=== PATIENT | female | born 1960 | race Caucasian/White ===

== ENCOUNTER 2020-01-26 10:43 | Outpatient (REF) | payer MEDICAID, SELFPAY | END 2020-01-26 10:44 | disposition home or self-care (01) | LOC: HO.LAB 10:43 | PROVIDERS: PCP Family Medicine; Visit Provider Internal Medicine | DX: Z20.828 Contact with and (suspected) exposure to other viral communicable diseases (principal) | CPT/HCPCS: C9803; U0003 ==

== ENCOUNTER 2020-02-28 10:41 | Outpatient (REF) | payer MEDICAID, SELFPAY | END 2020-02-28 10:42 | disposition home or self-care (01) | LOC: HO.LAB 10:41 | PROVIDERS: PCP Family Medicine; Visit Provider Internal Medicine | DX: Z20.822 Contact with and (suspected) exposure to COVID-19 (principal) | CPT/HCPCS: 36415; C9803; U0003 ==

== ENCOUNTER 2020-11-05 16:24 | Emergency (ER) | payer MEDICAID, SELFPAY ==
[2020-11-05 16:54] VITALS: BP 134/83; PULSE 93; RESP 20; TEMP 36.1; O2SAT 99; BMI 34.3
[2020-11-05 18:00] VITALS: BP 138/76; PULSE 87; RESP 18; TEMP 36.6; O2SAT 99
--- NOTE | 2020-11-05 18:06 | ED.URI ---
HPI - URI/Sore Throat General Chief Complaint: Upper Respiratory Symptoms Stated Complaint: covid test heachache cough Time Seen by Provider: 11/05/20 17:53 Source: patient Mode of arrival: ambulatory Limitations: language barrier (Lithuanian-speaking) History of Present Illness HPI Narrative: 60-year-old female with a past medical history of diabetes, thyroid disease, fibromyalgia, breast cancer, arthritis and asthma presenting to the ED with complaints of intermittent chills, body aches, fatigue, nasal congestion/rhinorrhea and a dry cough for the past 3 days worse today. Denies recent travel or sick contacts. Denies any measured fevers, dizziness, neck pain/stiffness, sore throat, ear pain, productive cough, chest pain, dyspnea on exertion, orthopnea, palpitations, nausea/vomiting/diarrhea, abdominal pain, constipation, black or bloody stools, weakness, rashes or any other symptoms complaints or concerns at this time. MD elicited complaint: cough, sore throat, rhinorrhea and nasal congestion Pertinent past history: asthma Onset (ago): day(s) (3 days worse today) Consistency: constant and progressively worsening Severity: mild Description of mucous: clear, watery and yellow Able to tolerate fluids by mouth: Yes Exacerbating factors: other (Coughing) Relieving factors: nothing Associated symptoms: chills, myalgias, rhinorrhea, nasal congestion and cough Treatments prior to arrival: none Related Data Previous Rx's Medication Instructions Recorded albuterol sulfate 0.63 mg/3 mL 0.63 mg INHALATION QID PRN #75 ml 11/05/20 solution for nebulization albuterol sulfate 90 mcg/actuation 1 inh INHALATION QID PRN #8.5 g 11/05/20 aerosol inhaler azithromycin 250 mg tablet See Rx Instructions .ROUTE 11/05/20 .COMPLEX #6 tab lorazepam 1 mg tablet (Ativan) 1 mg PO Q8H PRN #10 tab 11/05/20 nebulizers (AeroEclipse II #1 ea 11/05/20 Nebulizer) Allergies Allergy/AdvReac Type Severity Reaction Status Date / Time No Known Allergies Allergy Unverified 11/03/19 16:21 Review of Systems Review of Systems: Constitutional : Positive chills/fatigue/malaise, No Weight loss, No Fever, No Night Sweats ENT/Mouth : Positive nasal congestion/rhinorrhea, No Hearing loss, No Ear Pain, No Sinus Pain, No Hoarseness, No sore throat, No Swallowing Difficulty Eyes: No Eye Pain, No Swelling, No Redness, No Foreign Body, No Discharge, No Vision Changes Cardiovascular : No Chest Pain, No SOB, No Dyspnea on Exertion, No Orthopnea, No Edema, No Palpitations Respiratory : Positive Cough, No Sputum, No Wheezing, No Smoke Exposure, No Dyspnea Gastrointestinal : No Nausea, No Vomiting, No Diarrhea, No Constipation, No abdominal Pain, No Hematochezia, No Melena Genitourinary : no irregular bleeding, No Dysuria, No Urinary Frequency, No Hematuria, No Urinary Incontinence, No Urgency, No Flank Pain, No Urinary Flow Changes, No Hesitancy Musculoskeletal : Positive myalgias,No joint pain, No Joint Swelling Skin : No Skin Lesions, No rash Neuro : No Weakness, No Numbness, No Paresthesias, No Loss of Consciousness, No Dizziness, No Headache Psych : No Anxiety/Panic, No Depression, No SI/HI/AH/VH, No Social Issues, Heme/Lymph: No Bruising, No Bleeding,No Lymphadenopathy Endocrine : No Polyuria, No Polydipsia, No Temperature Intolerance Yes all other systems are reviewed and are negative [facility] Past Medical History Attestation statement: The following information was validated with the patient. Medical History Arthritis Asthma Breast CA Cholecystectomy planned Diabetes Fibromyalgia Thyroid disease Surgical History History of surgery on arm Social History Social History Advance Directives: No Advance Directives Information Provided: No Physical Exam Vital Signs: Vital Signs: Last Vital Signs Temp 97.8 F 11/05/20 18:00 Pulse 87 11/05/20 18:00 Resp 18 11/05/20 18:00 BP 138/76 11/05/20 18:00 Pulse Ox 99 11/05/20 18:00 Body Mass Index 34.3 vital signs have been reviewed as normal and appeared to be correct. Blood pressure normal. Heart rate normal. Respiration rate normal. Temperature normal. Oxygen saturation normal. Appearance: Alert. Oriented X3. No acute distress. Head: Normal external exam. Normocephalic. Atraumatic. No Olivarez signs noted. No raccoon eyes noted Eyes: PERRLA. EOMI. Conjunctiva and sclera normal. Eyelids normal. ENT: EAC normal. TM's Normal. Pharynx normal. Uvula midline. Moist mucous membranes. No trismus noted. No drooling noted. No muffled voice noted. Neck: Normal inspection. Neck supple. FROM. No adenopathy. Thyroid Normal. No meningeal signs. No neck mass noted. CVS: Normal heart rate and rhythm. Heart sound normal. Pulses normal throughout. No murmurs/rales/gallops. Respiratory: No respiratory distress. Painless inspiration. Breath sounds normal. No wheezes/rales/rhonchi noted. Chest nontender. No accessory muscle usage noted or decreased air movement noted. Abdomen: Soft and nontender. Bowel sounds normal in all 4 quadrants. No distention noted. No organomegaly noted. No visible injury noted. Back: No CVA tenderness. Full range of motion noted. No rashes/lesion/induration/fluctuance or signs of infection noted. Skin: Skin warm and dry. Normal skin color. Normal skin turgor. No rashes/lesions/lacerations noted. Extremities: No lower extremity edema. Extremities exhibit normal range of motion. Extremities nontender. Neuro: Oriented X 3. No motor deficit. No sensory deficit. Reflexes normal. Normal steady gait. No focal neuro deficits noted. Vascular: + radial pulses/+ 2 distal pedal pulses/+2 dorsalis pedis b/l. Normal cap refill. No cyanosis noted to upper extremity nails and lower extremity toes nails. Course Course Course Narrative: 60-year-old female with a past medical history of diabetes, thyroid disease, fibromyalgia, breast cancer, arthritis and asthma presenting to the ED with complaints of intermittent chills, body aches, fatigue, nasal congestion/rhinorrhea and a dry cough for the past 3 days worse today. Patient also reported anxiety due to she is currently at a homeless [facility] and she has having trouble sleeping due to anxiety. Denies any SI/HI/auditory visual cine duong thoughts of self-injury. On exam patient is alert and oriented x3. Not in any acute distress. Vital signs are stable within normal limits. Lungs clear to auscultation. CV RRR. Abdomen is soft and nontender. COVID/RSV/flu still pending at this time. I explained to the patient that I will call her either today or tomorrow if she has positive results. Otherwise will DC home with antibiotics and symptomatic treatment along with instructions to return if any new or worsening symptoms. Patient understands and agrees with this plan. MDM - URI/Sore Throat Medical Records Attestation: I reviewed the patient's medical records. Lab Data Attestation: I reviewed the patient's lab results. Discharge Plan Discharge Clinical Impression: Asthma, Upper respiratory infection, Bronchitis Patient Disposition: Home, Self-Care Instructions: Asthma (ED), Acute Bronchitis (ED) Additional Instructions: Based on your symptoms and history we have sent a COVID-19. Although your RESULT IS PENDING at this time. RESULTS should return within 24-48 hours. At this time you will be contacted with either NEGATIVE OR POSITIVE results. -Please wait until we contact you for your results. At this time you will be okay for discharge. Please plan for self quarantine for up to 14 days. Do not expose yourself to others. You may not go to work. If testing does come back negative you may return to activities as long as you are no longer having any symptoms for at least 3 days. Please continue to follow cold instructions and wash your hands frequently. You may take Tylenol as directed on the bottle for pain or fever. Patient seen in the emergency department on 11/05/20 and should be excused from work until negative test results AND until 72 hours without any symptoms AND at least 10 days have passed since symptoms first appeared or since last exposure to COVID-19 positive patient CDC Guidelines for home isolation: - Stay away from others - WEAR A MASK if you are sick AND STAY HOME - Cover your mouth and nose with a tissue when you cough or sneeze. Dispose of tissues in a lined trash can and wash your hands immediately with soap and water for at least 20 seconds. If soap and water are not available, clean hands with alcohol-based hand junior sales representative that contains at least 60% alcohol. - Clean your hands often with soap and water for at least 20 seconds - Avoid touching your eyes, nose and mouth with unwashed hands - Do not share dishes, drinking glasses, cups, eating utensils, towels, or bedding with other people in your home. After using these items, wash them thoroughly with soap and water or put in the property clerk. - Clean high-touch surfaces in your isolation area ( sick room and bathroom) every day; let a caregiver clean and disinfect high-touch surfaces in other areas of the home. Clean the area or item with soap and water or another detergent if it is dirty. Then, use a household disinfectant. - Limit contact with pets and animals: If you must care for a pet, wash your hands before and after interacting with them). Prescriptions: New albuterol sulfate 0.63 mg/3 mL solution for nebulization 0.63 mg inhalation QID PRN (Reason: shortness of breath or wheezing) Qty: 75 RF: 0 azithromycin 250 mg tablet See Rx Instructions .ROUTE .COMPLEX Qty: 6 RF: 0 (DME) AeroEclipse II Nebulizer Misc See Rx Instructions .ROUTE .MEDSUPPLY Qty: 1 RF: 0 albuterol sulfate 90 mcg/actuation HFA aerosol inhaler 1 inh inhalation QID PRN (Reason: shortness of breath or wheezing) Qty: 8.5 RF: 0 lorazepam [Ativan] 1 mg tablet 1 mg PO Q8H PRN (Reason: anxiety) Qty: 10 RF: 0 Referrals: Physician,Unknown [Primary Care Provider] - 2 days (your pcp) Print Language: Amharic
[2020-11-05 18:40] LABS: Influenza A PCR NEGATIVE (Negative); Influenza B PCR NEGATIVE (Negative); Resp Syncy Virus RNA Qual PCR NEGATIVE (Negative); SARS COV2 PCR INHOUSE NEGATIVE (Negative)
== END 2020-11-05 18:49 | disposition home or self-care (01) ==
PROVIDERS: Emergency Provider Emergency Medicine Emergency Medical Services
DX: J06.9 Acute upper respiratory infection, unspecified (principal); J40 Bronchitis, not specified as acute or chronic; Z79.899 Other long term (current) drug therapy; Z20.822 Contact with and (suspected) exposure to COVID-19
CPT/HCPCS: 0241U; 36415; 99283; 99284

== ENCOUNTER 2022-06-03 10:18 | Inpatient (IN) | payer OTHER, SELFPAY ==
[2022-06-03] VITALS (12 sets, daily range): BP systolic 108–142; BP diastolic 60–79; PULSE 84–119; RESP 15–26; TEMP 36.7–40.4; O2SAT 91–94; BMI 22.3
--- NOTE | ~2022-06-03 | XR_ITS ---
EXAMINATION: XR CHEST CLINICAL INFORMATION: Cough. COMPARISON: CTA chest 05/03/[address] chest 04/27/2019.. TECHNIQUE: Frontal view of the chest was obtained. FINDINGS: The lungs are hypoexpanded but clear. The heart size and pulmonary vascularity is normal. No gross bony abnormality seen. XR/XR chest 1V IMPRESSION: No acute process seen.
--- NOTE | ~2022-06-03 | CT_ITS ---
EXAMINATION: CT CHEST WITHOUT CONTRAST CLINICAL INFORMATION: Cough fevers rhonchi bilateral COMPARISON: CTA chest from 05/03/2019 TECHNIQUE: Multidetector volumetric CT imaging of the chest was done. Axial MIP volume rendering provided. Sagittal and coronal reformatted images were obtained. This CT examination was performed using dose optimization techniques as appropriate, variously including the following: *Automated exposure control *Adjustment of mA and/or kV according to patient size (this includes techniques or standardized protocols for targeted exams where dose is matched to indication/reason for exam; i.e. extremities or head) *Use of iterative reconstruction technique DLP: 343.87 mGy-cm FINDINGS: LUNGS/PLEURA: Respiratory motion artifact limits evaluation. Biapical pleural parenchymal scarring. Emphysematous changes. Consolidative focus with air bronchograms in the right middle lobe. Evaluation for pulmonary nodules is limited secondary to respiratory motion artifact. Central airways are patent. No pneumothorax. No large pleural effusion. MEDIASTINUM: Heart is mildly enlarged. Coronary artery calcifications are noted. Aorta is nonaneurysmal and demonstrates atherosclerotic calcifications. Main pulmonary artery is borderline enlarged suggesting an element of pulmonary arterial hypertension. No enlarged lymph nodes per size criteria. AXILLA: No lymphadenopathy. Radiopaque clips in the left axilla. UPPER ABDOMEN: Portions of the anterior abdomen are not included in the [id number]. Status post cholecystectomy. Small hiatal hernia. OSSEOUS STRUCTURES: Multilevel degenerative changes of the thoracolumbar spine. CT/CT chest wo IV con IMPRESSION: 1. Respiratory motion artifact limits evaluation. 2. Consolidative focus with air bronchograms in the right middle lobe suggesting pneumonia. 3. Main pulmonary artery is borderline enlarged suggesting an element of pulmonary arterial hypertension. 4. Status post cholecystectomy. 5. Small hiatal hernia.
--- NOTE | ~2022-06-03 | US_ITS ---
EXAMINATION: US ABDOMEN LIMITED CLINICAL INFORMATION: Right upper quadrant pain and fever. COMPARISON: None available. TECHNIQUE: Real-time imaging of the right upper quadrant abdominal viscera. FINDINGS: PANCREAS: Normal. LIVER: The liver is enlarged in size measuring 20.2 cm. The liver contour is normal. Parenchymal echogenicity is increased. No focal hepatic lesion. There is no intrahepatic biliary duct dilatation seen. GALLBLADDER: The gallbladder has been surgically removed.. COMMON BILE DUCT: Normal in caliber measuring 0.6 cm in diameter. RIGHT KIDNEY: Normal. No hydronephrosis. No renal calculi or focal parenchymal lesions. The kidney measures 12.8 cm in maximum dimension. FREE FLUID: None. US/US abdomen limited IMPRESSION: 1. Mild hepatomegaly with increased hepatic echogenicity. No focal lesion seen. 2. The gallbladder has been surgically removed. 3. Visualized pancreas, CBD and right kidney is unremarkable.
--- NOTE | ~2022-06-03 | CT_ITS ---
EXAMINATION: CT ABDOMEN AND PELVIS WITHOUT CONTRAST CLINICAL INFORMATION: Fever. Right upper quadrant pain. COMPARISON: Ultrasound 06/03/2022 TECHNIQUE: Multidetector volumetric imaging was performed from the superior aspect of the liver through the pubic symphysis. Sagittal and coronal reformatted images were obtained on the technologist's workstation. This CT examination was performed using dose optimization techniques as appropriate, variously including the following: *Automated exposure control *Adjustment of mA and/or kV according to patient size (this includes techniques or standardized protocols for targeted exams where dose is matched to indication/reason for exam; i.e. extremities or head) *Use of iterative reconstruction technique DLP: 760 mGy-cm FINDINGS: LUNG BASES: There is a right lower lobe masslike consolidation measuring 3.8 cm with air bronchograms. Prominent heart with coronary artery calcification. LIVER, GALLBLADDER, AND BILIARY TREE: The liver is normal in size, shape, and attenuation. No focal hepatic lesion or biliary ductal dilatation is present. Cholecystectomy. PANCREAS: Unremarkable. SPLEEN: Unremarkable. ADRENAL GLANDS: Unremarkable. KIDNEYS AND URETERS: The kidneys are normal in size, shape, and attenuation. No hydronephrosis, hydroureter, or calculi seen. No perinephric stranding. BLADDER: Unremarkable. GASTROINTESTINAL TRACT: The stomach is decompressed. Normal caliber small bowel. No obstruction. No colonic wall thickening or acute inflammation. Normal appendix. There is diffuse colonic diverticulosis which is greatest at the sigmoid colon. No diverticulitis. No free air or free fluid. ABDOMINAL WALL: No significant hernia is appreciated. LYMPH NODES: Normal. VASCULAR: Normal caliber aorta with mild atherosclerotic calcification. PELVIC VISCERA: The uterus and adnexa are unremarkable. OSSEOUS STRUCTURES: No acute or suspicious osseous abnormality. Mild degenerative changes throughout the spine and of both hips. CT/CT abdomen pelvis wo IV con IMPRESSION: 1. Masslike consolidation of the right lower lobe with air bronchograms. This could represent pneumonia. This correlates with the appearance on recent chest CT. Follow-up to resolution is recommended. 2. No acute finding in the abdomen or pelvis. Colonic diverticulosis without diverticulitis. Fleischner guidelines were followed.
--- OUTSIDE RECORDS SUMMARY | 2022-06-03 10:48 | XMS_ITS | Continuity of Care Document ---
Author Name Unknown Organization [facility] Address [address] [place] [address]- Care Team Providers Care Dye Blender Name Role Phone Fernando CARTY, Ernesto Zapata Primary Care Physician Encounter [facility] Date(s): 10/29/20 - 11/28/20 [facility] [address], [place] [address] Allergies, Adverse Reactions, Alerts Substance Reaction Severity Status NKA Active Immunizations Given and Recorded Vaccine Date Status Refusal Reason SARS-CoV-2 (COVID-19) mRNA-1273 vaccine 07/11/20 R ecorded SARS-CoV-2 (COVID-19) mRNA-1273 vaccine 06/06/20 R ecorded influenza virus vaccine, inactivated 1 11/25/19 Gi blossom influenza virus vaccine, inactivated 11/04/18 Give n influenza virus vaccine, inactivated 2 11/30/17 Gi blossom influenza virus vaccine, inactivated 3 12/31/16 Gi blossom influenza virus vaccine, inactivated 11/30/15 Give n influenza virus vaccine, inactivated 11/11/13 Give n influenza virus vaccine, inactivated 4 11/01/12 Gi blossom influenza virus vaccine, inactivated 5 12/30/11 Gi blossom pneumococcal 23-valent vaccine 6 12/31/16 Given tetanus/diphtheria/pertussis, acel(Tdap) 01/30/16 Given 1Result Comment: [facility] [id number] 2Result Comment: [11/30/2017] [facility] [id number] 3Result Comment: [12/31/2016] [facility] [id number] 4Admin Note: vis given 09/10/12 5Admin Note: VIS given 08/18/2011 6Result Comment: [12/31/2016] [facility] [id number] Medications albuterol 90 mcg/inh inhalation powder 2 puffs, Inhalation, Every 6 hours, PRN Wheezing/Shortness of Breath, # 1 each, 3 Refills, Maintenance, 02/29/20 14:08:00 EST, Powder, [facility] #[id number], dispense pro-air, 2 puffs Inhalation Every 6 hours,PRN:Wheezing/Shortness of Breath, 16... Start Date: 02/29/20 Status: Ordered albuterol-ipratropium 3 mg-0.5 mg/3 ml inhalation solution 3 mL, Neb, 4 times a day, J45.40, # 180 mL, 3 Refills, Maintenance, 07/02/20 14:11:00 EDT, Solution, [facility]/pharmacy #[id number], 3 mL Neb 4 times a day,Instr:J45.40, 163, cm, 06/18/20 13:31:00 EDT, Height, 98.9, kg, 08/25/19 12:42:00 EDT, Dry Weight Start Date: 07/02/20 Status: Ordered celecoxib 100 mg oral capsule 1 capsule, By Mouth, 2 times a day with meals, # 60 capsule, 1 Refills, Maintenance, 08/14/20 12:53:00 EDT, [id number], 163, cm, 07/31/20 9:10:00 EDT, Height, 98.9, kg, 08/25/19 12:42:00 EDT, Dry Weight Start Date: 08/14/20 Status: Ordered change as needed change as needed, See Instructions, # 120 each, Refills 6, Tot. Refills 6, Maintenance, Adult pull ups change as needed for urinary incontinence., 10/04/20 15:52:00 EDT, please send same size as usual., Supply Start Date: 10/04/20 Status: Ordered Flovent HFA 220 mcg/inh inhalation aerosol 2 puffs, Inhalation, 2 times a day, rinse mouth and throat after use, # 1 each, 3 Refills, Maintenance, 02/29/20 14:04:00 EST, Aerosol, [facility] #[id number], 163, cm, 02/29/20 13:19:00 EST, Height, 98.9, kg, 08/25/19 12:42:00 EDT, Dry Weight Start Date: 02/29/20 Status: Ordered Freestyle Lite Lancets See Instructions, # 100 each, Refills 5, Tot. Refills 5, Maintenance, E11.9 Test blood glucose twice a day, 05/23/20 9:52:00 EDT, Supply, 163, cm, 04/06/20 13:19:00 EST, Height, 98.9, kg, 08/25/19 12:42:00 EDT, Dry Weight Start Date: 05/23/20 Status: Ordered Freestyle Lite Monitor See Instructions, # 1 each, Refills 0, Tot. Refills 0, Maintenance, E11.9 Test blood glucose twice a day, 05/23/20 9:47:00 EDT, Supply, 163, cm, 04/06/20 13:19:00 EST, Height, 98.9, kg, 08/25/19 12:42:00 EDT, Dry Weight Start Date: 05/23/20 Status: Ordered Freestyle Lite Test Strips See Instructions, # 100 each, Refills 5, Tot. Refills 5, Maintenance, E11.9 Test blood glucose twice a day, 05/23/20 9:51:00 EDT, Supply, 163, cm, 04/06/20 13:19:00 EST, Height, 98.9, kg, 08/25/19 12:42:00 EDT, Dry Weight Start Date: 05/23/20 Status: Ordered gabapentin 300 mg oral capsule 2, capsule, By Mouth, 3 times a day, # 180 capsule, Refills 1, Route to Pharmacy Electronically, [id number], 163, cm, 11/06/20 11:15:00 EDT, Height, 98.9, kg, 08/25/19 12:42:00 EDT, Dry Weight Start Date: 11/15/20 Status: Ordered levothyroxine 150 mcg (0.15 mg) oral tablet 1 tablet, By Mouth, Daily, # 30 tablet, 2 Refills, Maintenance, 11/15/20 13:54:00 EDT, [facility]/pharmacy#[id number], 163, cm, 11/15/20 13:38:00 EDT, Height, 98.9, kg, 08/25/19 12:42:00 EDT, Dry Weight Start Date: 11/15/20 Status: Ordered loratadine 10 mg oral tablet 10 mg, 1, tablet, By Mouth, Daily, # 30 tablet, Refills 6, Tot. Refills 6, Maintenance, 11/28/19 8:53:00 EDT, Route to Pharmacy Electronically, [facility]/pharmacy #[id number], 163, cm, 11/25/19 14:43:00 EDT, Height, 98.9, kg, 08/25/19 12:42:00 EDT, Dry Weight Start Date: 11/28/19 Status: Ordered metFORMIN 500 mg oral tablet See Instructions, TAKE 1 TABLET BY MOUTH TWICE A DAY START WITH ONCE A DAY AT NIGHT, # 60 tablet, 5Refills, [id number], 163, cm, 11/06/20 11:15:00 EDT, Height, 98.9, kg, 08/25/19 12:42:00 EDT, Dry Weight Start Date: 11/07/20 Status: Ordered metFORMIN 500 mg oral tablet 1 tablet = 500 mg, By Mouth, 2 times a day, start with once a day at night, # 60 tablet, 5 Refills,Maintenance, 05/15/20 14:09:00 EDT, [facility]/pharmacy #[id number], 163, cm, 04/06/20 13:19:00 EST, Height, 98.9, kg, 08/25/19 12:42:00 EDT, Dry Weight Start Date: 05/15/20 Status: Ordered MiraLax oral powder for reconstitution = 17 Gm, By Mouth, Daily, mix with liquid, # 527 Gm, 0 Refills, Maintenance, 17 Gm By Mouth Daily,Instr:mix with liquid Start Date: 02/14/13 Status: Ordered Nasacort Allergy 24HR 55 mcg/inh nasal spray 2 sprays, Nares, Both, Daily, # 1 each, 1 Refills, Maintenance, 08/25/19 15:03:00 EDT, [facility]/pharmacy#[id number], 2 sprays Nares, Both Daily, 163, cm, 08/25/19 12:40:00 EDT, Height, 98.9, kg, 08/25/19 12:42:00 EDT, Dry Weight Start Date: 08/25/19 Status: Ordered Nasonex 50 mcg/inh nasal spray 2 sprays, Nares, Both, 2 times a day, # 17 Gm, 0 Refills, Maintenance, 08/25/19 13:03:00 EDT, [place], [facility]/pharmacy #[id number], 2 sprays Nares, Both 2 times a day, 163, cm, 08/25/19 12:40:00 EDT, Height, 98.9, kg, 08/25/19 12:42:00 EDT, Dry Weight Start Date: 08/25/19 Status: Ordered Nebulizer/Compressor See Instructions, PRN, # 1 each, Refills 0, Tot. Refills 0, Maintenance, Wheezing/Shortness of Breath, mini nebulizer with tubing dx J45.40 pt needs a travel nebulizer, 11/15/20 13:45:00 EDT, Compound, 163, cm, 11/15/20 13:38:00 EDT, Height, 98.9, kg... Start Date: 11/15/20 Status: Ordered nortriptyline 50 mg oral capsule 50 mg, 1, capsule, By Mouth, 3 times a day, # 90 capsule, Refills 1, Tot. Refills 1, Maintenance, 07/31/20 9:07:00 EDT, Route to Pharmacy Electronically, [facility] #[id number], Partial fill upon patient request if the prescription is for a sched... Start Date: 07/31/20 Status: Ordered PriLOSEC OTC 20 mg oral delayed release tablet 1 tablet = 20 mg, By Mouth, Daily, # 30 tablet, 2 Refills, Maintenance, 03/13/20 11:45:00 EST, [facility]/pharmacy #[id number], 163, cm, 03/08/20 11:24:00 EST, Height, 98.9, kg, 08/25/19 12:42:00 EDT, Dry Weight Start Date: 03/13/20 Status: Ordered semaglutide 0.25 mg/0.5 mL (0.25 mg dose) subcutaneous solution = 0.25 mg, Subcutaneous Injection, Every 72 hours, # 3 each, 0 Refills, Maintenance, 10/04/20 16:20:00 EDT, [facility] #[id number], Partial fill upon patient request if the prescription is for aschedule II opioid drug., 163, cm, 10/04/20 16:08:0... Start Date: 10/04/20 Status: Ordered Systane Complete Optimal Dry Eye Relief ophthalmic solution 2 drops, Eyes, Both, 3 times a day, # 30 mL, 3 Refills, Maintenance, 11/28/19 8:55:00 EDT, [id number], 2 drops Eyes, Both 3 times a day, 163, cm, 11/25/19 14:43:00 EDT, Height, 98.9, kg, 08/25/19 12:42:00 EDT, Dry Weight Start Date: 11/28/19 Status: Ordered tiZANidine 4 mg oral tablet See Instructions, TAKE 1/2 TO 1 TABLET BY MOUTH EVERY 8 HOURS NEEDED FOR MILD AND MUSCLE SPASM, # 45 tablet, Refills 2, Tot. Refills 2, Maintenance, 07/27/20 14:23:00 EDT, Instructions Replace Required Details, [facility] Start Date: 07/27/20 Status: Ordered tiZANidine 4 mg oral tablet See Instructions, TAKE 1/2 TO 1 TABLET BY MOUTH EVERY 8 HOURS NEEDED FOR MILD AND MUSCLE SPASM, # 45 tablet, Refills 2, Maintenance, Instructions Replace Required Details, Route to Pharmacy Electronically, [id number], 163, cm, 07/27/20 13:59:0... Start Date: 07/27/20 Status: Ordered traMADol 50 mg oral tablet 1 tablet = 50 mg, By Mouth, Every 6 hours, PRN for pain, TAKE ONLY NEEDED Dx: M79.7, S92.91 Masspat checked, # 112 tablet, 0 Refills, Maintenance, 11/07/20 13:21:00 EDT, Tablet, [id number], Please reinforce instructions with patient, she... Start Date: 11/07/20 Stop Date: 12/05/20 Status: Ordered Problem List Condition Effective Dates Status Health Status Inform ant BMI 38.0-38.9,adult(Confirmed) Active Chronic pain syndrome(Confirmed) Active Diabetes mellitus with hyperglycemia(Confirmed) Active Diabetes mellitus with microalbuminuria(Confirmed) Active Diabetic neuropathy(Confirmed) Active Substance abuse in remission(Confirmed) Active Fibromyalgia(Confirmed) Active Limitation due to disability(Confirmed) 1 Active Hypercholesterolemia(Confirmed) Active Hypothyroidism(Confirmed) Active Low back pain(Confirmed) Active Malignant Neoplasm of Breast (Female), pT1c, pN0 stage I left breast cancer, ER/AZ negative, HER-2/marylin 3+, 2010(Confirmed) 06/25/11 Active Mixed anxiety and depressive disorder(Confirmed) Active Asthma, moderate persistent(Confirmed) Active Morbid obesity(Confirmed) Active 1initial Oswestry Disability Index: 70% ( crippled ) on 01/13/17; initial [place] Back Pain Scale:88 on 01/13/17; initial [place]: 7 on 01/13/17 Social History Social History Type Response Smoking Status Former smoker, quit more than 30 days ago entered on: 04/06/20 Sex
--- OUTSIDE RECORDS SUMMARY | 2022-06-03 10:48 | XMS_ITS | Continuity of Care Document ---
Author Name Unknown Organization [facility] Address [address] [place] [address]- Care Team Providers Care Ripening Room Hand Name Role Phone Ernesto King MD Primary Care Physician Encounter 04/01/22 - 05/21/22 [facility] [address], [address] [place] [address]- Attending Physician: Ernesto King MD Admitting Physician: Ernesto King MD Referring Physician: Ernesto King MD Allergies, Adverse Reactions, Alerts No Known Allergies Immunizations Given and Recorded Vaccine Date Status Refusal Reason influenza virus vaccine, inactivated 11/22/21 Give n influenza virus vaccine, inactivated 1 12/14/20 Gi blossom influenza virus vaccine, inactivated 2 11/25/19 Gi blossom influenza virus vaccine, inactivated 11/04/18 Give n influenza virus vaccine, inactivated 3 11/30/17 Gi blossom influenza virus vaccine, inactivated 4 12/31/16 Gi blossom influenza virus vaccine, inactivated 11/30/15 Give n influenza virus vaccine, inactivated 11/11/13 Give n influenza virus vaccine, inactivated 5 11/01/12 Gi blossom influenza virus vaccine, inactivated 6 12/30/11 Gi blossom SARS-CoV-2 (COVID-19) mRNA-1273 vaccine 03/27/21 R ecorded SARS-CoV-2 (COVID-19) mRNA-1273 vaccine 07/11/20 R ecorded SARS-CoV-2 (COVID-19) mRNA-1273 vaccine 06/06/20 R ecorded pneumococcal 23-valent vaccine 7 12/31/16 Given tetanus/diphtheria/pertussis, acel(Tdap) 01/30/16 Given 1Result Comment: [facility]:[id number] 2Result Comment: [facility] [id number] 3Result Comment: [11/30/2017] [facility] [id number] 4Result Comment: [12/31/2016] [facility] [id number] 5Admin Note: vis given 09/10/12 6Admin Note: VIS given 08/18/2011 7Result Comment: [12/31/2016] [facility] [id number] Medications albuterol 90 mcg/inh inhalation powder 2 puffs, Inhalation, Every 6 hours, PRN Wheezing/Shortness of Breath, # 1 each, 3 Refills, Maintenance, 11/22/21 17:17:00 EDT, Powder, [facility]/pharmacy #[id number], dispense pro-air, 2 puffs Inhalation Every 6hours,PRN:Wheezing/Shortness of Breath, 163, cm, 10... Start Date: 11/22/21 Status: Ordered albuterol-ipratropium 3 mg-0.5 mg/3 ml inhalation solution 3 mL, Neb, 4 times a day, J45.40, # 180 mL, 3 Refills, Maintenance, 11/22/21 17:17:00 EDT, Solution, [id number], 3 mL Neb 4 times a day,Instr:J45.40, 163, cm, 11/22/21 15:30:00 EDT, Height Start Date: 11/22/21 Status: Ordered celecoxib 100 mg oral capsule 1 capsule, By Mouth, 2 times a day with meals, # 60 capsule, 1 Refills, Maintenance, 08/14/20 12:53:00 EDT, [id number], 163, cm, 07/31/20 9:10:00 EDT, Height, 98.9, [...] 3 Refills, Maintenance, 02/29/20 14:04:00 EST, Aerosol, [facility] #[id number], 163, cm, 02/29/20 13:19:00 EST, Height, 98.9, [...] each, Refills 5, Tot. Refills 5, Maintenance, ICD10: E11.9 Test blood glucose 2 times a day, 06/21/21 15:40:00 EDT, Supply, 163, cm, 06/21/21 15:02:00 EDT, Height, 98.9, kg, 08/25/19 12:42:00 EDT, Dry Weight Start Date: 06/21/21 Status: Ordered gabapentin 300 mg oral capsule 2, capsule, By Mouth, 3 times a day, # 180 capsule, Refills 1, Tot. Refills 1, Maintenance, 11/22/21 17:17:00 EDT, Route to Pharmacy Electronically, [facility]/pharmacy #[id number], 163, cm, 11/22/21 15:30:00 EDT, Height Start Date: 11/22/21 Stop Date: 01/21/22 Status: Ordered levothyroxine 175 mcg (0.175 mg) oral tablet 1 tablet = 175 mcg, By Mouth, Daily, # 90 tablet, 0 Refills, Maintenance, 03/31/22 12:00:00 EST, Tablet, [facility]/pharmacy #[id number], Partial fill upon patient request if the prescription is for a schedule IIopioid drug., 163, cm, 03/31/22 11:41:00 EST, Height Start Date: 03/31/22 Status: Ordered loratadine 10 mg oral tablet 10 mg, 1, tablet, By Mouth, Daily, # 30 tablet, Refills 6, Tot. Refills 6, Maintenance, 11/28/19 8:53:00 EDT, Route to Pharmacy Electronically, [facility]/pharmacy #[id number], 163, cm, 11/25/19 14:43:00 EDT, Height, 98.9, kg, 08/25/19 12:42:00 EDT, Dry Weight Start Date: 11/28/19 Status: Ordered metFORMIN 500 mg oral tablet 1 tablet = 500 mg, By Mouth, 2 times a day, # 60 tablet, 5 Refills, Maintenance, 02/19/21 8:58:00 EST, [facility]/pharmacy #[id number], 163, cm, 02/18/21 14:32:00 EST, Height, 98.9, kg, 08/25/19 12:42:00 EDT, DryWeight Start Date: 02/19/21 Stop Date: 08/18/21 Status: Ordered MiraLax oral powder for reconstitution = 17 Gm, By Mouth, Daily, mix with liquid, # 527 Gm, 0 Refills, Maintenance, 17 Gm By Mouth Daily,Instr:mix with liquid Start Date: 02/14/13 Status: Ordered Nasacort Allergy 24HR 55 mcg/inh nasal spray 2 sprays, Nares, Both, Daily, # 1 each, 1 Refills, Maintenance, 08/25/19 15:03:00 EDT, [facility]/pharmacy#[id number], 2 sprays Nares, Both Daily, 163, cm, 08/25/19 12:40:00 EDT, Height, 98.9, kg, 08/25/19 12:42:00 EDT, Dry Weight Start Date: 08/25/19 Status: Ordered Nasonex 50 mcg/inh nasal spray 2 sprays, Nares, Both, 2 times a day, # 17 Gm, 0 Refills, Maintenance, 12/04/21 11:58:00 EDT, [place], [facility]/pharmacy #[id number], 2 sprays Nares, Both 2 times a day, 163, cm, 12/04/21 11:37:00 EDT, Height Start Date: 12/04/21 Status: Ordered Nebulizer tubing and Adult mask Nebulizer tubing and Adult mask, See Instructions, PRN Wheezing/Shortness of Breath, # 1 each, Refills 0, Tot. Refills 0, Maintenance, For use with Nebulizer, Use daily inhalation as needed, Dx: J45.40 Size to fit -Adult, 04/12/21 12:17:00 EST, Suppl... Start Date: 04/12/21 Status: Ordered Nebulizer/Compressor See Instructions, PRN, # 1 each, Refills 0, Tot. Refills 0, Maintenance, Wheezing/Shortness of Breath, mini nebulizer, Use: Daily inhalation,, as needed, Dx: J45.40 For use as a travel nebulizer, 04/12/21 12:17:00 EST, Travel size preferred, Compound... Start Date: 04/12/21 Status: Ordered nortriptyline 50 mg oral capsule 50 mg, 1, capsule, By Mouth, 3 times a day, # 90 capsule, Refills 1, Tot. Refills 1, Maintenance, 07/31/20 9:07:00 EDT, Route to Pharmacy Electronically, [facility] #[id number], Partial fill upon patient request if the prescription is for a sched... Start Date: 07/31/20 Status: Ordered PriLOSEC OTC 20 mg oral delayed release tablet 1 tablet = 20 mg, By Mouth, Daily, # 30 tablet, 2 Refills, Maintenance, 12/04/21 11:57:00 EDT, [facility]/pharmacy #[id number], 163, cm, 12/04/21 11:37:00 EDT, Height Start Date: 12/04/21 Status: Ordered semaglutide 0.25 mg/0.5 mL (0.25 mg dose) subcutaneous solution = 0.25 mg, Subcutaneous Injection, Every week, # 3 each, 1 Refills, Maintenance, 11/25/21 8:34:00 EDT, Partial fill upon patient request if the prescription is for a schedule II opioid drug., 163, cm, 11/22/21 15:30:00 EDT, Height Start Date: 11/25/21 Status: Ordered Systane Complete Optimal Dry Eye Relief ophthalmic solution 2 drops, Eyes, Both, 3 times a day, # 30 mL, 3 Refills, Maintenance, 12/04/21 11:56:00 EDT, [facility]/pharmacy #[id number], 2 drops Eyes, Both 3 times a day, 163, cm, 12/04/21 11:37:00 EDT, Height Start Date: 12/04/21 Status: Ordered tiZANidine 4 mg oral tablet 0.5-1 tablet, By Mouth, Every 8 hours, PRN, TAKE ONLY NEEDED FOR MUSCLE SPASM, # 45 tablet, Refills 2, Tot. Refills 2, Maintenance, Spasm, 04/12/21 12:13:00 EST, Route to Pharmacy Electronically, [facility]/pharmacy #[id number], 163, cm, 03/07/21 11:34:00 EST,... Start Date: 04/12/21 Status: Ordered tiZANidine 4 mg oral tablet See Instructions, TAKE 1/2 TO 1 TABLET BY MOUTH EVERY 8 HOURS NEEDED FOR MILD AND MUSCLE SPASM, # 45 tablet, Refills 2, Maintenance, Instructions Replace Required Details, Route to Pharmacy Electronically, [id number], 163, cm, 07/27/20 13:59:0... Start Date: 07/27/20 Status: Ordered traMADol 50 mg oral tablet 1 tablet = 50 mg, By Mouth, Every 6 hours, PRN for pain, TAKE ONLY NEEDED Dx: M79.7, S92.91 Masspat checked, # 112 tablet, 0 Refills, Maintenance, 04/01/22 15:55:00 EST, Tablet, [facility]/pharmacy #[id number], Please reinforce instructions with patient, she... Start Date: 04/01/22 Stop Date: 04/29/22 Status: Ordered Victoza 18 mg/3 mL subcutaneous solution = 0.6 mg, Subcutaneous Injection, Daily, # 6 mL, 3 Refills, Maintenance, 10/16/21 15:56:00 EDT, Injection, [facility]/pharmacy #[id number], dispense as pen, 163, cm, 10/16/21 14:49:00 EDT, Height Start Date: 10/16/21 Status: Ordered Vitamin D3 50,000 intl units oral capsule 1 capsule, By Mouth, Every week, # 12 capsule, 0 Refills, [id number], 163, cm, 09/13/21 9:15:00 EDT, Height Start Date: 09/18/21 Status: Ordered Voltaren 1% topical gel 1 application, Topically, 4 times a day, PRN for pain, # 100 Gm, 0 Refills, Maintenance, 05/27/21 18:00:00 EDT, Gel, [facility]/pharmacy #[id number], Partial fill upon patient request if the prescription is for aschedule II opioid drug., 1 application Topically 4... Start Date: 05/27/21 Status: Ordered Problem List Condition Confirmation Course Effective Dates Status Health Status Informant BMI 37.0-37.9, adult Confirmed Active Chronic pain syndrome Confirmed Active Diabetes mellitus with hyperglycemia Confirmed Active Diabetes mellitus with microalbuminuria Confirmed Active Diabetic neuropathy Confirmed Active Substance abuse in remission Confirmed Active Fibromyalgia Confirmed Active Limitation due to disability 1 Confirmed Active Hypercholesterolemia Confirmed Active Hypothyroidism Confirmed Active Low back pain Confirmed Active Mixed anxiety and depressive disorder Confirmed Active Asthma, moderate persistent Confirmed Active Morbid obesity Confirmed Active Severe obesity (BMI 35.0-39.9) with comorbidity Confirmed Active Hypovitaminosis D Confirmed Active 1initial Oswestry Disability Index: 70% ( crippled ) on 01/13/17; initial [place] Back Pain Scale:88 on 01/13/17; initial [place]: 7 on 01/13/17 Social History Social History Type Response Smoking Status Former smoker, quit more than 30 days ago entered on: 04/06/20 Sex Patient Care team information Care Team Personnel Name: Ernesto King MD Position: [facility] Primary Care Physician Member Role: PCP Address: Address: [address] [place] [id number]- Name: Kathrine Luna MD Position: [facility] ENVIRONMENTAL PROTECTION OFFICER MD Member Role: Lifetime ENVIRONMENTAL PROTECTION OFFICER Physician [facility]: [facility] [place] [address]- Name: Kathya Grullon RN Position: [facility] RN Member Role: Primary Care Nurse Care Team Related Persons Name: LYN LEIGH Address: [place] [address] Name: MADDIE LEIGH
--- OUTSIDE RECORDS SUMMARY | 2022-06-03 10:48 | XMS_ITS | Continuity of Care Document ---
Author Name Unknown Organization [facility] Address [address] [place] [address]- Care Team Providers Care Deputy Fire Marshal Name Role Phone Ernesto King MD Primary Care Physician Encounter [facility] Date(s): 02/25/21 - 03/27/21 [facility] [address] [place], [place] [address] Allergies, Adverse Reactions, Alerts No Known Allergies Immunizations Given and Recorded Vaccine Date Status Refusal Reason influenza virus vaccine, inactivated 1 12/14/20 Gi [...] 12/30/11 Gi blossom SARS-CoV-2 (COVID-19) mRNA-1273 vaccine 07/11/20 R ecorded SARS-CoV-2 (COVID-19) mRNA-1273 vaccine 06/06/20 R ecorded pneumococcal 23-valent vaccine 7 12/31/16 Given tetanus/diphtheria/pertussis, acel(Tdap) 01/30/16 Given 1Result Comment: [facility]:[id number] 2Result Comment: [facility] [id number] 3Result Comment: [11/30/2017] [facility] [id number] 4Result Comment: [12/31/2016] [facility] [id number] 5Admin Note: vis given 09/10/12 6Admin Note: VIS given 08/18/2011 7Result Comment: [12/31/2016] [facility] [id number] Medications albuterol 90 mcg/inh inhalation powder 2 puffs, Inhalation, Every 6 hours, PRN Wheezing/Shortness of Breath, # 1 each, 3 Refills, Maintenance, 02/27/21 16:30:00 EST, Powder, [facility]/pharmacy #[id number], dispense pro-air, 2 puffs Inhalation Every 6hours,PRN:Wheezing/Shortness of Breath, 163, cm, 01... Start Date: 02/27/21 Status: Ordered albuterol-ipratropium 3 mg-0.5 mg/3 ml inhalation solution 3 mL, Neb, 4 times a day, J45.40, # 180 mL, 3 Refills, Maintenance, 07/02/20 14:11:00 EDT, Solution, [facility]/pharmacy #[id number], 3 mL Neb 4 times a day,Instr:J45.40, 163, cm, 06/18/20 13:31:00 EDT, Height, 98.9, kg, 08/25/19 12:42:00 EDT, Dry Weight Start Date: 07/02/20 Status: Ordered celecoxib 100 mg oral capsule 1 capsule, By Mouth, 2 times a day with meals, # 60 capsule, 1 Refills, Maintenance, 08/14/20 12:53:00 EDT, [id number], 163, cm, 07/31/20 9:10:00 EDT, Height, 98.9, [...] 3 Refills, Maintenance, 02/29/20 14:04:00 EST, Aerosol, [facility] #[id number], 163, cm, 02/29/20 13:19:00 EST, Height, 98.9, [...] E11.9 Test blood glucose twice a day, 03/27/21 10:33:00 EST, Supply, 163, cm, 03/07/21 11:34:00 EST, Height, 98.9, kg, 08/25/19 12:42:00 EDT, Dry Weight Start Date: 03/27/21 Status: Ordered gabapentin 300 mg oral capsule 2, capsule, By Mouth, 3 times a day, # 180 capsule, Refills 1, Tot. Refills 1, Maintenance, 02/19/21 9:00:00 EST, Route to Pharmacy Electronically, [facility]/pharmacy #[id number], 163, cm, 02/18/21 14:32:00 EST,Height, 98.9, kg, 08/25/19 12:42:00 EDT, Dry Weight Start Date: 02/19/21 Status: Ordered levothyroxine 150 mcg (0.15 mg) oral tablet See Instructions, TAKE 1 TABLET BY MOUTH EVERY DAY, # 30 tablet, 2 Refills, [id number], 163, cm, 02/18/21 14:32:00 EST, Height, 98.9, kg, 08/25/19 12:42:00 EDT, Dry Weight Start Date: 02/19/21 Status: Ordered loratadine 10 mg oral tablet 10 mg, 1, tablet, By Mouth, Daily, # 30 tablet, Refills 6, Tot. Refills 6, Maintenance, 11/28/19 8:53:00 EDT, Route to Pharmacy Electronically, [facility]/pharmacy #[id number], 163, cm, 11/25/19 14:43:00 EDT, Height, 98.9, kg, 08/25/19 12:42:00 EDT, Dry Weight Start Date: 11/28/19 Status: Ordered metFORMIN 500 mg oral tablet 1 tablet = 500 mg, By Mouth, 2 times a day, # 60 tablet, 5 Refills, Maintenance, 02/19/21 8:58:00 EST, [facility]/pharmacy #[id number], 163, cm, 02/18/21 14:32:00 EST, Height, [...] each, 1 Refills, Maintenance, 08/25/19 15:03:00 EDT, [facility]/pharmacy#[id number], 2 sprays Nares, Both Daily, 163, cm, 08/25/19 12:40:00 EDT, Height, 98.9, kg, 08/25/19 12:42:00 EDT, Dry Weight Start Date: 08/25/19 Status: Ordered Nasonex 50 mcg/inh nasal spray 2 sprays, Nares, Both, 2 times a day, # 17 Gm, 0 Refills, Maintenance, 08/25/19 13:03:00 EDT, [place], [facility]/pharmacy #[id number], 2 sprays Nares, Both 2 times a day, 163, cm, 08/25/19 12:40:00 EDT, Height, 98.9, kg, 08/25/19 12:42:00 EDT, Dry Weight Start Date: 08/25/19 Status: Ordered Nebulizer tubing and Adult mask Nebulizer tubing and Adult mask, See Instructions, PRN Wheezing/Shortness of Breath, # 1 each, Refills 0, Tot. Refills 0, Maintenance, For use with Nebulizer, Use daily inhalation as needed, Dx: J45.40 Size to fit -Adult, 02/19/21 8:55:00 EST, Supply Start Date: 02/19/21 Status: Ordered Nebulizer/Compressor See Instructions, PRN, # 1 each, Refills 0, Tot. Refills 0, Maintenance, Wheezing/Shortness of Breath, mini nebulizer, Use: Daily inhalation,, as needed, Dx: J45.40 For use as a travel nebulizer, 02/19/21 8:50:00 EST, Compound Start Date: 02/19/21 Status: Ordered nortriptyline 50 mg oral capsule 50 mg, 1, capsule, By Mouth, 3 times a day, # 90 capsule, Refills 1, Tot. Refills 1, Maintenance, 07/31/20 9:07:00 EDT, Route to Pharmacy Electronically, [facility] #[id number], Partial fill upon patient request if the prescription is for a sched... Start Date: 07/31/20 Status: Ordered PriLOSEC OTC 20 mg oral delayed release tablet 1 tablet = 20 mg, By Mouth, Daily, # 30 tablet, 2 Refills, Maintenance, 03/13/20 11:45:00 EST, [facility]/pharmacy #[id number], 163, cm, 03/08/20 11:24:00 EST, Height, 98.9, kg, 08/25/19 12:42:00 EDT, Dry Weight Start Date: 03/13/20 Status: Ordered semaglutide 0.25 mg/0.5 mL (0.25 mg dose) subcutaneous solution = 0.25 mg, Subcutaneous Injection, Every 72 hours, # 3 each, 0 Refills, Maintenance, 10/04/20 16:20:00 EDT, [facility] #[id number], Partial fill upon patient request if the [...] Details, Route to Pharmacy Electronically, [id number], 163, cm, 07/27/20 13:59:0... Start Date: 07/27/20 Status: Ordered tiZANidine 4 mg oral tablet See Instructions, TAKE 1/2 TO 1 TABLET BY MOUTH EVERY 8 HOURS NEEDED FOR MILD AND MUSCLE SPASM, # 45 tablet, Refills 2, Tot. Refills 2, Maintenance, 02/27/21 16:29:00 EST, Instructions Replace Required Details, [facility] Start Date: 02/27/21 Status: Ordered traMADol 50 mg oral tablet 1 tablet = 50 mg, By Mouth, Every 6 hours, PRN for pain, TAKE ONLY NEEDED Dx: M79.7, S92.91 Masspat checked, # 112 tablet, 0 Refills, Maintenance, 02/19/21 9:06:00 EST, [facility]t, [id number],Please reinforce instructions with patient, she h... Start Date: 02/19/21 Stop Date: 03/19/21 Status: Ordered Problem List Condition Effective Dates Status Health Status Inform ant BMI 38.0-38.9,adult(Confirmed) Active Chronic pain syndrome(Confirmed) Active Diabetes mellitus with hyperglycemia(Confirmed) Active Diabetes mellitus with microalbuminuria(Confirmed) Active Diabetic neuropathy(Confirmed) Active Substance abuse in remission(Confirmed) Active Fibromyalgia(Confirmed) Active Limitation due to disability(Confirmed) 1 Active Hypercholesterolemia(Confirmed) Active Hypothyroidism(Confirmed) Active Low back pain(Confirmed) Active Mixed anxiety and depressive disorder(Confirmed) Active Asthma, moderate persistent(Confirmed) Active Morbid obesity(Confirmed) Active Hypovitaminosis D(Confirmed) Active 1initial Oswestry Disability Index: 70% ( crippled ) on 01/13/17; initial [place] Back Pain Scale:88 on 01/13/17; initial [place]: 7 on 01/13/17 Social History Social History Type Response Smoking Status Former smoker, quit more than 30 days ago entered on: 04/06/20 Sex
--- OUTSIDE RECORDS SUMMARY | 2022-06-03 10:48 | XMS_ITS | Continuity of Care Document ---
Author Name Unknown Organization [facility] Address [address] [place] [address]- Care Team Providers Care Acoustical Carpenter Name Role Phone Ernesto King MD Primary Care Physician [place] [facility] [place]): 06/21/21 - 06/28/21 [facility] [address] [place] [address]- Encounter Diagnosis Hypothyroidism(Discharge Diagnosis) - 06/21/21 Hypovitaminosis D(Discharge Diagnosis) - 06/21/21 Arthralgia(Discharge Diagnosis) - 06/21/21 Diabetes mellitus with hyperglycemia(Discharge Diagnosis) - 06/21/21 Diabetes mellitus with microalbuminuria(Discharge Diagnosis) - 06/21/21 Bilateral knee pain(Discharge Diagnosis) - 06/21/21 Attending Physician: Ernesto King MD Allergies, Adverse Reactions, Alerts No Known Allergies Immunizations Given and Recorded Vaccine Date Status Refusal Reason SARS-CoV-2 (COVID-19) mRNA-1273 vaccine 03/27/21 R ecorded SARS-CoV-2 (COVID-19) mRNA-1273 vaccine 07/11/20 R ecorded SARS-CoV-2 (COVID-19) mRNA-1273 vaccine 06/06/20 R ecorded influenza virus vaccine, inactivated 1 12/14/20 Gi [...] virus vaccine, inactivated 6 12/30/11 Gi blossom pneumococcal 23-valent vaccine 7 12/31/16 Given tetanus/diphtheria/pertussis, acel(Tdap) 01/30/16 Given 1Result Comment: [facility]:[id number] 2Result Comment: [facility] [id number] 3Result Comment: [11/30/2017] [facility] [id number] 4Result Comment: [12/31/2016] [facility] [id number] 5Admin Note: vis given 09/10/12 6Admin Note: VIS given 08/18/2011 7Result Comment: [12/31/2016] [facility] [id number] Medications albuterol 90 mcg/inh inhalation powder 2 puffs, Inhalation, Every 6 hours, PRN Wheezing/Shortness of Breath, # 1 each, 3 Refills, Maintenance, 02/27/21 16:30:00 EST, Powder, [facility]/pharmacy #[id number], dispense pro-air, 2 puffs Inhalation Every 6hours,PRN:Wheezing/Shortness of Breath, 163, cm, 01... Start Date: 02/27/21 Status: Ordered albuterol-ipratropium 3 mg-0.5 mg/3 ml inhalation solution 3 mL, Neb, 4 times a day, J45.40, # 180 mL, 3 Refills, Maintenance, 07/02/20 14:11:00 EDT, Solution, [facility]/pharmacy #[id number], 3 mL Neb 4 times a day,Instr:J45.40, 163, cm, 06/18/20 13:31:00 EDT, Height, 98.9, kg, 08/25/19 12:42:00 EDT, Dry Weight Start Date: 07/02/20 Status: Ordered celecoxib 100 mg oral capsule 1 capsule, By Mouth, 2 times a day with meals, # 60 capsule, 1 Refills, Maintenance, 08/14/20 12:53:00 EDT, [id number], 163, cm, 07/31/20 9:10:00 EDT, Height, 98.9, [...] 3 Refills, Maintenance, 02/29/20 14:04:00 EST, Aerosol, [facility] #[id number], 163, cm, 02/29/20 13:19:00 EST, Height, 98.9, [...] capsule, Refills 1, Tot. Refills 1, Maintenance, 06/24/21 10:53:00 EDT, [id number], 163, cm, 06/21/21 15:02:00 EDT, Height, 98.9, kg, 08/25/19 12:42:00 EDT, Dry Weight Start Date: 06/24/21 Stop Date: 08/23/21 Status: Ordered levothyroxine 175 mcg (0.175 mg) oral tablet 1 tablet = 175 mcg, By Mouth, Daily, # 90 tablet, 1 Refills, Maintenance, 06/27/21 11:36:00 EDT, Tablet, [facility]/pharmacy #[id number], Partial fill upon patient request if the prescription is for a schedule IIopioid drug., 163, cm, 06/27/21 11:27:00 EDT, Heigh... Start Date: 06/27/21 Status: Ordered loratadine 10 mg oral tablet 10 mg, 1, tablet, By Mouth, Daily, # 30 tablet, Refills 6, Tot. Refills 6, Maintenance, 11/28/19 8:53:00 EDT, Route to Pharmacy Electronically, [facility]/pharmacy #[id number], 163, cm, 11/25/19 14:43:00 EDT, Height, 98.9, kg, 08/25/19 12:42:00 EDT, Dry Weight Start Date: 11/28/19 Status: Ordered metFORMIN 500 mg oral tablet 1 tablet = 500 mg, By Mouth, 2 times a day, # 60 tablet, 5 Refills, Maintenance, 02/19/21 8:58:00 EST, [facility]/pharmacy #[id number], 163, cm, 02/18/21 14:32:00 EST, Height, [...] each, 1 Refills, Maintenance, 08/25/19 15:03:00 EDT, [facility]/pharmacy#[id number], 2 sprays Nares, Both Daily, 163, cm, 08/25/19 12:40:00 EDT, Height, 98.9, kg, 08/25/19 12:42:00 EDT, Dry Weight Start Date: 08/25/19 Status: Ordered Nasonex 50 mcg/inh nasal spray 2 sprays, Nares, Both, 2 times a day, # 17 Gm, 0 Refills, Maintenance, 08/25/19 13:03:00 EDT, [place], [facility]/pharmacy #[id number], 2 sprays Nares, Both 2 times [...] 07/31/20 9:07:00 EDT, Route to Pharmacy Electronically, [email or web address] #[id number], Partial fill upon patient request if the prescription is for a sched... Start Date: 07/31/20 Status: Ordered PriLOSEC OTC 20 mg oral delayed release tablet 1 tablet = 20 mg, By Mouth, Daily, # 30 tablet, 2 Refills, Maintenance, 03/13/20 11:45:00 EST, [facility]/pharmacy #[id number], 163, cm, 03/08/20 11:24:00 EST, Height, 98.9, kg, 08/25/19 12:42:00 EDT, Dry Weight Start Date: 03/13/20 Status: Ordered semaglutide 0.25 mg/0.5 mL (0.25 mg dose) subcutaneous solution = 0.25 mg, Subcutaneous Injection, Every 72 hours, # 3 each, 0 Refills, Maintenance, 10/04/20 16:20:00 EDT, [email or web address] #[id number], Partial fill upon patient request if the prescription is for aschedule II opioid drug., 163, cm, 10/04/20 16:08:0... Start Date: 10/04/20 Status: Ordered Systane Complete Optimal Dry Eye Relief ophthalmic solution 2 drops, Eyes, Both, 3 times a day, # 30 mL, 3 Refills, Maintenance, 11/28/19 8:55:00 EDT, [facility]/pharmacy #[id number], 2 drops Eyes, Both 3 times a day, 163, cm, 11/25/19 14:43:00 EDT, Height, 98.9, kg, 08/25/19 12:42:00 EDT, Dry Weight Start Date: 11/28/19 Status: Ordered tiZANidine 4 mg oral tablet 0.5-1 tablet, By Mouth, Every 8 hours, PRN, TAKE ONLY NEEDED FOR MUSCLE SPASM, # 45 tablet, Refills 2, Tot. Refills 2, Maintenance, Spasm, 04/12/21 12:13:00 EST, Route to Pharmacy Electronically, [facility]/pharmacy #[id number], 163, cm, 03/07/21 11:34:00 EST,... Start Date: 04/12/21 Status: Ordered tiZANidine 4 mg oral tablet See Instructions, TAKE 1/2 TO 1 TABLET BY MOUTH EVERY 8 HOURS NEEDED FOR MILD AND MUSCLE SPASM, # 45 tablet, Refills 2, Maintenance, Instructions Replace Required Details, Route to Pharmacy Electronically, [id number], 163, cm, 07/27/20 13:59:0... Start Date: 6/11/21 Status: Ordered traMADol 50 mg oral tablet 1 tablet = 50 mg, By Mouth, Every 6 hours, PRN for pain, TAKE ONLY NEEDED Dx: M79.7, S92.91 Masspat checked, # 112 tablet, 0 Refills, Maintenance, 06/21/21 16:39:00 EDT, Tablet, [id number], Please reinforce instructions with patient, she... Start Date: 06/21/21 Stop Date: 07/19/21 Status: Ordered Vitamin D3 50,000 intl units oral capsule 1 capsule = 1,250 mcg, By Mouth, Every week, # 12 capsule, 0 Refills, Maintenance, 06/27/21 11:37:00 EDT, Capsule, [id number], Partial fill upon patient request if the prescription is for a schedule II opioid drug., 163, cm, 06/27/21 11:27:00... Start Date: 06/27/21 Status: Ordered Voltaren 1% topical gel 1 application, Topically, 4 times a day, PRN for pain, # 100 Gm, 0 Refills, Maintenance, 05/27/21 18:00:00 EDT, Gel, [id number], Partial fill upon patient request if the prescription is for aschedule II opioid drug., 1 application Topically 4... Start Date: 05/27/21 Status: Ordered Problem List Condition Effective Dates [...] Asthma, moderate persistent(Confirmed) Active Morbid obesity(Confirmed) Active Obese class II(Confirmed) Active Hypovitaminosis D(Confirmed) Active 1initial Oswestry Disability Index: 70% ( crippled ) on 01/13/17; initial [place] Back Pain Scale:88 on 01/13/17; initial [place]: 7 on 01/13/17 Diagnosis Diagnosis Type Effective Dates Health Status Clinical Service Informant Hypothyroidism Discharge Diagnosis 06/21/21 Hypovitaminosis D Discharge Diagnosis 06/21/21 Arthralgia Discharge Diagnosis 06/21/21 Diabetes mellitus with hyperglycemia Discharge Diagnosis 06/21/21 Diabetes mellitus with microalbuminuria Discharge Diagnosis 06/21/21 Bilateral knee pain Discharge Diagnosis 06/21/21 Vital Signs Most recent to oldest [Reference Range]: 1 Height 163 cm (06/21/21 3:02 PM) Weight 99.7 kg (06/21/21 3:02 PM) Oxygen Saturation [94-100 %] 99 % (06/21/21 3:02 PM) Pulse Rate [55-90 bpm] 76 bpm (06/21/21 3:02 PM) Body Mass Index [18.5-24.99] 37.52 *>HHI* (06/21/21 3:02 PM) Blood Pressure [90-138/55-84 mm Hg] 128/ 76mm Hg (06/21/21 3:02 PM) Blood pressure sites Arm, right (06/21/21 3:02 PM) Weight Obtained Via Standing scale (06/21/21 3:02 PM) Social History Social History Type Response Smoking Status Former smoker, quit more than 30 days ago entered on: 04/06/20 Sex
--- OUTSIDE RECORDS SUMMARY | 2022-06-03 10:48 | XMS_ITS | Continuity of Care Document ---
Author Name Unknown Organization [facility] Address [address] [place] [address]- Care Team Providers Care Well Servicing Rig Operator Name Role Phone Ernesto King MD Primary Care Physician Encounter [facility] [place] Date(s): 10/04/20 - 10/11/20 [facility] [address] [place] [address]- Encounter Diagnosis Hypothyroidism(Discharge Diagnosis) - 10/04/20 Abdominal distension(Discharge Diagnosis) - 10/04/20 Abscess(Discharge Diagnosis) - 10/04/20 Diabetes mellitus with hyperglycemia(Discharge Diagnosis) - 10/04/20 BMI 38.0-38.9,adult(Discharge Diagnosis) - 10/04/20 Attending Physician: Ernesto King MD Allergies, Adverse Reactions, Alerts Substance Reaction Severity Status NKA Active Immunizations Given and Recorded Vaccine Date Status Refusal Reason SARS-CoV-2 (COVID-19) mRNA-1273 vaccine 06/06/20 R ecorded [...] Given tetanus/diphtheria/pertussis, acel(Tdap) 01/30/16 Given 1Result Comment: [facility] [id number] 2Result Comment: [11/30/2017] [facility] [id number] 3Result Comment: [12/31/2016] [facility] [id number] 4Admin Note: vis given 09/10/12 5Admin Note: VIS given 08/18/2011 6Result Comment: [12/31/2016] [facility] [id number] Medications albuterol 90 mcg/inh inhalation powder 2 puffs, Inhalation, Every 6 hours, PRN Wheezing/Shortness of Breath, # 1 each, 3 Refills, Maintenance, 02/29/20 14:08:00 EST, Powder, [facility] #[id number], dispense pro-air, 2 puffs Inhalation Every 6 hours,PRN:Wheezing/Shortness of Breath, 16... Start Date: 02/29/20 Status: Ordered albuterol-ipratropium 3 mg-0.5 mg/3 ml inhalation solution 3 mL, Neb, 4 times a day, J45.40, # 180 mL, 3 Refills, Maintenance, 07/02/20 14:11:00 EDT, [facility], [id number], 3 mL Neb 4 times a day,Instr:J45.40, 163, cm, 06/18/20 13:31:00 EDT, Height, 98.9, kg, 08/25/19 12:42:00 EDT, Dry Weight Start Date: 07/02/20 Status: Ordered celecoxib 100 mg oral capsule 1 capsule, By Mouth, 2 times a day with meals, # 60 capsule, 1 Refills, Maintenance, 08/14/20 12:53:00 EDT, [id number], 163, cm, 07/31/20 9:10:00 EDT, Height, 98.9, kg, 08/25/19 12:42:00 EDT, Dry Weight Start Date: 08/14/20 Status: Ordered change as needed change as needed, See Instructions, # 120 each, Refills 6, Tot. Refills 6, Maintenance, Adult pull ups change as needed for urinary incontinence., 10/04/20 15:52:00 EDT, please send same size as usual., Supply Start Date: 10/04/20 Status: Ordered doxycycline hyclate 100 mg oral tablet 1 tablet = 100 mg, By Mouth, 2 times a day, for 10 days, # 20 tablet, 0 Refills, Acute 10/14/20 16:18:00 EDT, 10/04/20 16:18:00 EDT, Tablet, [facility] #[id number], Partial fill upon patient request if the prescription is for a schedule II opioid... Start Date: 10/04/20 Stop Date: 10/14/20 Status: Ordered Flovent HFA 220 mcg/inh inhalation aerosol 2 puffs, Inhalation, 2 times a day, rinse mouth and throat after use, # 1 each, 3 Refills, Maintenance, 02/29/20 14:04:00 EST, Aerosol, [facility] #[id number], 163, cm, 02/29/20 13:19:00 EST, Height, 98.9, [...] Status: Ordered gabapentin 300 mg oral capsule 600 mg, 2, capsule, By Mouth, 3 times a day, # 180 capsule, Refills 3, Tot. Refills 3, Maintenance,08/07/20 9:35:00 EDT, Route to Pharmacy Electronically, [facility] #[id number], 163, cm, 07/31/20 9:10:00 EDT, Height, 98.9, kg, 08/25/19 12:42:00... Start Date: 08/07/20 Status: Ordered levothyroxine 150 mcg (0.15 mg) oral tablet 1 tablet, By Mouth, Daily, # 30 tablet, 5 Refills, Maintenance, 08/14/20 12:53:00 EDT, [id number], 163, cm, 07/31/20 9:10:00 EDT, Height, 98.9, kg, 08/25/19 12:42:00 EDT, Dry Weight Start Date: 08/14/20 Status: Ordered loratadine 10 mg oral tablet 10 mg, 1, tablet, By Mouth, Daily, # 30 tablet, Refills 6, Tot. Refills 6, Maintenance, 11/28/19 8:53:00 EDT, [id number] 163, cm, 11/25/19 14:43:00 EDT, Height, 98.9, kg, 08/25/19 12:42:00 EDT, Dry Weight Start Date: 11/28/19 Status: Ordered metFORMIN 500 mg oral tablet 1 tablet = 500 mg, By Mouth, 2 times a day, start with once a day at night, # 60 tablet, 5 Refills,Maintenance, 05/15/20 14:09:00 EDT, [facility]/pharmacy #[id number], 163, cm, 04/06/20 13:19:00 EST, Height, [...] each, 1 Refills, Maintenance, 08/25/19 15:03:00 EDT, [facility]/pharmacy#[id number], 2 sprays Nares, Both Daily, 163, cm, 08/25/19 12:40:00 EDT, Height, 98.9, kg, 08/25/19 12:42:00 EDT, Dry Weight Start Date: 08/25/19 Status: Ordered Nasonex 50 mcg/inh nasal spray 2 sprays, Nares, Both, 2 times a day, # 17 Gm, 0 Refills, Maintenance, 08/25/19 13:03:00 EDT, [place], [facility]/pharmacy #[id number], 2 sprays Nares, Both 2 times a day, 163, cm, 08/25/19 12:40:00 EDT, Height, 98.9, kg, 08/25/19 12:42:00 EDT, Dry Weight Start Date: 08/25/19 Status: Ordered Nebulizer/Compressor See Instructions, PRN, # 1 each, Refills 0, Tot. Refills 0, Maintenance, Wheezing/Shortness of Breath, mini nebulizer with tubing dx J45.40 pt needs a travel nebulizer, 05/27/18 15:32:29 EDT, Compound Start Date: 05/27/18 Status: Ordered nortriptyline 50 mg oral capsule 50 mg, 1, capsule, By Mouth, 3 times a day, # 90 capsule, Refills 1, Tot. Refills 1, Maintenance, 07/31/20 9:07:00 EDT, Route to Pharmacy Electronically, [facility] #[id number], Partial fill upon patient request if the prescription is for a sched... Start Date: 07/31/20 Status: Ordered PriLOSEC OTC 20 mg oral delayed release tablet 1 tablet = 20 mg, By Mouth, Daily, # 30 tablet, 2 Refills, Maintenance, 03/13/20 11:45:00 EST, [facility]/pharmacy #[id number], 163, cm, 03/08/20 11:24:00 EST, Height, 98.9, kg, 08/25/19 12:42:00 EDT, Dry Weight Start Date: 03/13/20 Status: Ordered semaglutide 0.25 mg/0.5 mL (0.25 mg dose) subcutaneous solution = 0.25 mg, Subcutaneous Injection, Every 72 hours, # 3 each, 0 Refills, Maintenance, 10/04/20 16:20:00 EDT, [facility] #[id number], Partial fill upon patient request if the [...] Details, Route to Pharmacy Electronically, [id number], 163, cm, 07/27/20 13:59:0... Start Date: 07/27/20 Status: Ordered traMADol 50 mg oral tablet 1 tablet = 50 mg, By Mouth, Every 6 hours, PRN for pain, 1 tab q 6 hours. May take 2nd tab PRN. Dx:M79.7, S92.91 Masspat checked, # 112 tablet, 0 Refills, Maintenance, 09/03/20 16:06:00 EDT, Tablet,[id number], Please reinforce instructions... Start Date: 09/03/20 Stop Date: 10/01/20 Status: Ordered Problem List Condition Effective Dates Status Health Status Inform ant BMI 38.0-38.9,adult(Confirmed) Active Chronic pain syndrome(Confirmed) Active Diabetes mellitus with hyperglycemia(Confirmed) Active Diabetes mellitus with microalbuminuria(Confirmed) Active Diabetic neuropathy(Confirmed) Active Diverticulitis large intestine(Confirmed) Active Substance abuse in remission(Confirmed) Active Fibromyalgia(Confirmed) Active Limitation due to disability(Confirmed) 1 Active Hypercholesterolemia(Confirmed) Active Hypothyroidism(Confirmed) Active Low back pain(Confirmed) Active Malignant Neoplasm of Breast (Female), pT1c, pN0 stage I left breast cancer, ER/ND negative, HER-2/marylin 3+, 2010(Confirmed) 06/25/11 Active Mixed anxiety and depressive disorder(Confirmed) Active Asthma, moderate persistent(Confirmed) Active Morbid obesity(Confirmed) Active Colon cancer screening(Confirmed) Active 1initial Oswestry Disability Index: 70% ( crippled ) on 01/13/17; initial [place] Back Pain Scale:88 on 01/13/17; initial [place]: 7 on 01/13/17 Diagnosis Diagnosis Type Effective Dates Health Status Clinical Service Informant Hypothyroidism Discharge Diagnosis 10/04/20 Abdominal distension Discharge Diagnosis 10/04/20 Abscess Discharge Diagnosis 10/04/20 Diabetes mellitus with hyperglycemia Discharge Diagnosis 10/04/20 BMI 38.0-38.9,adult Discharge Diagnosis 10/04/20 Vital Signs Most recent to oldest [Reference Range]: 1 2 Height 163 cm (10/04/20 4:08 PM) 163 cm (10/04/20 3:43 PM) Weight 103.2 kg (10/04/20 4:08 PM) Pulse Rate [55-90 bpm] 90 bpm (10/04/20 3:43 PM) Body Mass Index [18.5-24.99] 38.84 *>HHI* (10/04/20 4:08 PM) Blood Pressure [90-138/55-84 mm Hg] 113/ 76mm Hg (10/04/20 3:43 PM) Blood pressure sites Arm, right (10/04/20 3:43 PM) Social History Social History Type Response Smoking Status Former smoker, quit more than 30 days ago entered on: 04/06/20 Sex
--- OUTSIDE RECORDS SUMMARY | 2022-06-03 10:48 | XMS_ITS | Continuity of Care Document ---
Author Name Unknown Organization [facility] Address [address] [place] [address]- Care Team Providers Care Hogshead Mat Inspector Name Role Phone Ernesto King MD Primary Care Physician [facility] Date([facility]): 01/02[facility]22 - 02/01/22 [facility] [address] [place] [address]- Allergies, Adverse Reactions, Alerts No Known Allergies [...] Given tetanus/diphtheria/pertussis, acel(Tdap) 01/30/16 Given 1Result Comment: [facility]:[id number] 2Result Comment: [facility] 19049-247-20 3Result Comment: [11/30/2017] [facility] 10152-968-71 4Result Comment: [12/31/2016] [facility] [id number] 5Admin Note: vis given 09/10/12 6Admin Note: VIS given 08/18/2011 7Result Comment: [12/31/2016] [facility] 8838-3063-09 Medications albuterol 90 mcg/inh inhalation powder 2 puffs, Inhalation, Every 6 hours, PRN Wheezing/Shortness of Breath, # 1 each, 3 Refills, Maintenance, 11/22/21 17:17:00 EDT, Powder, [facility]/pharmacy #[id number], dispense pro-air, 2 puffs Inhalation Every 6hours,PRN:Wheezing/Shortness of Breath, 163, cm, 10... Start Date: 11/22/21 Status: Ordered albuterol-ipratropium 3 mg-0.5 mg/3 ml inhalation solution 3 mL, Neb, 4 times a day, J45.40, # 180 mL, 3 Refills, Maintenance, 11/22/21 17:17:00 EDT, Solution, [facility]/pharmacy #[id number], 3 mL Neb 4 times a day,Instr:J45.40, 163, cm, 11/22/21 15:30:00 EDT, Height Start Date: 11/22/21 Status: Ordered celecoxib 100 mg oral capsule 1 capsule, By Mouth, 2 times a day with meals, # 60 capsule, 1 Refills, Maintenance, 08/14/20 12:53:00 EDT, [id number], 163, cm, 07/31/20 9:10:00 EDT, Height, 98.9, [...] 3 Refills, Maintenance, 02/29/20 14:04:00 EST, Aerosol, [facility] #[id number], 163, cm, 02/29/20 13:19:00 EST, Height, 98.9, [...] 11/22/21 17:17:00 EDT, Route to Pharmacy Electronically, [facility]/pharmacy #[id number], 163, cm, 11/22/21 15:30:00 EDT, Height Start Date: 11/22/21 Stop Date: 01/21/22 Status: Ordered levothyroxine 175 mcg (0.175 mg) oral tablet 1 tablet = 175 mcg, By Mouth, Daily, # 90 tablet, 1 Refills, Maintenance, 06/27/21 11:36:00 EDT, Tablet, [facility]/pharmacy #[id number], Partial fill upon patient request if the prescription is for a schedule IIopioid drug., 163, cm, 06/27/21 11:27:00 EDT, [place]. Start Date: 06/27/21 Status: Ordered loratadine 10 mg oral tablet 10 mg, 1, tablet, By Mouth, Daily, # 30 tablet, Refills 6, Tot. Refills 6, Maintenance, 11/28/19 8:53:00 EDT, Route to Pharmacy Electronically, [facility]/pharmacy #[id number], 163, cm, 11/25/19 14:43:00 EDT, Height, 98.9, kg, 08/25/19 12:42:00 EDT, Dry Weight Start Date: 11/28/19 Status: Ordered metFORMIN 500 mg oral tablet 1 tablet = 500 mg, By Mouth, 2 times a day, # 60 tablet, 5 Refills, Maintenance, 02/19/21 8:58:00 EST, [facility]/pharmacy #[id number], 163, cm, 02/18/21 14:32:00 EST, Height, [...] Refills, Maintenance, 08/25/19 15:03:00 EDT, [facility]/pharmacy#[id number], 2 sprays Nares, Both Daily, 163, cm, 08/25/19 12:40:00 EDT, Height, 98.9, kg, 08/25/19 12:42:00 EDT, Dry Weight Start Date: 08/25/19 Status: Ordered Nasonex 50 mcg/inh nasal spray 2 sprays, Nares, Both, 2 times a day, # 17 Gm, 0 Refills, Maintenance, 12/04/21 11:58:00 EDT, [place], [facility]/pharmacy #[id number], 2 sprays Nares, Both 2 times [...] 07/31/20 9:07:00 EDT, Route to Pharmacy Electronically, [facility] #[id number], Partial fill upon patient request if the prescription is for a sched... Start Date: 07/31/20 Status: Ordered PriLOSEC OTC 20 mg oral delayed release tablet 1 tablet = 20 mg, By Mouth, Daily, # 30 tablet, 2 Refills, Maintenance, 12/04/21 11:57:00 EDT, [facility]/pharmacy #[id number], 163, cm, 12/04/21 11:37:00 EDT, Height Start Date: 12/04/21 Status: Ordered semaglutide 0.25 mg/0.5 mL (0.25 mg dose) subcutaneous solution = 0.25 mg, Subcutaneous Injection, Every week, # 3 each, 1 Refills, Maintenance, 11/25/21 8:34:00 EDT, [facility]/pharmacy #[id number], Partial fill upon patient request if the prescription is for a schedule II opioid drug., 163, cm, 11/22/21 15:30:00 EDT, Height Start Date: 11/25/21 Status: Ordered Systane Complete Optimal Dry Eye Relief ophthalmic solution 2 drops, Eyes, Both, 3 times a day, # 30 mL, 3 Refills, Maintenance, 12/04/21 11:56:00 EDT, [facility]/pharmacy #[id number], 2 drops Eyes, Both 3 times a day, 163, cm, 12/04/21 11:37:00 EDT, Height Start Date: 12/04/21 Status: Ordered tiZANidine 4 mg oral tablet 0.5-1 tablet, By Mouth, Every 8 hours, PRN, TAKE ONLY NEEDED FOR MUSCLE SPASM, # 45 tablet, Refills 2, Tot. Refills 2, Maintenance, Spasm, 04/12/21 12:13:00 EST, Route to Pharmacy Electronically, [facility]/pharmacy #[id number], 163, cm, 03/07/21 11:34:00 EST,... Start Date: 04/12/21 Status: Ordered tiZANidine 4 mg oral tablet See Instructions, TAKE 1/2 TO 1 TABLET BY MOUTH EVERY 8 HOURS NEEDED FOR MILD AND MUSCLE SPASM, # 45 tablet, Refills 2, Maintenance, Instructions Replace Required Details, Route to Pharmacy Electronically, [id number], 163, cm, 07/27/20 13:59:0... Start Date: 07/27/20 Status: Ordered traMADol 50 mg oral tablet 1 tablet = 50 mg, By Mouth, Every 6 hours, PRN for pain, TAKE ONLY NEEDED Dx: M79.7, S92.91 Masspat checked, # 112 tablet, 0 Refills, Maintenance, 01/03/22 12:42:00 EST, Tablet, [facility]/pharmacy #[id number], Please reinforce instructions with patient, she... Start Date: 01/03/22 Stop Date: 01/31/22 Status: Ordered Victoza 18 mg/3 mL subcutaneous solution = 0.6 mg, Subcutaneous Injection, Daily, # 6 mL, 3 Refills, Maintenance, 10/16/21 15:56:00 EDT, Injection, [facility]/pharmacy #[id number], dispense as pen, 163, cm, 10/16/21 14:49:00 EDT, Height Start Date: 10/16/21 Status: Ordered Vitamin D3 50,000 intl units oral capsule 1 capsule, By Mouth, Every week, # 12 capsule, 0 Refills, [id number], 163, cm, 09/13/21 9:15:00 EDT, Height Start Date: 09/18/21 Status: Ordered Voltaren 1% topical gel 1 application, Topically, 4 times a day, PRN for pain, # 100 Gm, 0 Refills, Maintenance, 05/27/21 18:00:00 EDT, Gel, [facility]/pharmacy #[id number], Partial fill upon patient request if [...] persistent Confirmed Active Morbid obesity Confirmed Active Obese class II Confirmed Active Hypovitaminosis D Confirmed Active 1initial Oswestry Disability Index: 70% ( crippled ) on 01/13/17; initial [place] Back Pain Scale:88 on 01/13/17; initial [place]: 7 on 01/13/17 Social History Social History Type Response Smoking Status Former smoker, quit more than 30 days ago entered on: 04/06/20 Sex Patient Care team information Care Team Personnel Name: Ernesto King MD Position: [facility] Primary Care Physician Member Role: PCP Address: Address: [address] [place] [address] [place] [address] Name: Kathrine Luna MD Position: [facility] COUNTER CLERK [employer] MD Member Role: Lifetime COUNTER CLERK [employer] Physician Address: Address: [address] [facility] [place] [place] [address]- Name: Kathya Grullon RN Position: [facility] RN Member Role: Primary Care Nurse Care Team Related Persons Name: LYN LEIGH Address: [place] [address] Name: MADDIE LEIGH
--- OUTSIDE RECORDS SUMMARY | 2022-06-03 10:48 | XMS_ITS | Continuity of Care Document ---
Author Name Unknown Organization [facility] Address [address] [place] [address]- Care Team Providers Care Interline Clerk Name Role Phone Fernando CARTY, Ernesto Zapata Primary Care Physician [facility] Date[facility]): 09/02/21 - 10/02/21 [facility] [address] [place] [address]- Allergies, Adverse Reactions, Alerts No Known Allergies [...] tetanus/diphtheria/pertussis, acel(Tdap) 01/30/16 Given 1Result Comment: [facility]:[id number] 2Result Comment: [facility] 13511-769-16 3Result Comment: [11/30/2017] [facility] [id number] 4Result Comment: [12/31/2016] [facility] [id number] 5Admin Note: vis given 09/10/12 6Admin Note: VIS given 08/18/2011 7Result Comment: [12/31/2016] [facility] [id number] Medications albuterol 90 mcg/inh inhalation powder 2 puffs, Inhalation, Every 6 hours, PRN Wheezing/Shortness of Breath, # 1 each, 3 Refills, Maintenance, 02/27/21 16:30:00 EST, Powder, [facility]/pharmacy #[id number], dispense pro-air, 2 puffs Inhalation Every 6hours,PRN:Wheezing/Shortness of Breath, 163, cm, 01... Start Date: 02/27/21 Status: Ordered albuterol-ipratropium 3 mg-0.5 mg/3 ml inhalation solution 3 mL, Neb, 4 times a day, J45.40, # 180 mL, 3 Refills, Maintenance, 07/02/20 14:11:00 EDT, Solution, [facility]/pharmacy #[id number], 3 mL Neb 4 times a day,Instr:J45.40, 163, cm, 06/18/20 13:31:00 EDT, Height, 98.9, kg, 08/25/19 12:42:00 EDT, Dry Weight Start Date: 07/02/20 Status: Ordered celecoxib 100 mg oral capsule 1 capsule, By Mouth, 2 times a day with meals, # 60 capsule, 1 Refills, Maintenance, 08/14/20 12:53:00 EDT, [id number], 163, cm, 07/31/20 9:10:00 EDT, Height, 98.9, [...] 3 Refills, Maintenance, 02/29/20 14:04:00 EST, [id number], 163, cm, 02/29/20 13:19:00 EST, Height, 98.9, [...] capsule, Refills 1, Tot. Refills 1, Maintenance, 08/29/21 14:22:00 EDT, Route to Pharmacy Electronically, [facility]/pharmacy #[id number], 163, cm, 08/29/21 13:43:00 EDT, Height Start Date: 08/29/21 Stop Date: 10/28/21 Status: Ordered levothyroxine 175 mcg (0.175 mg) oral tablet 1 tablet = 175 mcg, By Mouth, Daily, # 90 tablet, 1 Refills, Maintenance, 06/27/21 11:36:00 EDT, Tablet, [facility]/pharmacy #[id number], Partial fill upon patient request if the prescription is for a schedule IIopioid drug., 163, cm, 06/27/21 11:27:00 EDT, [place] Start Date: 06/27/21 Status: Ordered loratadine 10 mg oral tablet 10 mg, 1, tablet, By Mouth, Daily, # 30 tablet, Refills 6, Tot. Refills 6, Maintenance, 11/28/19 8:53:00 EDT, Route to Pharmacy Electronically, [facility]/pharmacy #[id number], 163, cm, 11/25/19 14:43:00 EDT, Height, 98.9, kg, 08/25/19 12:42:00 EDT, Dry Weight Start Date: 11/28/19 Status: Ordered metFORMIN 500 mg oral tablet 1 tablet = 500 mg, By Mouth, 2 times a day, # 60 tablet, 5 Refills, Maintenance, 02/19/21 8:58:00 EST, [facility]/pharmacy #[id number], 163, cm, 02/18/21 14:32:00 EST, [...] each, 1 Refills, Maintenance, 08/25/19 15:03:00 EDT, [facility]/pharmacy#[id number], 2 sprays Nares, Both Daily, 163, cm, 08/25/19 12:40:00 EDT, Height, 98.9, kg, 08/25/19 12:42:00 EDT, Dry Weight Start Date: 08/25/19 Status: Ordered Nasonex 50 mcg/inh nasal spray 2 sprays, Nares, Both, 2 times a day, # 17 Gm, 0 Refills, Maintenance, 08/25/19 13:03:00 EDT, [place], [facility]/pharmacy #[id number], 2 sprays Nares, Both 2 [...] 07/31/20 9:07:00 EDT, Route to Pharmacy Electronically, [facility] #[id number], Partial fill upon patient request if the prescription is for a sched... Start Date: 07/31/20 Status: Ordered PriLOSEC OTC 20 mg oral delayed release tablet 1 tablet = 20 mg, By Mouth, Daily, # 30 tablet, 2 Refills, Maintenance, 03/13/20 11:45:00 EST, [facility]/pharmacy #[id number], 163, cm, 03/08/20 11:24:00 EST, Height, 98.9, kg, 08/25/19 12:42:00 EDT, Dry Weight Start Date: 03/13/20 Status: Ordered semaglutide 0.25 mg/0.5 mL (0.25 mg dose) subcutaneous solution = 0.25 mg, Subcutaneous Injection, Every 72 hours, # 3 each, 0 Refills, Maintenance, 09/13/21 9:26:00 EDT, [facility]/pharmacy #[id number], Partial fill upon patient request if the prescription is for a schedule II opioid drug., 163, cm, 09/13/21 9:15:00 EDT, Height Start Date: 09/13/21 Status: Ordered Systane Complete Optimal Dry Eye Relief ophthalmic solution 2 drops, Eyes, Both, 3 times a day, # 30 mL, 3 Refills, Maintenance, 11/28/19 8:55:00 EDT, [facility]/pharmacy #[id number], 2 drops Eyes, Both 3 [...] 04/12/21 12:13:00 EST, Route to Pharmacy Electronically, [facility]/pharmacy #[id number], 163, cm, 03/07/21 11:34:00 EST,... Start Date: 04/12/21 Status: Ordered tiZANidine 4 mg oral tablet See Instructions, TAKE 1/2 TO 1 TABLET BY MOUTH EVERY 8 HOURS NEEDED FOR MILD AND MUSCLE SPASM, # 45 tablet, Refills 2, Maintenance, Instructions Replace Required Details, Route to Pharmacy Electronically, [id number], 163, cm, 07/27/20 13:59:0... Start Date: 07/27/20 Status: Ordered traMADol 50 mg oral tablet 1 tablet = 50 mg, By Mouth, Every 6 hours, PRN for pain, TAKE ONLY NEEDED Dx: M79.7, S92.91 Masspat checked, # 112 tablet, 0 Refills, Maintenance, 08/29/21 17:12:00 EDT, Tablet, [facility]/pharmacy #[id number], Please reinforce instructions with patient, she... Start Date: 08/29/21 Stop Date: 09/26/21 Status: Ordered Vitamin D3 50,000 intl units oral capsule 1 capsule, By Mouth, Every week, # 12 capsule, 0 Refills, [facility], 163, cm, 09/13/21 9:15:00 EDT, Height Start Date: 09/18/21 Status: Ordered Voltaren 1% topical gel 1 application, Topically, 4 times a day, PRN for pain, # 100 Gm, 0 Refills, Maintenance, 05/27/21 18:00:00 EDT, Gel, [facility]/pharmacy #[id number], Partial fill upon patient request if the prescription is for aschedule II opioid drug., 1 application Topically 4... Start Date: 05/27/21 Status: Ordered Problem List Condition Effective Dates Status Health Status Inform ant BMI 37.0-37.9, adult(Confirmed) Active Chronic pain syndrome(Confirmed) Active Diabetes mellitus [...] 70% ( crippled ) on 01/13/17; initial [place] Back Pain Scale:88 on 01/13/17; initial [place]: 7 on 01/13/17 Social History Social History Type Response Smoking Status Former smoker, quit more than 30 days ago entered on: 04/06/20 Sex
--- OUTSIDE RECORDS SUMMARY | 2022-06-03 10:49 | XMS_ITS | Continuity of Care Document ---
Author Name Unknown Organization [facility] Address [address], [address] [place] [address]- Care Team Providers Care Technology Advisor Name Role Phone Ernesto King MD Primary Care Physician Encounter 12/24/21 - 12/31/21 [facility] [address], [address] [place] [address]- Attending Physician: Ernesto King MD Admitting Physician: [...] Given tetanus/diphtheria/pertussis, acel(Tdap) 01/30/16 Given 1Result Comment: [facility]:[id number] 2Result Comment: [facility] [id number] 3Result Comment: [11/30/2017] [facility] [id number] 4Result Comment: [12/31/2016] [facility] [id number] 5Admin Note: vis given 09/10/12 6Admin Note: VIS given 08/18/2011 7Result Comment: [12/31/2016] [facility] [id number] Medications albuterol 90 mcg/inh inhalation powder 2 puffs, Inhalation, Every 6 hours, PRN Wheezing/Shortness of Breath, # 1 each, 3 Refills, Maintenance, 11/22/21 17:17:00 EDT, Powder, [facility]/pharmacy #[id number], dispense pro-air, 2 puffs [...] Refills, Maintenance, 08/14/20 12:53:00 EDT, [facility], 163, cm, 07/31/20 9:10:00 EDT, Height, 98.9, [...] 3 Refills, Maintenance, 02/29/20 14:04:00 EST, Aerosol, [facility] #[id number], 163, cm, 02/29/20 13:19:00 EST, Height, 98.9, [...] 11/22/21 17:17:00 EDT, Route to Pharmacy Electronically, [facility]/pharmacy #[id number], 163, cm, 11/22/21 15:30:00 EDT, Height Start Date: 11/22/21 Stop Date: 01/21/22 Status: Ordered levothyroxine 175 mcg (0.175 mg) oral tablet 1 tablet = 175 mcg, By Mouth, Daily, # 90 tablet, 1 Refills, Maintenance, 06/27/21 11:36:00 EDT, Tablet, [facility]/pharmacy #[id number], Partial fill upon patient request if the prescription is for a schedule IIopioid drug., 163, cm, 06/27/21 11:27:00 EDT, He[place]... Start Date: 06/27/21 Status: Ordered loratadine 10 mg oral tablet 10 mg, 1, tablet, By Mouth, Daily, # 30 tablet, Refills 6, Tot. Refills 6, Maintenance, 11/28/19 8:53:00 EDT, Route to Pharmacy Electronically, [facility]/pharmacy #[id number], 163, cm, 11/25/19 14:43:00 EDT, Height, 98.9, kg, 08/25/19 12:42:00 EDT, Dry Weight Start Date: 11/28/19 Status: Ordered metFORMIN 500 mg oral tablet 1 tablet = 500 mg, By Mouth, 2 times a day, # 60 tablet, 5 Refills, Maintenance, 02/19/21 8:58:00 EST, [facility]/pharmacy #[id number], 163, cm, 02/18/21 14:32:00 [...] each, 1 Refills, Maintenance, 08/25/19 15:03:00 EDT, [facility]/pharmacy#4471, 2 sprays Nares, Both Daily, 163, cm, 08/25/19 12:40:00 EDT, Height, 98.9, kg, 08/25/19 12:42:00 EDT, Dry Weight Start Date: 08/25/19 Status: Ordered Nasonex 50 mcg/inh nasal spray 2 sprays, Nares, Both, 2 times a day, # 17 Gm, 0 Refills, Maintenance, 12/04/21 11:58:00 EDT, [place], [facility]/pharmacy #4471, 2 sprays Nares, Both [...] 07/31/20 9:07:00 EDT, Route to Pharmacy Electronically, [facility] #[id number], Partial fill upon patient request if the prescription is for a sched... Start Date: 07/31/20 Status: Ordered PriLOSEC OTC 20 mg oral delayed release tablet 1 tablet = 20 mg, By Mouth, Daily, # 30 tablet, 2 Refills, Maintenance, 12/04/21 11:57:00 EDT, [id number], 163, cm, 12/04/21 11:37:00 EDT, Height Start Date: 12/04/21 Status: Ordered semaglutide 0.25 mg/0.5 mL (0.25 mg dose) subcutaneous solution = 0.25 mg, Subcutaneous Injection, Every week, # 3 each, 1 Refills, Maintenance, 11/25/21 8:34:00 EDT, [facility]/pharmacy #[id number], Partial fill upon patient request if the prescription is for a schedule II opioid drug., 163, cm, 11/22/21 15:30:00 EDT, Height Start Date: 11/25/21 Status: Ordered Systane Complete Optimal Dry Eye Relief ophthalmic solution 2 drops, Eyes, Both, 3 times a day, # 30 mL, 3 Refills, Maintenance, 12/04/21 11:56:00 EDT, [facility]/pharmacy #[id number], 2 drops Eyes, Both 3 times a day, 163, cm, 12/04/21 11:37:00 EDT, Height Start Date: 12/04/21 Status: Ordered tiZANidine 4 mg oral tablet 0.5-1 tablet, By Mouth, Every 8 hours, PRN, TAKE ONLY NEEDED FOR MUSCLE SPASM, # 45 tablet, Refills 2, Tot. Refills 2, Maintenance, Spasm, 04/12/21 12:13:00 EST, Route to Pharmacy Electronically, [facility]/pharmacy #[id number], 163, cm, 03/07/21 11:34:00 EST,... Start Date: 04/12/21 Status: Ordered tiZANidine 4 mg oral tablet See Instructions, TAKE 1/2 TO 1 TABLET BY MOUTH EVERY 8 HOURS NEEDED FOR MILD AND MUSCLE SPASM, # 45 tablet, Refills 2, Maintenance, Instructions Replace Required Details, Route to Pharmacy Electronically, [facility], 163, cm, 07/27/20 13:59:0... Start Date: 07/27/20 Status: Ordered traMADol 50 mg oral tablet 1 tablet = 50 mg, By Mouth, Every 6 hours, PRN for pain, TAKE ONLY NEEDED Dx: M79.7, S92.91 Masspat checked, # 112 tablet, 0 Refills, Maintenance, 11/22/21 17:17:00 EDT, Tablet, [facility]/pharmacy #[id number], Please reinforce instructions with patient, she... Start Date: 11/22/21 Stop Date: 12/20/21 Status: Ordered Victoza 18 mg/3 mL subcutaneous solution = 0.6 mg, Subcutaneous Injection, Daily, # 6 mL, 3 Refills, Maintenance, 10/16/21 15:56:00 EDT, Injection, [facility]/pharmacy #[id number], dispense as pen, 163, cm, 10/16/21 14:49:00 EDT, Height Start Date: 10/16/21 Status: Ordered Vitamin D3 50,000 intl units oral capsule 1 capsule, By Mouth, Every week, # 12 capsule, 0 Refills, [facility], 163, cm, 09/13/21 9:15:00 EDT, Height Start Date: 09/18/21 Status: Ordered Voltaren 1% topical gel 1 application, Topically, 4 times a day, PRN for pain, # 100 Gm, 0 Refills, Maintenance, 05/27/21 18:00:00 EDT, Gel, [facility]/pharmacy #[id number], Partial fill upon patient request if [...] 70% ( crippled ) on 01/13/17; initial [place] Back Pain Scale:88 on 01/13/17; initial [place]: 7 on 01/13/17 Results Radiology Reports * Exam Date Time Procedure Performing Provider Status 12/24/21 10:27 AM MM Digital Mammo Unilat Left Gail Day; Auth (Verified) Notes: (MM Digital Mammo Unilat Left) Reason For Exam: LT ABNORMAL MAMMO;Abnormal Mammogram RESULT: MM Digital Mammo Unilat Left PROCEDURE: MM Digital Mammo Unilat Left INDICATION: Callback from the examination of 12/13/2021.. TECHNIQUE: Spot magnification CC and lateral views left breast. FINDINGS: The 2 small groupings of microcalcifications upper outer quadrant of left breast are included on the magnification views. They are new since the examination of 2019. There are both a heterogeneous indeterminate morphology. IMPRESSION: 1. There are 2 new groupings of microcalcifications confirmed upper outer quadrant of the left breast with indeterminate morphology. The patient's personal history of ipsilateral breast cancer is noted. 2. Stereotactic guided biopsy of both of these groupings is recommended. 3. Results and recommendations were discussed with the patient at the conclusion of the exam. RECOMMENDATION: Stereotactic biopsy left breast BI-RADS: 4 (Suspicious) Lay letter mailed to patient WSN: [id number] Ordering Physician: Ernesto King Dictated By: Marcelo Murdock MD Dictated Date/Time: 12/24/21 11:02 am Reviewed By: Marcelo Murdock MD Signed By: Marcelo Murdock MD Signed Date/Time: 12/24/21 11:02 am Transcribed By: CSJazmyn Geospatial Image Analyst Date/Time: 12/24/21 10:33 am Birads: Social History Social History Type Response Smoking Status Former smoker, quit more than 30 days ago entered on: 04/06/20 Sex Note * [facility] , CIS S: TRANSCRIBE Marcelo Murdock MD: VERIFY Event Display: Result: Authored Date: [id number] PROCEDURE: MM Digital Mammo Unilat Left INDICATION: Callback from the examination of 12/13/2021.. TECHNIQUE: Spot magnification CC and lateral views left breast. FINDINGS: The 2 small groupings of microcalcifications upper outer quadrant of left breast are included on the magnification views. They are new since the examination of 2019. There are both a heterogeneous indeterminate morphology. IMPRESSION: 1. There are 2 new groupings of microcalcifications confirmed upper outer quadrant of the left breast with indeterminate morphology. The patient's personal history of ipsilateral breast cancer is noted. 2. Stereotactic guided biopsy of both of these groupings is recommended. 3. Results and recommendations were discussed with the patient at the conclusion of the exam. RECOMMENDATION: Stereotactic biopsy left breast BI-RADS: 4 (Suspicious) Lay letter mailed to patient WSN: [id number] Ordering Physician: Ernesto King Dictated By: Marcelo Murdock MD Dictated Date/Time: 12/24/21 11:02 am Reviewed By: Marcelo Murdock MD Signed By: Marcelo Murdock MD Signed Date/Time: 12/24/21 11:02 am Transcribed By: CSB Geospatial Image Analyst Date/Time: 12/24/21 10:33 am Birads: Patient Care team information Care Team Personnel Name: Ernesto King MD Position: [facility] Primary Care Physician Member Role: PCP Address: Address: [address] [place] [address]- Name: Kathrine Luna MD Position: [facility] MILL SUPERVISOR MD Member Role: Lifetime MILL SUPERVISOR Physician [facility]: [facility] [place] [address]- Name: Kathya Grullon RN Position: [facility] RN Member Role: Primary Care Nurse Care Team Related Persons Name: GAIL LEIGH Address: [address] [address] Name: MADDIE LEIGH
--- OUTSIDE RECORDS SUMMARY | 2022-06-03 10:49 | XMS_ITS | Continuity of Care Document ---
Author Name Unknown Organization [facility] Address [address] [place] [address]- Care Team Providers Care Kitchen Steward/Stewardess Name Role Phone Fernando CARTY, Ernesto Zapata Primary Care Physician [facility]counter [facility] Date[facility]s): 03/08/21 - 04/07/21 [facility] [address] [place], [place] [address] Allergies, Adverse Reactions, Alerts No [...] Given tetanus/diphtheria/pertussis, acel(Tdap) 01/30/16 Given 1Result Comment: [facility]:[id number] 2Result Comment: [facility] [id number] 3Result Comment: [11/30/2017] [facility] [id number] 4Result Comment: [12/31/2016] [facility] [id number] 5Admin Note: vis given 09/10/12 6Admin Note: VIS given 08/18/2011 7Result Comment: [12/31/2016] [facility] [id number] Medications albuterol 90 mcg/inh inhalation powder 2 puffs, Inhalation, Every 6 hours, PRN Wheezing/Shortness of Breath, # 1 each, 3 Refills, Maintenance, 02/27/21 16:30:00 EST, Powder, [facility]/pharmacy #[id number], dispense pro-air, 2 puffs [...] Refills, Maintenance, 08/14/20 12:53:00 EDT, [facility], 163, cm, 07/31/20 9:10:00 EDT, Height, 98.9, [...] 3 Refills, Maintenance, 02/29/20 14:04:00 EST, Aerosol, [facility] #[id number], 163, cm, 02/29/20 13:19:00 EST, Height, 98.9, [...] 02/19/21 9:00:00 EST, Route to Pharmacy Electronically, [facility]/pharmacy #[id number], 163, cm, 02/18/21 14:32:00 EST,Height, 98.9, kg, 08/25/19 12:42:00 EDT, Dry Weight Start Date: 02/19/21 Status: Ordered levothyroxine 150 mcg (0.15 mg) oral tablet See Instructions, TAKE 1 TABLET BY MOUTH EVERY DAY, # 30 tablet, 2 Refills, [facility], 163, cm, 02/18/21 14:32:00 EST, Height, 98.9, kg, 08/25/19 12:42:00 EDT, Dry Weight Start Date: 02/19/21 Status: Ordered loratadine 10 mg oral tablet 10 mg, 1, tablet, By Mouth, Daily, # 30 tablet, Refills 6, Tot. Refills 6, Maintenance, 11/28/19 8:53:00 EDT, Route to Pharmacy Electronically, [facility]/pharmacy #[id number], 163, cm, 11/25/19 14:43:00 EDT, Height, 98.9, kg, 08/25/19 12:42:00 EDT, Dry Weight Start Date: 11/28/19 Status: Ordered metFORMIN 500 mg oral tablet 1 tablet = 500 mg, By Mouth, 2 times a day, # 60 tablet, 5 Refills, Maintenance, 02/19/21 8:58:00 EST, [facility]/pharmacy #[id number], 163, cm, 02/18/21 14:32:00 [...] each, 1 Refills, Maintenance, 08/25/19 15:03:00 EDT, [facility]/pharmacy#4471, 2 sprays Nares, Both Daily, 163, cm, 08/25/19 12:40:00 EDT, Height, 98.9, kg, 08/25/19 12:42:00 EDT, Dry Weight Start Date: 08/25/19 Status: Ordered Nasonex 50 mcg/inh nasal spray 2 sprays, Nares, Both, 2 times a day, # 17 Gm, 0 Refills, Maintenance, 08/25/19 13:03:00 EDT, [place], [facility]/pharmacy #4471, 2 sprays Nares, Both [...] 07/31/20 9:07:00 EDT, Route to Pharmacy Electronically, [facility] #[id number], Partial fill upon patient request if the prescription is for a sched... Start Date: 07/31/20 Status: Ordered PriLOSEC OTC 20 mg oral delayed release tablet 1 tablet = 20 mg, By Mouth, Daily, # 30 tablet, 2 Refills, Maintenance, 03/13/20 11:45:00 EST, [facility]/pharmacy #[id number], 163, cm, 03/08/20 11:24:00 EST, Height, 98.9, kg, 08/25/19 12:42:00 EDT, Dry Weight Start Date: 03/13/20 Status: Ordered semaglutide 0.25 mg/0.5 mL (0.25 mg dose) subcutaneous solution = 0.25 mg, Subcutaneous Injection, Every 72 hours, # 3 each, 0 Refills, Maintenance, 10/04/20 16:20:00 EDT, [facility] #[id number], Partial fill upon patient request if the [...] Details, Route to Pharmacy Electronically, [facility], 163, cm, 07/27/20 13:59:0... Start Date: 07/27/20 [...] 70% ( crippled ) on 01/13/17; initial [place] Back Pain Scale:88 on 01/13/17; initial [place]: 7 on 01/13/17 Social History Social History Type Response Smoking Status Former smoker, quit more than 30 days ago entered on: 04/06/20 Sex
--- OUTSIDE RECORDS SUMMARY | 2022-06-03 10:49 | XMS_ITS | Continuity of Care Document ---
Author Name Unknown Organization [facility] Address [address] [place] [address]- Care Team Providers Care Rn Cvor Name Role Phone Ernesto King MD Primary Care Physician [facility]counter [facility] Date(s): 04/10/22 - 05/10/22 [facility] [address] [place], [place] [address] Allergies, Adverse Reactions, Alerts No Known Allergies [...] Given tetanus/diphtheria/pertussis, acel(Tdap) 01/30/16 Given 1Result Comment: [facility]:[id number] 2Result Comment: [facility] [id number] 3Result Comment: [11/30/2017] [facility] [id number] 4Result Comment: [12/31/2016] [facility] [id number] 5Admin Note: vis given 09/10/12 6Admin Note: VIS given 08/18/2011 7Result Comment: [12/31/2016] [facility] [id number] Medications albuterol 90 mcg/inh inhalation powder 2 puffs, Inhalation, Every 6 hours, PRN Wheezing/Shortness of Breath, # 1 each, 3 Refills, Maintenance, 11/22/21 17:17:00 EDT, Powder, [facility]/pharmacy #[id number], dispense pro-air, 2 puffs Inhalation Every 6hours,PRN:Wheezing/Shortness of Breath, 163, cm, 10... Start Date: 11/22/21 Status: Ordered albuterol-ipratropium 3 mg-0.5 mg/3 ml inhalation solution 3 mL, Neb, 4 times a day, J45.40, # 180 mL, 3 Refills, Maintenance, 11/22/21 17:17:00 EDT, Solution, [facility]/pharmacy #4471, 3 mL Neb 4 times a day,Instr:J45.40, 163, cm, 11/22/21 15:30:00 EDT, Height Start Date: 11/22/21 Status: Ordered celecoxib 100 mg oral capsule 1 capsule, By Mouth, 2 times a day with meals, # 60 capsule, 1 Refills, Maintenance, 08/14/20 12:53:00 EDT, [facility], 163, cm, 07/31/20 9:10:00 EDT, Height, 98.9, [...] 3 Refills, Maintenance, 02/29/20 14:04:00 EST, Aerosol, [facility] #19927, 163, cm, 02/29/20 13:19:00 EST, Height, 98.9, [...] 11/22/21 17:17:00 EDT, Route to Pharmacy Electronically, [facility]/pharmacy #[id number], 163, cm, 11/22/21 15:30:00 EDT, Height Start Date: 11/22/21 Stop Date: 01/21/22 Status: Ordered levothyroxine 175 mcg (0.175 mg) oral tablet 1 tablet = 175 mcg, By Mouth, Daily, # 90 tablet, 0 Refills, Maintenance, 03/31/22 12:00:00 EST, Tablet, [facility]/pharmacy #[id number], Partial fill upon patient request if the prescription is for a schedule IIopioid drug., 163, cm, 03/31/22 11:41:00 EST, Height Start Date: 03/31/22 Status: Ordered loratadine 10 mg oral tablet 10 mg, 1, tablet, By Mouth, Daily, # 30 tablet, Refills 6, Tot. Refills 6, Maintenance, 11/28/19 8:53:00 EDT, Route to Pharmacy Electronically, [facility]/pharmacy #[id number], 163, cm, 11/25/19 14:43:00 EDT, Height, 98.9, kg, 08/25/19 12:42:00 EDT, Dry Weight Start Date: 11/28/19 Status: Ordered metFORMIN 500 mg oral tablet 1 tablet = 500 mg, By Mouth, 2 times a day, # 60 tablet, 5 Refills, Maintenance, 02/19/21 8:58:00 EST, [facility]/pharmacy #[id number], 163, cm, 02/18/21 14:32:00 EST, [...] each, 1 Refills, Maintenance, 08/25/19 15:03:00 EDT, [facility]/pharmacy#4471, 2 sprays Nares, Both Daily, 163, cm, 08/25/19 12:40:00 EDT, Height, 98.9, kg, 08/25/19 12:42:00 EDT, Dry Weight Start Date: 08/25/19 Status: Ordered Nasonex 50 mcg/inh nasal spray 2 sprays, Nares, Both, 2 times a day, # 17 Gm, 0 Refills, Maintenance, 12/04/21 11:58:00 EDT, [place], [facility]/pharmacy #4471, 2 sprays Nares, Both 2 [...] 07/31/20 9:07:00 EDT, Route to Pharmacy Electronically, [facility] #[id number], Partial fill upon patient request if the prescription is for a sched... Start Date: 07/31/20 Status: Ordered PriLOSEC OTC 20 mg oral delayed release tablet 1 tablet = 20 mg, By Mouth, Daily, # 30 tablet, 2 Refills, Maintenance, 12/04/21 11:57:00 EDT, [facility]/pharmacy #4471, 163, cm, 12/04/21 11:37:00 EDT, [...] mL, 3 Refills, Maintenance, 12/04/21 11:56:00 EDT, [facility]/pharmacy #4471, 2 drops Eyes, Both 3 times a day, 163, cm, 12/04/21 11:37:00 EDT, Height Start Date: 12/04/21 Status: Ordered tiZANidine 4 mg oral tablet 0.5-1 tablet, By Mouth, Every 8 hours, PRN, TAKE ONLY NEEDED FOR MUSCLE SPASM, # 45 tablet, Refills 2, Tot. Refills 2, Maintenance, Spasm, 04/12/21 12:13:00 EST, Route to Pharmacy Electronically, [facility]/pharmacy #[id number], 163, cm, 03/07/21 11:34:00 EST,... Start Date: 04/12/21 Status: Ordered tiZANidine 4 mg oral tablet See Instructions, TAKE 1/2 TO 1 TABLET BY MOUTH EVERY 8 HOURS NEEDED FOR MILD AND MUSCLE SPASM, # 45 tablet, Refills 2, Maintenance, Instructions Replace Required Details, Route to Pharmacy Electronically, [facility], 163, cm, 07/27/20 13:59:0... Start Date: 07/27/20 Status: Ordered traMADol 50 mg oral tablet 1 tablet = 50 mg, By Mouth, Every 6 hours, PRN for pain, TAKE ONLY NEEDED Dx: M79.7, S92.91 Masspat checked, # 112 tablet, 0 Refills, Maintenance, 04/01/22 15:55:00 EST, Tablet, [facility]/pharmacy #4471, Please reinforce instructions with patient, she... Start Date: 04/01/22 Stop Date: 04/29/22 Status: Ordered Victoza 18 mg/3 mL subcutaneous solution = 0.6 mg, Subcutaneous Injection, Daily, # 6 mL, 3 Refills, Maintenance, 10/16/21 15:56:00 EDT, Injection, [facility]/pharmacy #[id number], dispense as pen, 163, cm, 10/16/21 14:49:00 EDT, Height Start Date: 10/16/21 Status: Ordered Vitamin D3 50,000 intl units oral capsule 1 capsule, By Mouth, Every week, # 12 capsule, 0 Refills, [facility], 163, cm, 09/13/21 9:15:00 EDT, Height Start [...] 70% ( crippled ) on 01/13/17; initial [place] Back Pain Scale:88 on 01/13/17; initial [place]: 7 on 01/13/17 Social History Social History Type Response Smoking Status Former smoker, quit more than 30 days ago entered on: 04/06/20 Sex Patient Care team information Care Team Personnel Name: Ernesto King MD Position: [facility] Primary Care Physician Member Role: PCP Address: Address: [address] [place] [address] Family [place], [place] [address] Name: Kathrine Luna MD Position: [facility] HEAD COOK MD Member Role: Lifetime HEAD COOK Physician Address: Address: [address] [place] [address] Women's Health Title Searcher - [place], [place] [address] Name: Kathya Grullon RN Position: [facility] RN Member Role: Primary Care Nurse Care Team Related Persons Name: LYN LEIGH Address: [place] [address] Name: MADDIE LEIGH
--- OUTSIDE RECORDS SUMMARY | 2022-06-03 10:49 | XMS_ITS | Continuity of Care Document ---
Author Name Unknown Organization [facility] Address [address] [place] [address]- Care Team Providers Care Audio Visual Secretary Name Role Phone Erensto King MD Primary Care Physician Encounter 12/13/21 - 12/20/21 [facility] [address], [address] [place] [address]- Attending Physician: Ernesto King MD Admitting Physician: [...] Given tetanus/diphtheria/pertussis, acel(Tdap) 01/30/16 Given 1Result Comment: [facility]:[id number] 2Result Comment: NDC [id number] 3Result Comment: [11/30/2017] [facility] [id number] 4Result Comment: [12/31/2016] [facility] [id number] 5Admin Note: vis given 09/10/12 6Admin Note: VIS given 08/18/2011 7Result Comment: [12/31/2016] [facility] [id number] Medications albuterol 90 mcg/inh inhalation powder 2 puffs, Inhalation, Every 6 hours, PRN Wheezing/Shortness of Breath, # 1 each, 3 Refills, Maintenance, 11/22/21 17:17:00 EDT, Powder, [facility]/pharmacy #[id number], dispense pro-air, 2 puffs [...] Refills, Maintenance, 08/14/20 12:53:00 EDT, [facility], 163, cm, 07/31/20 9:10:00 EDT, Height, 98.9, [...] 3 Refills, Maintenance, 02/29/20 14:04:00 EST, Aerosol, [facility][id number], 163, cm, 02/29/20 13:19:00 EST, Height, 98.9, [...] 11/22/21 17:17:00 EDT, Route to Pharmacy Electronically, [facility]/pharmacy #[id number], 163, cm, 11/22/21 15:30:00 EDT, Height Start Date: 11/22/21 Stop Date: 01/21/22 Status: Ordered levothyroxine 175 mcg (0.175 mg) oral tablet 1 tablet = 175 mcg, By Mouth, Daily, # 90 tablet, 1 Refills, Maintenance, 06/27/21 11:36:00 EDT, Tablet, [facility]/pharmacy #[id number], Partial fill upon patient request if the prescription is for a schedule IIopioid drug., 163, cm, 06/27/21 11:27:00 EDT, Sebastián... Start Date: 06/27/21 Status: Ordered loratadine 10 mg oral tablet 10 mg, 1, tablet, By Mouth, Daily, # 30 tablet, Refills 6, Tot. Refills 6, Maintenance, 11/28/19 8:53:00 EDT, Route to Pharmacy Electronically, [facility]/pharmacy #[id number], 163, cm, 11/25/19 14:43:00 EDT, Height, 98.9, kg, 08/25/19 12:42:00 EDT, Dry Weight Start Date: 11/28/19 Status: Ordered metFORMIN 500 mg oral tablet 1 tablet = 500 mg, By Mouth, 2 times a day, # 60 tablet, 5 Refills, Maintenance, 02/19/21 8:58:00 EST, [facility]/pharmacy #[id number], 163, cm, 02/18/21 14:32:00 [...] each, 1 Refills, Maintenance, 08/25/19 15:03:00 EDT, [facility]/pharmacy#[id number], 2 sprays Nares, Both Daily, 163, cm, 08/25/19 12:40:00 EDT, Height, 98.9, kg, 08/25/19 12:42:00 EDT, Dry Weight Start Date: 08/25/19 Status: Ordered Nasonex 50 mcg/inh nasal spray 2 sprays, Nares, Both, 2 times a day, # 17 Gm, 0 Refills, Maintenance, 12/04/21 11:58:00 EDT, [place], [facility]/pharmacy #[id number], 2 sprays Nares, Both [...] 07/31/20 9:07:00 EDT, Route to Pharmacy Electronically, [facility] #[id number], Partial fill upon patient request if the prescription is for a sched... Start Date: 07/31/20 Status: Ordered PriLOSEC OTC 20 mg oral delayed release tablet 1 tablet = 20 mg, By Mouth, Daily, # 30 tablet, 2 Refills, Maintenance, 12/04/21 11:57:00 EDT, [facility]/pharmacy #[id number], 163, cm, 12/04/21 11:37:00 EDT, Height Start Date: 12/04/21 Status: Ordered semaglutide 0.25 mg/0.5 mL (0.25 mg dose) subcutaneous solution = 0.25 mg, Subcutaneous Injection, Every week, # 3 each, 1 Refills, Maintenance, 11/25/21 8:34:00 EDT, [facility]/pharmacy #[id number], Partial fill upon patient request if the prescription is for a schedule II opioid drug., 163, cm, 11/22/21 15:30:00 EDT, Height Start Date: 11/25/21 Status: Ordered Systane Complete Optimal Dry Eye Relief ophthalmic solution 2 drops, Eyes, Both, 3 times a day, # 30 mL, 3 Refills, Maintenance, 12/04/21 11:56:00 [facility]T, [id number], 2 drops Eyes, Both 3 times a day, 163, cm, 12/04/21 11:37:00 EDT, Height Start Date: 12/04/21 Status: Ordered tiZANidine 4 mg oral tablet 0.5-1 tablet, By Mouth, Every 8 hours, PRN, TAKE ONLY NEEDED FOR MUSCLE SPASM, # 45 tablet, Refills 2, Tot. Refills 2, Maintenance, Spasm, 04/12/21 12:13:00 EST, Route to Pharmacy Electronically, [facility]/pharmacy #[id number], 163, cm, 03/07/21 11:34:00 EST,... Start Date: 04/12/21 Status: Ordered tiZANidine 4 mg oral tablet See Instructions, TAKE 1/2 TO 1 TABLET BY MOUTH EVERY 8 HOURS NEEDED FOR MILD AND MUSCLE SPASM, # 45 tablet, Refills 2, Maintenance, Instructions Replace Required Details, Route to Pharmacy Electronically, [id number], 163, cm, 07/27/20 13:59:0... Start Date: 07/27/20 Status: Ordered traMADol 50 mg oral tablet 1 tablet = 50 mg, By Mouth, Every 6 hours, PRN for pain, TAKE ONLY NEEDED Dx: M79.7, S92.91 Masspat checked, # 112 tablet, 0 Refills, Maintenance, 11/22/21 17:17:00 EDT, Tablet, [facility]/pharmacy #[id number], Please reinforce instructions with patient, she... Start Date: 11/22/21 Stop Date: 12/20/21 Status: Ordered Victoza 18 mg/3 mL subcutaneous solution = 0.6 mg, Subcutaneous Injection, Daily, # 6 mL, 3 Refills, Maintenance, 10/16/21 15:56:00 EDT, Injection, [facility]/pharmacy #[id number], dispense as pen, 163, cm, 10/16/21 14:49:00 EDT, Height Start Date: 10/16/21 Status: Ordered Vitamin D3 50,000 intl units oral capsule 1 capsule, By Mouth, Every week, # 12 capsule, 0 Refills, [facility], 163, cm, 09/13/21 9:15:00 EDT, Height Start Date: 09/18/21 Status: Ordered Voltaren 1% topical gel 1 application, Topically, 4 times a day, PRN for pain, # 100 Gm, 0 Refills, Maintenance, 05/27/21 18:00:00 EDT, Gel, [facility]/pharmacy #[id number], Partial fill upon patient request if the [...] 70% ( crippled ) on 01/13/17; initial [place] Back Pain Scale:88 on 01/13/17; initial [place]: 7 on 01/13/17 Social History Social History Type Response Smoking Status Former smoker, quit more than 30 days ago entered on: 04/06/20 Sex Patient Care team information Personnel Name: Fernando CARTY, Ernesto Zapata Address: [facility] [facility] [place], [place] [address]
--- OUTSIDE RECORDS SUMMARY | 2022-06-03 10:49 | XMS_ITS | Continuity of Care Document ---
Author Name Unknown Organization [facility] Address [address] [place] [address]- Care Team Providers Care Mold Checker Name Role Phone Fernando CARTY, Ernesto Zapata Primary Care Physician [facility]counter [facility] Date[facility]): 09/[facility]21 - 10/02/21 [facility] [address] [place] [address]- Allergies, Adverse Reactions, Alerts No Known Allergies [...] 1Result Comment: [facility]:[id number] 2Result Comment: [facility] [id number] 3Result Comment: [11/30/2017] [facility] [id number] 4Result Comment: [12/31/2016] [facility] [id number] 5Admin Note: vis given 09/10/12 6Admin Note: VIS given 08/18/2011 7Result Comment: [12/31/2016] [facility] [id number] Medications albuterol 90 mcg/inh inhalation powder 2 puffs, Inhalation, Every 6 hours, PRN Wheezing/Shortness of Breath, # 1 each, 3 Refills, Maintenance, 02/27/21 16:30:00 EST, Powder, [facility]/pharmacy #[id number], dispense pro-air, 2 puffs Inhalation Every 6hours,PRN:Wheezing/Shortness of Breath, 163, cm, 01... Start Date: 02/27/21 Status: Ordered albuterol-ipratropium 3 mg-0.5 mg/3 ml inhalation solution 3 mL, Neb, 4 times a day, J45.40, # 180 mL, 3 Refills, Maintenance, 07/02/20 14:11:00 EDT, Solution, [facility]/pharmacy #[id number], 3 mL Neb 4 times a day,Instr:J45.40, 163, cm, 06/18/20 13:31:00 EDT, Height, 98.9, kg, 08/25/19 12:42:00 EDT, Dry Weight Start Date: 07/02/20 Status: Ordered celecoxib 100 mg oral capsule 1 capsule, By Mouth, 2 times a day with meals, # 60 capsule, 1 Refills, Maintenance, 08/14/20 12:53:00 EDT, [id number], 163, cm, 07/31/20 9:10:00 EDT, Height, 98.9, [...] 3 Refills, Maintenance, 02/29/20 14:04:00 EST, Aerosol, [id number], 163, cm, 02/29/20 13:19:00 EST, Height, 98.9, [...] 08/29/21 14:22:00 EDT, Route to Pharmacy Electronically, [facility]/pharmacy #[id number], 163, cm, 08/29/21 13:43:00 EDT, Height Start Date: 08/29/21 Stop Date: 10/28/21 Status: Ordered levothyroxine 175 mcg (0.175 mg) oral tablet 1 tablet = 175 mcg, By Mouth, Daily, # 90 tablet, 1 Refills, Maintenance, 06/27/21 11:36:00 EDT, Tablet, [facility]/pharmacy #[id number], Partial fill upon patient request if the prescription is for a schedule IIopioid drug., 163, cm, 06/27/21 11:27:00 EDT, Amber Start Date: 06/27/21 Status: Ordered loratadine 10 mg oral tablet 10 mg, 1, tablet, By Mouth, Daily, # 30 tablet, Refills 6, Tot. Refills 6, Maintenance, 11/28/19 8:53:00 EDT, Route to Pharmacy Electronically, [facility]/pharmacy #[id number], 163, cm, 11/25/19 14:43:00 EDT, Height, 98.9, kg, 08/25/19 12:42:00 EDT, Dry Weight Start Date: 11/28/19 Status: Ordered metFORMIN 500 mg oral tablet 1 tablet = 500 mg, By Mouth, 2 times a day, # 60 tablet, 5 Refills, Maintenance, 02/19/21 8:58:00 EST, [facility]/pharmacy #[id number], 163, cm, 02/18/21 14:32:00 EST, Height, [...] each, 1 Refills, Maintenance, 08/25/19 15:03:00 EDT, [facility]/pharmacy#4471, 2 sprays Nares, Both Daily, 163, cm, 08/25/19 12:40:00 EDT, Height, 98.9, kg, 08/25/19 12:42:00 EDT, Dry Weight Start Date: 08/25/19 Status: Ordered Nasonex 50 mcg/inh nasal spray 2 sprays, Nares, Both, 2 times a day, # 17 Gm, 0 Refills, Maintenance, 08/25/19 13:03:00 EDT, [place], [facility]/pharmacy #[id number], 2 sprays Nares, Both 2 times [...] 07/31/20 9:07:00 EDT, Route to Pharmacy Electronically, [facility] #[id number], Partial fill upon patient request if the prescription is for a sched... Start Date: 07/31/20 Status: Ordered PriLOSEC OTC 20 mg oral delayed release tablet 1 tablet = 20 mg, By Mouth, Daily, # 30 tablet, 2 Refills, Maintenance, 03/13/20 11:45:00 EST, [facility]/pharmacy #[id number], 163, cm, 03/08/20 11:24:00 EST, Height, 98.9, kg, 08/25/19 12:42:00 EDT, Dry Weight Start Date: 03/13/20 Status: Ordered semaglutide 0.25 mg/0.5 mL (0.25 mg dose) subcutaneous solution = 0.25 mg, Subcutaneous Injection, Every 72 hours, # 3 each, 0 Refills, Maintenance, 09/13/21 9:26:00 EDT, [facility]/pharmacy #[id number], Partial fill upon patient request if the prescription is for a schedule II opioid drug., 163, cm, 09/13/21 9:15:00 EDT, Height Start Date: 09/13/21 Status: Ordered Systane Complete Optimal Dry Eye Relief ophthalmic solution 2 drops, Eyes, Both, 3 times a day, # 30 mL, 3 Refills, Maintenance, 11/28/19 8:55:00 EDT, [facility]/pharmacy #[id number], 2 drops Eyes, Both 3 times a day, 163, cm, 11/25/19 14:43:00 EDT, Height, 98.9, kg, 08/25/19 12:42:00 EDT, Dry Weight Start Date: 11/28/19 Status: Ordered tiZANidine 4 mg oral tablet 0.5-1 tablet, By Mouth, Every 8 hours, PRN, TAKE ONLY NEEDED FOR MUSCLE SPASM, # 45 tablet, Refills 2, Tot. Refills 2, Maintenance, Spasm, 04/12/21 12:13:00 EST, Route to Pharmacy Electronically, [facility]/pharmacy #[id number], 163, cm, 03/07/21 11:34:00 EST,... Start Date: 04/12/21 Status: Ordered tiZANidine 4 mg oral tablet See Instructions, TAKE 1/2 TO 1 TABLET BY MOUTH EVERY 8 HOURS NEEDED FOR MILD AND MUSCLE SPASM, # 45 tablet, Refills 2, Maintenance, Instructions Replace Required Details, Route to Pharmacy Electronically, [id number], 163, cm, 07/27/20 13:59:0... Start Date: 07/27/20 Status: Ordered traMADol 50 mg oral tablet 1 tablet = 50 mg, By Mouth, Every 6 hours, PRN for pain, TAKE ONLY NEEDED Dx: M79.7, S92.91 Masspat checked, # 112 tablet, 0 Refills, Maintenance, 08/29/21 17:12:00 EDT, Tablet, [facility]/pharmacy #[id number], Please reinforce instructions with patient, she... Start Date: 08/29/21 Stop Date: 09/26/21 Status: Ordered Vitamin D3 50,000 intl units oral capsule 1 capsule, By Mouth, Every week, # 12 capsule, 0 Refills, [facility], 163, cm, 09/13/21 9:15:00 EDT, Height Start Date: 09/18/21 Status: Ordered Voltaren 1% topical gel 1 application, Topically, 4 times a day, PRN for pain, # 100 Gm, 0 Refills, Maintenance, 05/27/21 18:00:00 EDT, Gel, [facility]/pharmacy #[id number], Partial fill upon patient request if the [...] 70% ( crippled ) on 01/13/17; initial [place] Back Pain Scale:88 on 01/13/17; initial [place]: 7 on 01/13/17 Social History Social History Type Response Smoking Status Former smoker, quit more than 30 days ago entered on: 04/06/20 Sex
--- OUTSIDE RECORDS SUMMARY | 2022-06-03 10:49 | XMS_ITS | Continuity of Care Document ---
Author Name Unknown Organization [facility] Address [address] [place] [address]- Care Team Providers Care Taxation Consultant Name Role Phone Ernesto King MD Primary Care Physician Encounter [facility] Date(s): 02/04/22 - 03/06/22 [facility] [address] [place], [place] [address] Allergies, Adverse Reactions, Alerts No [...] Given tetanus/diphtheria/pertussis, acel(Tdap) 01/30/16 Given 1Result Comment: [facility]:58661-801-66 2Result Comment: [facility] 53641-852-07 3Result Comment: [11/30/2017] [facility] [id number] 4Result Comment: [12/31/2016] [facility] [id number] 5Admin Note: vis given 09/10/12 6Admin Note: VIS given 08/18/2011 7Result Comment: [12/31/2016] [facility] [id number] Medications albuterol 90 mcg/inh inhalation powder 2 puffs, Inhalation, Every 6 hours, PRN Wheezing/Shortness of Breath, # 1 each, 3 Refills, Maintenance, 11/22/21 17:17:00 EDT, Powder, [facility]/pharmacy #[id number], dispense pro-air, 2 puffs Inhalation Every 6hours,PRN:Wheezing/Shortness of Breath, 163, cm, 10... Start Date: 11/22/21 Status: Ordered albuterol-ipratropium 3 mg-0.5 mg/3 ml inhalation solution 3 mL, Neb, 4 times a day, J45.40, # 180 mL, 3 Refills, Maintenance, 11/22/21 17:17:00 EDT, Solution, [facility]/pharmacy #[id number], 3 mL Neb 4 times a day,Instr:J45.40, 163, cm, 11/22/21 15:30:00 EDT, Height Start Date: 11/22/21 Status: Ordered celecoxib 100 mg oral capsule 1 capsule, By Mouth, 2 times a day with meals, # 60 capsule, 1 Refills, Maintenance, 08/14/20 12:53:00 EDT, [facility], 163, cm, 07/31/20 9:10:00 EDT, Height, 98.9, [...] 3 Refills, Maintenance, 02/29/20 14:04:00 EST, Aerosol, [facility] #[id number], 163, cm, 02/29/20 13:19:00 EST, Height, 98.9, [...] 11/22/21 17:17:00 EDT, Route to Pharmacy Electronically, [facility]/pharmacy #[id number], 163, cm, 11/22/21 15:30:00 EDT, Height Start Date: 11/22/21 Stop Date: 01/21/22 Status: Ordered levothyroxine 175 mcg (0.175 mg) oral tablet 1 tablet = 175 mcg, By Mouth, Daily, # 90 tablet, 1 Refills, Maintenance, 06/27/21 11:36:00 EDT, Tablet, [facility]/pharmacy #[id number], Partial fill upon patient request if the prescription is for a schedule IIopioid drug., 163, cm, 06/27/21 11:27:00 EDT, [place] Start Date: 06/27/21 Status: Ordered loratadine 10 mg oral tablet 10 mg, 1, tablet, By Mouth, Daily, # 30 tablet, Refills 6, Tot. Refills 6, Maintenance, 11/28/19 8:53:00 EDT, Route to Pharmacy Electronically, [facility]/pharmacy #[id number], 163, cm, 11/25/19 14:43:00 EDT, Height, 98.9, kg, 08/25/19 12:42:00 EDT, Dry Weight Start Date: 11/28/19 Status: Ordered metFORMIN 500 mg oral tablet 1 tablet = 500 mg, By Mouth, 2 times a day, # 60 tablet, 5 Refills, Maintenance, 02/19/21 8:58:00 EST, [facility]/pharmacy #[id number], 163, cm, [...] each, 1 Refills, Maintenance, 08/25/19 15:03:00 EDT, [facility]/pharmacy#4471, 2 sprays Nares, Both Daily, 163, cm, 08/25/19 12:40:00 EDT, Height, 98.9, kg, 08/25/19 12:42:00 EDT, Dry Weight Start Date: 08/25/19 Status: Ordered Nasonex 50 mcg/inh nasal spray 2 sprays, Nares, Both, 2 times a day, # 17 Gm, 0 Refills, Maintenance, 12/04/21 11:58:00 EDT, [place], [facility]/pharmacy #[id number], 2 sprays [...] 07/31/20 9:07:00 EDT, Route to Pharmacy Electronically, [facility] #[id number], Partial fill upon patient request if the prescription is for a sched... Start Date: 07/31/20 Status: Ordered PriLOSEC OTC 20 mg oral delayed release tablet 1 tablet = 20 mg, By Mouth, Daily, # 30 tablet, 2 Refills, Maintenance, 12/04/21 11:57:00 EDT, [facility]/pharmacy #[id number], 163, cm, 12/04/21 11:37:00 EDT, Height Start Date: 12/04/21 Status: Ordered semaglutide 0.25 mg/0.5 mL (0.25 mg dose) subcutaneous solution = 0.25 mg, Subcutaneous Injection, Every week, # 3 each, 1 Refills, Maintenance, 11/25/21 8:34:00 EDT, [facility]/pharmacy #[id number], Partial fill upon patient request if the prescription is for a schedule II opioid drug., 163, cm, 11/22/21 15:30:00 EDT, Height Start Date: 11/25/21 Status: Ordered Systane Complete Optimal Dry Eye Relief ophthalmic solution 2 drops, Eyes, Both, 3 times a day, # 30 mL, 3 Refills, Maintenance, 12/04/21 11:56:00 EDT, [facility]/pharmacy #[id number], 2 drops Eyes, Both 3 times a day, 163, cm, 12/04/21 11:37:00 EDT, Height Start Date: 12/04/21 Status: Ordered tiZANidine 4 mg oral tablet 0.5-1 tablet, By Mouth, Every 8 hours, PRN, TAKE ONLY NEEDED FOR MUSCLE SPASM, # 45 tablet, Refills 2, Tot. Refills 2, Maintenance, Spasm, 04/12/21 12:13:00 EST, Route to Pharmacy Electronically, [facility]/pharmacy #[id number], 163, cm, 03/07/21 11:34:00 EST,... Start Date: 04/12/21 Status: Ordered tiZANidine 4 mg oral tablet See Instructions, TAKE 1/2 TO 1 TABLET BY MOUTH EVERY 8 HOURS NEEDED FOR MILD AND MUSCLE SPASM, # 45 tablet, Refills 2, Maintenance, Instructions Replace Required Details, Route to Pharmacy Electronically, [id number], 163, cm, 07/27/20 13:59:0... Start Date: 07/27/20 Status: Ordered traMADol 50 mg oral tablet 1 tablet = 50 mg, By Mouth, Every 6 hours, PRN for pain, TAKE ONLY NEEDED Dx: M79.7, S92.91 Masspat checked, # 112 tablet, 0 Refills, Maintenance, 03/05/22 13:34:00 EST, Tablet, [facility]/pharmacy #[id number], Please reinforce instructions with patient, she... Start Date: 03/05/22 Stop Date: 04/02/22 Status: Ordered Victoza 18 mg/3 mL subcutaneous solution = 0.6 mg, Subcutaneous Injection, Daily, # 6 mL, 3 Refills, Maintenance, 10/16/21 15:56:00 EDT, Injection, [facility]/pharmacy #[id number], dispense as pen, 163, cm, 10/16/21 14:49:00 EDT, Height Start Date: 10/16/21 Status: Ordered Vitamin D3 50,000 intl units oral capsule 1 capsule, By Mouth, Every week, # 12 capsule, 0 Refills, [facility], 163, cm, 09/13/21 9:15:00 EDT, Height Start Date: 09/18/21 Status: Ordered Voltaren 1% topical gel 1 application, Topically, 4 times a day, PRN for pain, # 100 Gm, 0 Refills, Maintenance, 05/27/21 18:00:00 EDT, Gel, [facility], Partial fill upon patient request if the [...] [place] Back Pain Scale:88 on 01/13/17; initial [place]: 7 on 01/13/17 Social History Social History Type Response Smoking Status Former smoker, quit more than 30 days ago entered on: 04/06/20 Sex Patient Care team information Care Team Personnel Name: Ernesto King MD Position: [facility] Primary Care Physician Member Role: PCP Address: Address: [address] [place] [address] [place] [address]- Name: Kathrine Luna MD Position: [facility] COREROOM FOUNDRY LABORER MD Member Role: Lifetime [employer]EROOM F[employer]DRY [employer]ORER Physician Address: [facility] [place] [address]- Name: Kathya Grullon RN Position: [facility] RN Member Role: Primary Care Nurse Care Team Related Persons Name: LYN LEIGH Address: [place] [address] Name: MADDIE LEIGH
--- OUTSIDE RECORDS SUMMARY | 2022-06-03 10:49 | XMS_ITS | Continuity of Care Document ---
Author Name Unknown Organization [facility] Address [address] [place] [address]- Care Team Providers Care Reception Manager Name Role Phone Ernesto King MD Primary Care Physician [facility]counter [facility] Date(s): 04/[facility]22 - 05/01/22 [facility] [address] [place], [place] [address] Allergies, Adverse Reactions, Alerts No [...] Given tetanus/diphtheria/pertussis, acel(Tdap) 01/30/16 Given 1Result Comment: [facility]:[id number] 2Result Comment: [facility] [id number] 3Result Comment: [11/30/2017] [facility] [id number] 4Result Comment: [12/31/2016] [facility] [id number] 5Admin Note: vis given 09/10/12 6Admin Note: VIS given 08/18/2011 7Result Comment: [12/31/2016] [facility] [id number] Medications albuterol 90 mcg/inh inhalation powder 2 puffs, Inhalation, Every 6 hours, PRN Wheezing/Shortness of Breath, # 1 each, 3 Refills, Maintenance, 11/22/21 17:17:00 EDT, Powder, [facility]/pharmacy #[id number], dispense pro-air, 2 puffs Inhalation Every 6hours,PRN:Wheezing/Shortness of Breath, 163, cm, 10... Start Date: 11/22/21 Status: Ordered albuterol-ipratropium 3 mg-0.5 mg/3 ml inhalation solution 3 mL, Neb, 4 times a day, J45.40, # 180 mL, 3 Refills, Maintenance, 11/22/21 17:17:00 EDT, Solution, [facility]/pharmacy #[id number], 3 mL Neb 4 times a day,Instr:J45.40, 163, cm, 11/22/21 15:30:00 EDT, Height Start Date: 11/22/21 Status: Ordered celecoxib 100 mg oral capsule 1 capsule, By Mouth, 2 times a day with meals, # 60 capsule, 1 Refills, Maintenance, 08/14/20 12:53:00 EDT, [facility], 163, cm, 07/31/20 9:10:00 EDT, Height, 98.9, [...] 3 Refills, Maintenance, 02/29/20 14:04:00 EST, Aerosol, [facility] #[id number], 163, cm, 02/29/20 13:19:00 EST, Height, 98.9, [...] 11/22/21 17:17:00 EDT, Route to Pharmacy Electronically, [facility]/pharmacy #[id number], 163, cm, 11/22/21 15:30:00 EDT, Height Start Date: 11/22/21 Stop Date: 01/21/22 Status: Ordered levothyroxine 175 mcg (0.175 mg) oral tablet 1 tablet = 175 mcg, By Mouth, Daily, # 90 tablet, 0 Refills, Maintenance, 03/31/22 12:00:00 EST, Tablet, [facility]/pharmacy #[id number], Partial fill upon patient request if the prescription is for a schedule IIopioid drug., 163, cm, 03/31/22 11:41:00 EST, Height Start Date: 03/31/22 Status: Ordered loratadine 10 mg oral tablet 10 mg, 1, tablet, By Mouth, Daily, # 30 tablet, Refills 6, Tot. Refills 6, Maintenance, 11/28/19 8:53:00 EDT, Route to Pharmacy Electronically, [facility]/pharmacy #[id number], 163, cm, 11/25/19 14:43:00 EDT, Height, 98.9, kg, 08/25/19 12:42:00 EDT, Dry Weight Start Date: 11/28/19 Status: Ordered metFORMIN 500 mg oral tablet 1 tablet = 500 mg, By Mouth, 2 times a day, # 60 tablet, 5 Refills, Maintenance, 02/19/21 8:58:00 EST, [facility]/pharmacy #[id number], 163, cm, 02/18/21 14:32:00 EST, Height, [...] each, 1 Refills, Maintenance, 08/25/19 15:03:00 EDT, [facility]/pharmacy#4471, 2 sprays Nares, Both Daily, 163, cm, 08/25/19 12:40:00 EDT, Height, 98.9, kg, 08/25/19 12:42:00 EDT, Dry Weight Start Date: 08/25/19 Status: Ordered Nasonex 50 mcg/inh nasal spray 2 sprays, Nares, Both, 2 times a day, # 17 Gm, 0 Refills, Maintenance, 12/04/21 11:58:00 EDT, [place], [facility]/pharmacy #4471, 2 sprays Nares, Both 2 times [...] 07/31/20 9:07:00 EDT, Route to Pharmacy Electronically, [facility] #[id number], Partial fill upon patient request if the prescription is for a sched... Start Date: 07/31/20 Status: Ordered PriLOSEC OTC 20 mg oral delayed release tablet 1 tablet = 20 mg, By Mouth, Daily, # 30 tablet, 2 Refills, Maintenance, 12/04/21 11:57:00 EDT, [facility]/pharmacy #[id number], 163, cm, 12/04/21 11:37:00 EDT, Height [...] mL, 3 Refills, Maintenance, 12/04/21 11:56:00 EDT, [facility]/pharmacy #[id number], 2 drops Eyes, Both 3 times a day, 163, cm, 12/04/21 11:37:00 EDT, Height Start Date: 12/04/21 Status: Ordered tiZANidine 4 mg oral tablet 0.5-1 tablet, By Mouth, Every 8 hours, PRN, TAKE ONLY NEEDED FOR MUSCLE SPASM, # 45 tablet, Refills 2, Tot. Refills 2, Maintenance, Spasm, 04/12/21 12:13:00 EST, Route to Pharmacy Electronically, [facility]/pharmacy #[id number], 163, cm, 03/07/21 11:34:00 EST,... Start Date: 04/12/21 Status: Ordered tiZANidine 4 mg oral tablet See Instructions, TAKE 1/2 TO 1 TABLET BY MOUTH EVERY 8 HOURS NEEDED FOR MILD AND MUSCLE SPASM, # 45 tablet, Refills 2, Maintenance, Instructions Replace Required Details, Route to Pharmacy Electronically, [id number], 163, cm, 07/27/20 13:59:0... Start Date: 07/27/20 Status: Ordered traMADol 50 mg oral tablet 1 tablet = 50 mg, By Mouth, Every 6 hours, PRN for pain, TAKE ONLY NEEDED Dx: M79.7, S92.91 Masspat checked, # 112 tablet, 0 Refills, Maintenance, 04/01/22 15:55:00 EST, [facility]t, [id number], Please reinforce instructions with patient, she... Start Date: 04/01/22 Stop Date: 04/29/22 Status: Ordered Victoza 18 mg/3 mL subcutaneous solution = 0.6 mg, Subcutaneous Injection, Daily, # 6 mL, 3 Refills, Maintenance, 10/16/21 15:56:00 EDT, In[facility], [id number], dispense as pen, 163, cm, 10/16/21 14:49:00 EDT, Height Start Date: 10/16/21 Status: Ordered Vitamin D3 50,000 intl units oral capsule 1 capsule, By Mouth, Every week, # 12 capsule, 0 Refills, [facility], 163, cm, 09/13/21 9:15:00 EDT, Height Start [...] [place] Back Pain Scale:88 on 01/13/17; initial [place]: 7 on 01/13/17 Social History Social History Type Response Smoking Status Former smoker, quit more than 30 days ago entered on: 04/06/20 Sex Patient Care team information Care Team Personnel Name: Ernesto King MD Position: [facility] Primary Care Physician Member Role: PCP Address: Address: [address] [place] [address] [place] [address]- Name: Kathrine Luna MD Position: [facility] CANE LOADER MD Member Role: Lifetime CANE LOADER Physician [facility]: [facility] [place] [address]- Name: Kathya Grullon RN Position: [facility] RN Member Role: Primary Care Nurse Care Team Related Persons Name: LYN LEIGH Address: [place] [address] Name: MADDIE LEIGH
--- OUTSIDE RECORDS SUMMARY | 2022-06-03 10:49 | XMS_ITS | Continuity of Care Document ---
Author Name Unknown Organization [facility] Address [address] [place] [address]- Care Team Providers Care Sales And Service Engineer Name Role Phone Fernando CARTY, Ernesto Zapata Primary Care Physician [facility]counter [facility] Date[facility]s): 02/27/21 - 03/29/21 [facility] [address] [place], [place] [address] Allergies, Adverse Reactions, Alerts No Known Allergies [...] Given tetanus/diphtheria/pertussis, acel(Tdap) 01/30/16 Given 1Result Comment: [facility]:[id number] 2Result Comment: [facility] [id number] 3Result Comment: [11/30/2017] [facility] [id number] 4Result Comment: [12/31/2016] [facility] [id number] 5Admin Note: vis given 09/10/12 6Admin Note: VIS given 08/18/2011 7Result Comment: [12/31/2016] [facility] [id number] Medications albuterol 90 mcg/inh inhalation powder 2 puffs, Inhalation, Every 6 hours, PRN Wheezing/Shortness of Breath, # 1 each, 3 Refills, Maintenance, 02/27/21 16:30:00 EST, Powder, [facility]/pharmacy #[id number], dispense pro-air, 2 puffs Inhalation [...] Refills, Maintenance, 08/14/20 12:53:00 EDT, [facility], 163, cm, 07/31/20 9:10:00 EDT, Height, 98.9, [...] 3 Refills, Maintenance, 02/29/20 14:04:00 EST, Aerosol, [facility] #[id number], 163, cm, 02/29/20 13:19:00 EST, Height, 98.9, [...] 02/19/21 9:00:00 EST, Route to Pharmacy Electronically, [facility]/pharmacy #[id number], 163, cm, 02/18/21 14:32:00 EST,Height, 98.9, kg, 08/25/19 12:42:00 EDT, Dry Weight Start Date: 02/19/21 Status: Ordered levothyroxine 150 mcg (0.15 mg) oral tablet See Instructions, TAKE 1 TABLET BY MOUTH EVERY DAY, # 30 tablet, 2 Refills, [facility], 163, cm, 02/18/21 14:32:00 EST, Height, 98.9, kg, 08/25/19 12:42:00 EDT, Dry Weight Start Date: 02/19/21 Status: Ordered loratadine 10 mg oral tablet 10 mg, 1, tablet, By Mouth, Daily, # 30 tablet, Refills 6, Tot. Refills 6, Maintenance, 11/28/19 8:53:00 EDT, Route to Pharmacy Electronically, [facility]/pharmacy #[id number], 163, cm, 11/25/19 14:43:00 EDT, Height, 98.9, kg, 08/25/19 12:42:00 EDT, Dry Weight Start Date: 11/28/19 Status: Ordered metFORMIN 500 mg oral tablet 1 tablet = 500 mg, By Mouth, 2 times a day, # 60 tablet, 5 Refills, Maintenance, 02/19/21 8:58:00 EST, [facility]/pharmacy #[id number], 163, cm, 02/18/21 14:32:00 EST, [...] each, 1 Refills, Maintenance, 08/25/19 15:03:00 EDT, [facility]/pharmacy#4471, 2 sprays Nares, Both Daily, 163, cm, 08/25/19 12:40:00 EDT, Height, 98.9, kg, 08/25/19 12:42:00 EDT, Dry Weight Start Date: 08/25/19 Status: Ordered Nasonex 50 mcg/inh nasal spray 2 sprays, Nares, Both, 2 times a day, # 17 Gm, 0 Refills, Maintenance, 08/25/19 13:03:00 EDT, [place], [facility]/pharmacy #4471, 2 sprays Nares, Both 2 [...] 07/31/20 9:07:00 EDT, Route to Pharmacy Electronically, [facility] #[id number], Partial fill upon patient request if the prescription is for a sched... Start Date: 07/31/20 Status: Ordered PriLOSEC OTC 20 mg oral delayed release tablet 1 tablet = 20 mg, By Mouth, Daily, # 30 tablet, 2 Refills, Maintenance, 03/13/20 11:45:00 EST, [facility]/pharmacy #4471, 163, cm, 03/08/20 11:24:00 EST, Height, 98.9, kg, 08/25/19 12:42:00 EDT, Dry Weight Start Date: 03/13/20 Status: Ordered semaglutide 0.25 mg/0.5 mL (0.25 mg dose) subcutaneous solution = 0.25 mg, Subcutaneous Injection, Every 72 hours, # 3 each, 0 Refills, Maintenance, 10/04/20 16:20:00 EDT, [facility] #[id number], Partial fill upon patient request if the [...] Details, Route to Pharmacy Electronically, [facility], 163, cm, 07/27/20 13:59:0... Start Date: 07/27/20 [...] 70% ( crippled ) on 01/13/17; initial [place] Back Pain Scale:88 on 01/13/17; initial [place]: 7 on 01/13/17 Social History Social History Type Response Smoking Status Former smoker, quit more than 30 days ago entered on: 04/06/20 Sex
--- OUTSIDE RECORDS SUMMARY | 2022-06-03 10:49 | XMS_ITS | Continuity of Care Document ---
Author Name Unknown Organization [facility] Address [address] [place] [address]- Care Team Providers Care Supervisor Harvesting Name Role Phone Ernesto King MD Primary Care Physician [facility] Date[facility] 06/27/21 - 07/04/21 [facility] [address] [place] [address]- Encounter Diagnosis Hypothyroidism(Discharge Diagnosis) - 06/27/21 Hypovitaminosis D(Discharge Diagnosis) - 06/27/21 Attending Physician: Ernesto King MD Allergies, Adverse [...] Given tetanus/diphtheria/pertussis, acel(Tdap) 01/30/16 Given 1Result Comment: [facility]:[id number] 2Result Comment: [facility] [id number] 3Result Comment: [11/30/2017] [facility] [id number] 4Result Comment: [12/31/2016] [facility] [id number] 5Admin Note: vis given 09/10/12 6Admin Note: VIS given 08/18/2011 7Result Comment: [12/31/2016] [facility] [id number] Medications albuterol 90 mcg/inh inhalation powder 2 puffs, Inhalation, Every 6 hours, PRN Wheezing/Shortness of Breath, # 1 each, 3 Refills, Maintenance, 02/27/21 16:30:00 EST, Powder, [facility]/pharmacy #[id number], dispense pro-air, 2 puffs [...] Refills, Maintenance, 08/14/20 12:53:00 EDT, [facility], 163, cm, 07/31/20 9:10:00 EDT, Height, 98.9, [...] 3 Refills, Maintenance, 02/29/20 14:04:00 EST, Aerosol, [facility] #[id number], 163, cm, 02/29/20 13:19:00 EST, Height, 98.9, [...] 06/24/21 10:53:00 EDT, Route to Pharmacy Electronically, [facility]/pharmacy #[id number], 163, cm, 06/21/21 15:02:00 EDT, Height, 98.9, kg, 08/25/19 12:42:00 EDT, Dry Weight Start Date: 06/24/21 Stop Date: 08/23/21 Status: Ordered levothyroxine 175 mcg (0.175 mg) oral tablet 1 tablet = 175 mcg, By Mouth, Daily, # 90 tablet, 1 Refills, Maintenance, 06/27/21 11:36:00 EDT, Tablet, [facility]/pharmacy #[id number], Partial fill upon patient request if the prescription is for a schedule IIopioid drug., 163, cm, 06/27/21 11:27:00 EDT, [place]... Start Date: 06/27/21 Status: Ordered loratadine 10 mg oral tablet 10 mg, 1, tablet, By Mouth, Daily, # 30 tablet, Refills 6, Tot. Refills 6, Maintenance, 11/28/19 8:53:00 EDT, Route to Pharmacy Electronically, [facility]/pharmacy #[id number], 163, cm, 11/25/19 14:43:00 EDT, Height, 98.9, kg, 08/25/19 12:42:00 EDT, Dry Weight Start Date: 11/28/19 Status: Ordered metFORMIN 500 mg oral tablet 1 tablet = 500 mg, By Mouth, 2 times a day, # 60 tablet, 5 Refills, Maintenance, 02/19/21 8:58:00 EST, [facility]/pharmacy #[id number], 163, cm, 02/18/21 14:32:00 [...] each, 1 Refills, Maintenance, 08/25/19 15:03:00 EDT, [facility]/pharmacy#4471, 2 sprays Nares, Both Daily, 163, cm, 08/25/19 12:40:00 EDT, Height, 98.9, kg, 08/25/19 12:42:00 EDT, Dry Weight Start Date: 08/25/19 Status: Ordered Nasonex 50 mcg/inh nasal spray 2 sprays, Nares, Both, 2 times a day, # 17 Gm, 0 Refills, Maintenance, 08/25/19 13:03:00 EDT, [place], [facility]/pharmacy #[id number], 2 sprays Nares, Both [...] 07/31/20 9:07:00 EDT, Route to Pharmacy Electronically, [facility] #[id number], Partial fill upon patient request if the prescription is for a sched... Start Date: 07/31/20 Status: Ordered PriLOSEC OTC 20 mg oral delayed release tablet 1 tablet = 20 mg, By Mouth, Daily, # 30 tablet, 2 Refills, Maintenance, 03/13/20 11:45:00 EST, [facility]/pharmacy #[id number], 163, cm, 03/08/20 11:24:00 EST, Height, 98.9, kg, 08/25/19 12:42:00 EDT, Dry Weight Start Date: 03/13/20 Status: Ordered semaglutide 0.25 mg/0.5 mL (0.25 mg dose) subcutaneous solution = 0.25 mg, Subcutaneous Injection, Every 72 hours, # 3 each, 0 Refills, Maintenance, 10/04/20 16:20:00 EDT, [facility] #[id number], Partial fill upon patient request if the prescription is for aschedule II opioid drug., 163, cm, 10/04/20 16:08:0... Start Date: 10/04/20 Status: Ordered Systane Complete Optimal Dry Eye Relief ophthalmic solution 2 drops, Eyes, Both, 3 times a day, # 30 mL, 3 Refills, Maintenance, 11/28/19 8:55:00 EDT, [facility]/pharmacy #[id number], 2 drops Eyes, Both [...] 04/12/21 12:13:00 EST, Route to Pharmacy Electronically, [facility]/pharmacy #[id number], 163, cm, 03/07/21 11:34:00 EST,... Start Date: 04/12/21 Status: Ordered tiZANidine 4 mg oral tablet See Instructions, TAKE 1/2 TO 1 TABLET BY MOUTH EVERY 8 HOURS NEEDED FOR MILD AND MUSCLE SPASM, # 45 tablet, Refills 2, Maintenance, Instructions Replace Required Details, Route to Pharmacy Electronically, [facility], 163, cm, 07/27/20 13:59:0... Start Date: 07/27/20 [...] [place] Back Pain Scale:88 on 01/13/17; initial [place]: 7 on 01/13/17 Diagnosis Diagnosis Type Effective Dates Health Status Clinical Service Informant Hypothyroidism Discharge Diagnosis 06/27/21 Hypovitaminosis D Discharge Diagnosis 06/27/21 Vital Signs Most recent to oldest [Reference Range]: 1 Height 163 cm (06/27/21 11:27 AM) Social History Social History Type Response Smoking Status Former smoker, quit more than 30 days ago entered on: 04/06/20 Sex
--- OUTSIDE RECORDS SUMMARY | 2022-06-03 10:49 | XMS_ITS | Continuity of Care Document ---
Author Name Unknown Organization [facility] Address [address] [place] [address]- Care Team Providers Care Front Office Spec Name Role Phone Ernesto King MD Primary Care Physician Encounter [facility] Date(s): 11/22/21 - 11/29/21 [facility] [address] [place] [address]- Encounter Diagnosis Hypothyroidism(Discharge Diagnosis) - 11/22/21 Diabetes mellitus with hyperglycemia(Discharge Diagnosis) - 11/22/21 Morbid obesity(Discharge Diagnosis) - 11/22/21 BMI 38.0-38.9,adult(Discharge Diagnosis) - 11/25/21 Attending Physician: Ernesto King MD Allergies, Adverse [...] 1Result Comment: [facility]:[id number] 2Result Comment: [facility] [id number] 3Result Comment: [11/30/2017] [facility] [id number] 4Result Comment: [12/31/2016] [facility] [id number] 5Admin Note: vis given 09/10/12 6Admin Note: VIS given 08/18/2011 7Result Comment: [12/31/2016] [facility] [id number] Medications albuterol 90 mcg/inh inhalation powder 2 puffs, Inhalation, Every 6 hours, PRN Wheezing/Shortness of Breath, # 1 each, 3 Refills, Maintenance, 11/22/21 17:17:00 EDT, Powder, [facility]/pharmacy #4471, dispense pro-air, 2 puffs Inhalation Every 6hours,PRN:Wheezing/Shortness of Breath, 163, cm, 10... Start Date: 11/22/21 Status: Ordered albuterol-ipratropium 3 mg-0.5 mg/3 ml inhalation solution 3 mL, Neb, 4 times a day, J45.40, # 180 mL, 3 Refills, Maintenance, 11/22/21 17:17:00 EDT, Solution, [facility]/pharmacy #4471, 3 mL Neb 4 times a day,Instr:J45.40, 163, cm, 11/22/21 15:30:00 EDT, Height Start Date: 11/22/21 Status: Ordered celecoxib 100 mg oral capsule 1 capsule, By Mouth, 2 times a day with meals, # 60 capsule, 1 Refills, Maintenance, 08/14/20 12:53:00 EDT, [facility], 163, cm, 07/31/20 9:10:00 EDT, Height, 98.9, [...] 3 Refills, Maintenance, 02/29/20 14:04:00 EST, Aerosol, [facility] #[id number], 163, cm, 02/29/20 13:19:00 EST, Height, 98.9, [...] 11/22/21 17:17:00 EDT, Route to Pharmacy Electronically, [facility]/pharmacy #5701, 163, cm, 11/22/21 15:30:00 EDT, Height Start Date: 11/22/21 Stop Date: 01/21/22 Status: Ordered levothyroxine 175 mcg (0.175 mg) oral tablet 1 tablet = 175 mcg, By Mouth, Daily, # 90 tablet, 1 Refills, Maintenance, 06/27/21 11:36:00 EDT, Tablet, [facility]/pharmacy #4471, Partial fill upon patient request if the prescription is for a schedule IIopioid drug., 163, cm, 06/27/21 11:27:00 EDT, Heigh... Start Date: 06/27/21 Status: Ordered loratadine 10 mg oral tablet 10 mg, 1, tablet, By Mouth, Daily, # 30 tablet, Refills 6, Tot. Refills 6, Maintenance, 11/28/19 8:53:00 EDT, Route to Pharmacy Electronically, [facility]/pharmacy #4471, 163, cm, 11/25/19 14:43:00 EDT, Height, 98.9, kg, 08/25/19 12:42:00 EDT, Dry Weight Start Date: 11/28/19 Status: Ordered metFORMIN 500 mg oral tablet 1 tablet = 500 mg, By Mouth, 2 times a day, # 60 tablet, 5 Refills, Maintenance, 02/19/21 8:58:00 EST, [facility]/pharmacy #4471, 163, cm, 02/18/21 14:32:00 EST, Height, [...] each, 1 Refills, Maintenance, 08/25/19 15:03:00 EDT, [facility]/pharmacy#4471, 2 sprays Nares, Both Daily, 163, cm, 08/25/19 12:40:00 EDT, Height, 98.9, kg, 08/25/19 12:42:00 EDT, Dry Weight Start Date: 08/25/19 Status: Ordered Nasonex 50 mcg/inh nasal spray 2 sprays, Nares, Both, 2 times a day, # 17 Gm, 0 Refills, Maintenance, 08/25/19 13:03:00 EDT, [place], [facility]/pharmacy #4471, 2 sprays Nares, Both 2 times [...] 07/31/20 9:07:00 EDT, Route to Pharmacy Electronically, [facility] #[id number], Partial fill upon patient request if the prescription is for a sched... Start Date: 07/31/20 Status: Ordered PriLOSEC OTC 20 mg oral delayed release tablet 1 tablet = 20 mg, By Mouth, Daily, # 30 tablet, 2 Refills, Maintenance, 03/13/20 11:45:00 EST, [facility]/pharmacy #4471, 163, cm, 03/08/20 11:24:00 EST, Height, 98.9, kg, 08/25/19 12:42:00 EDT, Dry Weight Start Date: 03/13/20 Status: Ordered semaglutide 0.25 mg/0.5 mL (0.25 mg dose) subcutaneous solution = 0.25 mg, Subcutaneous Injection, Every week, # 3 each, 1 Refills, Maintenance, 11/25/21 8:34:00 EDT, [facility]/pharmacy #4471, Partial fill upon patient request if the prescription is for a schedule II opioid drug., 163, cm, 11/22/21 15:30:00 EDT, Height Start Date: 11/25/21 Status: Ordered Systane Complete Optimal Dry Eye Relief ophthalmic solution 2 drops, Eyes, Both, 3 times a day, # 30 mL, 3 Refills, Maintenance, 11/28/19 8:55:00 EDT, [facility]/pharmacy #4471, 2 drops Eyes, Both 3 times a day, 163, cm, 11/25/19 14:43:00 EDT, Height, 98.9, kg, 08/25/19 12:42:00 EDT, Dry Weight Start Date: 11/28/19 Status: Ordered tiZANidine 4 mg oral tablet 0.5-1 tablet, By Mouth, Every 8 hours, PRN, TAKE ONLY NEEDED FOR MUSCLE SPASM, # 45 tablet, Refills 2, Tot. Refills 2, Maintenance, Spasm, 04/12/21 12:13:00 EST, Route to Pharmacy Electronically, [facility]/pharmacy #4471, 163, cm, 03/07/21 11:34:00 EST,... Start Date: 04/12/21 Status: Ordered tiZANidine 4 mg oral tablet See Instructions, TAKE 1/2 TO 1 TABLET BY MOUTH EVERY 8 HOURS NEEDED FOR MILD AND MUSCLE SPASM, # 45 tablet, Refills 2, Maintenance, Instructions Replace Required Details, Route to Pharmacy Electronically, [facility], 163, cm, 07/27/20 13:59:0... Start Date: 07/27/20 Status: Ordered traMADol 50 mg oral tablet 1 tablet = 50 mg, By Mouth, Every 6 hours, PRN for pain, TAKE ONLY NEEDED Dx: M79.7, S92.91 Masspat checked, # 112 tablet, 0 Refills, Maintenance, 11/22/21 17:17:00 EDT, [facility], [id number], Please reinforce instructions [...] # 12 capsule, 0 Refills, [facility], 163, cm, 09/13/21 9:15:00 EDT, Height Start [...] [place] Back Pain Scale:88 on 01/13/17; initial [place]: 7 on 01/13/17 Diagnosis Diagnosis Type Effective Dates Health Status Clinical Service Informant Hypothyroidism Discharge Diagnosis 11/22/21 Diabetes mellitus with hyperglycemia Discharge Diagnosis 11/22/21 Morbid obesity Discharge Diagnosis 11/22/21 BMI 38.0-38.9,adult Discharge Diagnosis 11/25/21 Non-Specified Vital Signs Most recent to oldest [Reference Range]: 1 Height 163 cm (11/22/21 3:30 PM) Weight 101.8 kg (11/22/21 3:30 PM) Oxygen Saturation [94-100 %] 95 % (11/22/21 3:30 PM) Pulse Rate [55-90 bpm] 82 bpm (11/22/21 3:30 PM) Body Mass Index [18.5-24.99 kg/m2] 38.32 kg/m2 *>HHI* (11/22/21 3:30 PM) Blood Pressure [90-138/55-84 mm Hg] 108/ 74mm Hg (11/22/21 3:30 PM) Respiratory Rate [16-30 br/min] 16 br/mi n (11/22/21 3:30 PM) Blood pressure sites Arm, left (11/22/21 3:30 PM) Weight Obtained Via Standing scale (11/22/21 3:30 PM) Social History Social History Type Response Smoking Status Former smoker, quit more than 30 days ago entered on: 04/06/20 Sex Patient Care team information Personnel Name: Fernando CARTY, Ernesto Zapata Address: Address: [address] [place], [place] [address]
--- OUTSIDE RECORDS SUMMARY | 2022-06-03 10:49 | XMS_ITS | Continuity of Care Document ---
Author Name Unknown Organization [facility] Address [address] [place] [address]- Care Team Providers Care Toe Former Name Role Phone Frenando CARTY, Ernesto Zapata Primary Care Physician Encounter [facility] Date(s): 09/02/21 - 10/02/21 [facility] [address] [place] [address]- Allergies, Adverse Reactions, Alerts No Known Allergies [...] Given tetanus/diphtheria/pertussis, acel(Tdap) 01/30/16 Given 1Result Comment: [facility]:[id number] 2Result Comment: [facility] 90657-571-12 3Result Comment: [11/30/2017] [facility] [id number] 4Result Comment: [12/31/2016] [facility] [id number] 5Admin Note: vis given 09/10/12 6Admin Note: VIS given 08/18/2011 7Result Comment: [12/31/2016] [facility] [id number] Medications albuterol 90 mcg/inh inhalation powder 2 puffs, Inhalation, Every 6 hours, PRN Wheezing/Shortness of Breath, # 1 each, 3 Refills, Maintenance, 02/27/21 16:30:00 EST, Powder, [facility]/pharmacy #[id number], dispense pro-air, 2 puffs Inhalation Every 6hours,PRN:Wheezing/Shortness of Breath, 163, cm, 01... Start Date: 02/27/21 Status: Ordered albuterol-ipratropium 3 mg-0.5 mg/3 ml inhalation solution 3 mL, Neb, 4 times a day, J45.40, # 180 mL, 3 Refills, Maintenance, 07/02/20 14:11:00 EDT, Solution, [facility]/pharmacy #[id number], 3 mL Neb 4 times a day,Instr:J45.40, 163, cm, 06/18/20 13:31:00 EDT, Height, 98.9, kg, 08/25/19 12:42:00 EDT, Dry Weight Start Date: 07/02/20 Status: Ordered celecoxib 100 mg oral capsule 1 capsule, By Mouth, 2 times a day with meals, # 60 capsule, 1 Refills, Maintenance, 08/14/20 12:53:00 EDT, [facility], 163, cm, 07/31/20 9:10:00 EDT, Height, 98.9, [...] 3 Refills, Maintenance, 02/29/20 14:04:00 EST, [facility]ol, [id number], 163, cm, 02/29/20 13:19:00 EST, Height, 98.9, [...] 08/29/21 14:22:00 EDT, Route to Pharmacy Electronically, [facility]/pharmacy #[id number], 163, cm, 08/29/21 13:43:00 EDT, Height Start Date: 08/29/21 Stop Date: 10/28/21 Status: Ordered levothyroxine 175 mcg (0.175 mg) oral tablet 1 tablet = 175 mcg, By Mouth, Daily, # 90 tablet, 1 Refills, Maintenance, 06/27/21 11:36:00 EDT, Tablet, [facility]/pharmacy #[id number], Partial fill upon patient request if the prescription is for a schedule IIopioid drug., 163, cm, 06/27/21 11:27:00 EDT, [place] Start Date: 06/27/21 Status: Ordered loratadine 10 mg oral tablet 10 mg, 1, tablet, By Mouth, Daily, # 30 tablet, Refills 6, Tot. Refills 6, Maintenance, 11/28/19 8:53:00 EDT, Route to Pharmacy Electronically, [facility]/pharmacy #[id number], 163, cm, 11/25/19 14:43:00 EDT, Height, 98.9, kg, 08/25/19 12:42:00 EDT, Dry Weight Start Date: 11/28/19 Status: Ordered metFORMIN 500 mg oral tablet 1 tablet = 500 mg, By Mouth, 2 times a day, # 60 tablet, 5 Refills, Maintenance, 02/19/21 8:58:00 EST, [facility]/pharmacy #[id number], 163, cm, 02/18/21 14:32:00 [...] each, 1 Refills, Maintenance, 08/25/19 15:03:00 EDT, [facility]/pharmacy#[id number], 2 sprays Nares, Both Daily, 163, cm, 08/25/19 12:40:00 EDT, Height, 98.9, kg, 08/25/19 12:42:00 EDT, Dry Weight Start Date: 08/25/19 Status: Ordered Nasonex 50 mcg/inh nasal spray 2 sprays, Nares, Both, 2 times a day, # 17 Gm, 0 Refills, Maintenance, 08/25/19 13:03:00 EDT, [place], [facility]/pharmacy #[id number], 2 sprays Nares, Both [...] 07/31/20 9:07:00 EDT, Route to Pharmacy Electronically, [facility] #[id number], Partial fill upon patient request if the prescription is for a sched... Start Date: 07/31/20 Status: Ordered PriLOSEC OTC 20 mg oral delayed release tablet 1 tablet = 20 mg, By Mouth, Daily, # 30 tablet, 2 Refills, Maintenance, 03/13/20 11:45:00 EST, [facility]/pharmacy #[id number], 163, cm, 03/08/20 11:24:00 EST, Height, 98.9, kg, 08/25/19 12:42:00 EDT, Dry Weight Start Date: 03/13/20 Status: Ordered semaglutide 0.25 mg/0.5 mL (0.25 mg dose) subcutaneous solution = 0.25 mg, Subcutaneous Injection, Every 72 hours, # 3 each, 0 Refills, Maintenance, 09/13/21 9:26:00 EDT, [facility]/pharmacy #[id number], Partial fill upon patient request if the prescription is for a schedule II opioid drug., 163, cm, 09/13/21 9:15:00 EDT, Height Start Date: 09/13/21 Status: Ordered Systane Complete Optimal Dry Eye Relief ophthalmic solution 2 drops, Eyes, Both, 3 times a day, # 30 mL, 3 Refills, Maintenance, 11/28/19 8:55:00 EDT, [facility]/pharmacy #[id number], 2 drops Eyes, Both [...] 04/12/21 12:13:00 EST, Route to Pharmacy Electronically, [facility]/pharmacy #[id number], 163, cm, 03/07/21 11:34:00 EST,... Start Date: 04/12/21 Status: Ordered tiZANidine 4 mg oral tablet See Instructions, TAKE 1/2 TO 1 TABLET BY MOUTH EVERY 8 HOURS NEEDED FOR MILD AND MUSCLE SPASM, # 45 tablet, Refills 2, Maintenance, Instructions Replace Required Details, Route to Pharmacy Electronically, [id number], 163, cm, 07/27/20 13:59:0... Start Date: 07/27/20 Status: Ordered traMADol 50 mg oral tablet 1 tablet = 50 mg, By Mouth, Every 6 hours, PRN for pain, TAKE ONLY NEEDED Dx: M79.7, S92.91 Masspat checked, # 112 tablet, 0 Refills, Maintenance, 08/29/21 17:12:00 EDT, Tablet, [facility]/pharmacy #[id number], Please reinforce instructions with patient, she... Start Date: 08/29/21 Stop Date: 09/26/21 Status: Ordered Vitamin D3 50,000 intl units oral capsule 1 capsule, By Mouth, Every week, # 12 capsule, 0 Refills, [facility], 163, cm, 09/13/21 9:15:00 EDT, Height Start Date: 09/18/21 Status: Ordered Voltaren 1% topical gel 1 application, Topically, 4 times a day, PRN for pain, # 100 Gm, 0 Refills, Maintenance, 05/27/21 18:00:00 EDT, Gel, [facility]/pharmacy #[id number], Partial fill upon patient request if the [...] crippled ) on 01/13/17; initial [place] Back Pain Scale:88 on 01/13/17; initial [place]: 7 on 01/13/17 Social History Social History Type Response Smoking Status Former smoker, quit more than 30 days ago entered on: 04/06/20 Sex
--- OUTSIDE RECORDS SUMMARY | 2022-06-03 10:49 | XMS_ITS | Continuity of Care Document ---
Author Name Unknown Organization [facility] ter Address [address] [place] [address]- Care Team Providers Care Dining Services Manager Name Role Phone Ernesto King MD Primary Care Physician [facility]counter [facility] Date(s): 12/31/20 - 02/18/[address] [address] Attending Physician: Ernesto King MD Admitting Physician: [...] Given tetanus/diphtheria/pertussis, acel(Tdap) 01/30/16 Given 1Result Comment: [facility]:[id number] 2Result Comment: [facility] [id number] 3Result Comment: [11/30/2017] [facility] [id number] 4Result Comment: [12/31/2016] [facility] [id number] 5Admin Note: vis given 09/10/12 6Admin Note: VIS given 08/18/2011 7Result Comment: [12/31/2016] [facility] 6627-3865-29 Medications albuterol 90 mcg/inh inhalation powder 2 puffs, Inhalation, Every 6 hours, PRN Wheezing/Shortness of Breath, # 1 each, 3 Refills, Maintenance, 02/29/20 14:08:00 EST, Powder, [facility] #[id number], dispense pro-air, 2 puffs Inhalation Every 6 [...] Refills, Maintenance, 08/14/20 12:53:00 EDT, [facility], 163, cm, 07/31/20 9:10:00 EDT, Height, 98.9, [...] 3 Refills, Maintenance, 02/29/20 14:04:00 EST, Aerosol, [id number], 163, cm, 02/29/20 13:19:00 EST, Height, 98.9, [...] capsule, Refills 1, Route to Pharmacy Electronically, [facility], 163, cm, 11/06/20 11:15:00 EDT, Height, 98.9, kg, 08/25/19 12:42:00 EDT, Dry Weight Start Date: 11/15/20 Status: Ordered levothyroxine 150 mcg (0.15 mg) oral tablet 1 tablet, By Mouth, Daily, # 30 tablet, 2 Refills, Maintenance, 11/15/20 13:54:00 EDT, [facility]/pharmacy#[id number], 163, cm, 11/15/20 13:38:00 EDT, Height, 98.9, kg, 08/25/19 12:42:00 EDT, Dry Weight Start Date: 11/15/20 Status: Ordered loratadine 10 mg oral tablet 10 mg, 1, tablet, By Mouth, Daily, # 30 tablet, Refills 6, Tot. Refills 6, Maintenance, 11/28/19 8:53:00 EDT, Route to Pharmacy Electronically, [facility]/pharmacy #[id number], 163, cm, 11/25/19 14:43:00 EDT, Height, 98.9, kg, 08/25/19 12:42:00 EDT, Dry Weight Start Date: 11/28/19 Status: Ordered metFORMIN 500 mg oral tablet See Instructions, TAKE 1 TABLET BY MOUTH AT NIGHT AND INSREASE TO 1 TABLET TWICE A DAY DIRECTED,# 60 tablet, 2 Refills, [facility], 163, cm, 11/15/20 13:55:00 EDT, Height, 98.9, kg, 08/25/2011:42:00 EDT, Dry Weight Start Date: 12/05/20 Status: Ordered MiraLax oral powder for reconstitution = 17 Gm, By Mouth, Daily, mix with liquid, # 527 Gm, 0 Refills, Maintenance, 17 Gm By Mouth Daily,Instr:mix with liquid Start Date: 02/14/13 Status: Ordered Nasacort Allergy 24HR 55 mcg/inh nasal spray 2 sprays, Nares, Both, Daily, # 1 each, 1 Refills, Maintenance, 08/25/19 15:03:00 EDT, [facility]/pharmacy#[id number], 2 sprays Nares, Both Daily, 163, cm, 08/25/19 12:40:00 EDT, Height, 98.9, kg, 08/25/19 12:42:00 EDT, Dry Weight Start Date: 08/25/19 Status: Ordered Nasonex 50 mcg/inh nasal spray 2 sprays, Nares, Both, 2 times a day, # 17 Gm, 0 Refills, Maintenance, 08/25/19 13:03:00 EDT, [place], [facility]/pharmacy #[id number], 2 sprays Nares, Both 2 [...] 07/31/20 9:07:00 EDT, Route to Pharmacy Electronically, [facility][id number], Partial fill upon patient request if the prescription is for a sched... Start Date: 07/31/20 Status: Ordered PriLOSEC OTC 20 mg oral delayed release tablet 1 tablet = 20 mg, By Mouth, Daily, # 30 tablet, 2 Refills, Maintenance, 03/13/20 11:45:00 EST, [facility]/pharmacy #[id number], 163, cm, 03/08/20 11:24:00 EST, Height, 98.9, kg, 08/25/19 12:42:00 EDT, Dry Weight Start Date: 03/13/20 Status: Ordered semaglutide 0.25 mg/0.5 mL (0.25 mg dose) subcutaneous solution = 0.25 mg, Subcutaneous Injection, Every 72 hours, # 3 each, 0 Refills, Maintenance, 10/04/20 16:20:00 EDT, [facility] #[id number], Partial fill upon patient request if the [...] Details, Route to Pharmacy Electronically, [facility], 163, cm, 07/27/20 13:59:0... Start Date: 07/27/20 Status: Ordered traMADol 50 mg oral tablet 1 tablet = 50 mg, By Mouth, Every 6 hours, PRN for pain, TAKE ONLY NEEDED Dx: M79.7, S92.91 Masspat checked, # 112 tablet, 0 Refills, Maintenance, 01/08/21 11:20:00 EST, [id number], Please reinforce instructions with patient, she... Start Date: 01/08/21 Stop Date: 02/05/21 Status: Ordered Problem List Condition Effective Dates [...] [place] Back Pain Scale:88 on 01/13/17; initial [place]: 7 on 01/13/17 Social History Social History Type Response Smoking Status Former smoker, quit more than 30 days ago entered on: 04/06/20 Sex
--- OUTSIDE RECORDS SUMMARY | 2022-06-03 10:49 | XMS_ITS | Continuity of Care Document ---
Author Name Unknown Organization [facility] Address [address] [place] [address]- Care Team Providers Care Field Research Assistant Name Role Phone Ernesto King MD Primary Care Physician Encounter [facility] Date(s): 03/31/22 - 04/30/22 [facility] [address] [place] [address]- Encounter Diagnosis Diabetes(Discharge Diagnosis) - 09/21/19 Fibromyalgia(Discharge Diagnosis) - 09/21/19 Hypothyroidism(Discharge Diagnosis) - 09/21/19 Attending Physician: Ellis Bai Admitting Physician: Ellis Bai Referring Physician: AdmtrEllis Allergies, Adverse Reactions, Alerts No Known Allergies [...] 23-valent vaccine 7 12/31/16 Given tetanus/diphtheria/pertussis, acel(Tdap) 12/14/16 Given 1Result Comment: [facility]:[id number] 2Result Comment: [facility] 36731-334-30 3Result Comment: [11/30/2017] [facility] [id number] 4Result Comment: [12/31/2016] [facility] [id number] 5Admin Note: vis given 09/10/12 6Admin Note: VIS given 08/18/2011 7Result Comment: [12/31/2016] [facility] [id number] Medications albuterol 90 mcg/inh inhalation powder 2 puffs, Inhalation, Every 6 hours, PRN Wheezing/Shortness of Breath, # 1 each, 3 Refills, Maintenance, 11/22/21 17:17:00 EDT, Powder, [facility]/pharmacy #[id number], dispense pro-air, 2 puffs [...] Refills, Maintenance, 08/14/20 12:53:00 EDT, [facility], 163, cm, 07/31/20 9:10:00 EDT, Height, 98.9, [...] 3 Refills, Maintenance, 02/29/20 14:04:00 EST, Aerosol, [id number], 163, cm, 02/29/20 13:19:00 EST, Height, 98.9, [...] 11/22/21 17:17:00 EDT, Route to Pharmacy Electronically, [facility]/pharmacy #[id number], 163, cm, 11/22/21 15:30:00 EDT, Height Start Date: 11/22/21 Stop Date: 01/21/22 Status: Ordered levothyroxine 175 mcg (0.175 mg) oral tablet 1 tablet = 175 mcg, By Mouth, Daily, # 90 tablet, 0 Refills, Maintenance, 03/31/22 12:00:00 EST, [id number] fill upon patient request if the prescription is for a schedule IIopioid drug., 163, cm, 03/31/22 11:41:00 EST, Height Start Date: 03/31/22 Status: Ordered loratadine 10 mg oral tablet 10 mg, 1, tablet, By Mouth, Daily, # 30 tablet, Refills 6, Tot. Refills 6, Maintenance, 11/28/19 8:53:00 EDT, Route to Pharmacy Electronically, [facility]/pharmacy #[id number], 163, cm, 11/25/19 14:43:00 EDT, Height, 98.9, kg, 08/25/19 12:42:00 EDT, Dry Weight Start Date: 11/28/19 Status: Ordered metFORMIN 500 mg oral tablet 1 tablet = 500 mg, By Mouth, 2 times a day, # 60 tablet, 5 Refills, Maintenance, 02/19/21 8:58:00 EST, [facility]/pharmacy #[id number], 163, cm, 02/18/21 14:32:00 [...] each, 1 Refills, Maintenance, 08/25/19 15:03:00 EDT, [facility]/pharmacy#4471, 2 sprays Nares, Both Daily, 163, cm, 08/25/19 12:40:00 EDT, Height, 98.9, kg, 08/25/19 12:42:00 EDT, Dry Weight Start Date: 08/25/19 Status: Ordered Nasonex 50 mcg/inh nasal spray 2 sprays, Nares, Both, 2 times a day, # 17 Gm, 0 Refills, Maintenance, 12/04/21 11:58:00 EDT, [place], [facility]/pharmacy #4471, 2 sprays Nares, Both [...] 07/31/20 9:07:00 EDT, Route to Pharmacy Electronically, [facility] #[id number], Partial fill upon patient request if the prescription is for a sched... Start Date: 07/31/20 Status: Ordered PriLOSEC OTC 20 mg oral delayed release tablet 1 tablet = 20 mg, By Mouth, Daily, # 30 tablet, 2 Refills, Maintenance, 12/04/21 11:57:00 EDT, [facility]/pharmacy #[id number], 163, cm, 12/04/21 11:37:00 EDT, Height [...] mL, 3 Refills, Maintenance, 12/04/21 11:56:00 EDT, [facility]/pharmacy #[id number], 2 drops Eyes, Both 3 times a day, 163, cm, 12/04/21 11:37:00 EDT, Height Start Date: 12/04/21 Status: Ordered tiZANidine 4 mg oral tablet 0.5-1 tablet, By Mouth, Every 8 hours, PRN, TAKE ONLY NEEDED FOR MUSCLE SPASM, # 45 tablet, Refills 2, Tot. Refills 2, Maintenance, Spasm, 04/12/21 12:13:00 EST, Route to Pharmacy Electronically, [facility]/pharmacy #[id number], 163, cm, 03/07/21 11:34:00 EST,... Start Date: 04/12/21 Status: Ordered tiZANidine 4 mg oral tablet See Instructions, TAKE 1/2 TO 1 TABLET BY MOUTH EVERY 8 HOURS NEEDED FOR MILD AND MUSCLE SPASM, # 45 tablet, Refills 2, Maintenance, Instructions Replace Required Details, Route to Pharmacy Electronically, [facility], 163, cm, 07/27/20 13:59:0... Start Date: 07/27/20 Status: Ordered traMADol 50 mg oral tablet 1 tablet = 50 mg, By Mouth, Every 6 hours, PRN for pain, TAKE ONLY NEEDED Dx: M79.7, S92.91 Masspat checked, # 112 tablet, 0 Refills, Maintenance, 04/01/22 15:55:00 EST, Tablet, [facility]/pharmacy #[id number], Please reinforce instructions with patient, she... Start Date: 04/01/22 Stop Date: 04/29/22 Status: Ordered Victoza 18 mg/3 mL subcutaneous solution = 0.6 mg, Subcutaneous Injection, Daily, # 6 mL, 3 Refills, Maintenance, 10/16/21 15:56:00 EDT, Injection, [facility]/pharmacy #[id number], dispense as pen, 163, cm, 10/16/21 14:49:00 EDT, Height Start Date: 10/16/21 Status: Ordered Vitamin D3 50,000 intl units oral capsule 1 capsule, By Mouth, Every week, # 12 capsule, 0 Refills, [facility] 304[facility], 163, cm, 09/13/21 9:15:00 EDT, Height Start Date: 09/18/21 Status: Ordered Voltaren 1% topical gel 1 application, Topically, 4 times a day, PRN for pain, # 100 Gm, 0 Refills, Maintenance, 05/27/21 18:00:00 EDT, Gel, [facility]/pharmacy #[id number], Partial fill upon patient [...] [place] Back Pain Scale:88 on 01/13/17; initial [place]: 7 on 01/13/17 Diagnosis Diagnosis Type Effective Dates Health Status Cl inical Service Informant Diabetes Discharge Diagnosis 09/21/19 Hypothyroidism Discharge Diagnosis 09/21/19 Fibromyalgia Discharge Diagnosis 09/21/19 Social History Social History Type Response Smoking Status Former smoker, quit more than 30 days ago entered on: 04/06/20 Sex EKG study * Event Display: EKG Authored Date: * Event Display: EKG Authored Date: * Event Display: EKG Authored Date: Note * Event Display: Laboratory Result Scanned Authored Date: * Event Display: Laboratory Result Scanned Authored Date: * Event Display: Laboratory Result Scanned Authored Date: * Event Display: Radiology Result Scanned Authored Date: * Event Display: Non BH Radiology Results Authored Date: * Event Display: Radiology Result Scanned Authored Date: * Inez Encarnacion: PERFORM, SIGN, VERIFY Event Display: Patient Education/Instruction Authored Date: [facility] PV Family Clinical Summary Person Information Name ODILON LEIGH Age 51 Years 1960 12:00 AM PCP Dhiraj Mead DO PCP Reason for Visit: Allergy Info: NKA Vital Signs Height Weight BMI Blood Pressure / Temperature Pulse Rate Respiratory Rate 02 Sat Mode of Delivery / Medication Information Albuterol (ProAir HFA 90 mcg/inh inhalation aerosol with adapter) 2 puffs, Inhalation, 4 times a day, As Needed, Wheezing/Shortness of Breath, Refills: 1 Albuterol/Ipratropium (DuoNeb 3 mg-0.5 mg/3 ml inhalation solution) 3 mL, Inhalation, 4 times a day, Refills: 6 amiTRIPTYLINE (amitriptyline 25 mg oral tablet) 2 tablet, Oral, Daily at Bedtime, 30 days, Refills:11 Citalopram (Celexa 20 mg oral tablet) 1 tablet, Oral, Daily, 30 days, Refills: 11 Durable Medical Equipment (Nebulizer/Compressor) , See Instructions, use qid prn breathing Fluticasone (Flovent HFA 110 mcg/inh inhalation aerosol with adapter) 2 puffs, Inhalation, twice a day, Refills: 11 Gabapentin (Neurontin 300 mg oral capsule) 1 capsule, Oral, 3 times a day, 30 days, Refills: 4 Hydrocortisone/Neomycin/Polymyxin B Otic (Cortisporin Otic 1%-0.35%-91014 u/ml solution) , See Instructions, 4 drops 4 times a day in [place] for 10 days, Refills: 0 Miscellaneous Rx (Bilat CTS splint) , See Instructions, bilat CTS, Refills: 0 Miscellaneous Rx (ensure plus strawberry and vanilla) , See Instructions, breast CA, Refills: 11 Miscellaneous Rx (ensure) , See Instructions, 3 a day d/t decreased appetite 2nd chemo, Refills: 11 Miscellaneous Rx (hand held shower head) , See Instructions, Breast CA fibromyalgia upper bck pain,Refills: 0 Miscellaneous Rx (PT Eval and tx) , See Instructions, lumbar and thoracic strain bilat CTS plantar facititis, 10 week(s), Refills: 0 Miscellaneous Rx (PT Eval and tx) , See Instructions, righ tarm shoulder capsiitis tendonitis, 12 week(s), Refills: 0 Miscellaneous Rx (pull up adult briefs) , See Instructions, urniary incontinece HNP lumbar, Refills: 11 Miscellaneous Rx (Shower chair) , See Instructions, breast Cancer fibromyalgia, Refills: 0 Miscellaneous Rx (walker with wheels and a seat) , See Instructions, fibromyalgia, Refills: 0 Multivitamin (Multivitamin Tablet) , Oral, Daily, Refills: 0 Omeprazole (Prilosec OTC 20 mg oral enteric coated tablet) 1 tablet, Oral, Daily, Refills: 11 Oxycodone / Acetaminophen (Percocet-5/325 325 mg-5 mg oral tablet) 1 tablet, Oral, every 4 hours, As Needed, Pain, Refills: 0 Oxycodone / Acetaminophen (Percocet-5/325 325 mg-5 mg oral tablet) , 1 - 2 tablet, Oral, 4 times a day, 28 days, As Needed, Pain , Severe, Refills: 0 Promethazine (promethazine 25 mg oral tablet) 1 tablet, Oral, every 4 hours, As Needed, Nausea & Vomiting, Refills: 0 Problem List Date Problem 02/27/12 Fibromyalgia syndrome 06/25/11 Malignant Neoplasm of Breast (Female), Unspecified 02/27/12 Asthma, intermittent controlled If the following labs have been performed in the last year, the most recent result is displayed below. Diagnostic Results Lab Result Value Date Lead Hemoglobin A1C LDL HDL Triglycerides Total Cholesterol Disclaimer: The information provided is of a general nature and is intended to be used in conjunction with the recommendations and advice of your health care practitioner. Every effort has been made to ensure that the information provided is accurate and complete at the time it is provided to you however, as your needs change, or, as new information becomes available, different or additional instructions may be required. If you have questions, please consult with your primary care provider or pharmacist, as appropriate. This information is not intended to serve as substitution for assessment and evaluation by a qualified health care provider. If you do not have a primary care provider, you may find a [facility] provider by calling [facility] [employer] at [phone]. Patient Education Information Follow-up Details: Patient Education Material: Please follow instructions discussed with your provider during this visit as well as any education documents you were given today. XR Chest Views * Event Display: X-Ray Chest Authored Date: * Event Display: X-Ray Chest Authored Date: * Event Display: X-Ray Chest Authored Date: XR Upper extremity Views * Event Display: X-Ray Upper Extremity Authored Date: XR Bones Bone age Views * Event Display: X-Ray Bone Age Study Authored Date: Patient Care team information Care Team Personnel Name: Ernesto King MD Position: [facility] Primary Care Physician Member Role: PCP Address: Address: [address] [place] [address] Family Medicine [address] Name: Kathrine Luna MD Position: [facility] PRINTING SHOP SUPERVISOR MD Member Role: [employer]ING [employer] SUPERVISOR Physician Address: Address: [address] [place] [address] Women's Health Pile Driving Supervisor - [address] Name: Kathya Grullon RN Position: [facility] RN Member Role: Primary Care Nurse Care Team Related Persons Name: LYN LEIGH Address: [place] [address] Name: MADDIE LEIGH
--- OUTSIDE RECORDS SUMMARY | 2022-06-03 10:49 | XMS_ITS | Continuity of Care Document ---
Author Name Unknown Organization [facility] Address [address] [place] [address]- Care Team Providers Care Sugar Trucker Name Role Phone Ernesto King MD Primary Care Physician [facility] Date[facility]): [facility] - 09/20/21 [facility] [address] [place] [address]- Encounter Diagnosis Diabetes mellitus with microalbuminuria(Discharge Diagnosis) - 09/13/21 Hypothyroidism(Discharge Diagnosis) - 09/13/21 Hypovitaminosis D(Discharge Diagnosis) - 09/13/21 Morbid obesity(Discharge Diagnosis) - 09/13/21 Diabetes mellitus with hyperglycemia(Discharge Diagnosis) - 09/13/21 BMI 37.0-37.9, adult(Discharge Diagnosis) - 09/13/21 Attending Physician: Ernesto King MD Allergies, Adverse [...] Given tetanus/diphtheria/pertussis, acel(Tdap) 01/30/16 Given 1Result Comment: [facility]:[id number] 2Result Comment: [facility] [id number] 3Result Comment: [11/30/2017] [facility] [id number] 4Result Comment: [12/31/2016] [facility] [id number] 5Admin Note: vis given 09/10/12 6Admin Note: VIS given 08/18/2011 7Result Comment: [12/31/2016] [facility] [id number] Medications albuterol 90 mcg/inh inhalation powder 2 puffs, Inhalation, Every 6 hours, PRN Wheezing/Shortness of Breath, # 1 each, 3 Refills, Maintenance, 02/27/21 16:30:00 EST, Powder, [facility]/pharmacy #[id number], dispense pro-air, 2 puffs Inhalation Every 6hours,PRN:Wheezing/Shortness of Breath, 163, cm, 01... Start Date: 02/27/21 Status: Ordered albuterol-ipratropium 3 mg-0.5 mg/3 ml inhalation solution 3 mL, Neb, 4 times a day, J45.40, # 180 mL, 3 Refills, Maintenance, 07/02/20 14:11:00 EDT, Solution, [facility]/pharmacy #[id number], 3 mL Neb 4 times a day,Instr:J45.40, 163, cm, 06/18/20 13:31:00 EDT, Height, 98.9, kg, 08/25/19 12:42:00 EDT, Dry Weight Start Date: 07/02/20 Status: Ordered celecoxib 100 mg oral capsule 1 capsule, By Mouth, 2 times a day with meals, # 60 capsule, 1 Refills, Maintenance, 08/14/20 12:53:00 EDT, [facility], 163, cm, 07/31/20 9:10:00 EDT, Height, 98.9, [...] 3 Refills, Maintenance, 02/29/20 14:04:00 EST, Aerosol, [facility] #[id number], 163, cm, 02/29/20 13:19:00 EST, Height, 98.9, [...] 08/29/21 14:22:00 EDT, [id number] 163, cm, 08/29/21 13:43:00 EDT, Height Start Date: 08/29/21 Stop Date: 10/28/21 Status: Ordered levothyroxine 175 mcg (0.175 mg) oral tablet 1 tablet = 175 mcg, By Mouth, Daily, # 90 tablet, 1 Refills, Maintenance, 06/27/21 11:36:00 EDT, [id number] Partial fill upon patient request if the prescription is for a schedule IIopioid drug., 163, cm, 06/27/21 11:27:00 EDT, [place]án... Start Date: 06/27/21 Status: Ordered loratadine 10 mg oral tablet 10 mg, 1, tablet, By Mouth, Daily, # 30 tablet, Refills 6, Tot. Refills 6, Maintenance, 11/28/19 8:53:00 EDT, [id number] 163, cm, 11/25/19 14:43:00 EDT, Height, 98.9, kg, 08/25/19 12:42:00 EDT, Dry Weight Start Date: 11/28/19 Status: Ordered metFORMIN 500 mg oral tablet 1 tablet = 500 mg, By Mouth, 2 times a day, # 60 tablet, 5 Refills, Maintenance, 02/19/21 8:58:00 EST, [facility]/pharmacy #[id number], 163, cm, 02/18/21 14:32:00 EST, [...] each, 1 Refills, Maintenance, 08/25/19 15:03:00 EDT, [id number], 2 sprays Nares, Both Daily, 163, cm, 08/25/19 12:40:00 EDT, Height, 98.9, kg, 08/25/19 12:42:00 EDT, Dry Weight Start Date: 08/25/19 Status: Ordered Nasonex 50 mcg/inh nasal spray 2 sprays, Nares, Both, 2 times a day, # 17 Gm, 0 Refills, Maintenance, 08/25/19 13:03:00 EDT, [place], [facility]/pharmacy #[id number], 2 sprays Nares, Both 2 [...] 07/31/20 9:07:00 EDT, Route to Pharmacy Electronically, [facility] #[id number], Partial fill upon patient request if the prescription is for a sched... Start Date: 07/31/20 Status: Ordered PriLOSEC OTC 20 mg oral delayed release tablet 1 tablet = 20 mg, By Mouth, Daily, # 30 tablet, 2 Refills, Maintenance, 03/13/20 11:45:00 EST, [facility]/pharmacy #[id number], 163, cm, 03/08/20 11:24:00 EST, Height, 98.9, kg, 08/25/19 12:42:00 EDT, Dry Weight Start Date: 03/13/20 Status: Ordered semaglutide 0.25 mg/0.5 mL (0.25 mg dose) subcutaneous solution = 0.25 mg, Subcutaneous Injection, Every 72 hours, # 3 each, 0 Refills, Maintenance, 09/13/21 9:26:00 EDT, [facility]/pharmacy #[id number], Partial fill upon patient request if the prescription is for a schedule II opioid drug., 163, cm, 09/13/21 9:15:00 EDT, Height Start Date: 09/13/21 Status: Ordered Systane Complete Optimal Dry Eye Relief ophthalmic solution 2 drops, Eyes, Both, 3 times a day, # 30 mL, 3 Refills, Maintenance, 11/28/19 8:55:00 EDT, [facility]/pharmacy #[id number], 2 drops Eyes, Both 3 [...] 04/12/21 12:13:00 EST, Route to Pharmacy Electronically, [facility]/pharmacy #[id number], 163, cm, 03/07/21 11:34:00 EST,... Start Date: 04/12/21 Status: Ordered tiZANidine 4 mg oral tablet See Instructions, TAKE 1/2 TO 1 TABLET BY MOUTH EVERY 8 HOURS NEEDED FOR MILD AND MUSCLE SPASM, # 45 tablet, Refills 2, Maintenance, Instructions Replace Required Details, Route to Pharmacy Electronically, [id number], 163, cm, 07/27/20 13:59:0... Start Date: 07/27/20 Status: Ordered traMADol 50 mg oral tablet 1 tablet = 50 mg, By Mouth, Every 6 hours, PRN for pain, TAKE ONLY NEEDED Dx: M79.7, S92.91 Masspat checked, # 112 tablet, 0 Refills, Maintenance, 08/29/21 17:12:00 EDT, Tablet, [id number], Please reinforce instructions with patient, she... Start Date: 08/29/21 Stop Date: 09/26/21 Status: Ordered Vitamin D3 50,000 intl units oral capsule 1 capsule, By Mouth, Every week, # 12 capsule, 0 Refills, [facility], 163, cm, 09/13/21 9:15:00 EDT, Height Start [...] [place] Back Pain Scale:88 on 01/13/17; initial [place]: 7 on 01/13/17 Diagnosis Diagnosis Type Effective Dates Health Status Clinical Service Informant Diabetes mellitus with microalbuminuria Discharge Diagnosis 09/13/21 Hypothyroidism Discharge Diagnosis 09/13/21 Hypovitaminosis D Discharge Diagnosis 09/13/21 Diabetes mellitus with hyperglycemia Discharge Diagnosis 09/13/21 Non-Specified Morbid obesity Discharge Diagnosis 09/13/21 BMI 37.0-37.9, adult Discharge Diagnosis 09/13/21 Vital Signs Most recent to oldest [Reference Range]: 1 Height 163 cm (09/13/21 9:15 AM) Social History Social History Type Response Smoking Status Former smoker, quit more than 30 days ago entered on: 04/06/20 Sex
--- OUTSIDE RECORDS SUMMARY | 2022-06-03 10:49 | XMS_ITS | Continuity of Care Document ---
Author Name Unknown Organization [facility] Address [address] [place] [address]- Care Team Providers Care Sales Account Coordinator Name Role Phone Fernando CARTY, Ernesto Zapata Primary Care Physician Encounter [facility] Date(s): 05/31/21 - 06/30/21 [facility] [address] [place] [address]- Allergies, Adverse Reactions, Alerts No Known Allergies [...] Given tetanus/diphtheria/pertussis, acel(Tdap) 01/30/16 Given 1Result Comment: [facility]:[id number] 2Result Comment: [facility] [id number] 3Result Comment: [11/30/2017] [facility] [id number] 4Result Comment: [12/31/2016] [facility] [id number] 5Admin Note: vis given 09/10/12 6Admin Note: VIS given 08/18/2011 7Result Comment: [12/31/2016] [facility] [id number] Medications albuterol 90 mcg/inh inhalation powder 2 [...] 3 Refills, Maintenance, 07/02/20 14:11:00 EDT, Solution, [facility]/pharmacy #[id number], 3 mL Neb 4 times a day,Instr:J45.40, 163, cm, 06/18/20 13:31:00 EDT, Height, 98.9, kg, 08/25/19 12:42:00 EDT, Dry Weight Start Date: 07/02/20 Status: Ordered celecoxib 100 mg oral capsule 1 capsule, By Mouth, 2 times a day with meals, # 60 capsule, 1 Refills, Maintenance, 08/14/20 12:53:00 EDT, [facility], 163, cm, 07/31/20 9:10:00 EDT, Height, 98.9, [...] 3 Refills, Maintenance, 02/29/20 14:04:00 EST, Aerosol, [id number], 163, cm, 02/29/20 13:19:00 EST, Height, 98.9, [...] Gm, 0 Refills, Maintenance, 08/25/19 13:03:00 EDT, [place], [facility]/pharmacy #[id number], 2 sprays Nares, [...] 07/31/20 9:07:00 EDT, Route to Pharmacy Electronically, [email or web address] #[id number], Partial fill upon patient request if the [...] each, 0 Refills, Maintenance, 10/04/20 16:20:00 EDT, [email or web address] #[id number], Partial fill upon patient request if the [...] Replace Required Details, Route to Pharmacy Electronically, [facility], 163, cm, 07/27/20 13:59:0... Start Date: 07/27/20 Status: Ordered traMADol 50 mg oral tablet 1 tablet = 50 mg, By Mouth, Every 6 hours, PRN for pain, TAKE ONLY NEEDED Dx: M79.7, S92.91 Masspat checked, # 112 tablet, 0 Refills, Maintenance, 06/21/21 16:39:00 EDT, Tablet, [facility]/pharmacy #[id number], Please reinforce instructions with [...] [place] Back Pain Scale:88 on 01/13/17; initial [place]: 7 on 01/13/17 Social History Social History Type Response Smoking Status Former smoker, quit more than 30 days ago entered on: 04/06/20 Sex
--- OUTSIDE RECORDS SUMMARY | 2022-06-03 10:49 | XMS_ITS | Continuity of Care Document ---
Author Name Unknown Organization [facility] Address [address] [place] [address]- Care Team Providers Care Sea Shell Gatherer Name Role Phone Ernesto King MD Primary Care Physician Encounter [facility] [place] [place] Date(s): 11/06/20 - 11/13/20 [facility] [address] [place] [address]- Encounter Diagnosis Asthma, moderate persistent(Discharge Diagnosis) - 11/06/20 Hypothyroidism(Discharge Diagnosis) - 11/06/20 Diabetes mellitus with hyperglycemia(Discharge Diagnosis) - 11/11/20 Attending Physician: Ernesto King MD Allergies, Adverse [...] Given tetanus/diphtheria/pertussis, acel(Tdap) 01/30/16 Given 1Result Comment: [facility] [id number] 2Result Comment: [11/30/2017] [facility] [id number] 3Result Comment: [12/31/2016] [facility] [id number] 4Admin Note: vis given 09/10/12 5Admin Note: VIS given 08/18/2011 6Result Comment: [12/31/2016] [facility] 2817-9841-21 Medications albuterol 90 mcg/inh inhalation powder 2 puffs, Inhalation, Every 6 hours, PRN Wheezing/Shortness of Breath, # 1 each, 3 Refills, Maintenance, 02/29/20 14:08:00 EST, Powder, [facility] #[id number], dispense pro-air, 2 puffs Inhalation Every 6 [...] Refills, Maintenance, 08/14/20 12:53:00 EDT, [facility], 163, cm, 07/31/20 9:10:00 EDT, Height, 98.9, [...] 3 Refills, Maintenance, 02/29/20 14:04:00 EST, Aerosol, [facility] #36630, 163, cm, 02/29/20 13:19:00 EST, Height, 98.9, [...] Maintenance,08/07/20 9:35:00 EDT, Route to Pharmacy Electronically, [facility] #[id number], 163, cm, 07/31/20 9:10:00 EDT, Height, 98.9, kg, 08/25/19 12:42:00... Start Date: 08/07/20 Status: Ordered levothyroxine 150 mcg (0.15 mg) oral tablet 1 tablet, By Mouth, Daily, # 30 tablet, 5 Refills, Maintenance, 08/14/20 12:53:00 EDT, [facility], 163, cm, 07/31/20 9:10:00 EDT, Height, 98.9, kg, 08/25/19 12:42:00 EDT, Dry Weight Start Date: 08/14/20 Status: Ordered loratadine 10 mg oral tablet 10 mg, 1, tablet, By Mouth, Daily, # 30 tablet, Refills 6, Tot. Refills 6, Maintenance, 11/28/19 8:53:00 EDT, Route to Pharmacy Electronically, [facility]/pharmacy #[id number], 163, cm, 11/25/19 14:43:00 EDT, Height, 98.9, kg, 08/25/19 12:42:00 EDT, Dry Weight Start Date: 11/28/19 Status: Ordered metFORMIN 500 mg oral tablet See Instructions, TAKE 1 TABLET BY MOUTH TWICE A DAY START WITH ONCE A DAY AT NIGHT, # 60 tablet, 5Refills, [facility], 163, cm, 11/06/20 11:15:00 EDT, Height, 98.9, kg, 08/25/19 12:42:00 EDT, Dry Weight Start Date: 11/07/20 Status: Ordered metFORMIN 500 mg oral tablet 1 tablet = 500 mg, By Mouth, 2 times a day, start with once a day at night, # 60 tablet, 5 Refills,Maintenance, 05/15/20 14:09:00 EDT, [facility]/pharmacy #[id number], 163, cm, 04/06/20 13:19:00 EST, Height, [...] each, 1 Refills, Maintenance, 08/25/19 15:03:00 EDT, [facility]/pharmacy#[id number], 2 sprays Nares, Both Daily, 163, cm, 08/25/19 12:40:00 EDT, Height, 98.9, kg, 08/25/19 12:42:00 EDT, Dry Weight Start Date: 08/25/19 Status: Ordered Nasonex 50 mcg/inh nasal spray 2 sprays, Nares, Both, 2 times a day, # 17 Gm, 0 Refills, Maintenance, 08/25/19 13:03:00 EDT, [place], [facility]/pharmacy #[id number], 2 sprays Nares, Both 2 times [...] 07/31/20 9:07:00 EDT, Route to Pharmacy Electronically, [facility] #[id number], Partial fill upon patient request if the prescription is for a sched... Start Date: 07/31/20 Status: Ordered PriLOSEC OTC 20 mg oral delayed release tablet 1 tablet = 20 mg, By Mouth, Daily, # 30 tablet, 2 Refills, Maintenance, 03/13/20 11:45:00 EST, [facility]/pharmacy #[id number], 163, cm, 03/08/20 11:24:00 EST, Height, 98.9, kg, 08/25/19 12:42:00 EDT, Dry Weight Start Date: 03/13/20 Status: Ordered semaglutide 0.25 mg/0.5 mL (0.25 mg dose) subcutaneous solution = 0.25 mg, Subcutaneous Injection, Every 72 hours, # 3 each, 0 Refills, Maintenance, 10/04/20 16:20:00 EDT, [facility] #[id number], Partial fill upon patient request if the [...] Details, Route to Pharmacy Electronically, [facility], 163, cm, 07/27/20 13:59:0... Start Date: 07/27/20 [...] pT1c, pN0 stage I left breast cancer, ER/[place] negative, HER-2/marylin 3+, 2010(Confirmed) 06/25/11 Active Mixed anxiety and depressive disorder(Confirmed) Active Asthma, moderate persistent(Confirmed) Active Morbid obesity(Confirmed) Active Colon cancer screening(Confirmed) Active 1initial Oswestry Disability Index: 70% ( crippled ) on 01/13/17; initial [place] Back Pain Scale:88 on 01/13/17; initial [place]: 7 on 01/13/17 Diagnosis Diagnosis Type Effective Dates Health Status Clinical Service Informant Asthma, moderate persistent Discharge Diagnosis 11/06/20 Hypothyroidism Discharge Diagnosis 11/06/20 Diabetes mellitus with hyperglycemia Discharge Diagnosis 11/11/20 Vital Signs Most recent to oldest [Reference Range]: 1 Height 163 cm (11/06/20 11:15 AM) Oxygen Saturation [94-100 %] 95 % (11/06/20 11:15 AM) Pulse Rate [55-90 bpm] 94 bpm *H* (11/06/20 11:15 AM) Blood Pressure [90-138/55-84 mm Hg] 119/ 84mm Hg (11/06/20 11:15 AM) Mode of Delivery (Oxygen) Room air (11/06/20 11:15 AM) Blood pressure sites Arm, right (11/06/20 11:15 AM) Weight Obtained Via Standing scale (11/06/20 11:15 AM) Social History Social History Type Response Smoking Status Former smoker, quit more than 30 days ago entered on: 04/06/20 Sex
--- OUTSIDE RECORDS SUMMARY | 2022-06-03 10:50 | XMS_ITS | Continuity of Care Document ---
Author Name Unknown Organization [facility] Address [address] [place] [address]- Care Team Providers Care Hotel Superintendent Name Role Phone Ernesto King MD Primary Care Physician Encounter [facility] Date(s): 02/27/21 - 03/06/21 [facility] [address] [place] [address]- Encounter Diagnosis COVID-19 virus infection(Discharge Diagnosis) - 02/27/21 Hypothyroidism(Discharge Diagnosis) - 02/27/21 Asthma, moderate persistent(Discharge Diagnosis) - 02/27/21 Hypovitaminosis D(Discharge Diagnosis) - 02/27/21 Fibromyalgia(Discharge Diagnosis) - 02/27/21 Elevated LFTs(Discharge Diagnosis) - 02/27/21 Attending Physician: Ernesto King MD Allergies, Adverse [...] Given tetanus/diphtheria/pertussis, acel(Tdap) 01/30/16 Given 1Result Comment: [facility]:[id number] 2Result Comment: [facility] [id number] 3Result Comment: [11/30/2017] [facility] [id number] 4Result Comment: [12/31/2016] [facility] [id number] 5Admin Note: vis given 09/10/12 6Admin Note: VIS given 08/18/2011 7Result Comment: [12/31/2016] [facility] [id number] Medications albuterol 90 mcg/inh inhalation powder 2 puffs, Inhalation, Every 6 hours, PRN Wheezing/Shortness of Breath, # 1 each, 3 Refills, Maintenance, 02/27/21 16:30:00 EST, Powder, [facility]/pharmacy #[id number], dispense pro-air, 2 puffs Inhalation Every 6hours,PRN:Wheezing/Shortness of Breath, 163, cm, 01... Start Date: 02/27/21 Status: Ordered albuterol-ipratropium 3 mg-0.5 mg/3 ml inhalation solution 3 mL, Neb, 4 times a day, J45.40, # 180 mL, 3 Refills, Maintenance, 07/02/20 14:11:00 EDT, Solution, [facility]/pharmacy #[id number], 3 mL Neb 4 times a day,Instr:J45.40, 163, cm, 06/18/20 13:31:00 EDT, Height, 98.9, kg, 08/25/19 12:42:00 EDT, Dry Weight Start Date: 07/02/20 Status: Ordered celecoxib 100 mg oral capsule 1 capsule, By Mouth, 2 times a day with meals, # 60 capsule, 1 Refills, Maintenance, 08/14/20 12:53:00 EDT, [facility], 163, cm, 07/31/20 9:10:00 EDT, Height, 98.9, [...] 3 Refills, Maintenance, 02/29/20 14:04:00 EST, Aerosol, [facility] #58827, 163, cm, 02/29/20 13:19:00 EST, Height, 98.9, [...] 02/19/21 9:00:00 EST, Route to Pharmacy Electronically, [facility]/pharmacy #8769, 163, cm, 02/18/21 14:32:00 EST,Height, 98.9, kg, 08/25/19 12:42:00 EDT, Dry Weight Start Date: 02/19/21 Status: Ordered levothyroxine 150 mcg (0.15 mg) oral tablet See Instructions, TAKE 1 TABLET BY MOUTH EVERY DAY, # 30 tablet, 2 Refills, [facility], 163, cm, 02/18/21 14:32:00 EST, Height, 98.9, kg, 08/25/19 12:42:00 EDT, Dry Weight Start Date: 02/19/21 Status: Ordered loratadine 10 mg oral tablet 10 mg, 1, tablet, By Mouth, Daily, # 30 tablet, Refills 6, Tot. Refills 6, Maintenance, 11/28/19 8:53:00 EDT, Route to Pharmacy Electronically, [facility]/pharmacy #[id number], 163, cm, 11/25/19 14:43:00 EDT, Height, 98.9, kg, 08/25/19 12:42:00 EDT, Dry Weight Start Date: 11/28/19 Status: Ordered metFORMIN 500 mg oral tablet 1 tablet = 500 mg, By Mouth, 2 times a day, # 60 tablet, 5 Refills, Maintenance, 02/19/21 8:58:00 EST, [facility]/pharmacy #[id number], 163, cm, 02/18/21 14:32:00 EST, Height, [...] Refills, Maintenance, 08/25/19 15:03:00 EDT, [facility]/pharmacy#4471, 2 sprays Nares, Both Daily, 163, cm, 08/25/19 12:40:00 EDT, Height, 98.9, kg, 08/25/19 12:42:00 EDT, Dry Weight Start Date: 08/25/19 Status: Ordered Nasonex 50 mcg/inh nasal spray 2 sprays, Nares, Both, 2 times a day, # 17 Gm, 0 Refills, Maintenance, 08/25/19 13:03:00 EDT, [place], [facility]/pharmacy #[id number], 2 sprays Nares, Both 2 times [...] 07/31/20 9:07:00 EDT, Route to Pharmacy Electronically, [facility] #[id number], Partial fill upon patient request if the prescription is for a sched... Start Date: 07/31/20 Status: Ordered PriLOSEC OTC 20 mg oral delayed release tablet 1 tablet = 20 mg, By Mouth, Daily, # 30 tablet, 2 Refills, Maintenance, 03/13/20 11:45:00 EST, [facility]/pharmacy #[id number], 163, cm, 03/08/20 11:24:00 EST, Height, 98.9, kg, 08/25/19 12:42:00 EDT, Dry Weight Start Date: 03/13/20 Status: Ordered semaglutide 0.25 mg/0.5 mL (0.25 mg dose) subcutaneous solution = 0.25 mg, Subcutaneous Injection, Every 72 hours, # 3 each, 0 Refills, Maintenance, 10/04/20 16:20:00 EDT, [facility] #[id number], Partial fill upon patient request if the prescription is for aschedule II opioid drug., 163, cm, 10/04/20 16:08:0... Start Date: 10/04/20 Status: Ordered Systane Complete Optimal Dry Eye Relief ophthalmic solution 2 drops, Eyes, Both, 3 times a day, # 30 mL, 3 Refills, Maintenance, 11/28/19 8:55:00 EDT, [facility]/pharmacy #[id number], 2 drops Eyes, Both 3 times [...] Details, Route to [facility] Electronically, [facility], 163, cm, 07/27/20 13:59:0... Start Date: 07/27/20 [...] 70% ( crippled ) on 01/13/17; initial [place] Back Pain Scale:88 on 01/13/17; initial [place]: 7 on 01/13/17 Diagnosis Diagnosis Type Effective Dates Health Status Clinical Service Informant COVID-19 virus infection Discharge Diagnosis 02/27/21 Hypothyroidism Discharge Diagnosis 02/27/21 Fibromyalgia Discharge Diagnosis 02/27/21 Hypovitaminosis D Discharge Diagnosis 02/27/21 Asthma, moderate persistent Discharge Diagnosis 02/27/21 Non-Specified Elevated LFTs Discharge Diagnosis 02/27/21 Vital Signs Most recent to oldest [Reference Range]: 1 Height 163 cm (02/27/21 3:39 PM) Social History Social History Type Response Smoking Status Former smoker, quit more than 30 days ago entered on: 04/06/20 Sex
--- OUTSIDE RECORDS SUMMARY | 2022-06-03 10:50 | XMS_ITS | Continuity of Care Document ---
Author Name Unknown Organization [facility] Address [address] [place] [address]- Care Team Providers Care Senior Treasury Consultant Name Role Phone Ernesto King MD Primary Care Physician Encounter [facility] Date(s): 01/07/21 - 01/14/21 [facility] [address] [place] [address]- Encounter Diagnosis Hypothyroidism(Discharge Diagnosis) - 01/07/21 Headache(Discharge Diagnosis) - 01/07/21 Diabetes mellitus with hyperglycemia(Discharge Diagnosis) - 01/07/21 BMI 38.0-38.9,adult(Discharge Diagnosis) - 01/07/21 Hypovitaminosis D(Discharge Diagnosis) - 01/07/21 Attending Physician: Ernesto King MD Allergies, Adverse [...] Given tetanus/diphtheria/pertussis, acel(Tdap) 01/30/16 Given 1Result Comment: [facility]:[id number] 2Result Comment: [facility] [id number] 3Result Comment: [11/30/2017] [facility] [id number] 4Result Comment: [12/31/2016] [facility] [id number] 5Admin Note: vis given 09/10/12 6Admin Note: VIS given 08/18/2011 7Result Comment: [12/31/2016] [facility] [id number] Medications albuterol 90 mcg/inh inhalation powder 2 puffs, Inhalation, Every 6 hours, PRN Wheezing/Shortness of Breath, # 1 each, 3 Refills, Maintenance, 02/29/20 14:08:00 EST, Powder, [facility] #[id number], dispense pro-air, 2 puffs Inhalation Every 6 [...] Refills, Maintenance, 08/14/20 12:53:00 EDT, [facility], 163, cm, 07/31/20 9:10:00 EDT, Height, 98.9, [...] 3 Refills, Maintenance, 02/29/20 14:04:00 EST, Aerosol, [facility] #[id number], 163, cm, 02/29/20 13:19:00 EST, Height, 98.9, [...] capsule, Refills 1, Route to Pharmacy Electronically, [facility], 163, cm, 11/06/20 11:15:00 EDT, Height, 98.9, kg, 08/25/19 12:42:00 EDT, Dry Weight Start Date: 11/15/20 Status: Ordered levothyroxine 150 mcg (0.15 mg) oral tablet 1 tablet, By Mouth, Daily, # 30 tablet, 2 Refills, Maintenance, 11/15/20 13:54:00 EDT, [facility]/pharmacy#[id number], 163, cm, 11/15/20 13:38:00 EDT, Height, 98.9, kg, 08/25/19 12:42:00 EDT, Dry Weight Start Date: 11/15/20 Status: Ordered loratadine 10 mg oral tablet 10 mg, 1, tablet, By Mouth, Daily, # 30 tablet, Refills 6, Tot. Refills 6, Maintenance, 11/28/19 8:53:00 EDT, Route to Pharmacy Electronically, [facility]/pharmacy #[id number], 163, cm, 11/25/19 14:43:00 EDT, Height, 98.9, kg, 08/25/19 12:42:00 EDT, Dry Weight Start Date: 11/28/19 Status: Ordered metFORMIN 500 mg oral tablet See Instructions, TAKE 1 TABLET BY MOUTH AT NIGHT AND INSREASE TO 1 TABLET TWICE A DAY DIRECTED,# 60 tablet, 2 Refills, [facility]ORE [facility]4559, 163, cm, 11/15/20 13:55:00 EDT, Height, 98.9, [...] each, 1 Refills, Maintenance, 08/25/19 15:03:00 EDT, [facility]/pharmacy#[id number], 2 sprays Nares, Both Daily, 163, cm, 08/25/19 12:40:00 EDT, Height, 98.9, kg, 08/25/19 12:42:00 EDT, Dry Weight Start Date: 08/25/19 Status: Ordered Nasonex 50 mcg/inh nasal spray 2 sprays, Nares, Both, 2 times a day, # 17 Gm, 0 Refills, Maintenance, 08/25/19 13:03:00 EDT, [place], [facility]/pharmacy #[id number], 2 sprays Nares, [...] 07/31/20 9:07:00 EDT, Route to Pharmacy Electronically, [facility] #[id number], Partial fill upon patient request if the prescription is for a sched... Start Date: 07/31/20 Status: Ordered PriLOSEC OTC 20 mg oral delayed release tablet 1 tablet = 20 mg, By Mouth, Daily, # 30 tablet, 2 Refills, Maintenance, 03/13/20 11:45:00 EST, [facility]/pharmacy #[id number], 163, cm, 03/08/20 11:24:00 EST, Height, 98.9, kg, 08/25/19 12:42:00 EDT, Dry Weight Start Date: 03/13/20 Status: Ordered semaglutide 0.25 mg/0.5 mL (0.25 mg dose) subcutaneous solution = 0.25 mg, Subcutaneous Injection, Every 72 hours, # 3 each, 0 Refills, Maintenance, 10/04/20 16:20:00 EDT, [facility] #[id number], Partial fill upon patient request if the [...] Details, Route to Pharmacy Electronically, [facility], 163, cm, 07/27/20 13:59:0... Start Date: 07/27/20 [...] pT1c, pN0 stage I left breast cancer, ER/CA negative, HER-2/marylin 3+, 2010(Confirmed) 06/25/11 Active Mixed anxiety and depressive disorder(Confirmed) Active Asthma, moderate persistent(Confirmed) Active Morbid obesity(Confirmed) Active Obese class II(Confirmed) Active RUQ pain(Confirmed) Active Hypovitaminosis D(Confirmed) Active 1initial Oswestry Disability Index: 70% ( crippled ) on 01/13/17; initial [place] Back Pain Scale:88 on 01/13/17; initial [place]: 7 on 01/13/17 Diagnosis Diagnosis Type Effective Dates Health Status Clinical Service Informant Hypothyroidism Discharge Diagnosis 01/07/21 Headache Discharge Diagnosis 01/07/21 Diabetes mellitus with hyperglycemia Discharge Diagnosis 01/07/21 BMI 38.0-38.9,adult Discharge Diagnosis 01/07/21 Hypovitaminosis D Discharge Diagnosis 01/07/21 Vital Signs Most recent to oldest [Reference Range]: 1 Height 163 cm (01/07/21 12:48 PM) Weight 102.6 kg (01/07/21 12:48 PM) Oxygen Saturation [94-100 %] 97 % (01/07/21 12:48 PM) Pulse Rate [55-90 bpm] 90 bpm (01/07/21 12:48 PM) Body Mass Index [18.5-24.99] 38.62 *>HHI* (01/07/21 12:48 PM) Blood Pressure [90-138/55-84 mm Hg] 120/ 80mm Hg (01/07/21 12:48 PM) Mode of Delivery (Oxygen) Room air (01/07/21 12:48 PM) Blood pressure sites Arm, right (01/07/21 12:48 PM) Weight Obtained Via Standing scale (01/07/21 12:48 PM) Social History Social History Type Response Smoking Status Former smoker, quit more than 30 days ago entered on: 04/06/20 Sex
--- OUTSIDE RECORDS SUMMARY | 2022-06-03 10:50 | XMS_ITS | Continuity of Care Document ---
Author Name Unknown Organization [facility] Address [address] [place] [address]- Care Team Providers Care Financial Planning Adviser Name Role Phone Ernesto King MD Primary Care Physician Encounter [facility] Date(s): 08/23/21 - 08/30/21 [facility] [address] [place] [address]- Attending Physician: Seferino NORIEGA, Haley Mahoney Referring Physician: Ernesto King MD Allergies, Adverse [...] Given tetanus/diphtheria/pertussis, acel(Tdap) 01/30/16 Given 1Result Comment: [facility]:[id number] 2Result Comment: [facility] [id number] 3Result Comment: [11/30/2017] [facility] [id number] 4Result Comment: [12/31/2016] [facility] [id number] 5Admin Note: vis given 09/10/12 6Admin Note: VIS given 08/18/2011 7Result Comment: [12/31/2016] [facility] [id number] Medications albuterol 90 mcg/inh inhalation powder 2 puffs, Inhalation, Every 6 hours, PRN Wheezing/Shortness of Breath, # 1 each, 3 Refills, Maintenance, 02/27/21 16:30:00 EST, Powder, [facility]/pharmacy #[id number], dispense pro-air, 2 puffs Inhalation Every 6hours,PRN:Wheezing/Shortness of Breath, 163, cm, 01... Start Date: 02/27/21 Status: Ordered albuterol-ipratropium 3 mg-0.5 mg/3 ml inhalation solution 3 mL, Neb, 4 times a day, J45.40, # 180 mL, 3 Refills, Maintenance, 07/02/20 14:11:00 EDT, Solution, [facility]/pharmacy #[id number], 3 mL Neb 4 times a day,Instr:J45.40, 163, cm, 06/18/20 13:31:00 EDT, Height, 98.9, kg, 08/25/19 12:42:00 EDT, Dry Weight Start Date: 07/02/20 Status: Ordered celecoxib 100 mg oral capsule 1 capsule, By Mouth, 2 times a day with meals, # 60 capsule, 1 Refills, Maintenance, 08/14/20 12:53:00 EDT, [facility], 163, cm, 07/31/20 9:10:00 EDT, Height, 98.9, [...] 3 Refills, Maintenance, 02/29/20 14:04:00 EST, Aerosol, [facility] #[id number], 163, cm, 02/29/20 13:19:00 EST, Height, 98.9, [...] 08/29/21 14:22:00 EDT, Route to Pharmacy Electronically, [facility]/pharmacy #[id number], 163, cm, 08/29/21 13:43:00 EDT, Height Start Date: 08/29/21 Stop Date: 10/28/21 Status: Ordered levothyroxine 175 mcg (0.175 mg) oral tablet 1 tablet = 175 mcg, By Mouth, Daily, # 90 tablet, 1 Refills, Maintenance, 06/27/21 11:36:00 EDT, Tablet, [facility]/pharmacy #[id number], Partial fill upon patient request if the prescription is for a schedule IIopioid drug., 163, cm, 06/27/21 11:27:00 EDT, Heigh... Start Date: 06/27/21 Status: Ordered loratadine 10 mg oral tablet 10 mg, 1, tablet, By Mouth, Daily, # 30 tablet, Refills 6, Tot. Refills 6, Maintenance, 11/28/19 8:53:00 EDT, Route to Pharmacy Electronically, [facility]/pharmacy #[id number], 163, cm, 11/25/19 14:43:00 EDT, Height, 98.9, kg, 08/25/19 12:42:00 EDT, Dry Weight Start Date: 11/28/19 Status: Ordered metFORMIN 500 mg oral tablet 1 tablet = 500 mg, By Mouth, 2 times a day, # 60 tablet, 5 Refills, Maintenance, 02/19/21 8:58:00 EST, [facility]/pharmacy #[id number], 163, cm, 02/18/21 14:32:00 EST, Height, [...] 1 Refills, Maintenance, 08/25/19 15:03:00 EDT, [facility]/pharmacy#4471, 2 sprays Nares, Both Daily, 163, cm, 08/25/19 12:40:00 EDT, Height, 98.9, kg, 08/25/19 12:42:00 EDT, Dry Weight Start Date: 08/25/19 Status: Ordered Nasonex 50 mcg/inh nasal spray 2 sprays, Nares, Both, 2 times a day, # 17 Gm, 0 Refills, Maintenance, 08/25/19 13:03:00 EDT, [place], [facility]/pharmacy #[id number], 2 sprays Nares, Both 2 times [...] 07/31/20 9:07:00 EDT, Route to Pharmacy Electronically, [facility] #[id number], Partial fill upon patient request if the prescription is for a sched... Start Date: 07/31/20 Status: Ordered predniSONE 20 mg oral tablet 2 tablet = 40 mg, By Mouth, Daily, for 5 days, # 10 tablet, 0 Refills, Acute 09/03/21 14:14:00 EDT,08/29/21 14:14:00 EDT, [facility]/pharmacy #[id number], Partial fill upon patient request if the prescription isfor a schedule II opioid drug., 163, cm, 08/29/21 1... Start Date: 08/29/21 Stop Date: 09/03/21 Status: Ordered PriLOSEC OTC 20 mg oral delayed release tablet 1 tablet = 20 mg, By Mouth, Daily, # 30 tablet, 2 Refills, Maintenance, 03/13/20 11:45:00 EST, [facility]/pharmacy #[id number], 163, cm, 03/08/20 11:24:00 EST, Height, 98.9, kg, 08/25/19 12:42:00 EDT, Dry Weight Start Date: 03/13/20 Status: Ordered semaglutide 0.25 mg/0.5 mL (0.25 mg dose) subcutaneous solution = 0.25 mg, Subcutaneous Injection, Every 72 hours, # 3 each, 0 Refills, Maintenance, 10/04/20 16:20:00 EDT, [facility] #[id number], Partial fill upon patient request if the prescription is for aschedule II opioid drug., 163, cm, 10/04/20 16:08:0... Start Date: 10/04/20 Status: Ordered Systane Complete Optimal Dry Eye Relief ophthalmic solution 2 drops, Eyes, Both, 3 times a day, # 30 mL, 3 Refills, Maintenance, 11/28/19 8:55:00 EDT, [facility]/pharmacy #[id number], 2 drops Eyes, Both 3 times [...] 12:13:00 EST, Route to Pharmacy Electronically, [facility]/pharmacy #[id number], 163, cm, 03/07/21 11:34:00 EST,... Start Date: 04/12/21 Status: Ordered tiZANidine 4 mg oral tablet See Instructions, TAKE 1/2 TO 1 TABLET BY MOUTH EVERY 8 HOURS NEEDED FOR MILD AND MUSCLE SPASM, # 45 tablet, Refills 2, Maintenance, Instructions Replace Required Details, Route to Pharmacy Electronically, [facility], 163, cm, 07/27/20 13:59:0... Start Date: 07/27/20 [...] [place] Back Pain Scale:88 on 01/13/17; initial [place]: 7 on 01/13/17 Vital Signs Most recent to oldest [Reference Range]: 1 Height 163 cm (08/23/21 5:35 PM) Oxygen Saturation [94-100 %] 99 % (08/23/21 5:35 PM) Pulse Rate [55-90 bpm] 80 bpm (08/23/21 5:35 PM) Blood Pressure [90-138/55-84 mm Hg] 143/ 84mm Hg *H* (08/23/21 5:35 PM) Respiratory Rate [16-30 br/min] 16 br/mi n (08/23/21 5:35 PM) Temperature [96.8-100.4 DegF] 97.0 DegF (08/23/21 5:35 PM) Mode of Delivery (Oxygen) Room air (08/23/21 5:35 PM) Blood pressure sites Arm, right (08/23/21 5:35 PM) Temperature Route Temporal (08/23/21 5:35 PM) Social History Social History Type Response Smoking Status Former smoker, quit more than 30 days ago entered on: 04/06/20 Sex
--- OUTSIDE RECORDS SUMMARY | 2022-06-03 10:50 | XMS_ITS | Continuity of Care Document ---
Author Name Unknown Organization [facility] Address [address] [place] [address]- Care Team Providers Care Hide Puller Name Role Phone Ernesto King MD Primary Care Physician Encounter [facility] Date(s): 02/18/21 - 02/25/21 [facility] [address] [place] [address]- Encounter Diagnosis Diabetes mellitus with hyperglycemia(Discharge Diagnosis) - 02/18/21 Diabetes mellitus with microalbuminuria(Discharge Diagnosis) - 02/18/21 Arthralgia(Discharge Diagnosis) - 02/18/21 Hypovitaminosis D(Discharge Diagnosis) - 02/18/21 Chronic pain syndrome(Discharge Diagnosis) - 02/18/21 Hypothyroidism(Discharge Diagnosis) - 02/18/21 Morbid obesity(Discharge Diagnosis) - 02/18/21 Asthma, moderate persistent(Discharge Diagnosis) - 02/18/21 Diabetic neuropathy(Discharge Diagnosis) - 02/18/21 Substance abuse in remission(Discharge Diagnosis) - 02/18/21 History of breast cancer- pT1c, pN0 stage I left breast cancer, [place] negative, HER-2/marylin 3+, 2010(Discharge Diagnosis) - 02/18/21 BMI 38.0-38.9,adult(Discharge Diagnosis) - 02/18/21 Flank pain(Discharge Diagnosis) - 02/18/21 Attending Physician: Ernesto King MD Allergies, Adverse [...] Given tetanus/diphtheria/pertussis, acel(Tdap) 01/30/16 Given 1Result Comment: [facility]:[id number] 2Result Comment: [facility] [id number] 3Result Comment: [11/30/2017] [facility] [id number] 4Result Comment: [12/31/2016] [facility] [id number] 5Admin Note: vis given 09/10/12 6Admin Note: VIS given 08/18/2011 7Result Comment: [12/31/2016] [facility] [id number] Medications albuterol 90 mcg/inh inhalation powder 2 puffs, Inhalation, Every 6 hours, PRN Wheezing/Shortness of Breath, # 1 each, 3 Refills, Maintenance, 02/29/20 14:08:00 EST, Powder, [facility] #[id number], dispense pro-air, 2 puffs Inhalation Every 6 hours,PRN:Wheezing/Shortness of Breath, 16... Start Date: 02/29/20 Status: Ordered albuterol-ipratropium 3 mg-0.5 mg/3 ml inhalation solution 3 mL, Neb, 4 times a day, J45.40, # 180 mL, 3 Refills, Maintenance, 07/02/20 14:11:00 EDT, Solution, [facility]/pharmacy #[id number], 3 mL Neb 4 times a day,Instr:J45.40, 163, cm, 06/18/20 13:31:00 EDT, Height, 98.9, kg, 08/25/19 12:42:00 EDT, Dry Weight Start Date: 07/02/20 Status: Ordered celecoxib 100 mg oral capsule 1 capsule, By Mouth, 2 times a day with meals, # 60 capsule, 1 Refills, Maintenance, 08/14/20 12:53:00 EDT, [facility], 163, cm, 07/31/20 9:10:00 EDT, Height, 98.9, [...] 3 Refills, Maintenance, 02/29/20 14:04:00 EST, Aerosol, [facility] #[id number], 163, cm, 02/29/20 13:19:00 EST, Height, 98.9, [...] 02/19/21 9:00:00 EST, Route to Pharmacy Electronically, [facility]/pharmacy #[id number], 163, cm, 02/18/21 14:32:00 EST,Height, 98.9, kg, 08/25/19 12:42:00 EDT, Dry Weight Start Date: 02/19/21 Status: Ordered levothyroxine 150 mcg (0.15 mg) oral tablet See Instructions, TAKE 1 TABLET BY MOUTH EVERY DAY, # 30 tablet, 2 Refills, [facility]20, 163, cm, 02/18/21 14:32:00 EST, Height, 98.9, kg, 08/25/19 12:42:00 EDT, Dry Weight Start Date: 02/19/21 Status: Ordered loratadine 10 mg oral tablet 10 mg, 1, tablet, By Mouth, Daily, # 30 tablet, Refills 6, Tot. Refills 6, Maintenance, 11/28/19 8:53:00 EDT, Route to Pharmacy Electronically, [facility]/pharmacy #[id number], 163, cm, 11/25/19 14:43:00 EDT, Height, 98.9, kg, 08/25/19 12:42:00 EDT, Dry Weight Start Date: 11/28/19 Status: Ordered metFORMIN 500 mg oral tablet 1 tablet = 500 mg, By Mouth, 2 times a day, # 60 tablet, 5 Refills, Maintenance, 02/19/21 8:58:00 EST, [facility]/pharmacy #[id number], 163, cm, 02/18/21 [...] each, 1 Refills, Maintenance, 08/25/19 15:03:00 EDT, [facility]/pharmacy#4471, 2 sprays Nares, Both Daily, 163, cm, 08/25/19 12:40:00 EDT, Height, 98.9, kg, 08/25/19 12:42:00 EDT, Dry Weight Start Date: 08/25/19 Status: Ordered Nasonex 50 mcg/inh nasal spray 2 sprays, Nares, Both, 2 times a day, # 17 Gm, 0 Refills, Maintenance, 08/25/19 13:03:00 EDT, [place], [facility]/pharmacy #[id number], 2 sprays Nares, [...] 07/31/20 9:07:00 EDT, Route to Pharmacy Electronically, [facility] #[id number], Partial fill upon patient request if the prescription is for a sched... Start Date: 07/31/20 Status: Ordered PriLOSEC OTC 20 mg oral delayed release tablet 1 tablet = 20 mg, By Mouth, Daily, # 30 tablet, 2 Refills, Maintenance, 03/13/20 11:45:00 EST, [facility]/pharmacy #[id number], 163, cm, 03/08/20 11:24:00 EST, Height, 98.9, kg, 08/25/19 12:42:00 EDT, Dry Weight Start Date: 03/13/20 Status: Ordered semaglutide 0.25 mg/0.5 mL (0.25 mg dose) subcutaneous solution = 0.25 mg, Subcutaneous Injection, Every 72 hours, # 3 each, 0 Refills, Maintenance, 10/04/20 16:20:00 EDT, [facility] #[id number], Partial fill upon patient request if the prescription is for aschedule II opioid drug., 163, cm, 10/04/20 16:08:0... Start Date: 10/04/20 Status: Ordered Systane Complete Optimal Dry Eye Relief ophthalmic solution 2 drops, Eyes, Both, 3 times a day, # 30 mL, 3 Refills, Maintenance, 11/28/19 8:55:00 EDT, [facility]/pharmacy #[id number], 2 drops Eyes, Both [...] Replace Required Details, Route to Pharmacy Electronically, [facility], 163, cm, 07/27/20 13:59:0... Start Date: 07/27/20 Status: Ordered traMADol 50 mg oral tablet 1 tablet = 50 mg, By Mouth, Every 6 hours, PRN for pain, TAKE ONLY NEEDED Dx: M79.7, S92.91 Masspat checked, # 112 tablet, 0 Refills, Maintenance, 02/19/21 9:06:00 EST, Tablet, [facility]/pharmacy #[id number],Please reinforce instructions with patient, she h... Start [...] [place] Back Pain Scale:88 on 01/13/17; initial [place]: 7 on 01/13/17 Diagnosis Diagnosis Type Effective Dates Health Status Clinical Service Informant Diabetes mellitus with hyperglycemia Discharge Diagnosis 02/18/21 Diabetes mellitus with microalbuminuria Discharge Diagnosis 02/18/21 Diabetic neuropathy Discharge Diagnosis 02/18/21 Chronic pain syndrome Discharge Diagnosis 02/18/21 Hypovitaminosis D Discharge Diagnosis 02/18/21 Arthralgia Discharge Diagnosis 02/18/21 Hypothyroidism Discharge Diagnosis 02/18/21 Morbid obesity Discharge Diagnosis 02/18/21 Asthma, moderate persistent Discharge Diagnosis 02/18/21 Substance abuse in remission Discharge Diagnosis 02/18/21 History of breast cancer- pT1c, pN0 stage I left breast cancer, [place] negative, HER-2/marylin 3+, 2010 Discharge Diagnosis 02/18/21 Non-Specified BMI 38.0-38.9,adult Discharge Diagnosis 02/18/21 Flank pain Discharge Diagnosis 02/18/21 Vital Signs Most recent to oldest [Reference Range]: 1 Height 163 cm (02/18/21 2:32 PM) Weight 102 kg (02/18/21 2:32 PM) Oxygen Saturation [94-100 %] 97 % (02/18/21 2:32 PM) Pulse Rate [55-90 bpm] 87 bpm (02/18/21 2:32 PM) Body Mass Index [18.5-24.99] 38.39 *>HHI* (02/18/21 2:32 PM) Blood Pressure [90-138/55-84 mm Hg] 120/ 70mm Hg (02/18/21 2:32 PM) Temperature [96.8-100.4 DegF] 96.7 DegF *L* (02/18/21 2:32 PM) Blood pressure sites Arm, left (02/18/21 2:32 PM) Temperature Route Temporal (02/18/21 2:32 PM) Weight Obtained Via Standing scale (02/18/21 2:32 PM) Social History Social History Type Response Smoking Status Former smoker, quit more than 30 days ago entered on: 04/06/20 Sex
--- OUTSIDE RECORDS SUMMARY | 2022-06-03 10:50 | XMS_ITS | Continuity of Care Document ---
Author Name Unknown Organization [facility] Address [address] [place] [address]- Care Team Providers Care Tableau Report Developer Name Role Phone Fernando CARTY, Ernesto Zapata Primary Care Physician Encounter [facility] Date(s): 12/04/21 - 12/11/21 [facility] [address] [place] [address]- Attending Physician: Winsome CARTY, Karen Fernandez Allergies, Adverse Reactions, Alerts No Known Allergies [...] 01/30/16 Given 1Result Comment: [facility]:[id number] 2Result Comment: [facility] [id number] 3Result Comment: [11/30/2017] [facility] [id number] 4Result Comment: [12/31/2016] [facility] 52665-636-00 5Admin Note: vis given 09/10/12 6Admin Note: VIS given 08/18/2011 7Result Comment: [12/31/2016] [facility] [id number] Medications albuterol 90 mcg/inh inhalation powder 2 puffs, Inhalation, Every 6 hours, PRN Wheezing/Shortness of Breath, # 1 each, 3 Refills, Maintenance, 11/22/21 17:17:00 EDT, Powder, [facility]/pharmacy #[id number], dispense pro-air, 2 puffs Inhalation Every 6hours,PRN:Wheezing/Shortness of Breath, 163, cm, 10... Start Date: 11/22/21 Status: Ordered albuterol-ipratropium 3 mg-0.5 mg/3 ml inhalation solution 3 mL, Neb, 4 times a day, J45.40, # 180 mL, 3 Refills, Maintenance, 11/22/21 17:17:00 EDT, Solution, [facility]/pharmacy #[id number], 3 mL Neb 4 times a day,Instr:J45.40, 163, cm, 11/22/21 15:30:00 EDT, Height Start Date: 11/22/21 Status: Ordered celecoxib 100 mg oral capsule 1 capsule, By Mouth, 2 times a day with meals, # 60 capsule, 1 Refills, Maintenance, 08/14/20 12:53:00 EDT, [id number], 163, cm, 07/31/20 9:10:00 EDT, Height, 98.9, [...] 14:04:00 EST, [facility]ol[id number], 163, cm, 02/29/20 13:19:00 EST, Height, 98.9, [...] 11/22/21 17:17:00 EDT, Route to Pharmacy Electronically, [facility]/pharmacy #[id number], 163, cm, 11/22/21 15:30:00 EDT, Height Start Date: 11/22/21 Stop Date: 01/21/22 Status: Ordered levothyroxine 175 mcg (0.175 mg) oral tablet 1 tablet = 175 mcg, By Mouth, Daily, # 90 tablet, 1 Refills, Maintenance, 06/27/21 11:36:00 EDT, Tablet, [facility]/pharmacy #[id number], Partial fill upon patient request if the prescription is for a schedule IIopioid drug., 163, cm, 06/27/21 11:27:00 EDT, Sebastián... Start Date: 06/27/21 Status: Ordered loratadine 10 mg oral tablet 10 mg, 1, tablet, By Mouth, Daily, # 30 tablet, Refills 6, Tot. Refills 6, Maintenance, 11/28/19 8:53:00 EDT, Route to Pharmacy Electronically, [facility]/pharmacy #[id number], 163, cm, 11/25/19 14:43:00 EDT, Height, 98.9, kg, 08/25/19 12:42:00 EDT, Dry Weight Start Date: 11/28/19 Status: Ordered metFORMIN 500 mg oral tablet 1 tablet = 500 mg, By Mouth, 2 times a day, # 60 tablet, 5 Refills, Maintenance, 02/19/21 8:58:00 EST, [facility]/pharmacy #[id number], 163, cm, 02/18/21 14:32:00 [...] each, 1 Refills, Maintenance, 08/25/19 15:03:00 EDT, [facility]/pharmacy#[id number], 2 sprays Nares, Both Daily, 163, cm, 08/25/19 12:40:00 EDT, Height, 98.9, kg, 08/25/19 12:42:00 EDT, Dry Weight Start Date: 08/25/19 Status: Ordered Nasonex 50 mcg/inh nasal spray 2 sprays, Nares, Both, 2 times a day, # 17 Gm, 0 Refills, Maintenance, 12/04/21 11:58:00 EDT, [place], [facility]/pharmacy #[id number], 2 sprays Nares, Both [...] 07/31/20 9:07:00 EDT, [facility] to [facility]ically[id number], Partial fill upon patient request if the prescription is for a sched... Start Date: 07/31/20 Status: Ordered PriLOSEC OTC 20 mg oral delayed release tablet 1 tablet = 20 mg, By Mouth, Daily, # 30 tablet, 2 Refills, Maintenance, 12/04/21 11:57:00 EDT, [facility]/pharmacy #[id number], 163, cm, 12/04/21 11:37:00 EDT, Height Start Date: 12/04/21 Status: Ordered semaglutide 0.25 mg/0.5 mL (0.25 mg dose) subcutaneous solution = 0.25 mg, Subcutaneous Injection, Every week, # 3 each, 1 Refills, Maintenance, 11/25/21 8:34:00 EDT, [facility]/pharmacy #[id number], Partial fill upon patient request if the prescription is for a schedule II opioid drug., 163, cm, 11/22/21 15:30:00 EDT, Height Start Date: 11/25/21 Status: Ordered Systane Complete Optimal Dry Eye Relief ophthalmic solution 2 drops, Eyes, Both, 3 times a day, # 30 mL, 3 Refills, Maintenance, 12/04/21 11:56:00 EDT, [facility]/pharmacy #[id number], 2 drops Eyes, Both 3 times a day, 163, cm, 12/04/21 11:37:00 EDT, Height Start Date: 12/04/21 Status: Ordered tiZANidine 4 mg oral tablet 0.5-1 tablet, By Mouth, Every 8 hours, PRN, TAKE ONLY NEEDED FOR MUSCLE SPASM, # 45 tablet, Refills 2, Tot. Refills 2, Maintenance, Spasm, 04/12/21 12:13:00 EST, Route to Pharmacy Electronically, [facility]/pharmacy #[id number], 163, cm, 03/07/21 11:34:00 EST,... Start Date: 04/12/21 Status: Ordered tiZANidine 4 mg oral tablet See Instructions, TAKE 1/2 TO 1 TABLET BY MOUTH EVERY 8 HOURS NEEDED FOR MILD AND MUSCLE SPASM, # 45 tablet, Refills 2, Maintenance, Instructions Replace Required Details, Route to Pharmacy Electronically, [id number], 163, cm, 07/27/20 13:59:0... Start Date: 07/27/20 Status: Ordered traMADol 50 mg oral tablet 1 tablet = 50 mg, By Mouth, Every 6 hours, PRN for pain, TAKE ONLY NEEDED Dx: M79.7, S92.91 Masspat checked, # 112 tablet, 0 Refills, Maintenance, 11/22/21 17:17:00 EDT, Tablet, [facility]/pharmacy #[id number], Please reinforce instructions with patient, she... Start Date: 11/22/21 Stop Date: 12/20/21 Status: Ordered triamcinolone 0.025% topical lotion 1 application, Topically, 2 times a day, for 10 days, apply a thin film to affected area, # 60 mL, 0 Refills, Acute 12/14/21 13:32:00 EDT, 12/04/21 13:32:00 EDT, Lotion, [facility]/pharmacy #[id number], Partial fill upon patient request if the prescription is for... Start Date: 12/04/21 Stop Date: 12/14/21 Status: Ordered Victoza 18 mg/3 mL subcutaneous solution = 0.6 mg, Subcutaneous Injection, Daily, # 6 mL, 3 Refills, Maintenance, 10/16/21 15:56:00 EDT, Injection, [facility]/pharmacy #[id number], dispense as pen, 163, cm, 10/16/21 14:49:00 EDT, Height Start Date: 10/16/21 Status: Ordered Vitamin D3 50,000 intl units oral capsule 1 capsule, By Mouth, Every week, # 12 capsule, 0 Refills, [id number], 163, cm, 09/13/21 9:15:00 EDT, Height Start Date: 09/18/21 Status: Ordered Voltaren 1% topical gel 1 application, Topically, 4 times a day, PRN for pain, # 100 Gm, 0 Refills, Maintenance, 05/27/21 18:00:00 EDT, Gel, [facility]/pharmacy #[id number], Partial fill upon patient [...] [place] Back Pain Scale:88 on 01/13/17; initial [place]: 7 on 01/13/17 Vital Signs Most recent to oldest [Reference Range]: 1 Height 163 cm (12/04/21 11:37 AM) Weight 100 kg (12/04/21 11:37 AM) Oxygen Saturation [94-100 %] 97 % (12/04/21 11:37 AM) Pulse Rate [55-90 bpm] 77 bpm (12/04/21 11:37 AM) Body Mass Index [18.5-24.99 kg/m2] 37.64 kg/m2 *>HHI* (12/04/21 11:37 AM) Systolic Blood Pressure [90-138 mm Hg] 1 30 mm Hg (12/04/21 11:37 AM) Blood pressure sites Arm, left (12/04/21 11:37 AM) Social History Social History Type Response Smoking Status Former smoker, quit more than 30 days ago entered on: 04/06/20 Sex Patient Care team information Personnel Name: Fernando CARTY, Ernesto Zapata Address: Address: [address] [place], [place] [address]
--- OUTSIDE RECORDS SUMMARY | 2022-06-03 10:50 | XMS_ITS | Continuity of Care Document ---
Author Name Unknown Organization [facility] Address [address] [place] [address]- Care Team Providers Care Audio Visual Collections Coordinator Name Role Phone Fernando CARTY, Ernesto Zapata Primary Care Physician Encounter [facility] Date(s): 09/13/21 - 10/13/21 [facility] [address] [place] [address]- Encounter Diagnosis Diabetes(Discharge Diagnosis) - 09/21/19 Fibromyalgia(Discharge Diagnosis) - 09/21/19 Hypothyroidism(Discharge Diagnosis) - 09/21/19 Attending Physician: Ellis Bai Admitting Physician: AdmtrEllis Referring Physician: Admtr, Ar8 Allergies, Adverse Reactions, Alerts No Known Allergies [...] 1Result Comment: [facility]:[id number] 2Result Comment: [facility] [id number] 3Result Comment: [11/30/2017] [facility] [id number] 4Result Comment: [12/31/2016] [facility] [id number] 5Admin Note: vis given 09/10/12 6Admin Note: VIS given 08/18/2011 7Result Comment: [12/31/2016] [facility] [id number] Medications albuterol 90 mcg/inh inhalation powder 2 puffs, Inhalation, Every 6 hours, PRN Wheezing/Shortness of Breath, # 1 each, 3 Refills, Maintenance, 02/27/21 16:30:00 EST, Powder, [facility]/pharmacy #[id number], dispense pro-air, 2 puffs Inhalation Every [...] Refills, Maintenance, 08/14/20 12:53:00 EDT, [facility], 163, cm, 07/31/20 9:10:00 EDT, Height, 98.9, [...] 3 Refills, Maintenance, 02/29/20 14:04:00 EST, Aerosol, [facility] #[id number], 163, cm, 02/29/20 13:19:00 EST, Height, 98.9, [...] 08/29/21 14:22:00 EDT, Route to Pharmacy Electronically, [facility]/pharmacy #[id number], 163, cm, 08/29/21 13:43:00 EDT, Height Start Date: 08/29/21 Stop Date: 10/28/21 Status: Ordered levothyroxine 175 mcg (0.175 mg) oral tablet 1 tablet = 175 mcg, By Mouth, Daily, # 90 tablet, 1 Refills, Maintenance, 06/27/21 11:36:00 EDT, Tablet, [facility]/pharmacy #[id number], Partial fill upon patient request if the prescription is for a schedule IIopioid drug., 163, cm, 06/27/21 11:27:00 EDT, Heigh... Start Date: 06/27/21 Status: Ordered loratadine 10 mg oral tablet 10 mg, 1, tablet, By Mouth, Daily, # 30 tablet, Refills 6, Tot. Refills 6, Maintenance, 11/28/19 8:53:00 EDT, [id number] 163, cm, 11/25/19 14:43:00 EDT, Height, 98.9, kg, 08/25/19 12:42:00 EDT, Dry Weight Start Date: 11/28/19 Status: Ordered metFORMIN 500 mg oral tablet 1 tablet = 500 mg, By Mouth, 2 times a day, # 60 tablet, 5 Refills, Maintenance, 02/19/21 8:58:00 EST, [facility]/pharmacy #[id number], 163, cm, 02/18/21 14:32:00 EST, Height, [...] each, 1 Refills, Maintenance, 08/25/19 15:03:00 EDT, [facility]/pharmacy#[id number], 2 sprays Nares, Both Daily, 163, cm, 08/25/19 12:40:00 EDT, Height, 98.9, kg, 08/25/19 12:42:00 EDT, Dry Weight Start Date: 08/25/19 Status: Ordered Nasonex 50 mcg/inh nasal spray 2 sprays, Nares, Both, 2 times a day, # 17 Gm, 0 Refills, Maintenance, 08/25/19 13:03:00 EDT, [employer], [facility]/pharmacy #[id number], 2 sprays Nares, Both 2 times [...] 07/31/20 9:07:00 EDT, Route to Pharmacy Electronically, [id number], Partial fill upon patient request if the prescription is for a sched... Start Date: 07/31/20 Status: Ordered PriLOSEC OTC 20 mg oral delayed release tablet 1 tablet = 20 mg, By Mouth, Daily, # 30 tablet, 2 Refills, Maintenance, 03/13/20 11:45:00 EST, [facility]/pharmacy #[id number], 163, cm, 03/08/20 11:24:00 EST, Height, 98.9, kg, 08/25/19 12:42:00 EDT, Dry Weight Start Date: 03/13/20 Status: Ordered semaglutide 0.25 mg/0.5 mL (0.25 mg dose) subcutaneous solution = 0.25 mg, Subcutaneous Injection, Every 72 hours, # 3 each, 0 Refills, Maintenance, 09/13/21 9:26:00 EDT, [facility]/pharmacy #[id number], Partial fill upon patient request if the prescription is for a schedule II opioid drug., 163, cm, 09/13/21 9:15:00 EDT, Height Start Date: 09/13/21 Status: Ordered Systane Complete Optimal Dry Eye Relief ophthalmic solution 2 drops, Eyes, Both, 3 times a day, # 30 mL, 3 Refills, Maintenance, 11/28/19 8:55:00 EDT, [facility]/pharmacy #[id number], 2 drops Eyes, Both 3 times a day, 163, cm, 11/25/19 14:43:00 EDT, Height, 98.9, kg, 08/25/19 12:42:00 EDT, Dry Weight Start Date: 11/28/19 Status: Ordered tiZANidine 4 mg oral tablet 0.5-1 tablet, By Mouth, Every 8 hours, PRN, TAKE ONLY NEEDED FOR MUSCLE SPASM, # 45 tablet, Refills 2, Tot. Refills 2, Maintenance, Spasm, 04/12/21 12:13:00 EST, Route to Pharmacy Electronically, [facility]/pharmacy #[id number], 163, cm, 03/07/21 11:34:00 EST,... Start Date: 04/12/21 Status: Ordered tiZANidine 4 mg oral tablet See Instructions, TAKE 1/2 TO 1 TABLET BY MOUTH EVERY 8 HOURS NEEDED FOR MILD AND MUSCLE SPASM, # 45 tablet, Refills 2, Maintenance, Instructions Replace Required Details, Route to Pharmacy Electronically, [id number], 163, cm, 07/27/20 13:59:0... Start Date: 07/27/20 Status: Ordered traMADol 50 mg oral tablet 1 tablet = 50 mg, By Mouth, Every 6 hours, PRN for pain, TAKE ONLY NEEDED Dx: M79.7, S92.91 Masspat checked, # 112 tablet, 0 Refills, Maintenance, 10/04/21 16:06:00 EDT, [facility], [id number], Please reinforce instructions with patient, she... Start Date: 10/04/21 Stop Date: 11/01/21 Status: Ordered Vitamin D3 50,000 intl units oral capsule 1 capsule, By Mouth, Every week, # 12 capsule, 0 Refills, [facility], 163, cm, 09/13/21 9:15:00 EDT, Height Start [...] [place] Back Pain Scale:88 on 01/13/17; initial [place]: 7 on 01/13/17 Diagnosis Diagnosis Type Effective Dates Health Status Cl inical Service Informant Diabetes Discharge Diagnosis 09/21/19 Hypothyroidism Discharge Diagnosis 09/21/19 Fibromyalgia Discharge Diagnosis 09/21/19 Social History Social History Type Response Smoking Status Former smoker, quit more than 30 days ago entered on: 04/06/20 Sex Care Team Personnel Name: Fernando CRATY, Ernesto Zapata Address: [address] [place] [address]
--- OUTSIDE RECORDS SUMMARY | 2022-06-03 10:50 | XMS_ITS | Continuity of Care Document ---
Author Name Unknown Organization [facility] Address [address] [place] [address]- Care Team Providers Care Rounding Machine Operator Name Role Phone Ernesto King MD Primary Care Physician Encounter [facility] Date(s): 04/12/21 - 04/19/21 [facility] [address] [place] [address]- Encounter Diagnosis Hypothyroidism(Discharge Diagnosis) - 04/12/21 Chronic pain syndrome(Discharge Diagnosis) - 04/12/21 Asthma, moderate persistent(Discharge Diagnosis) - 04/12/21 Attending Physician: Ernesto King MD Allergies, Adverse [...] Given tetanus/diphtheria/pertussis, acel(Tdap) 01/30/16 Given 1Result Comment: [facility]:[id number] 2Result Comment: [facility] [id number] 3Result Comment: [11/30/2017] [facility] [id number] 4Result Comment: [12/31/2016] [facility] [id number] 5Admin Note: vis given 09/10/12 6Admin Note: VIS given 08/18/2011 7Result Comment: [12/31/2016] [facility] [id number] Medications albuterol 90 mcg/inh inhalation powder 2 puffs, Inhalation, Every 6 hours, PRN Wheezing/Shortness of Breath, # 1 each, 3 Refills, Maintenance, 02/27/21 16:30:00 EST, Powder, [facility]/pharmacy #[id number], dispense pro-air, 2 puffs Inhalation Every 6hours,PRN:Wheezing/Shortness of Breath, 163, cm, 01... Start Date: 02/27/21 Status: Ordered albuterol-ipratropium 3 mg-0.5 mg/3 ml inhalation solution 3 mL, Neb, 4 times a day, J45.40, # 180 mL, 3 Refills, Maintenance, 07/02/20 14:11:00 EDT, Solution, [facility]/pharmacy #[id number], 3 mL Neb 4 times a day,Instr:J45.40, 163, cm, 06/18/20 13:31:00 EDT, Height, 98.9, kg, 08/25/19 12:42:00 EDT, Dry Weight Start Date: 07/02/20 Status: Ordered celecoxib 100 mg oral capsule 1 capsule, By Mouth, 2 times a day with meals, # 60 capsule, 1 Refills, Maintenance, 08/14/20 12:53:00 EDT, [facility], 163, cm, 07/31/20 9:10:00 EDT, Height, 98.9, [...] 3 Refills, Maintenance, 02/29/20 14:04:00 EST, Aerosol, [id number], 163, cm, 02/29/20 13:19:00 EST, Height, 98.9, [...] capsule, Refills 1, Tot. Refills 1, Maintenance, 04/12/21 12:16:00 EST, Route to Pharmacy Electronically, [facility]/pharmacy #[id number], 163, cm, 03/07/21 11:34:00 EST, Height, 98.9, kg, 08/25/19 12:42:00 EDT, Dry Weight Start Date: 04/12/21 Stop Date: 06/11/21 Status: Ordered levothyroxine 150 mcg (0.15 mg) oral tablet See Instructions, TAKE 1 TABLET BY MOUTH EVERY DAY, # 30 tablet, 2 Refills, [facility], 163, cm, 02/18/21 14:32:00 EST, Height, 98.9, kg, 08/25/19 12:42:00 EDT, Dry Weight Start Date: 02/19/21 Status: Ordered loratadine 10 mg oral tablet 10 mg, 1, tablet, By Mouth, Daily, # 30 tablet, Refills 6, Tot. Refills 6, Maintenance, 11/28/19 8:53:00 EDT, Route to Pharmacy Electronically, [facility]/pharmacy #[id number], 163, cm, 11/25/19 14:43:00 EDT, Height, 98.9, kg, 08/25/19 12:42:00 EDT, Dry Weight Start Date: 11/28/19 Status: Ordered metFORMIN 500 mg oral tablet 1 tablet = 500 mg, By Mouth, 2 times a day, # 60 tablet, 5 Refills, Maintenance, 02/19/21 8:58:00 EST, [facility]/pharmacy #[id number], 163, cm, 02/18/21 14:32:00 EST, Height, [...] each, 1 Refills, Maintenance, 08/25/19 15:03:00 EDT, [facility]/pharmacy#4471, 2 sprays Nares, Both Daily, 163, cm, 08/25/19 12:40:00 EDT, Height, 98.9, kg, 08/25/19 12:42:00 EDT, Dry Weight Start Date: 08/25/19 Status: Ordered Nasonex 50 mcg/inh nasal spray 2 sprays, Nares, Both, 2 times a day, # 17 Gm, 0 Refills, Maintenance, 08/25/19 13:03:00 EDT, [place], [facility]/pharmacy #[id number], 2 sprays Nares, Both 2 times [...] 07/31/20 9:07:00 EDT, Route to Pharmacy Electronically, [id number], Partial fill upon patient request if the prescription is for a sched... Start Date: 07/31/20 Status: Ordered PriLOSEC OTC 20 mg oral delayed release tablet 1 tablet = 20 mg, By Mouth, Daily, # 30 tablet, 2 Refills, Maintenance, 03/13/20 11:45:00 EST, [facility]/pharmacy #[id number], 163, cm, 03/08/20 11:24:00 EST, Height, 98.9, kg, 08/25/19 12:42:00 EDT, Dry Weight Start Date: 03/13/20 Status: Ordered semaglutide 0.25 mg/0.5 mL (0.25 mg dose) subcutaneous solution = 0.25 mg, Subcutaneous Injection, Every 72 hours, # 3 each, 0 Refills, Maintenance, 10/04/20 16:20:00 EDT, [email or web address] #[id number], Partial fill upon patient request if the prescription is for aschedule II opioid drug., 163, cm, 10/04/20 16:08:0... Start Date: 10/04/20 Status: Ordered Systane Complete Optimal Dry Eye Relief ophthalmic solution 2 drops, Eyes, Both, 3 times a day, # 30 mL, 3 Refills, Maintenance, 11/28/19 8:55:00 EDT, [facility]/pharmacy #[id number], 2 drops Eyes, Both 3 times a day, 163, cm, 11/25/19 14:43:00 EDT, Height, 98.9, kg, 08/25/19 12:42:00 EDT, Dry Weight Start Date: 11/28/19 Status: Ordered tiZANidine 4 mg oral tablet 0.5-1 tablet, By Mouth, Every 8 hours, PRN, TAKE ONLY NEEDED FOR MUSCLE SPASM, # 45 tablet, Refills 2, Tot. Refills 2, Maintenance, Spasm, 04/12/21 12:13:00 EST, Route to Pharmacy Electronically, [facility]/pharmacy #[id number], 163, cm, 03/07/21 11:34:00 EST,... Start Date: 04/12/21 Status: Ordered tiZANidine 4 mg oral tablet See Instructions, TAKE 1/2 TO 1 TABLET BY MOUTH EVERY 8 HOURS NEEDED FOR MILD AND MUSCLE SPASM, # 45 tablet, Refills 2, Maintenance, Instructions Replace Required Details, Route to Pharmacy Electronically, [id number], 163, cm, 07/27/20 13:59:0... Start Date: 07/27/20 Status: Ordered traMADol 50 mg oral tablet 1 tablet = 50 mg, By Mouth, Every 6 hours, PRN for pain, TAKE ONLY NEEDED Dx: M79.7, S92.91 Masspat checked, # 112 tablet, 0 Refills, Maintenance, 04/12/21 13:12:00 EST, Tablet, [facility]/pharmacy #[id number], Please reinforce instructions with patient, she... Start Date: 04/12/21 Stop Date: 05/10/21 Status: Ordered Problem List Condition Effective Dates [...] [place] Back Pain Scale:88 on 01/13/17; initial [place]: 7 on 01/13/17 Diagnosis Diagnosis Type Effective Dates Health Status Clinical Service Informant Asthma, moderate persistent Discharge Diagnosis 04/12/21 Non-Specified Hypothyroidism Discharge Diagnosis 04/12/21 Chronic pain syndrome Discharge Diagnosis 04/12/21 Vital Signs Most recent to oldest [Reference Range]: 1 Height 163 cm (04/12/21 12:11 PM) Social History Social History Type Response Smoking Status Former smoker, quit more than 30 days ago entered on: 04/06/20 Sex
--- OUTSIDE RECORDS SUMMARY | 2022-06-03 10:50 | XMS_ITS | Continuity of Care Document ---
Author Name Unknown Organization [facility] Address [address] [place] [address]- Care Team Providers Care Asbestos Removal Supervisor Name Role Phone Fernando CARTY, Ernesto Zapata Primary Care Physician Encounter [facility] [place] Date(s): 05/27/21 - 06/26/21 [facility] [address] [place] [address]- Attending Physician: Ellis Bai Admitting Physician: AdmEllis rea Referring Physician: AdmtrEllis Allergies, Adverse Reactions, Alerts [...] tetanus/diphtheria/pertussis, acel(Tdap) 01/30/16 Given 1Result Comment: [facility]:[id number] 2Result Comment: [facility] [id number] 3Result Comment: [11/30/2017] [facility] [id number] 4Result Comment: [12/31/2016] [facility] [id number] 5Admin Note: vis given 09/10/12 6Admin Note: VIS given 08/18/2011 7Result Comment: [12/31/2016] [facility] 9993-4204-05 Medications albuterol 90 mcg/inh inhalation powder 2 puffs, Inhalation, Every 6 hours, PRN Wheezing/Shortness of Breath, # 1 each, 3 Refills, Maintenance, 02/27/21 16:30:00 EST, Powder, [facility]/pharmacy #[id number], dispense pro-air, 2 puffs Inhalation Every 6hours,PRN:Wheezing/Shortness of Breath, 163, cm, 01... Start Date: 02/27/21 Status: Ordered albuterol-ipratropium 3 mg-0.5 mg/3 ml inhalation solution 3 mL, Neb, 4 times a day, J45.40, # 180 mL, 3 Refills, Maintenance, 07/02/20 14:11:00 EDT, Solution, [facility]/pharmacy #[id number], 3 mL Neb 4 times a day,Instr:J45.40, 163, cm, 06/18/20 13:31:00 EDT, Height, 98.9, kg, 08/25/19 12:42:00 EDT, Dry Weight Start Date: 07/02/20 Status: Ordered celecoxib 100 mg oral capsule 1 capsule, By Mouth, 2 times a day with meals, # 60 capsule, 1 Refills, Maintenance, 08/14/20 12:53:00 EDT, [id number], 163, cm, 07/31/20 9:10:00 EDT, Height, 98.9, [...] 3 Refills, Maintenance, 02/29/20 14:04:00 EST, Aerosol, [facility] #[id number], 163, cm, 02/29/20 13:19:00 EST, Height, 98.9, [...] 06/24/21 10:53:00 EDT, Route to Pharmacy Electronically, [facility]/pharmacy #[id number], 163, cm, 06/21/21 15:02:00 EDT, Height, 98.9, kg, 08/25/19 12:42:00 EDT, Dry Weight Start Date: 06/24/21 Stop Date: 08/23/21 Status: Ordered levothyroxine 150 mcg (0.15 mg) oral tablet 1 tablet, By Mouth, Daily, # 30 tablet, 5 Refills, [id number], 163, cm, 06/03/21 11:24:00 EDT,Height, 98.9, kg, 08/25/19 12:42:00 EDT, Dry Weight Start Date: 06/13/21 Status: Ordered loratadine 10 mg oral tablet 10 mg, 1, tablet, By Mouth, Daily, # 30 tablet, Refills 6, Tot. Refills 6, Maintenance, 11/28/19 8:53:00 EDT, Route to Pharmacy Electronically, [facility]/pharmacy #[id number], 163, cm, 11/25/19 14:43:00 EDT, Height, 98.9, kg, 08/25/19 12:42:00 EDT, Dry Weight Start Date: 11/28/19 Status: Ordered metFORMIN 500 mg oral tablet 1 tablet = 500 mg, By Mouth, 2 times a day, # 60 tablet, 5 Refills, Maintenance, 02/19/21 8:58:00 EST, [facility]/pharmacy #[id number], 163, cm, 02/18/21 14:32:00 [...] each, 1 Refills, Maintenance, 08/25/19 15:03:00 EDT, [facility]/pharmacy#[id number], 2 sprays Nares, Both Daily, 163, cm, 08/25/19 12:40:00 EDT, Height, 98.9, kg, 08/25/19 12:42:00 EDT, Dry Weight Start Date: 08/25/19 Status: Ordered Nasonex 50 mcg/inh nasal spray 2 sprays, Nares, Both, 2 times a day, # 17 Gm, 0 Refills, Maintenance, 08/25/19 13:03:00 EDT, [place], [facility]/pharmacy #[id number], 2 sprays Nares, Both [...] 07/31/20 9:07:00 EDT, Route to Pharmacy Electronically, [facility] #[id number], Partial fill upon patient request if the prescription is for a sched... Start Date: 07/31/20 Status: Ordered PriLOSEC OTC 20 mg oral delayed release tablet 1 tablet = 20 mg, By Mouth, Daily, # 30 tablet, 2 Refills, Maintenance, 03/13/20 11:45:00 EST, [facility]/pharmacy #[id number], 163, cm, 03/08/20 11:24:00 EST, Height, 98.9, kg, 08/25/19 12:42:00 EDT, Dry Weight Start Date: 03/13/20 Status: Ordered semaglutide 0.25 mg/0.5 mL (0.25 mg dose) subcutaneous solution = 0.25 mg, Subcutaneous Injection, Every 72 hours, # 3 each, 0 Refills, Maintenance, 10/04/20 16:20:00 EDT, [facility] #[id number], Partial fill upon patient request if the prescription is for aschedule II opioid drug., 163, cm, 10/04/20 16:08:0... Start Date: 10/04/20 Status: Ordered Systane Complete Optimal Dry Eye Relief ophthalmic solution 2 drops, Eyes, Both, 3 times a day, # 30 mL, 3 Refills, Maintenance, 11/28/19 8:55:00 EDT, [facility]/pharmacy #[id number], 2 drops Eyes, Both [...] 04/12/21 12:13:00 EST, Route to Pharmacy Electronically, [facility]/pharmacy #[id number], 163, cm, 03/07/21 11:34:00 EST,... Start Date: 04/12/21 Status: Ordered tiZANidine 4 mg oral tablet See Instructions, TAKE 1/2 TO 1 TABLET BY MOUTH EVERY 8 HOURS NEEDED FOR MILD AND MUSCLE SPASM, # 45 tablet, Refills 2, Maintenance, Instructions Replace Required Details, Route to Pharmacy Electronically, [id number], 163, cm, 07/27/20 13:59:0... Start Date: 07/27/20 Status: Ordered traMADol 50 mg oral tablet 1 tablet = 50 mg, By Mouth, Every 6 hours, PRN for pain, TAKE ONLY NEEDED Dx: M79.7, S92.91 Masspat checked, # 112 tablet, 0 Refills, Maintenance, 06/21/21 16:39:00 EDT, Tablet, [facility]/pharmacy #[id number], Please reinforce instructions with patient, she... Start Date: 06/21/21 Stop Date: 07/19/21 Status: Ordered Voltaren 1% topical gel 1 application, Topically, 4 times a day, PRN for pain, # 100 Gm, 0 Refills, Maintenance, 05/27/21 18:00:00 EDT, Gel, [id number], Partial fill upon patient request if the [...] [place] Back Pain Scale:88 on 01/13/17; initial [place]: 7 on 01/13/17 Social History Social History Type Response Smoking Status Former smoker, quit more than 30 days ago entered on: 04/06/20 Sex
--- OUTSIDE RECORDS SUMMARY | 2022-06-03 10:50 | XMS_ITS | Continuity of Care Document ---
Author Name Unknown Organization [facility] Address [address] [place] [address]- Care Team Providers Care Telecommunication Systems Designer Name Role Phone Fernando CARTY, Ernesto Zapata Primary Care Physician [place] [facility] [place] 03/21/22 [facility] [address] [place] [address]- Attending Physician: Ellis Bai Admitting Physician: Ellis [...] acel(Tdap) 01/30/16 Given 1Result Comment: [facility]:[id number] 2Result Comment: [facility] [id number] 3Result Comment: [11/30/2017] [facility] [id number] 4Result Comment: [12/31/2016] [facility] [id number] 5Admin Note: vis given 09/10/12 6Admin Note: VIS given 08/18/2011 7Result Comment: [12/31/2016] [facility] [id number] Medications albuterol 90 mcg/inh inhalation powder 2 puffs, Inhalation, Every 6 hours, PRN Wheezing/Shortness of Breath, # 1 each, 3 Refills, Maintenance, 11/22/21 17:17:00 EDT, Powder, [facility]/pharmacy #[id number], dispense pro-air, 2 [...] Refills, Maintenance, 08/14/20 12:53:00 EDT, [id number], 163, cm, 07/31/20 9:10:00 EDT, Height, 98.9, [...] 3 Refills, Maintenance, 02/29/20 14:04:00 EST, Aerosol, [facility] #[id number], 163, cm, 02/29/20 13:19:00 EST, Height, 98.9, [...] 11/22/21 17:17:00 EDT, Route to Pharmacy Electronically, [facility]/pharmacy #[id number], 163, cm, 11/22/21 15:30:00 EDT, Height Start Date: 11/22/21 Stop Date: 01/21/22 Status: Ordered levothyroxine 175 mcg (0.175 mg) oral tablet 1 tablet = 175 mcg, By Mouth, Daily, # 90 tablet, 1 Refills, Maintenance, 06/27/21 11:36:00 EDT, Tablet, [facility]/pharmacy #[id number], Partial fill upon patient request if the prescription is for a schedule IIopioid drug., 163, cm, 06/27/21 11:27:00 EDT, [place]... Start Date: 06/27/21 Status: Ordered loratadine 10 mg oral tablet 10 mg, 1, tablet, By Mouth, Daily, # 30 tablet, Refills 6, Tot. Refills 6, Maintenance, 11/28/19 8:53:00 EDT, Route to Pharmacy Electronically, [facility]/pharmacy #[id number], 163, cm, 11/25/19 14:43:00 EDT, Height, 98.9, kg, 08/25/19 12:42:00 EDT, Dry Weight Start Date: 11/28/19 Status: Ordered metFORMIN 500 mg oral tablet 1 tablet = 500 mg, By Mouth, 2 times a day, # 60 tablet, 5 Refills, Maintenance, 02/19/21 8:58:00 EST, [facility]/pharmacy #[id number], 163, cm, 02/18/21 [...] each, 1 Refills, Maintenance, 08/25/19 15:03:00 EDT, [facility]/pharmacy#[id number], 2 sprays Nares, Both Daily, 163, cm, 08/25/19 12:40:00 EDT, Height, 98.9, kg, 08/25/19 12:42:00 EDT, Dry Weight Start Date: 08/25/19 Status: Ordered Nasonex 50 mcg/inh nasal spray 2 sprays, Nares, Both, 2 times a day, # 17 Gm, 0 Refills, Maintenance, 12/04/21 11:58:00 EDT, [place], [facility]/pharmacy #[id number], 2 sprays Nares, [...] 07/31/20 9:07:00 EDT, Route to Pharmacy Electronically, [facility] #[id number], Partial fill upon patient request if the prescription is for a sched... Start Date: 07/31/20 Status: Ordered PriLOSEC OTC 20 mg oral delayed release tablet 1 tablet = 20 mg, By Mouth, Daily, # 30 tablet, 2 Refills, Maintenance, 12/04/21 11:57:00 EDT, [facility]/pharmacy #[id number], 163, cm, 12/04/21 11:37:00 EDT, Height Start Date: 12/04/21 Status: Ordered semaglutide 0.25 mg/0.5 mL (0.25 mg dose) subcutaneous solution = 0.25 mg, Subcutaneous Injection, Every week, # 3 each, 1 Refills, Maintenance, 11/25/21 8:34:00 EDT, [facility]/pharmacy #[id number], Partial fill upon patient request if the prescription is for a schedule II opioid drug., 163, cm, 11/22/21 15:30:00 EDT, Height Start Date: 11/25/21 Status: Ordered Systane Complete Optimal Dry Eye Relief ophthalmic solution 2 drops, Eyes, Both, 3 times a day, # 30 mL, 3 Refills, Maintenance, 12/04/21 11:56:00 EDT, [facility]/pharmacy #[id number], 2 drops Eyes, Both 3 times a day, 163, cm, 12/04/21 11:37:00 EDT, Height Start Date: 12/04/21 Status: Ordered tiZANidine 4 mg oral tablet 0.5-1 tablet, By Mouth, Every 8 hours, PRN, TAKE ONLY NEEDED FOR MUSCLE SPASM, # 45 tablet, Refills 2, Tot. Refills 2, Maintenance, Spasm, 04/12/21 12:13:00 EST, Route to Pharmacy Electronically, [facility]/pharmacy #[id number], 163, cm, 03/07/21 11:34:00 EST,... Start Date: 04/12/21 Status: Ordered tiZANidine 4 mg oral tablet See Instructions, TAKE 1/2 TO 1 TABLET BY MOUTH EVERY 8 HOURS NEEDED FOR MILD AND MUSCLE SPASM, # 45 tablet, Refills 2, Maintenance, Instructions Replace Required Details, Route to Pharmacy Electronically, [id number], 163, cm, 07/27/20 13:59:0... Start Date: 07/27/20 Status: Ordered traMADol 50 mg oral tablet 1 tablet = 50 mg, By Mouth, Every 6 hours, PRN for pain, TAKE ONLY NEEDED Dx: M79.7, S92.91 Masspat checked, # 112 tablet, 0 Refills, Maintenance, 03/05/22 13:34:00 EST, Tablet, [facility]/pharmacy #[id number], Please reinforce instructions with patient, she... Start Date: 03/05/22 Stop Date: 04/02/22 Status: Ordered Victoza 18 mg/3 mL subcutaneous solution = 0.6 mg, Subcutaneous Injection, Daily, # 6 mL, 3 Refills, Maintenance, 10/16/21 15:56:00 EDT, Injection, [facility]/pharmacy #[id number], dispense as pen, 163, cm, 10/16/21 14:49:00 EDT, Height Start Date: 10/16/21 Status: Ordered Vitamin D3 50,000 intl units oral capsule 1 capsule, By Mouth, Every week, # 12 capsule, 0 Refills, [id number], 163, cm, 09/13/21 9:15:00 EDT, Height Start Date: 09/18/21 Status: Ordered Voltaren 1% topical gel 1 application, Topically, 4 times a day, PRN for pain, # 100 Gm, 0 Refills, Maintenance, 05/27/21 18:00:00 EDT, Gel, [facility]/pharmacy #[id number], Partial fill upon patient [...] [place] Back Pain Scale:88 on 01/13/17; initial [place]: 7 on 01/13/17 Social History Social History Type Response Smoking Status Former smoker, quit more than 30 days ago entered on: 04/06/20 Sex Patient Care team information Care Team Personnel Name: Ernesto King MD Position: [facility] Primary Care Physician Member Role: PCP Address: Address: [address] [place] [address] [place] [address]- Name: Kathrine Luna MD Position: [facility] MANAGER STERILE PROCESSING MD Member Role: Lifetime MANAGER STERILE PROCESSING Physician Address: Address: [address] [place] [address] [facility] Oral And Maxillofacial Surgeon - [place], [place] [address] Name: Kathya Grullon RN Position: [facility] RN Member Role: Primary Care Nurse Care Team Related Persons Name: LYN LEIGH Address: [place] [address] Name: MADDIE LEIGH
--- OUTSIDE RECORDS SUMMARY | 2022-06-03 10:50 | XMS_ITS | Continuity of Care Document ---
Author Name Unknown Organization [facility] Address [address] [place] [address]- Care Team Providers Care Geoscience Technician Name Role Phone Ernesto King MD Primary Care Physician [place] [facility] [place]21 - 06/03/21 [facility] [address] [place] [address]- Encounter Diagnosis Spasm of muscle of lower back(Discharge Diagnosis) - 05/27/21 Attending Physician: Not on Staff, Attending MD Referring Physician: Ernesto King MD Allergies, [...] tetanus/diphtheria/pertussis, acel(Tdap) 01/30/16 Given 1Result Comment: [facility]:[id number] 2Result Comment: [facility] 05206-752-80 3Result Comment: [11/30/2017] [facility] [id number] 4Result Comment: [12/31/2016] [facility] [id number] 5Admin Note: vis given 09/10/12 6Admin Note: VIS given 08/18/2011 7Result Comment: [12/31/2016] [facility] [id number] Medications albuterol 90 mcg/inh inhalation powder 2 [...] 3 Refills, Maintenance, 07/02/20 14:11:00 EDT, Solution, [facility]/pharmacy #[id number], 3 mL Neb 4 times a day,Instr:J45.40, 163, cm, 06/18/20 13:31:00 EDT, Height, 98.9, kg, 08/25/19 12:42:00 EDT, Dry Weight Start Date: 07/02/20 Status: Ordered celecoxib 100 mg oral capsule 1 capsule, By Mouth, 2 times a day with meals, # 60 capsule, 1 Refills, Maintenance, 08/14/20 12:53:00 EDT, [facility], 163, cm, 07/31/20 9:10:00 EDT, Height, 98.9, [...] 3 Refills, Maintenance, 02/29/20 14:04:00 EST, Aerosol, [facility] #[id number], 163, cm, 02/29/20 13:19:00 EST, Height, 98.9, [...] 04/12/21 12:16:00 EST, Route to Pharmacy Electronically, [facility]/pharmacy #[id number], 163, cm, 03/07/21 11:34:00 EST, Height, 98.9, kg, 08/25/19 12:42:00 EDT, Dry Weight Start Date: 04/12/21 Stop Date: 06/11/21 Status: Ordered levothyroxine 150 mcg (0.15 mg) oral tablet See Instructions, TAKE 1 TABLET BY MOUTH EVERY DAY, # 30 tablet, 2 Refills, [id number], 163, cm, 02/18/21 14:32:00 EST, Height, 98.9, kg, 08/25/19 12:42:00 EDT, Dry Weight Start Date: 02/19/21 Status: Ordered lidocaine-menthol 4%-4% topical film 1 patch, Topically, 2 times a day, PRN as needed for pain, for 10 days, # 10 each, 0 Refills, Acute06/13/21 11:40:00 EDT, 06/03/21 11:40:00 EDT, Film, [facility]/pharmacy #[id number], Partial fill upon patient request if the prescription is for a schedule II opio... Start Date: 06/03/21 Stop Date: 06/13/21 Status: Ordered loratadine 10 mg [...] Gm, 0 Refills, Maintenance, 08/25/19 13:03:00 EDT, [place], [facility]/pharmacy #[id number], 2 sprays Nares, [...] 07/31/20 9:07:00 EDT, Route to Pharmacy Electronically, [facility] #[id number], Partial fill upon patient request if the prescription is for a sched... Start Date: 07/31/20 Status: Ordered nystatin [id number] u/ml oral suspension 1 mL = 100,000 units, By Mouth, 4 times a day, for 10 days, # 40 mL, 1 Refills, Acute 06/23/21 11:38:00 EDT, 06/03/21 11:38:00 EDT, [place], [facility]/pharmacy #[id number], Partial fill upon patient request if the prescription is for a schedule II opioid drug.... Start Date: 06/03/21 Stop Date: 06/23/21 Status: Ordered PriLOSEC OTC 20 mg oral [...] each, 0 Refills, Maintenance, 10/04/20 16:20:00 EDT, [facility] #[id number], Partial fill upon patient request if the prescription is for aschedule II opioid drug., 163, cm, 10/04/20 16:08:0... Start Date: 10/04/20 Status: Ordered Systane Complete Optimal Dry Eye Relief ophthalmic solution 2 drops, Eyes, Both, 3 times a day, # 30 mL, 3 Refills, Maintenance, 11/28/19 8:55:00 EDT, [facility]/pharmacy #[id number], 2 drops Eyes, Both [...] 04/12/21 12:13:00 EST, Route to Pharmacy Electronically, [facility]/pharmacy #[id number], 163, cm, 03/07/21 11:34:00 EST,... Start Date: 04/12/21 Status: Ordered tiZANidine 4 mg oral tablet See Instructions, TAKE 1/2 TO 1 TABLET BY MOUTH EVERY 8 HOURS NEEDED FOR MILD AND MUSCLE SPASM, # 45 tablet, Refills 2, Maintenance, Instructions Replace Required Details, Route to Pharmacy Electronically, [facility], 163, cm, 07/27/20 13:59:0... Start Date: 07/27/20 Status: Ordered traMADol 50 mg oral tablet 1 tablet = 50 mg, By Mouth, Every 6 hours, PRN for pain, TAKE ONLY NEEDED Dx: M79.7, S92.91 Masspat checked, # 112 tablet, 0 Refills, Maintenance, 05/17/21 15:41:00 EDT, Tablet, [id number], Please reinforce instructions with patient, she... Start Date: 05/17/21 Stop Date: 06/14/21 Status: Ordered Voltaren 1% topical gel 1 [...] [place] Back Pain Scale:88 on 01/13/17; initial [place]: 7 on 01/13/17 Diagnosis Diagnosis Type Effective Dates Health Status Cl inical Service Informant Spasm of muscle of lower back Discharge Diagnosis 05/27/21 Vital Signs Most recent to oldest [Reference Range]: 1 Height 163 cm (05/27/21 5:29 PM) Oxygen Saturation [94-100 %] 95 % (05/27/21 5:29 PM) Pulse Rate [55-90 bpm] 102 bpm *H* (05/27/21 5:29 PM) Blood Pressure [90-138/55-84 mm Hg] 134/ 85mm Hg (05/27/21 5:29 PM) Respiratory Rate [16-30 br/min] 16 br/mi n (05/27/21 5:29 PM) Temperature [96.8-100.4 DegF] 97.3 DegF (05/27/21 5:29 PM) Mode of Delivery (Oxygen) Room air (05/27/21 5:29 PM) Blood pressure sites Arm, right (05/27/21 5:29 PM) Temperature Route Temporal (05/27/21 5:29 PM) Social History Social History Type Response Smoking Status Former smoker, quit more than 30 days ago entered on: 04/06/20 Sex
--- OUTSIDE RECORDS SUMMARY | 2022-06-03 10:50 | XMS_ITS | Continuity of Care Document ---
Author Name Unknown Organization [facility] Address [address] [place] [address]- Care Team Providers Care Tipple Boss Name Role Phone Ernesto King MD Primary Care Physician Encounter [facility] Date(s): 12/03/21 - 01/02/22 [facility] [address] [place] [address]- Allergies, Adverse Reactions, Alerts No Known Allergies [...] Given 1Result Comment: [facility]:17835-431-67 2Result Comment: [facility] 30886-439-38 3Result Comment: [11/30/2017] [facility] 37488-181-94 4Result Comment: [12/31/2016] [facility] [id number] 5Admin Note: vis given 09/10/12 6Admin Note: VIS given 08/18/2011 7Result Comment: [12/31/2016] [facility] 8417-5268-60 Medications albuterol 90 mcg/inh inhalation powder 2 puffs, Inhalation, Every 6 hours, PRN Wheezing/Shortness of Breath, # 1 each, 3 Refills, Maintenance, 11/22/21 17:17:00 EDT, Powder, [facility]/pharmacy #[id number], dispense pro-air, 2 puffs Inhalation Every 6hours,PRN:Wheezing/Shortness of Breath, 163, cm, 10... Start Date: 11/22/21 Status: Ordered albuterol-ipratropium 3 mg-0.5 mg/3 ml inhalation solution 3 mL, Neb, 4 times a day, J45.40, # 180 mL, 3 Refills, Maintenance, 11/22/21 17:17:00 EDT, Solution, [facility]/pharmacy #[id number], 3 mL Neb 4 times a day,Instr:J45.40, 163, cm, 11/22/21 15:30:00 EDT, Height Start Date: 11/22/21 Status: Ordered celecoxib 100 mg oral capsule 1 capsule, By Mouth, 2 times a day with meals, # 60 capsule, 1 Refills, Maintenance, 08/14/20 12:53:00 EDT, [id number], 163, cm, 07/31/20 9:10:00 EDT, Height, 98.9, [...] 3 Refills, Maintenance, 02/29/20 14:04:00 EST, Aerosol, [facility] #[id number], 163, cm, 02/29/20 13:19:00 EST, Height, 98.9, [...] 11/22/21 17:17:00 EDT, Route to Pharmacy Electronically, [facility]/pharmacy #[id number], 163, cm, 11/22/21 15:30:00 EDT, Height Start Date: 11/22/21 Stop Date: 01/21/22 Status: Ordered levothyroxine 175 mcg (0.175 mg) oral tablet 1 tablet = 175 mcg, By Mouth, Daily, # 90 tablet, 1 Refills, Maintenance, 06/27/21 11:36:00 EDT, Tablet, [facility]/pharmacy #[id number], Partial fill upon patient request if the prescription is for a schedule IIopioid drug., 163, cm, 06/27/21 11:27:00 EDT, Amber Start Date: 06/27/21 Status: Ordered loratadine 10 mg oral tablet 10 mg, 1, tablet, By Mouth, Daily, # 30 tablet, Refills 6, Tot. Refills 6, Maintenance, 11/28/19 8:53:00 EDT, Route to Pharmacy Electronically, [facility]/pharmacy #[id number], 163, cm, 11/25/19 14:43:00 EDT, Height, 98.9, kg, 08/25/19 12:42:00 EDT, Dry Weight Start Date: 11/28/19 Status: Ordered metFORMIN 500 mg oral tablet 1 tablet = 500 mg, By Mouth, 2 times a day, # 60 tablet, 5 Refills, Maintenance, 02/19/21 8:58:00 EST, [facility]/pharmacy #[id number], 163, cm, 02/18/21 14:32:00 [...] each, 1 Refills, Maintenance, 08/25/19 15:03:00 EDT, [facility]/pharmacy#[id number], 2 sprays Nares, Both Daily, 163, cm, 08/25/19 12:40:00 EDT, Height, 98.9, kg, 08/25/19 12:42:00 EDT, Dry Weight Start Date: 08/25/19 Status: Ordered Nasonex 50 mcg/inh nasal spray 2 sprays, Nares, Both, 2 times a day, # 17 Gm, 0 Refills, Maintenance, 12/04/21 11:58:00 EDT, [place], [facility]/pharmacy #[id number], 2 sprays Nares, Both [...] 07/31/20 9:07:00 EDT, Route to Pharmacy Electronically, [facility] #[id number], Partial fill upon patient request if the prescription is for a sched... Start Date: 07/31/20 Status: Ordered PriLOSEC OTC 20 mg oral delayed release tablet 1 tablet = 20 mg, By Mouth, Daily, # 30 tablet, 2 Refills, Maintenance, 12/04/21 11:57:00 EDT, [facility]/pharmacy #[id number], 163, cm, 12/04/21 11:37:00 EDT, Height Start Date: 12/04/21 Status: Ordered semaglutide 0.25 mg/0.5 mL (0.25 mg dose) subcutaneous solution = 0.25 mg, Subcutaneous Injection, Every week, # 3 each, 1 Refills, Maintenance, 11/25/21 8:34:00 EDT, [facility]/pharmacy #[id number], Partial fill upon patient request if the prescription is for a schedule II opioid drug., 163, cm, 11/22/21 15:30:00 EDT, Height Start Date: 11/25/21 Status: Ordered Systane Complete Optimal Dry Eye Relief ophthalmic solution 2 drops, Eyes, Both, 3 times a day, # 30 mL, 3 Refills, Maintenance, 12/04/21 11:56:00 EDT, [facility]/pharmacy #[id number], 2 drops Eyes, Both 3 times a day, 163, cm, 12/04/21 11:37:00 EDT, Height Start Date: 12/04/21 Status: Ordered tiZANidine 4 mg oral tablet 0.5-1 tablet, By Mouth, Every 8 hours, PRN, TAKE ONLY NEEDED FOR MUSCLE SPASM, # 45 tablet, Refills 2, Tot. Refills 2, Maintenance, Spasm, 04/12/21 12:13:00 EST, Route to Pharmacy Electronically, [facility]/pharmacy #[id number], 163, cm, 03/07/21 11:34:00 EST,... Start Date: 04/12/21 Status: Ordered tiZANidine 4 mg oral tablet See Instructions, TAKE 1/2 TO 1 TABLET BY MOUTH EVERY 8 HOURS NEEDED FOR MILD AND MUSCLE SPASM, # 45 tablet, Refills 2, Maintenance, Instructions Replace Required Details, Route to Pharmacy Electronically, [id number], 163, cm, 07/27/20 13:59:0... Start Date: 07/27/20 Status: Ordered traMADol 50 mg oral tablet 1 tablet = 50 mg, By Mouth, Every 6 hours, PRN for pain, TAKE ONLY NEEDED Dx: M79.7, S92.91 Masspat checked, # 112 tablet, 0 Refills, Maintenance, 11/22/21 17:17:00 EDT, Tablet, [facility]/pharmacy #[id number], Please reinforce instructions with patient, she... Start Date: 11/22/21 Stop Date: 12/20/21 Status: Ordered Victoza 18 mg/3 mL subcutaneous solution = 0.6 mg, Subcutaneous Injection, Daily, # 6 mL, 3 Refills, Maintenance, 10/16/21 15:56:00 EDT, Injection, [facility]/pharmacy #[id number], dispense as pen, 163, cm, 10/16/21 14:49:00 EDT, Height Start Date: 10/16/21 Status: Ordered Vitamin D3 50,000 intl units oral capsule 1 capsule, By Mouth, Every week, # 12 capsule, 0 Refills, [facility], 163, cm, 09/13/21 9:15:00 EDT, Height Start Date: 09/18/21 Status: Ordered Voltaren 1% topical gel 1 application, Topically, 4 times a day, PRN for pain, # 100 Gm, 0 Refills, Maintenance, 05/27/21 18:00:00 EDT, Gel, [facility]/pharmacy #[id number], Partial fill upon patient [...] [place] Back Pain Scale:88 on 01/13/17; initial Summit: 7 on 01/13/17 Social History Social History Type Response Smoking Status Former smoker, quit more than 30 days ago entered on: 04/06/20 Sex Patient Care team information Care Team Personnel Name: Ernesto King MD Position: [facility] Primary Care Physician Member Role: PCP Address: Address: [address] [place] [address] [place], [place] [address] Name: Kathrine Luna MD Position: [facility] HAIR COLORIST MD Member Role: Lifetime HAIR COLORIST Physician Address: Address: [address] [facility] [employer] [place] [place] [address]- Name: Kathya Grullon RN Position: [facility] RN Member Role: Primary Care Nurse Care Team Related Persons Name: LYN LEIGH Address: [place] [address] Name: MADDIE LEIGH
--- OUTSIDE RECORDS SUMMARY | 2022-06-03 10:50 | XMS_ITS | Continuity of Care Document ---
Author Name Unknown Organization [facility] Address [address] [place] [address]- Care Team Providers Care Scissors Sharpener Name Role Phone Fernando CARTY, Ernesto Zapata Primary Care Physician Encounter [facility] Date(s): 03/07/21 - 04/06/21 [facility] [address] [place] [address]- Attending Physician: Ellis Bai Admitting Physician: AdmEllis [...] acel(Tdap) 01/30/16 Given 1Result Comment: [facility]:[id number] 2Result Comment: [facility] [id number] 3Result Comment: [11/30/2017] [facility] [id number] 4Result Comment: [12/31/2016] [facility] [id number] 5Admin Note: vis given 09/10/12 6Admin Note: VIS given 08/18/2011 7Result Comment: [12/31/2016] [facility] [id number] Medications albuterol 90 mcg/inh inhalation powder 2 puffs, Inhalation, Every 6 hours, PRN Wheezing/Shortness of Breath, # 1 each, 3 Refills, Maintenance, 02/27/21 16:30:00 EST, Powder, [facility]/pharmacy #[id number], dispense pro-air, 2 puffs Inhalation Every 6hours,PRN:Wheezing/Shortness of Breath, 163, cm, 01... Start Date: 02/27/21 Status: Ordered albuterol-ipratropium 3 mg-0.5 mg/3 ml inhalation solution 3 mL, Neb, 4 times a day, J45.40, # 180 mL, 3 Refills, Maintenance, 07/02/20 14:11:00 EDT, Solution, [facility]/pharmacy #[id number], 3 mL Neb 4 times a day,Instr:J45.40, 163, cm, 06/18/20 13:31:00 EDT, Height, 98.9, kg, 08/25/19 12:42:00 EDT, Dry Weight Start Date: 07/02/20 Status: Ordered celecoxib 100 mg oral capsule 1 capsule, By Mouth, 2 times a day with meals, # 60 capsule, 1 Refills, Maintenance, 08/14/20 12:53:00 EDT, [facility], 163, cm, 07/31/20 9:10:00 EDT, Height, 98.9, [...] 3 Refills, Maintenance, 02/29/20 14:04:00 EST, Aerosol, [facility] #[id number], 163, cm, 02/29/20 13:19:00 EST, Height, 98.9, [...] 02/19/21 9:00:00 EST, Route to Pharmacy Electronically, [facility]/pharmacy #[id number], 163, cm, 02/18/21 14:32:00 EST,Height, 98.9, kg, 08/25/19 12:42:00 EDT, Dry Weight Start Date: 02/19/21 Status: Ordered levothyroxine 150 mcg (0.15 mg) oral tablet See Instructions, TAKE 1 TABLET BY MOUTH EVERY DAY, # 30 tablet, 2 Refills, [facility], 163, cm, 02/18/21 14:32:00 EST, Height, 98.9, kg, 08/25/19 12:42:00 EDT, Dry Weight Start Date: 02/19/21 Status: Ordered loratadine 10 mg oral tablet 10 mg, 1, tablet, By Mouth, Daily, # 30 tablet, Refills 6, Tot. Refills 6, Maintenance, 11/28/19 8:53:00 EDT, Route to Pharmacy Electronically, [facility]/pharmacy #[id number], 163, cm, 11/25/19 14:43:00 EDT, Height, 98.9, kg, 08/25/19 12:42:00 EDT, Dry Weight Start Date: 11/28/19 Status: Ordered metFORMIN 500 mg oral tablet 1 tablet = 500 mg, By Mouth, 2 times a day, # 60 tablet, 5 Refills, Maintenance, 02/19/21 8:58:00 EST, [facility]/pharmacy #[id number], 163, cm, 02/18/21 14:32:00 EST, Height, [...] each, 1 Refills, Maintenance, 08/25/19 15:03:00 EDT, [facility]/pharmacy#[id number], 2 sprays Nares, Both Daily, 163, cm, 08/25/19 12:40:00 EDT, Height, 98.9, kg, 08/25/19 12:42:00 EDT, Dry Weight Start Date: 08/25/19 Status: Ordered Nasonex 50 mcg/inh nasal spray 2 sprays, Nares, Both, 2 times a day, # 17 Gm, 0 Refills, Maintenance, 08/25/19 13:03:00 EDT, [place], [facility]/pharmacy #[id number], 2 sprays Nares, Both 2 times [...] 07/31/20 9:07:00 EDT, Route to Pharmacy Electronically, [facility] #[id number], Partial fill upon patient request if the prescription is for a sched... Start Date: 07/31/20 Status: Ordered PriLOSEC OTC 20 mg oral delayed release tablet 1 tablet = 20 mg, By Mouth, Daily, # 30 tablet, 2 Refills, Maintenance, 03/13/20 11:45:00 EST, [facility]/pharmacy #[id number], 163, cm, 03/08/20 11:24:00 EST, Height, 98.9, kg, 08/25/19 12:42:00 EDT, Dry Weight Start Date: 03/13/20 Status: Ordered semaglutide 0.25 mg/0.5 mL (0.25 mg dose) subcutaneous solution = 0.25 mg, Subcutaneous Injection, Every 72 hours, # 3 each, 0 Refills, Maintenance, 10/04/20 16:20:00 EDT, [facility] #[id number], Partial fill upon patient request if the [...] Details, Route to Pharmacy Electronically, [id number], 163, cm, 07/27/20 13:59:0... Start Date: 07/27/20 [...] [place] Back Pain Scale:88 on 01/13/17; initial [place]: 7 on 01/13/17 Social History Social History Type Response Smoking Status Former smoker, quit more than 30 days ago entered on: 04/06/20 Sex
--- OUTSIDE RECORDS SUMMARY | 2022-06-03 10:50 | XMS_ITS | Continuity of Care Document ---
Author Name Unknown Organization [facility] Address [address] [place] [address]- Care Team Providers Care Dispatcher Service Or Work Name Role Phone Ernesto King MD Primary Care Physician [place] [facility] [place] - 05/[place]/22 [facility] [address] [place], [place] [address] Allergies, Adverse Reactions, Alerts No Known Allergies [...] tetanus/diphtheria/pertussis, acel(Tdap) 01/30/16 Given 1Result Comment: [facility]:30807-271-27 2Result Comment: [facility] [id number] 3Result Comment: [11/30/2017] [facility] 62030-589-82 4Result Comment: [12/31/2016] [facility] [id number] 5Admin Note: vis given 09/10/12 6Admin Note: VIS given 08/18/2011 7Result Comment: [12/31/2016] [facility] 4320-7540-29 Medications albuterol 90 mcg/inh inhalation powder 2 puffs, Inhalation, Every 6 hours, PRN Wheezing/Shortness of Breath, # 1 each, 3 Refills, Maintenance, 11/22/21 17:17:00 EDT, Powder, [facility]/pharmacy #[id number], dispense pro-air, 2 puffs Inhalation Every 6hours,PRN:Wheezing/Shortness of Breath, 163, cm, 10... Start Date: 11/22/21 Status: Ordered albuterol-ipratropium 3 mg-0.5 mg/3 ml inhalation solution 3 mL, Neb, 4 times a day, J45.40, # 180 mL, 3 Refills, Maintenance, 11/22/21 17:17:00 EDT, Solution, [facility]/pharmacy #[id number], 3 mL Neb 4 times a day,Instr:J45.40, 163, cm, 11/22/21 15:30:00 EDT, Height Start Date: 11/22/21 Status: Ordered celecoxib 100 mg oral capsule 1 capsule, By Mouth, 2 times a day with meals, # 60 capsule, 1 Refills, Maintenance, 08/14/20 12:53:00 EDT, [facility], 163, cm, 07/31/20 9:10:00 EDT, Height, 98.9, [...] 3 Refills, Maintenance, 02/29/20 14:04:00 EST, Aerosol, [facility] #[id number], 163, cm, 02/29/20 13:19:00 EST, Height, 98.9, [...] 11/22/21 17:17:00 EDT, Route to Pharmacy Electronically, [facility]/pharmacy #[id number], 163, cm, 11/22/21 15:30:00 EDT, Height Start Date: 11/22/21 Stop Date: 01/21/22 Status: Ordered levothyroxine 175 mcg (0.175 mg) oral tablet 1 tablet = 175 mcg, By Mouth, Daily, # 90 tablet, 0 Refills, Maintenance, 03/31/22 12:00:00 EST, Tablet, [facility]/pharmacy #[id number], Partial fill upon patient request if the prescription is for a schedule IIopioid drug., 163, cm, 03/31/22 11:41:00 EST, Height Start Date: 03/31/22 Status: Ordered loratadine 10 mg oral tablet 10 mg, 1, tablet, By Mouth, Daily, # 30 tablet, Refills 6, Tot. Refills 6, Maintenance, 11/28/19 8:53:00 EDT, Route to Pharmacy Electronically, [facility]/pharmacy #[id number], 163, cm, 11/25/19 14:43:00 EDT, Height, 98.9, kg, 08/25/19 12:42:00 EDT, Dry Weight Start Date: 11/28/19 Status: Ordered metFORMIN 500 mg oral tablet 1 tablet = 500 mg, By Mouth, 2 times a day, # 60 tablet, 5 Refills, Maintenance, 02/19/21 8:58:00 EST, [facility]/pharmacy #[id number], 163, cm, 02/18/21 14:32:00 EST, [...] each, 1 Refills, Maintenance, 08/25/19 15:03:00 EDT, [facility]/pharmacy#4471, 2 sprays Nares, Both Daily, 163, cm, 08/25/19 12:40:00 EDT, Height, 98.9, kg, 08/25/19 12:42:00 EDT, Dry Weight Start Date: 08/25/19 Status: Ordered Nasonex 50 mcg/inh nasal spray 2 sprays, Nares, Both, 2 times a day, # 17 Gm, 0 Refills, Maintenance, 12/04/21 11:58:00 EDT, [place], [facility]/pharmacy #[id number], 2 sprays Nares, Both 2 [...] 07/31/20 9:07:00 EDT, Route to Pharmacy Electronically, [facility] #[id number], Partial fill upon patient request if the prescription is for a sched... Start Date: 07/31/20 Status: Ordered PriLOSEC OTC 20 mg oral delayed release tablet 1 tablet = 20 mg, By Mouth, Daily, # 30 tablet, 2 Refills, Maintenance, 12/04/21 11:57:00 EDT, [facility]/pharmacy #[id number], 163, cm, 12/04/21 11:37:00 EDT, [...] mL, 3 Refills, Maintenance, 12/04/21 11:56:00 EDT, [facility]/pharmacy #[id number], 2 drops Eyes, Both 3 times a day, 163, cm, 12/04/21 11:37:00 EDT, Height Start Date: 12/04/21 Status: Ordered tiZANidine 4 mg oral tablet 0.5-1 tablet, By Mouth, Every 8 hours, PRN, TAKE ONLY NEEDED FOR MUSCLE SPASM, # 45 tablet, Refills 2, Tot. Refills 2, Maintenance, Spasm, 04/12/21 12:13:00 EST, Route to Pharmacy Electronically, [facility]/pharmacy #[id number], 163, cm, 03/07/21 11:34:00 EST,... Start Date: 04/12/21 Status: Ordered traMADol 50 mg oral tablet 1 tablet = 50 mg, By Mouth, Every 6 hours, PRN for pain, TAKE ONLY NEEDED Dx: M79.7, S92.91 Masspat checked, # 112 tablet, 0 Refills, Maintenance, 05/28/22 7:34:00 EDT, Tablet, [facility]/pharmacy #[id number],Please reinforce instructions with patient, she h... Start Date: 05/28/22 Stop Date: 06/25/22 Status: Ordered Victoza 18 mg/3 mL subcutaneous solution = 0.6 mg, Subcutaneous Injection, Daily, # 6 mL, 3 Refills, Maintenance, 10/16/21 15:56:00 EDT, Injection, [facility]/pharmacy #[id number], dispense as pen, 163, cm, 10/16/21 14:49:00 EDT, Height Start Date: 10/16/21 Status: Ordered Vitamin D3 50,000 intl units oral capsule 1 capsule, By Mouth, Every week, # 12 capsule, 0 Refills, [facility], 163, cm, 09/13/21 9:15:00 EDT, Height Start Date: 09/18/21 Status: Ordered Voltaren 1% topical gel 1 application, Topically, 4 times a day, PRN for pain, # 100 Gm, 0 Refills, Maintenance, 05/27/21 18:00:00 EDT, Gel, [facility]/pharmacy #[id number], Partial fill upon patient request if the prescription is for aschedule II opioid drug., 1 application Topically 4... Start Date: 05/27/21 Status: Ordered Problem List Condition Confirmation Course Effective Dates Status Health Status Informant BMI 37.0-37.9, adult Confirmed Active Chronic pain syndrome Confirmed Active Diabetes mellitus with microalbuminuria Confirmed Active Diabetic neuropathy Confirmed Active Substance abuse in remission Confirmed Active Fibromyalgia Confirmed Active Limitation due to disability 1 Confirmed Active Hypercholesterolemia Confirmed Active Hypothyroidism Confirmed Active Low back pain Confirmed Active Mixed anxiety and depressive disorder Confirmed Active Asthma, moderate persistent Confirmed Active Severe obesity (BMI 35.0-39.9) with comorbidity Confirmed Active Hypovitaminosis D Confirmed Active 1initial Oswestry Disability Index: 70% ( crippled ) on 01/13/17; initial [place] Back Pain Scale:88 on 01/13/17; initial Summit: 7 on 01/13/17 Social History Social History Type Response Smoking Status Former smoker, quit more than 30 days ago; Other: quit 3 years, smoked for 10yrs, 1 ppd; entered on: 05/29/22 Sex Patient Care team information Care Team Personnel Name: Ernesto King MD Position: [facility] Primary Care Physician Member Role: PCP Address: Address: [address] [place] [address] [place] [address]- Name: Kathrine Luna MD Position: [facility] FURNACE UTILITY OPERATOR MD Member Role: Lifetime FURNACE UTILITY OPERATOR Physician Address: Address: [address] [place] [address] Women's [facility] [employer] [address] Name: Kathya Grullon RN Position: [facility] RN Member Role: Primary Care Nurse Care Team Related Persons Name: LYN LEIGH Address: [place] [address] Name: MADDIE LEIGH
--- OUTSIDE RECORDS SUMMARY | 2022-06-03 10:50 | XMS_ITS | Continuity of Care Document ---
Author Name Unknown Organization [facility] Address [address] [place] [address]- Care Team Providers Care Packaging Designer Name Role Phone Ernesto King MD Primary Care Physician En[place] [facility] Date(s): 12/14/20 - 12/21/20 [facility] [address] [place] [address]- Encounter Diagnosis Annual physical exam(Discharge Diagnosis) - 12/14/20 Diabetes mellitus with hyperglycemia(Discharge Diagnosis) - 12/14/20 Diabetes mellitus with microalbuminuria(Discharge Diagnosis) - 12/14/20 Diabetic neuropathy(Discharge Diagnosis) - 12/14/20 Chronic pain syndrome(Discharge Diagnosis) - 12/14/20 Low back pain(Discharge Diagnosis) - 12/14/20 Morbid obesity(Discharge Diagnosis) - 12/14/20 BMI 38.0-38.9,adult(Discharge Diagnosis) - 12/14/20 Substance abuse in remission(Discharge Diagnosis) - 12/14/20 Hypothyroidism(Discharge Diagnosis) - 12/14/20 Hypercholesterolemia(Discharge Diagnosis) - 12/14/20 Hypovitaminosis D(Discharge Diagnosis) - 12/14/20 Colon cancer screening(Discharge Diagnosis) - 12/14/20 RUQ pain(Discharge Diagnosis) - 12/14/20 Attending Physician: Ernesto King MD Allergies, Adverse [...] Given 1Result Comment: [facility]:[id number] 2Result Comment: [facility] [id number] 3Result Comment: [11/30/2017] [facility] [id number] 4Result Comment: [12/31/2016] [facility] [id number] 5Admin Note: vis given 09/10/12 6Admin Note: VIS given 08/18/2011 7Result Comment: [12/31/2016] [facility] [id number] Medications albuterol 90 mcg/inh inhalation powder 2 puffs, Inhalation, Every 6 hours, PRN Wheezing/Shortness of Breath, # 1 each, 3 Refills, Maintenance, 02/29/20 14:08:00 EST, Powder, [facility] #[id number], dispense pro-air, 2 puffs Inhalation Every 6 hours,PRN:Wheezing/Shortness of Breath, 16... Start Date: 02/29/20 Status: Ordered albuterol-ipratropium 3 mg-0.5 mg/3 ml inhalation solution 3 mL, Neb, 4 times a day, J45.40, # 180 mL, 3 Refills, Maintenance, 07/02/20 14:11:00 EDT, Solution, [id number], 3 mL Neb 4 times a day,Instr:J45.40, 163, cm, 06/18/20 13:31:00 EDT, Height, 98.9, kg, 08/25/19 12:42:00 EDT, Dry Weight Start Date: 07/02/20 Status: Ordered celecoxib 100 mg oral capsule 1 capsule, By Mouth, 2 times a day with meals, # 60 capsule, 1 Refills, Maintenance, 08/14/20 12:53:00 EDT, [id number], 163, cm, 07/31/20 9:10:00 EDT, Height, 98.9, [...] 3 Refills, Maintenance, 02/29/20 14:04:00 EST, Aerosol, [facility] #[id number], 163, cm, 02/29/20 13:19:00 EST, Height, 98.9, [...] capsule, Refills 1, Route to Pharmacy Electronically, [id number], 163, cm, 11/06/20 11:15:00 EDT, Height, 98.9, kg, 08/25/19 12:42:00 EDT, Dry Weight Start Date: 11/15/20 Status: Ordered levothyroxine 150 mcg (0.15 mg) oral tablet 1 tablet, By Mouth, Daily, # 30 tablet, 2 Refills, Maintenance, 11/15/20 13:54:00 EDT, [facility]/pharmacy#[id number], 163, cm, 11/15/20 13:38:00 EDT, Height, 98.9, kg, 08/25/19 12:42:00 EDT, Dry Weight Start Date: 11/15/20 Status: Ordered loratadine 10 mg oral tablet 10 mg, 1, tablet, By Mouth, Daily, # 30 tablet, Refills 6, Tot. Refills 6, Maintenance, 11/28/19 8:53:00 EDT, Route to Pharmacy Electronically, [facility]/pharmacy #[id number], 163, cm, 11/25/19 14:43:00 EDT, Height, 98.9, kg, 08/25/19 12:42:00 EDT, Dry Weight Start Date: 11/28/19 Status: Ordered metFORMIN 500 mg oral tablet See Instructions, TAKE 1 TABLET BY MOUTH AT NIGHT AND INSREASE TO 1 TABLET TWICE A DAY DIRECTED,# 60 tablet, 2 Refills, [id number], 163, cm, 11/15/20 13:55:00 EDT, Height, 98.9, [...] each, 1 Refills, Maintenance, 08/25/19 15:03:00 EDT, [facility]/pharmacy#[id number], 2 sprays Nares, Both Daily, 163, cm, 08/25/19 12:40:00 EDT, Height, 98.9, kg, 08/25/19 12:42:00 EDT, Dry Weight Start Date: 08/25/19 Status: Ordered Nasonex 50 mcg/inh nasal spray 2 sprays, Nares, Both, 2 times a day, # 17 Gm, 0 Refills, Maintenance, 08/25/19 13:03:00 EDT, [place], [facility]/pharmacy #[id number], 2 sprays Nares, Both [...] 07/31/20 9:07:00 EDT, Route to Pharmacy Electronically, [facility] #[id number], Partial fill upon patient request if the prescription is for a sched... Start Date: 07/31/20 Status: Ordered PriLOSEC OTC 20 mg oral delayed release tablet 1 tablet = 20 mg, By Mouth, Daily, # 30 tablet, 2 Refills, Maintenance, 03/13/20 11:45:00 EST, [facility]/pharmacy #[id number], 163, cm, 03/08/20 11:24:00 EST, Height, 98.9, kg, 08/25/19 12:42:00 EDT, Dry Weight Start Date: 03/13/20 Status: Ordered semaglutide 0.25 mg/0.5 mL (0.25 mg dose) subcutaneous solution = 0.25 mg, Subcutaneous Injection, Every 72 hours, # 3 each, 0 Refills, Maintenance, 10/04/20 16:20:00 EDT, [facility] #[id number], Partial fill upon patient request if the prescription is for aschedule II opioid drug., 163, cm, 10/04/20 16:08:0... Start Date: 10/04/20 Status: Ordered Systane Complete Optimal Dry Eye Relief ophthalmic solution 2 drops, Eyes, Both, 3 times a day, # 30 mL, 3 Refills, Maintenance, 11/28/19 8:55:00 EDT, [facility]/pharmacy #[id number], 2 drops Eyes, Both 3 times [...] Details, Route to Pharmacy Electronically, [id number], 163, cm, 07/27/20 13:59:0... Start Date: 07/27/20 [...] pT1c, pN0 stage I left breast cancer, ER/CO negative, HER-2/marylin 3+, 2010(Confirmed) 06/25/11 Active Mixed anxiety and depressive disorder(Confirmed) Active Asthma, moderate persistent(Confirmed) Active Morbid obesity(Confirmed) Active RUQ pain(Confirmed) Active Hypovitaminosis D(Confirmed) Active 1initial Oswestry Disability Index: 70% ( crippled ) on 01/13/17; initial [place] Back Pain Scale:88 on 01/13/17; initial [place]: 7 on 01/13/17 Diagnosis Diagnosis Type Effective Dates Health Status Clinical Service Informant Annual physical exam Discharge Diagnosis 12/14/20 Diabetes mellitus with hyperglycemia Discharge Diagnosis 12/14/20 Diabetes mellitus with microalbuminuria Discharge Diagnosis 12/14/20 Diabetic neuropathy Discharge Diagnosis 12/14/20 Chronic pain syndrome Discharge Diagnosis 12/14/20 Low back pain Discharge Diagnosis 12/14/20 Morbid obesity Discharge Diagnosis 12/14/20 BMI 38.0-38.9,adult Discharge Diagnosis 12/14/20 Substance abuse in remission Discharge Diagnosis 12/14/20 Hypothyroidism Discharge Diagnosis 12/14/20 Hypercholesterolemia Discharge Diagnosis 12/14/20 Hypovitaminosis D Discharge Diagnosis 12/14/20 Colon cancer screening Discharge Diagnosis 12/14/20 RUQ pain Discharge Diagnosis 12/14/20 Vital Signs Most recent to oldest [Reference Range]: 1 Height 163 cm (12/14/20 2:40 PM) Weight 103 kg (12/14/20 2:40 PM) Oxygen Saturation [94-100 %] 95 % (12/14/20 2:40 PM) Pulse Rate [55-90 bpm] 88 bpm (12/14/20 2:40 PM) Body Mass Index [18.5-24.99] 38.77 *>HHI* (12/14/20 2:40 PM) Blood Pressure [90-138/55-84 mm Hg] 132/ 78mm Hg (12/14/20 2:40 PM) Weight Obtained Via Standing scale (12/14/20 2:40 PM) Social History Social History Type Response Smoking Status Former smoker, quit more than 30 days ago entered on: 04/06/20 Sex
--- OUTSIDE RECORDS SUMMARY | 2022-06-03 10:50 | XMS_ITS | Continuity of Care Document ---
Author Name Unknown Organization [facility] Address [address] [place] [address]- Care Team Providers Care Brownell Operator Name Role Phone Fernando CARTY, Ernesto Zapata Primary Care Physician Encounter [facility] Date(s): 10/16/21 - 10/23/21 [facility] [address] [place] [address]- Encounter Diagnosis Diabetes mellitus with hyperglycemia(Discharge Diagnosis) - 10/16/21 Morbid obesity(Discharge Diagnosis) - 10/16/21 Diabetes mellitus with microalbuminuria(Discharge Diagnosis) - 10/16/21 Attending Physician: Ernesto King MD Allergies, Adverse [...] Given tetanus/diphtheria/pertussis, acel(Tdap) 01/30/16 Given 1Result Comment: [facility]:[id number] 2Result Comment: [facility] [id number] 3Result Comment: [11/30/2017] [facility] [id number] 4Result Comment: [12/31/2016] [facility] [id number] 5Admin Note: vis given 09/10/12 6Admin Note: VIS given 08/18/2011 7Result Comment: [12/31/2016] [facility] [id number] Medications albuterol 90 mcg/inh inhalation powder 2 puffs, Inhalation, Every 6 hours, PRN Wheezing/Shortness of Breath, # 1 each, 3 Refills, Maintenance, 02/27/21 16:30:00 EST, Powder, [facility]/pharmacy #[id number], dispense pro-air, 2 puffs Inhalation Every 6hours,PRN:Wheezing/Shortness of Breath, 163, cm, 01... Start Date: 02/27/21 Status: Ordered albuterol-ipratropium 3 mg-0.5 mg/3 ml inhalation solution 3 mL, Neb, 4 times a day, J45.40, # 180 mL, 3 Refills, Maintenance, 07/02/20 14:11:00 EDT, Solution, [facility]/pharmacy #[id number], 3 mL Neb 4 times a day,Instr:J45.40, 163, cm, 06/18/20 13:31:00 EDT, Height, 98.9, kg, 08/25/19 12:42:00 EDT, Dry Weight Start Date: 07/02/20 Status: Ordered celecoxib 100 mg oral capsule 1 capsule, By Mouth, 2 times a day with meals, # 60 capsule, 1 Refills, Maintenance, 08/14/20 12:53:00 EDT, [facility], 163, cm, 07/31/20 9:10:00 EDT, Height, 98.9, [...] 3 Refills, Maintenance, 02/29/20 14:04:00 EST, Aerosol, [facility] #[id number], 163, cm, 02/29/20 13:19:00 EST, Height, 98.9, [...] 08/29/21 14:22:00 EDT, Route to Pharmacy Electronically, [facility]/pharmacy #[id number], 163, cm, 08/29/21 13:43:00 EDT, Height Start Date: 08/29/21 Stop Date: 10/28/21 Status: Ordered levothyroxine 175 mcg (0.175 mg) oral tablet 1 tablet = 175 mcg, By Mouth, Daily, # 90 tablet, 1 Refills, Maintenance, 06/27/21 11:36:00 EDT, Tablet, [facility]/pharmacy #[id number], Partial fill upon patient request if the prescription is for a schedule IIopioid drug., 163, cm, 06/27/21 11:27:00 EDT, Heigh... Start Date: 06/27/21 Status: Ordered loratadine 10 mg oral tablet 10 mg, 1, tablet, By Mouth, Daily, # 30 tablet, Refills 6, Tot. Refills 6, Maintenance, 11/28/19 8:53:00 EDT, Route to Pharmacy Electronically, [facility]/pharmacy #[id number], 163, cm, 11/25/19 14:43:00 EDT, Height, 98.9, kg, 08/25/19 12:42:00 EDT, Dry Weight Start Date: 11/28/19 Status: Ordered metFORMIN 500 mg oral tablet 1 tablet = 500 mg, By Mouth, 2 times a day, # 60 tablet, 5 Refills, Maintenance, 02/19/21 8:58:00 EST, [facility]/pharmacy #[id number], 163, cm, 02/18/21 14:32:00 EST, Height, [...] each, 1 Refills, Maintenance, 08/25/19 15:03:00 EDT, [facility]/pharmacy#[id number], 2 sprays Nares, Both Daily, 163, cm, 08/25/19 12:40:00 EDT, Height, 98.9, kg, 08/25/19 12:42:00 EDT, Dry Weight Start Date: 08/25/19 Status: Ordered Nasonex 50 mcg/inh nasal spray 2 sprays, Nares, Both, 2 times a day, # 17 Gm, 0 Refills, Maintenance, 08/25/19 13:03:00 EDT, [place], [facility]/pharmacy #[id number], 2 sprays Nares, Both 2 times [...] 07/31/20 9:07:00 EDT, Route to Pharmacy Electronically, [facility] #[id number], Partial fill upon patient request if the prescription is for a sched... Start Date: 07/31/20 Status: Ordered PriLOSEC OTC 20 mg oral delayed release tablet 1 tablet = 20 mg, By Mouth, Daily, # 30 tablet, 2 Refills, Maintenance, 03/13/20 11:45:00 EST, [facility]/pharmacy #[id number], 163, cm, 03/08/20 11:24:00 EST, Height, 98.9, kg, 08/25/19 12:42:00 EDT, Dry Weight Start Date: 03/13/20 Status: Ordered semaglutide 0.25 mg/0.5 mL (0.25 mg dose) subcutaneous solution = 0.25 mg, Subcutaneous Injection, Every 72 hours, # 3 each, 0 Refills, Maintenance, 09/13/21 9:26:00 EDT, [facility]/pharmacy #[id number], Partial fill upon patient request if the prescription is for a schedule II opioid drug., 163, cm, 09/13/21 9:15:00 EDT, Height Start Date: 09/13/21 Status: Ordered Systane Complete Optimal Dry Eye Relief ophthalmic solution 2 drops, Eyes, Both, 3 times a day, # 30 mL, 3 Refills, Maintenance, 11/28/19 8:55:00 EDT, [facility]/pharmacy #[id number], 2 drops Eyes, Both 3 times a day, 163, cm, 11/25/19 14:43:00 EDT, Height, 98.9, kg, 08/25/19 12:42:00 EDT, Dry Weight Start Date: 11/28/19 Status: Ordered tiZANidine 4 mg oral tablet 0.5-1 tablet, By Mouth, Every 8 hours, PRN, TAKE ONLY NEEDED FOR MUSCLE SPASM, # 45 tablet, Refills 2, Tot. Refills 2, Maintenance, Spasm, 04/12/21 12:13:00 EST, Route to Pharmacy Electronically, [facility]/pharmacy #[id number], 163, cm, 03/07/21 11:34:00 EST,... Start Date: 04/12/21 Status: Ordered tiZANidine 4 mg oral tablet See Instructions, TAKE 1/2 TO 1 TABLET BY MOUTH EVERY 8 HOURS NEEDED FOR MILD AND MUSCLE SPASM, # 45 tablet, Refills 2, Maintenance, Instructions Replace Required Details, Route to Pharmacy Electronically, [id number], 163, cm, 07/27/20 13:59:0... Start Date: 07/27/20 Status: Ordered traMADol 50 mg oral tablet 1 tablet = 50 mg, By Mouth, Every 6 hours, PRN for pain, TAKE ONLY NEEDED Dx: M79.7, S92.91 Masspat checked, # 112 tablet, 0 Refills, Maintenance, 10/04/21 16:06:00 EDT, Tablet, [id number], Please reinforce instructions with patient, she... Start Date: 10/04/21 Stop Date: 11/01/21 Status: Ordered Victoza 18 mg/3 mL subcutaneous solution = 0.6 mg, Subcutaneous Injection, Daily, # 6 mL, 3 Refills, Maintenance, 10/16/21 15:56:00 EDT, Injection, [id number], dispense as pen, 163, cm, 10/16/21 14:49:00 EDT, Height Start Date: 10/16/21 Status: Ordered Vitamin D3 50,000 intl units oral capsule 1 capsule, By Mouth, Every week, # 12 capsule, 0 Refills, [facility], 163, cm, 09/13/21 9:15:00 EDT, Height Start [...] [place] Back Pain Scale:88 on 01/13/17; initial [place]: 7 on 01/13/17 Diagnosis Diagnosis Type Effective Dates Health Status Clinical Service Informant Diabetes mellitus with hyperglycemia Discharge Diagnosis 10/16/21 Morbid obesity Discharge Diagnosis 10/16/21 Diabetes mellitus with microalbuminuria Discharge Diagnosis 10/16/21 Vital Signs Most recent to oldest [Reference Range]: 1 Height 163 cm (10/16/21 2:49 PM) Social History Social History Type Response Smoking Status Former smoker, quit more than 30 days ago entered on: 04/06/20 Sex Care Team Personnel Name: Ernesto King MD Address: [address] [place] [address]
--- OUTSIDE RECORDS SUMMARY | 2022-06-03 10:50 | XMS_ITS | Continuity of Care Document ---
Author Name Unknown Organization [facility] Address [address] [place] [address]- Care Team Providers Care Pick Pack Worker Name Role Phone Fernando CARTY, Ernesto Zapata Primary Care Physician Encounter [facility] Date(s): 07/05/21 - 08/04/21 [facility] [address] [place] [address]- Encounter Diagnosis Diabetes(Discharge Diagnosis) - 09/21/19 Fibromyalgia(Discharge [...] 01/30/16 Given 1Result Comment: [facility]:[id number] 2Result Comment: [facility] [id number] 3Result Comment: [11/30/2017] [facility] [id number] 4Result Comment: [12/31/2016] [facility] [id number] 5Admin Note: vis given 09/10/12 6Admin Note: VIS given 08/18/2011 7Result Comment: [12/31/2016] [facility] [id number] Medications albuterol 90 mcg/inh inhalation powder 2 puffs, Inhalation, Every 6 hours, PRN Wheezing/Shortness of Breath, # 1 each, 3 Refills, Maintenance, 02/27/21 16:30:00 EST, Powder, [facility]/pharmacy #[id number], dispense pro-air, [...] Refills, Maintenance, 08/14/20 12:53:00 EDT, [facility], 163, cm, 07/31/20 9:10:00 EDT, Height, 98.9, [...] 3 Refills, Maintenance, 02/29/20 14:04:00 EST, Aerosol, [facility] #[id number], 163, cm, 02/29/20 13:19:00 EST, Height, 98.9, [...] 06/24/21 10:53:00 EDT, Route to Pharmacy Electronically, [facility]/pharmacy #[id number], 163, cm, 06/21/21 15:02:00 EDT, Height, 98.9, kg, 08/25/19 12:42:00 EDT, Dry Weight Start Date: 06/24/21 Stop Date: 08/23/21 Status: Ordered levothyroxine 175 mcg (0.175 mg) oral tablet 1 tablet = 175 mcg, By Mouth, Daily, # 90 tablet, 1 Refills, Maintenance, 06/27/21 11:36:00 EDT, Tablet, [facility]/pharmacy #[id number], Partial fill upon patient request if the prescription is for a schedule IIopioid drug., 163, cm, 06/27/21 11:27:00 EDT, Heigh... Start Date: 06/27/21 Status: Ordered loratadine 10 mg oral tablet 10 mg, 1, tablet, By Mouth, Daily, # 30 tablet, Refills 6, Tot. Refills 6, Maintenance, 11/28/19 8:53:00 EDT, [id number] 163, cm, 11/25/19 14:43:00 EDT, Height, [...] Gm, 0 Refills, Maintenance, 08/25/19 13:03:00 EDT, [place], [facility]/pharmacy #[id number], 2 sprays Nares, [...] 07/31/20 9:07:00 EDT, Route to Pharmacy Electronically, [facility] #[id number], Partial fill upon patient request if the prescription is for a sched... Start Date: 07/31/20 Status: Ordered PriLOSEC OTC 20 mg oral delayed release tablet 1 tablet = 20 mg, By Mouth, Daily, # 30 tablet, 2 Refills, Maintenance, 03/13/20 11:45:00 EST, [facility]/pharmacy #[id number], 163, cm, 03/08/20 11:24:00 EST, Height, 98.9, kg, 08/25/19 12:42:00 EDT, Dry Weight Start Date: 03/13/20 Status: Ordered semaglutide 0.25 mg/0.5 mL (0.25 mg dose) subcutaneous solution = 0.25 mg, Subcutaneous Injection, Every 72 hours, # 3 each, 0 Refills, Maintenance, 10/04/20 16:20:00 EDT, [facility] #[id number], Partial fill upon patient request if the prescription is for aschedule II opioid drug., 163, cm, 10/04/20 16:08:0... Start Date: 10/04/20 Status: Ordered Systane Complete Optimal Dry Eye Relief ophthalmic solution 2 drops, Eyes, Both, 3 times a day, # 30 mL, 3 Refills, Maintenance, 11/28/19 8:55:00 EDT, [facility]/pharmacy #[id number], 2 drops [...] to Pharmacy Electronically, [facility], 163, cm, 07/27/20 13:59:0... Start Date: 07/27/20 Status: Ordered traMADol 50 mg oral tablet 1 tablet = 50 mg, By Mouth, Every 6 hours, PRN for pain, TAKE ONLY NEEDED Dx: M79.7, S92.91 Masspat checked, # 112 tablet, 0 Refills, Maintenance, 08/02/21 16:34:00 EDT, Tablet, [id number], Please reinforce instructions with patient, she... Start Date: 08/02/21 Stop Date: 08/30/21 Status: Ordered Vitamin D3 50,000 intl units [...] [place] Back Pain Scale:88 on 01/13/17; initial [place]: 7 on 01/13/17 Diagnosis Diagnosis Type Effective Dates Health Status Cl inical Service Informant Diabetes Discharge Diagnosis 09/21/19 Hypothyroidism Discharge Diagnosis 09/21/19 Fibromyalgia Discharge Diagnosis 09/21/19 Social History Social History Type Response Smoking Status Former smoker, quit more than 30 days ago entered on: 04/06/20 Sex
--- OUTSIDE RECORDS SUMMARY | 2022-06-03 10:50 | XMS_ITS | Continuity of Care Document ---
Author Name Unknown Organization [facility] Address [address] [place] [address]- Care Team Providers Care Manager Construction Name Role Phone Ernesto King MD Primary Care Physician [place] [facility] [place] 03[place]21 [facility] [address] [place] [address]- Attending Physician: Nancie Messer DO Referring Physician: Ernesto King MD Allergies, Adverse [...] tetanus/diphtheria/pertussis, acel(Tdap) 01/30/16 Given 1Result Comment: [facility]:55257-232-08 2Result Comment: [facility] 22155-771-48 3Result Comment: [11/30/2017] [facility] [id number] 4Result Comment: [12/31/2016] [facility] 47953-670-54 5Admin Note: vis given 09/10/12 6Admin Note: VIS given 08/18/2011 7Result Comment: [12/31/2016] [facility] [id number] Medications albuterol 90 mcg/inh inhalation powder 2 puffs, Inhalation, Every 6 hours, PRN Wheezing/Shortness of Breath, # 1 each, 3 Refills, Maintenance, 02/27/21 16:30:00 EST, Powder, [facility]/pharmacy #[id number], dispense pro-air, 2 puffs Inhalation Every 6hours,PRN:Wheezing/Shortness of Breath, 163, cm, 01... Start Date: 02/27/21 Status: Ordered albuterol-ipratropium 3 mg-0.5 mg/3 ml inhalation solution 3 mL, Neb, 4 times a day, J45.40, # 180 mL, 3 Refills, Maintenance, 07/02/20 14:11:00 EDT, Solution, [facility]/pharmacy #[id number], 3 mL Neb 4 times a day,Instr:J45.40, 163, cm, 06/18/20 13:31:00 EDT, Height, 98.9, kg, 08/25/19 12:42:00 EDT, Dry Weight Start Date: 07/02/20 Status: Ordered celecoxib 100 mg oral capsule 1 capsule, By Mouth, 2 times a day with meals, # 60 capsule, 1 Refills, Maintenance, 08/14/20 12:53:00 EDT, [facility], 163, cm, 07/31/20 9:10:00 EDT, Height, 98.9, [...] 3 Refills, Maintenance, 02/29/20 14:04:00 EST, Aerosol, [facility] #[id number], 163, cm, 02/29/20 13:19:00 EST, Height, 98.9, [...] 02/19/21 9:00:00 EST, Route to Pharmacy Electronically, [facility]/pharmacy #[id number], 163, cm, 02/18/21 14:32:00 EST,Height, 98.9, kg, 08/25/19 12:42:00 EDT, Dry Weight Start Date: 02/19/21 Status: Ordered levothyroxine 150 mcg (0.15 mg) oral tablet See Instructions, TAKE 1 TABLET BY MOUTH EVERY DAY, # 30 tablet, 2 Refills, [facility] STORE [facility], 163, cm, 02/18/21 14:32:00 EST, Height, 98.9, kg, 08/25/19 12:42:00 EDT, Dry Weight Start Date: 02/19/21 Status: Ordered loratadine 10 mg oral tablet 10 mg, 1, tablet, By Mouth, Daily, # 30 tablet, Refills 6, Tot. Refills 6, Maintenance, 11/28/19 8:53:00 EDT, Route to Pharmacy Electronically, [facility]/pharmacy #[id number], 163, cm, 11/25/19 14:43:00 EDT, Height, 98.9, kg, 08/25/19 12:42:00 EDT, Dry Weight Start Date: 11/28/19 Status: Ordered metFORMIN 500 mg oral tablet 1 tablet = 500 mg, By Mouth, 2 times a day, # 60 tablet, 5 Refills, Maintenance, 02/19/21 8:58:00 EST, [facility]/pharmacy #[id number], 163, cm, 02/18/21 14:32:00 EST, [...] each, 1 Refills, Maintenance, 08/25/19 15:03:00 EDT, [facility]/pharmacy#[id number], 2 sprays Nares, Both Daily, 163, cm, 08/25/19 12:40:00 EDT, Height, 98.9, kg, 08/25/19 12:42:00 EDT, Dry Weight Start Date: 08/25/19 Status: Ordered Nasonex 50 mcg/inh nasal spray 2 sprays, Nares, Both, 2 times a day, # 17 Gm, 0 Refills, Maintenance, 08/25/19 13:03:00 EDT, [place], [facility]/pharmacy #[id number], 2 sprays Nares, Both 2 [...] 07/31/20 9:07:00 EDT, Route to Pharmacy Electronically, [email or web address] #[id number], Partial fill upon patient request if the prescription is for a sched... Start Date: 07/31/20 Status: Ordered PriLOSEC OTC 20 mg oral delayed release tablet 1 tablet = 20 mg, By Mouth, Daily, # 30 tablet, 2 Refills, Maintenance, 03/13/20 11:45:00 EST, [facility]/pharmacy #[id number], 163, cm, 03/08/20 11:24:00 EST, Height, 98.9, kg, 08/25/19 12:42:00 EDT, Dry Weight Start Date: 03/13/20 Status: Ordered semaglutide 0.25 mg/0.5 mL (0.25 mg dose) subcutaneous solution = 0.25 mg, Subcutaneous Injection, Every 72 hours, # 3 each, 0 Refills, Maintenance, 10/04/20 16:20:00 EDT, [facility] #[id number], Partial fill upon patient request if the [...] Details, Route to Pharmacy Electronically, [facility], 163, cm, 07/27/20 13:59:0... Start Date: 07/27/20 [...] [place] Back Pain Scale:88 on 01/13/17; initial [place]: 7 on 01/13/17 Vital Signs Most recent to oldest [Reference Range]: 1 Height 163 cm (03/07/21 11:34 AM) Oxygen Saturation [94-100 %] 98 % (03/07/21 11:34 AM) Pulse Rate [55-90 bpm] 68 bpm (03/07/21 11:34 AM) Blood Pressure [90-138/55-84 mm Hg] 161/ 95mm Hg *H* (03/07/21 11:34 AM) Respiratory Rate [16-30 br/min] 16 br/mi n (03/07/21 11:34 AM) Temperature [96.8-100.4 DegF] 96.7 DegF *L* (03/07/21 11:34 AM) Mode of Delivery (Oxygen) Room air (03/07/21 11:34 AM) Blood pressure sites Arm, right (03/07/21 11:34 AM) Temperature Route Temporal (03/07/21 11:34 AM) Social History Social History Type Response Smoking Status Former smoker, quit more than 30 days ago entered on: 04/06/20 Sex
--- OUTSIDE RECORDS SUMMARY | 2022-06-03 10:51 | XMS_ITS | Continuity of Care Document ---
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 Name Role Phone Ernesto King MD Primary Care Physician Encounter [facility] Date(s): 06/21/21 - 08/04/21 [facility] [address] [place] [address]- Attending Physician: Ernesto King MD Allergies, Adverse [...] Given tetanus/diphtheria/pertussis, acel(Tdap) 01/30/16 Given 1Result Comment: [facility]:[id number] 2Result Comment: [facility] [id number] 3Result Comment: [11/30/2017] [facility] [id number] 4Result Comment: [12/31/2016] [facility] [id number] 5Admin Note: vis given 09/10/12 6Admin Note: VIS given 08/18/2011 7Result Comment: [12/31/2016] [facility] [id number] Medications albuterol 90 mcg/inh inhalation powder 2 puffs, Inhalation, Every 6 hours, PRN Wheezing/Shortness of Breath, # 1 each, 3 Refills, Maintenance, 02/27/21 16:30:00 EST, Powder, [facility]/pharmacy #[id number], dispense pro-air, 2 puffs Inhalation Every 6hours,PRN:Wheezing/Shortness of Breath, 163, cm, 01... Start Date: 02/27/21 Status: Ordered albuterol-ipratropium 3 mg-0.5 mg/3 ml inhalation solution 3 mL, Neb, 4 times a day, J45.40, # 180 mL, 3 Refills, Maintenance, 07/02/20 14:11:00 EDT, Solution, [facility]/pharmacy #[id number], 3 mL Neb 4 times a day,Instr:J45.40, 163, cm, 06/18/20 13:31:00 EDT, Height, 98.9, kg, 08/25/19 12:42:00 EDT, Dry Weight Start Date: 07/02/20 Status: Ordered celecoxib 100 mg oral capsule 1 capsule, By Mouth, 2 times a day with meals, # 60 capsule, 1 Refills, Maintenance, 08/14/20 12:53:00 EDT, [facility] STORE [facility], 163, cm, 07/31/20 9:10:00 EDT, Height, 98.9, [...] 3 Refills, Maintenance, 02/29/20 14:04:00 EST, Aerosol, [facility] #[id number], 163, cm, 02/29/20 13:19:00 EST, Height, 98.9, [...] 10:53:00 EDT, Route to Pharmacy Electronically, [facility]/pharmacy #[id number], 163, cm, 06/21/21 15:02:00 EDT, Height, 98.9, kg, 08/25/19 12:42:00 EDT, Dry Weight Start Date: 06/24/21 Stop Date: 08/23/21 Status: Ordered levothyroxine 175 mcg (0.175 mg) oral tablet 1 tablet = 175 mcg, By Mouth, Daily, # 90 tablet, 1 Refills, Maintenance, 06/27/21 11:36:00 EDT, Tablet, [facility]/pharmacy #[id number], Partial fill upon patient request if the prescription is for a schedule IIopioid drug., 163, cm, 06/27/21 11:27:00 EDT, [place]... Start Date: 06/27/21 Status: Ordered loratadine 10 mg oral tablet 10 mg, 1, tablet, By Mouth, Daily, # 30 tablet, Refills 6, Tot. Refills 6, Maintenance, 11/28/19 8:53:00 EDT, Route to Pharmacy Electronically, [facility]/pharmacy #[id number], 163, cm, 11/25/19 14:43:00 EDT, Height, 98.9, kg, 08/25/19 12:42:00 EDT, Dry Weight Start Date: 11/28/19 Status: Ordered metFORMIN 500 mg oral tablet 1 tablet = 500 mg, By Mouth, 2 times a day, # 60 tablet, 5 Refills, Maintenance, 02/19/21 8:58:00 EST, [facility]/pharmacy #[id number], 163, cm, 02/18/21 [...] 1 Refills, Maintenance, 08/25/19 15:03:00 EDT, [facility]/pharmacy#[id number], 2 sprays Nares, Both Daily, 163, cm, 08/25/19 12:40:00 EDT, Height, 98.9, kg, 08/25/19 12:42:00 EDT, Dry Weight Start Date: 08/25/19 Status: Ordered Nasonex 50 mcg/inh nasal spray 2 sprays, Nares, Both, 2 times a day, # 17 Gm, 0 Refills, Maintenance, 08/25/19 13:03:00 EDT, [place], [facility]/pharmacy #[id number], 2 sprays Nares, [...] 07/31/20 9:07:00 EDT, Route to Pharmacy Electronically, [facility] #[id number], Partial fill upon patient request if the prescription is for a sched... Start Date: 07/31/20 Status: Ordered PriLOSEC OTC 20 mg oral delayed release tablet 1 tablet = 20 mg, By Mouth, Daily, # 30 tablet, 2 Refills, Maintenance, 03/13/20 11:45:00 EST, [facility]/pharmacy #[id number], 163, cm, 03/08/20 11:24:00 EST, Height, 98.9, kg, 08/25/19 12:42:00 EDT, Dry Weight Start Date: 03/13/20 Status: Ordered semaglutide 0.25 mg/0.5 mL (0.25 mg dose) subcutaneous solution = 0.25 mg, Subcutaneous Injection, Every 72 hours, # 3 each, 0 Refills, Maintenance, 10/04/20 16:20:00 EDT, [facility] #[id number], Partial fill upon patient request if the prescription is for aschedule II opioid drug., 163, cm, 10/04/20 16:08:0... Start Date: 10/04/20 Status: Ordered Systane Complete Optimal Dry Eye Relief ophthalmic solution 2 drops, Eyes, Both, 3 times a day, # 30 mL, 3 Refills, Maintenance, 11/28/19 8:55:00 EDT, [facility]/pharmacy #[id number], 2 drops Eyes, [...] 04/12/21 12:13:00 EST, Route to Pharmacy Electronically, [facility]/pharmacy #[id number], 163, cm, 03/07/21 11:34:00 EST,... Start Date: 04/12/21 Status: Ordered tiZANidine 4 mg oral tablet See Instructions, TAKE 1/2 TO 1 TABLET BY MOUTH EVERY 8 HOURS NEEDED FOR MILD AND MUSCLE SPASM, # 45 tablet, Refills 2, Maintenance, Instructions Replace Required Details, Route to Pharmacy Electronically, [facility]ORE 508[facility], 163, cm, 07/27/20 13:59:0... Start Date: 07/27/20 Status: Ordered traMADol 50 mg oral tablet 1 tablet = 50 mg, By Mouth, Every 6 hours, PRN for pain, TAKE ONLY NEEDED Dx: M79.7, S92.91 Masspat checked, # 112 tablet, 0 Refills, Maintenance, 08/02/21 16:34:00 EDT, Tablet, [facility]/pharmacy #[id number], Please reinforce instructions [...] [place] Back Pain Scale:88 on 01/13/17; initial [place]: 7 on 01/13/17 Social History Social History Type Response Smoking Status Former smoker, quit more than 30 days ago entered on: 04/06/20 Sex
--- OUTSIDE RECORDS SUMMARY | 2022-06-03 10:51 | XMS_ITS | Continuity of Care Document ---
Author Name Unknown Organization [facility] Address [address] [place] [address]- Care Team Providers Care Network Consultant Name Role Phone Ernesto King MD Primary Care Physician Encounter [facility] [place] Date(s): 01/07/21 - 02/20/21 [facility] [address] [place] [address]- Attending Physician: Not on Staff, Attending MD [...] tetanus/diphtheria/pertussis, acel(Tdap) 01/30/16 Given 1Result Comment: [facility]:[id number] 2Result Comment: [facility] 46089-105-50 3Result Comment: [11/30/2017] [facility] [id number] 4Result Comment: [12/31/2016] [facility] [id number] 5Admin Note: vis given 09/10/12 6Admin Note: VIS given 08/18/2011 7Result Comment: [12/31/2016] [facility] 5925-7910-51 Medications albuterol 90 mcg/inh inhalation powder 2 puffs, Inhalation, Every 6 hours, PRN Wheezing/Shortness of Breath, # 1 each, 3 Refills, Maintenance, 02/29/20 14:08:00 EST, Powder, [facility] #[id number], dispense pro-air, 2 puffs Inhalation Every 6 [...] Refills, Maintenance, 08/14/20 12:53:00 EDT, [facility], 163, cm, 07/31/20 9:10:00 EDT, Height, 98.9, [...] 3 Refills, Maintenance, 02/29/20 14:04:00 EST, Aerosol, [facility] #[id number], 163, cm, 02/29/20 13:19:00 EST, Height, 98.9, [...] 02/19/21 9:00:00 EST, Route to Pharmacy Electronically, [facility]/pharmacy #[id number], 163, cm, 02/18/21 14:32:00 EST,Height, 98.9, kg, 08/25/19 12:42:00 EDT, Dry Weight Start Date: 02/19/21 Status: Ordered levothyroxine 150 mcg (0.15 mg) oral tablet See Instructions, TAKE 1 TABLET BY MOUTH EVERY DAY, # 30 tablet, 2 Refills, [facility] 100[facility], 163, cm, 02/18/21 14:32:00 EST, Height, 98.9, kg, 08/25/19 12:42:00 EDT, Dry Weight Start Date: 02/19/21 Status: Ordered loratadine 10 mg oral tablet 10 mg, 1, tablet, By Mouth, Daily, # 30 tablet, Refills 6, Tot. Refills 6, Maintenance, 11/28/19 8:53:00 EDT, Route to Pharmacy Electronically, [facility]/pharmacy #[id number], 163, cm, 11/25/19 14:43:00 EDT, Height, 98.9, kg, 08/25/19 12:42:00 EDT, Dry Weight Start Date: 11/28/19 Status: Ordered metFORMIN 500 mg oral tablet 1 tablet = 500 mg, By Mouth, 2 times a day, # 60 tablet, 5 Refills, Maintenance, 02/19/21 8:58:00 EST, [facility]/pharmacy #[id number], 163, cm, 02/18/21 [...] each, 1 Refills, Maintenance, 08/25/19 15:03:00 EDT, [facility]/pharmacy#[id number], 2 sprays Nares, Both Daily, 163, cm, 08/25/19 12:40:00 EDT, Height, 98.9, kg, 08/25/19 12:42:00 EDT, Dry Weight Start Date: 08/25/19 Status: Ordered Nasonex 50 mcg/inh nasal spray 2 sprays, Nares, Both, 2 times a day, # 17 Gm, 0 Refills, Maintenance, 08/25/19 13:03:00 EDT, [place], [facility]/pharmacy #[id number], 2 sprays Nares, [...] 07/31/20 9:07:00 EDT, Route to Pharmacy Electronically, [facility] #[id number], Partial fill upon patient request if the prescription is for a sched... Start Date: 07/31/20 Status: Ordered PriLOSEC OTC 20 mg oral delayed release tablet 1 tablet = 20 mg, By Mouth, Daily, # 30 tablet, 2 Refills, Maintenance, 03/13/20 11:45:00 EST, [facility]/pharmacy #[id number], 163, cm, 03/08/20 11:24:00 EST, Height, 98.9, kg, 08/25/19 12:42:00 EDT, Dry Weight Start Date: 03/13/20 Status: Ordered semaglutide 0.25 mg/0.5 mL (0.25 mg dose) subcutaneous solution = 0.25 mg, Subcutaneous Injection, Every 72 hours, # 3 each, 0 Refills, Maintenance, 10/04/20 16:20:00 EDT, [facility] #[id number], Partial fill upon patient request if the [...] Details, Route to Pharmacy Electronically, [facility], 163, cm, 07/27/20 13:59:0... Start Date: 07/27/20 [...] [place] Back Pain Scale:88 on 01/13/17; initial [place]: 7 on 01/13/17 Social History Social History Type Response Smoking Status Former smoker, quit more than 30 days ago entered on: 04/06/20 Sex
--- OUTSIDE RECORDS SUMMARY | 2022-06-03 10:51 | XMS_ITS | Continuity of Care Document ---
Author Name Unknown Organization [facility] Address [address] [place] [address]- Care Team Providers Care [employer] Name Role Phone Ernesto King MD Primary Care Physician Encounter [facility] Date(s): 04/25/22 - 05/25/22 [facility] [address] [place] [address]- Allergies, Adverse Reactions, Alerts No Known Allergies [...] Given tetanus/diphtheria/pertussis, acel(Tdap) 01/30/16 Given 1Result Comment: [facility]:32128-113-29 2Result Comment: [facility] [id number] 3Result Comment: [11/30/2017] [facility] [id number] 4Result Comment: [12/31/2016] [facility] [id number] 5Admin Note: vis given 09/10/12 6Admin Note: VIS given 08/18/2011 7Result Comment: [12/31/2016] [facility] [id number] Medications albuterol 90 mcg/inh inhalation powder 2 puffs, Inhalation, Every 6 hours, PRN Wheezing/Shortness of Breath, # 1 each, 3 Refills, Maintenance, 11/22/21 17:17:00 EDT, Powder, [facility]/pharmacy #[id number], dispense pro-air, 2 puffs Inhalation Every 6hours,PRN:Wheezing/Shortness of Breath, 163, cm, 10... Start Date: 11/22/21 Status: Ordered albuterol-ipratropium 3 mg-0.5 mg/3 ml inhalation solution 3 mL, Neb, 4 times a day, J45.40, # 180 mL, 3 Refills, Maintenance, 11/22/21 17:17:00 EDT, Solution, [facility]/pharmacy #[id number], 3 mL Neb 4 times a day,Instr:J45.40, 163, cm, 11/22/21 15:30:00 EDT, Height Start Date: 11/22/21 Status: Ordered celecoxib 100 mg oral capsule 1 capsule, By Mouth, 2 times a day with meals, # 60 capsule, 1 Refills, Maintenance, 08/14/20 12:53:00 EDT, [facility], 163, cm, 07/31/20 9:10:00 EDT, Height, 98.9, [...] 3 Refills, Maintenance, 02/29/20 14:04:00 EST, Aerosol, [facility] #[id number], 163, cm, 02/29/20 13:19:00 EST, Height, 98.9, [...] 11/22/21 17:17:00 EDT, Route to Pharmacy Electronically, [facility]/pharmacy #[id number], 163, cm, 11/22/21 15:30:00 EDT, Height Start Date: 11/22/21 Stop Date: 01/21/22 Status: Ordered levothyroxine 175 mcg (0.175 mg) oral tablet 1 tablet = 175 mcg, By Mouth, Daily, # 90 tablet, 0 Refills, Maintenance, 03/31/22 12:00:00 EST, Tablet, [facility]/pharmacy #[id number], Partial fill upon patient request if the prescription is for a schedule IIopioid drug., 163, cm, 03/31/22 11:41:00 EST, Height Start Date: 03/31/22 Status: Ordered loratadine 10 mg oral tablet 10 mg, 1, tablet, By Mouth, Daily, # 30 tablet, Refills 6, Tot. Refills 6, Maintenance, 11/28/19 8:53:00 EDT, Route to Pharmacy Electronically, [facility]/pharmacy #[id number], 163, cm, 11/25/19 14:43:00 EDT, Height, 98.9, kg, 08/25/19 12:42:00 EDT, Dry Weight Start Date: 11/28/19 Status: Ordered metFORMIN 500 mg oral tablet 1 tablet = 500 mg, By Mouth, 2 times a day, # 60 tablet, 5 Refills, Maintenance, 02/19/21 8:58:00 EST, [facility]/pharmacy #[id number], 163, cm, 02/18/21 14:32:00 EST, Height, [...] each, 1 Refills, Maintenance, 08/25/19 15:03:00 EDT, [facility]/pharmacy#4471, 2 sprays Nares, Both Daily, 163, cm, 08/25/19 12:40:00 EDT, Height, 98.9, kg, 08/25/19 12:42:00 EDT, Dry Weight Start Date: 08/25/19 Status: Ordered Nasonex 50 mcg/inh nasal spray 2 sprays, Nares, Both, 2 times a day, # 17 Gm, 0 Refills, Maintenance, 12/04/21 11:58:00 EDT, [place], [facility]/pharmacy #4471, 2 sprays Nares, Both 2 times [...] 07/31/20 9:07:00 EDT, Route to Pharmacy Electronically, [facility] #[id number], Partial fill upon patient request if the prescription is for a sched... Start Date: 07/31/20 Status: Ordered PriLOSEC OTC 20 mg oral delayed release tablet 1 tablet = 20 mg, By Mouth, Daily, # 30 tablet, 2 Refills, Maintenance, 12/04/21 11:57:00 EDT, [facility]/pharmacy #[id number], 163, cm, 12/04/21 11:37:00 EDT, Height [...] mL, 3 Refills, Maintenance, 12/04/21 11:56:00 EDT, [facility]/pharmacy #[id number], 2 drops Eyes, Both 3 times a day, 163, cm, 12/04/21 11:37:00 EDT, Height Start Date: 12/04/21 Status: Ordered tiZANidine 4 mg oral tablet 0.5-1 tablet, By Mouth, Every 8 hours, PRN, TAKE ONLY NEEDED FOR MUSCLE SPASM, # 45 tablet, Refills 2, Tot. Refills 2, Maintenance, Spasm, 04/12/21 12:13:00 EST, Route to Pharmacy Electronically, [facility]/pharmacy #[id number], 163, cm, 03/07/21 11:34:00 EST,... Start Date: 04/12/21 Status: Ordered tiZANidine 4 mg oral tablet See Instructions, TAKE 1/2 TO 1 TABLET BY MOUTH EVERY 8 HOURS NEEDED FOR MILD AND MUSCLE SPASM, # 45 tablet, Refills 2, Maintenance, Instructions Replace Required Details, Route to Pharmacy Electronically, [facility], 163, cm, 07/27/20 13:59:0... Start Date: 07/27/20 Status: Ordered traMADol 50 mg oral tablet 1 tablet = 50 mg, By Mouth, Every 6 hours, PRN for pain, TAKE ONLY NEEDED Dx: M79.7, S92.91 Masspat checked, # 112 tablet, 0 Refills, Maintenance, 04/01/22 15:55:00 EST, Tablet, [facility]/pharmacy #[id number], Please reinforce instructions with patient, she... Start Date: 04/01/22 Stop Date: 04/29/22 Status: Ordered Victoza 18 mg/3 mL subcutaneous solution = 0.6 mg, Subcutaneous Injection, Daily, # 6 mL, 3 Refills, Maintenance, 10/16/21 15:56:00 EDT, Injection, [facility]/pharmacy #[id number], dispense as pen, 163, cm, 10/16/21 14:49:00 EDT, Height Start Date: 10/16/21 Status: Ordered Vitamin D3 50,000 intl units oral capsule 1 capsule, By Mouth, Every week, # 12 capsule, 0 Refills, [facility]ORE 7[facility]63, 163, cm, 09/13/21 9:15:00 EDT, Height Start [...] [place] Back Pain Scale:88 on 01/13/17; initial [place]: 7 on 01/13/17 Social History Social History Type Response Smoking Status Former smoker, quit more than 30 days ago entered on: 04/06/20 Sex Patient Care team information Care Team Personnel Name: Ernesto King MD Position: [facility] Primary Care Physician Member Role: PCP Address: Address: [address] [place] [address] [place], [place] [address] Name: Kathrine Luna MD Position: [facility] DIRECTOR MD Member Role: Lifetime DIRECTOR Physician Address: Address: [address] [place] [address] [facility] [place], [place] [address] Name: Kathya Grullon RN Position: [facility] RN Member Role: Primary Care Nurse Care Team Related Persons Name: LYN LEIGH Address: [place] [address] Name: MADDIE LEIGH
--- OUTSIDE RECORDS SUMMARY | 2022-06-03 10:51 | XMS_ITS | Continuity of Care Document ---
Author Name Unknown Organization [facility] Address [address] [place] [address]- Care Team Providers Care Photographic Lithographer Name Role Phone Fernando CARTY, Ernesto Zapata Primary Care Physician [facility]counter [facility] Date[facility]s): 10[facility] - [facility]/14/21 [facility] [address] [place] [address]- Allergies, Adverse Reactions, Alerts No Known Allergies [...] Given tetanus/diphtheria/pertussis, acel(Tdap) 01/30/16 Given 1Result Comment: [facility]:[id number] 2Result Comment: [facility] [id number] 3Result Comment: [11/30/2017] [facility] [id number] 4Result Comment: [12/31/2016] [facility] [id number] 5Admin Note: vis given 09/10/12 6Admin Note: VIS given 08/18/2011 7Result Comment: [12/31/2016] [facility] [id number] Medications albuterol 90 mcg/inh inhalation powder 2 puffs, Inhalation, Every 6 hours, PRN Wheezing/Shortness of Breath, # 1 each, 3 Refills, Maintenance, 02/27/21 16:30:00 EST, Powder, [facility]/pharmacy #[id number], dispense pro-air, 2 puffs Inhalation Every 6hours,PRN:Wheezing/Shortness of Breath, 163, cm, 01... Start Date: 02/27/21 Status: Ordered albuterol-ipratropium 3 mg-0.5 mg/3 ml inhalation solution 3 mL, Neb, 4 times a day, J45.40, # 180 mL, 3 Refills, Maintenance, 07/02/20 14:11:00 EDT, Solution, [facility]/pharmacy #[id number], 3 mL Neb 4 times a day,Instr:J45.40, 163, cm, 06/18/20 13:31:00 EDT, Height, 98.9, kg, 08/25/19 12:42:00 EDT, Dry Weight Start Date: 07/02/20 Status: Ordered celecoxib 100 mg oral capsule 1 capsule, By Mouth, 2 times a day with meals, # 60 capsule, 1 Refills, Maintenance, 08/14/20 12:53:00 EDT, [facility], 163, cm, 07/31/20 9:10:00 EDT, Height, 98.9, [...] 3 Refills, Maintenance, 02/29/20 14:04:00 EST, [facility]erosol, [id number], 163, cm, 02/29/20 13:19:00 EST, Height, 98.9, [...] 08/29/21 14:22:00 EDT, Route to Pharmacy Electronically, [facility]/pharmacy #[id number], 163, cm, 08/29/21 13:43:00 EDT, Height Start Date: 08/29/21 Stop Date: 10/28/21 Status: Ordered levothyroxine 175 mcg (0.175 mg) oral tablet 1 tablet = 175 mcg, By Mouth, Daily, # 90 tablet, 1 Refills, Maintenance, 06/27/21 11:36:00 EDT, Tablet, [facility]/pharmacy #[id number], Partial fill upon patient request if the prescription is for a schedule IIopioid drug., 163, cm, 06/27/21 11:27:00 EDT, Amber Start Date: 06/27/21 Status: Ordered loratadine 10 mg oral tablet 10 mg, 1, tablet, By Mouth, Daily, # 30 tablet, Refills 6, Tot. Refills 6, Maintenance, 11/28/19 8:53:00 EDT, Route to Pharmacy Electronically, [facility]/pharmacy #[id number], 163, cm, 11/25/19 14:43:00 EDT, Height, 98.9, kg, 08/25/19 12:42:00 EDT, Dry Weight Start Date: 11/28/19 Status: Ordered metFORMIN 500 mg oral tablet 1 tablet = 500 mg, By Mouth, 2 times a day, # 60 tablet, 5 Refills, Maintenance, 02/19/21 8:58:00 EST, [facility]/pharmacy #[id number], 163, cm, 02/18/21 14:32:00 EST, [...] each, 1 Refills, Maintenance, 08/25/19 15:03:00 EDT, [facility]/pharmacy#4471, 2 sprays Nares, Both Daily, 163, cm, 08/25/19 12:40:00 EDT, Height, 98.9, kg, 08/25/19 12:42:00 EDT, Dry Weight Start Date: 08/25/19 Status: Ordered Nasonex 50 mcg/inh nasal spray 2 sprays, Nares, Both, 2 times a day, # 17 Gm, 0 Refills, Maintenance, 08/25/19 13:03:00 EDT, [place], [facility]/pharmacy #[id number], 2 sprays Nares, Both 2 [...] 07/31/20 9:07:00 EDT, Route to Pharmacy Electronically, [facility][id number], Partial fill upon patient request if the prescription is for a sched... Start Date: 07/31/20 Status: Ordered PriLOSEC OTC 20 mg oral delayed release tablet 1 tablet = 20 mg, By Mouth, Daily, # 30 tablet, 2 Refills, Maintenance, 03/13/20 11:45:00 EST, [facility]/pharmacy #[id number], 163, cm, 03/08/20 11:24:00 EST, Height, 98.9, kg, 08/25/19 12:42:00 EDT, Dry Weight Start Date: 03/13/20 Status: Ordered semaglutide 0.25 mg/0.5 mL (0.25 mg dose) subcutaneous solution = 0.25 mg, Subcutaneous Injection, Every 72 hours, # 3 each, 0 Refills, Maintenance, 09/13/21 9:26:00 EDT, [facility]/pharmacy #[id number], Partial fill upon patient request if the prescription is for a schedule II opioid drug., 163, cm, 09/13/21 9:15:00 EDT, Height Start Date: 09/13/21 Status: Ordered Systane Complete Optimal Dry Eye Relief ophthalmic solution 2 drops, Eyes, Both, 3 times a day, # 30 mL, 3 Refills, Maintenance, 11/28/19 8:55:00 EDT, [facility]/pharmacy #[id number], 2 drops Eyes, Both 3 [...] 04/12/21 12:13:00 EST, Route to Pharmacy Electronically, [facility]/pharmacy #[id number], 163, cm, 03/07/21 11:34:00 EST,... Start Date: 04/12/21 Status: Ordered tiZANidine 4 mg oral tablet See Instructions, TAKE 1/2 TO 1 TABLET BY MOUTH EVERY 8 HOURS NEEDED FOR MILD AND MUSCLE SPASM, # 45 tablet, Refills 2, Maintenance, Instructions Replace Required Details, Route to Pharmacy Electronically, [facility], 163, cm, 07/27/20 13:59:0... Start Date: 07/27/20 Status: Ordered traMADol 50 mg oral tablet 1 tablet = 50 mg, By Mouth, Every 6 hours, PRN for pain, TAKE ONLY NEEDED Dx: M79.7, S92.91 Masspat checked, # 112 tablet, 0 Refills, Maintenance, 10/04/21 16:06:00 EDT, Tablet, [facility]/pharmacy #[id number], Please reinforce instructions with patient, she... Start Date: 10/04/21 Stop Date: 11/01/21 Status: Ordered Victoza 18 mg/3 mL subcutaneous solution = 0.6 mg, Subcutaneous Injection, Daily, # 6 mL, 3 Refills, Maintenance, 10/16/21 15:56:00 EDT, Injection, [facility]/pharmacy #[id number], dispense as pen, 163, cm, 10/16/21 14:49:00 EDT, Height Start Date: 10/16/21 Status: Ordered Vitamin D3 50,000 intl units oral capsule 1 capsule, By Mouth, Every week, # 12 capsule, 0 Refills, [facility], 163, cm, 09/13/21 9:15:00 EDT, Height Start Date: 09/18/21 Status: Ordered Voltaren 1% topical gel 1 application, Topically, 4 times a day, PRN for pain, # 100 Gm, 0 Refills, Maintenance, 05/27/21 18:00:00 EDT, Gel, [facility]/pharmacy #[id number], Partial fill upon patient request [...] [place] Back Pain Scale:88 on 01/13/17; initial [place]: 7 on 01/13/17 Social History Social History Type Response Smoking Status Former smoker, quit more than 30 days ago entered on: 04/06/20 Sex Patient Care team information Personnel Name: Fernando CARTY, Ernesto Zapata Address: Address: [address] [place], [place] [address]
--- OUTSIDE RECORDS SUMMARY | 2022-06-03 10:51 | XMS_ITS | Continuity of Care Document ---
Author Name Unknown Organization [facility] Address [address] [place] [address]- Care Team Providers Care It Project Manager Name Role Phone Fernando CARTY, Ernesto Zapata Primary Care Physician [facility] Date[facility]s): 06[facility]13[facility]21 - 07/13/21 [facility] [address] [place] [address]- Allergies, Adverse Reactions, Alerts No Known Allergies [...] tetanus/diphtheria/pertussis, acel(Tdap) 01/30/16 Given 1Result Comment: [facility]:[id number] 2Result Comment: [facility] [id number] 3Result Comment: [11/30/2017] [facility] [id number] 4Result Comment: [12/31/2016] [facility] [id number] 5Admin Note: vis given 09/10/12 6Admin Note: VIS given 08/18/2011 7Result Comment: [12/31/2016] [facility] [id number] Medications albuterol 90 mcg/inh inhalation powder 2 puffs, Inhalation, Every 6 hours, PRN Wheezing/Shortness of Breath, # 1 each, 3 Refills, Maintenance, 02/27/21 16:30:00 EST, Powder, [facility]/pharmacy #[id number], dispense pro-air, 2 puffs Inhalation Every 6hours,PRN:Wheezing/Shortness of Breath, 163, cm, 01... Start Date: 02/27/21 Status: Ordered albuterol-ipratropium 3 mg-0.5 mg/3 ml inhalation solution 3 mL, Neb, 4 times a day, J45.40, # 180 mL, 3 Refills, Maintenance, 07/02/20 14:11:00 EDT, Solution, [facility]/pharmacy #[id number], 3 mL Neb 4 times a day,Instr:J45.40, 163, cm, 06/18/20 13:31:00 EDT, Height, 98.9, kg, 08/25/19 12:42:00 EDT, Dry Weight Start Date: 07/02/20 Status: Ordered celecoxib 100 mg oral capsule 1 capsule, By Mouth, 2 times a day with meals, # 60 capsule, 1 Refills, Maintenance, 08/14/20 12:53:00 EDT, [facility], 163, cm, 07/31/20 9:10:00 EDT, Height, 98.9, [...] 3 Refills, Maintenance, 02/29/20 14:04:00 EST, [facility]erosol, [facility], 163, cm, 02/29/20 13:19:00 EST, Height, 98.9, [...] 06/24/21 10:53:00 EDT, Route to Pharmacy Electronically, [facility]/pharmacy #[id number], 163, cm, 06/21/21 15:02:00 EDT, Height, 98.9, kg, 08/25/19 12:42:00 EDT, Dry Weight Start Date: 06/24/21 Stop Date: 08/23/21 Status: Ordered levothyroxine 175 mcg (0.175 mg) oral tablet 1 tablet = 175 mcg, By Mouth, Daily, # 90 tablet, 1 Refills, Maintenance, 06/27/21 11:36:00 EDT, Tablet, [facility]/pharmacy #[id number], Partial fill upon patient request if the prescription is for a schedule IIopioid drug., 163, cm, 06/27/21 11:27:00 EDT, [place]... Start Date: 06/27/21 Status: Ordered loratadine 10 mg oral tablet 10 mg, 1, tablet, By Mouth, Daily, # 30 tablet, Refills 6, Tot. Refills 6, Maintenance, 11/28/19 8:53:00 EDT, Route to Pharmacy Electronically, [facility]/pharmacy #[id number], 163, cm, 11/25/19 14:43:00 EDT, Height, 98.9, kg, 08/25/19 12:42:00 EDT, Dry Weight Start Date: 11/28/19 Status: Ordered metFORMIN 500 mg oral tablet 1 tablet = 500 mg, By Mouth, 2 times a day, # 60 tablet, 5 Refills, Maintenance, 02/19/21 8:58:00 EST, [facility]/pharmacy #[id number], 163, cm, 02/18/21 14:32:00 [...] each, 1 Refills, Maintenance, 08/25/19 15:03:00 EDT, [facility]/pharmacy#4471, 2 sprays Nares, Both Daily, 163, cm, 08/25/19 12:40:00 EDT, Height, 98.9, kg, 08/25/19 12:42:00 EDT, Dry Weight Start Date: 08/25/19 Status: Ordered Nasonex 50 mcg/inh nasal spray 2 sprays, Nares, Both, 2 times a day, # 17 Gm, 0 Refills, Maintenance, 08/25/19 13:03:00 EDT, [place], [facility]/pharmacy #[id number], 2 sprays Nares, Both [...] 07/31/20 9:07:00 EDT, Route to Pharmacy Electronically, [id number], Partial fill upon patient request if the prescription is for a sched... Start Date: 07/31/20 Status: Ordered PriLOSEC OTC 20 mg oral delayed release tablet 1 tablet = 20 mg, By Mouth, Daily, # 30 tablet, 2 Refills, Maintenance, 03/13/20 11:45:00 EST, [facility]/pharmacy #[id number], 163, cm, 03/08/20 11:24:00 EST, Height, 98.9, kg, 08/25/19 12:42:00 EDT, Dry Weight Start Date: 03/13/20 Status: Ordered semaglutide 0.25 mg/0.5 mL (0.25 mg dose) subcutaneous solution = 0.25 mg, Subcutaneous Injection, Every 72 hours, # 3 each, 0 Refills, Maintenance, 10/04/20 16:20:00 EDT, [facility] #[id number], Partial fill upon patient request if the prescription is for aschedule II opioid drug., 163, cm, 10/04/20 16:08:0... Start Date: 10/04/20 Status: Ordered Systane Complete Optimal Dry Eye Relief ophthalmic solution 2 drops, Eyes, Both, 3 times a day, # 30 mL, 3 Refills, Maintenance, 11/28/19 8:55:00 EDT, [facility]/pharmacy #[id number], 2 drops Eyes, Both [...] 04/12/21 12:13:00 EST, Route to Pharmacy Electronically, [facility]/pharmacy #[id number], 163, cm, 03/07/21 11:34:00 EST,... Start Date: 04/12/21 Status: Ordered tiZANidine 4 mg oral tablet See Instructions, TAKE 1/2 TO 1 TABLET BY MOUTH EVERY 8 HOURS NEEDED FOR MILD AND MUSCLE SPASM, # 45 tablet, Refills 2, Maintenance, Instructions Replace Required Details, Route to Pharmacy Electronically, [facility], 163, cm, 07/27/20 13:59:0... Start Date: 07/27/20 Status: Ordered traMADol 50 mg oral tablet 1 tablet = 50 mg, By Mouth, Every 6 hours, PRN for pain, TAKE ONLY NEEDED Dx: M79.7, S92.91 Masspat checked, # 112 tablet, 0 Refills, Maintenance, 06/21/21 16:39:00 EDT, Tablet, [facility]/pharmacy #[id number], Please reinforce instructions with [...] [place] Back Pain Scale:88 on 01/13/17; initial [place]: 7 on 01/13/17 Social History Social History Type Response Smoking Status Former smoker, quit more than 30 days ago entered on: 04/06/20 Sex
--- OUTSIDE RECORDS SUMMARY | 2022-06-03 10:51 | XMS_ITS | Continuity of Care Document ---
Author Name Unknown Organization [facility] Address [address] [place] [address]- Care Team Providers Care Grain Trimmer Name Role Phone Ernesto King MD Primary Care Physician Encounter [facility] Date(s): 06/03/21 - 06/10/21 [facility] [address] [place] [address]- Encounter Diagnosis Diabetes mellitus with hyperglycemia(Discharge Diagnosis) - 06/03/21 Thrush(Discharge Diagnosis) - 06/03/21 Hypothyroidism(Discharge Diagnosis) - 06/03/21 Back pain(Discharge Diagnosis) - 06/03/21 Attending Physician: Ernesto King MD Allergies, Adverse [...] tetanus/diphtheria/pertussis, acel(Tdap) 01/30/16 Given 1Result Comment: [facility]:[id number] 2Result Comment: [facility] [id number] 3Result Comment: [11/30/2017] [facility] 07241-952-26 4Result Comment: [12/31/2016] [facility] [id number] 5Admin Note: vis given 09/10/12 6Admin Note: VIS given 08/18/2011 7Result Comment: [12/31/2016] [facility] [id number] Medications albuterol 90 mcg/inh inhalation powder 2 puffs, Inhalation, Every 6 hours, PRN Wheezing/Shortness of Breath, # 1 each, 3 Refills, Maintenance, 02/27/21 16:30:00 EST, Powder, [facility]/pharmacy #[id number], dispense pro-air, 2 puffs Inhalation [...] Refills, Maintenance, 08/14/20 12:53:00 EDT, [facility], 163, cm, 07/31/20 9:10:00 EDT, Height, 98.9, [...] 3 Refills, Maintenance, 02/29/20 14:04:00 EST, Aerosol, [facility] #[id number], 163, cm, 02/29/20 13:19:00 EST, Height, 98.9, [...] 04/12/21 12:16:00 EST, Route to Pharmacy Electronically, [facility]/pharmacy #[id number], 163, cm, 03/07/21 11:34:00 EST, Height, 98.9, kg, 08/25/19 12:42:00 EDT, Dry Weight Start Date: 04/12/21 Stop Date: 06/11/21 Status: Ordered levothyroxine 150 mcg (0.15 mg) oral tablet See Instructions, TAKE 1 TABLET BY MOUTH EVERY DAY, # 30 tablet, 2 Refills, [facility], 163, cm, 02/18/21 14:32:00 EST, Height, 98.9, kg, 08/25/19 12:42:00 EDT, Dry Weight Start Date: 02/19/21 Status: Ordered lidocaine-menthol 4%-4% topical film 1 patch, Topically, 2 times a day, PRN as needed for pain, for 10 days, # 10 each, 0 Refills, Acute06/13/21 11:40:00 EDT, 06/03/21 11:40:00 EDT, Film, [facility]/pharmacy #[id number], Partial fill upon patient request [...] tablet, 5 Refills, Maintenance, 02/19/21 8:58:00 EST, [facility]/pharmacy #[id number], 163, cm, 02/18/21 14:32:00 EST, [...] Gm, 0 Refills, Maintenance, 08/25/19 13:03:00 EDT, [place], [facility]/pharmacy #[id number], 2 sprays Nares, [...] 07/31/20 9:07:00 EDT, Route to Pharmacy Electronically, [facility] #[id number], Partial fill upon patient request if the prescription is for a sched... Start Date: 07/31/20 Status: Ordered nystatin 657749 u/ml oral suspension 1 mL = 100,000 units, By Mouth, 4 times a day, for 10 days, # 40 mL, 1 Refills, Acute 06/23/21 11:38:00 EDT, 06/03/21 11:38:00 EDT, [place], [facility]/pharmacy #[id number], Partial fill upon patient request [...] each, 0 Refills, Maintenance, 10/04/20 16:20:00 EDT, [facility] #[id number], Partial fill upon patient request if the prescription is for aschedule II opioid drug., 163, cm, 10/04/20 16:08:0... Start Date: 10/04/20 Status: Ordered Systane Complete Optimal Dry Eye Relief ophthalmic solution 2 drops, Eyes, Both, 3 times a day, # 30 mL, 3 Refills, Maintenance, 11/28/19 8:55:00 EDT, [facility]/pharmacy #[id number], 2 drops Eyes, Both 3 [...] 04/12/21 12:13:00 EST, Route to Pharmacy Electronically, [facility]/pharmacy #[id number], 163, cm, 03/07/21 11:34:00 EST,... Start Date: 04/12/21 Status: Ordered tiZANidine 4 mg oral tablet See Instructions, TAKE 1/2 TO 1 TABLET BY MOUTH EVERY 8 HOURS NEEDED FOR MILD AND MUSCLE SPASM, # 45 tablet, Refills 2, Maintenance, Instructions Replace Required Details, Route to Pharmacy Electronically, [facility], 163, cm, 07/27/20 13:59:0... Start Date: 07/27/20 Status: Ordered traMADol 50 mg oral tablet 1 tablet = 50 mg, By Mouth, Every 6 hours, PRN for pain, TAKE ONLY NEEDED Dx: M79.7, S92.91 Masspat checked, # 112 tablet, 0 Refills, Maintenance, 05/17/21 15:41:00 EDT, Tablet, [facility]/pharmacy #[id number], Please reinforce instructions with patient, she... Start Date: 05/17/21 Stop Date: 06/14/21 Status: Ordered Voltaren 1% topical gel 1 application, Topically, 4 times a day, PRN for pain, # 100 Gm, 0 Refills, Maintenance, 05/27/21 18:00:00 EDT, Gel, [facility]/pharmacy #[id number], Partial fill upon patient request [...] 01/13/17; initial [place] Back Pain Scale:88 on 11/28/17; initial [place]: 7 on 01/13/17 Diagnosis Diagnosis Type Effective Dates Health Status Clinical Service Informant Diabetes mellitus with hyperglycemia Discharge Diagnosis 06/03/21 Thrush Discharge Diagnosis 06/03/21 Hypothyroidism Discharge Diagnosis 06/03/21 Back pain Discharge Diagnosis 06/03/21 Vital Signs Most recent to oldest [Reference Range]: 1 Height 163 cm (06/03/21 11:24 AM) Social History Social History Type Response Smoking Status Former smoker, quit more than 30 days ago entered on: 04/06/20 Sex
--- OUTSIDE RECORDS SUMMARY | 2022-06-03 10:51 | XMS_ITS | Continuity of Care Document ---
Author Name Unknown Organization [facility] Address [address] [place] [address]- Care Team Providers Care Clinical Safety Specialist Name Role Phone Fernando CARTY, Ernesto Zapata Primary Care Physician [facility] Date(s): 09/26/21 - 10/26/21 [facility] [address] [place] [address]- Allergies, Adverse Reactions, Alerts No Known Allergies [...] acel(Tdap) 01/30/16 Given 1Result Comment: [facility]:[id number] 2Result Comment: [facility] [id number] 3Result Comment: [11/30/2017] [facility] [id number] 4Result Comment: [12/31/2016] [facility] [id number] 5Admin Note: vis given 09/10/12 6Admin Note: VIS given 08/18/2011 7Result Comment: [12/31/2016] [facility] [id number] Medications albuterol 90 mcg/inh inhalation powder 2 puffs, Inhalation, Every 6 hours, PRN Wheezing/Shortness of Breath, # 1 each, 3 Refills, Maintenance, 02/27/21 16:30:00 EST, Powder, [facility]/pharmacy #[id number], dispense pro-air, 2 puffs Inhalation Every 6hours,PRN:Wheezing/Shortness of Breath, 163, cm, 01... Start Date: 02/27/21 Status: Ordered albuterol-ipratropium 3 mg-0.5 mg/3 ml inhalation solution 3 mL, Neb, 4 times a day, J45.40, # 180 mL, 3 Refills, Maintenance, 07/02/20 14:11:00 EDT, Solution, [facility]/pharmacy #4471, 3 mL Neb 4 times a day,Instr:J45.40, 163, cm, 06/18/20 13:31:00 EDT, Height, 98.9, kg, 08/25/19 12:42:00 EDT, Dry Weight Start Date: 07/02/20 Status: Ordered celecoxib 100 mg oral capsule 1 capsule, By Mouth, 2 times a day with meals, # 60 capsule, 1 Refills, Maintenance, 08/14/20 12:53:00 EDT, [facility], 163, cm, 07/31/20 9:10:00 EDT, Height, 98.9, [...] 3 Refills, Maintenance, 02/29/20 14:04:00 EST, Aerosol, [id number], 163, cm, 02/29/20 13:19:00 EST, Height, 98.9, [...] 08/29/21 14:22:00 EDT, Route to Pharmacy Electronically, [facility]/pharmacy #[id number], 163, cm, 08/29/21 13:43:00 EDT, Height Start Date: 08/29/21 Stop Date: 10/28/21 Status: Ordered levothyroxine 175 mcg (0.175 mg) oral tablet 1 tablet = 175 mcg, By Mouth, Daily, # 90 tablet, 1 Refills, Maintenance, 06/27/21 11:36:00 EDT, Tablet, [facility]/pharmacy #4471, Partial fill upon patient request if the prescription is for a schedule IIopioid drug., 163, cm, 06/27/21 11:27:00 EDT, [place] Start Date: 06/27/21 Status: Ordered loratadine 10 mg oral tablet 10 mg, 1, tablet, By Mouth, Daily, # 30 tablet, Refills 6, Tot. Refills 6, Maintenance, 11/28/19 8:53:00 EDT, Route to Pharmacy Electronically, [facility]/pharmacy #[id number], 163, cm, 11/25/19 14:43:00 EDT, Height, 98.9, kg, 08/25/19 12:42:00 EDT, Dry Weight Start Date: 11/28/19 Status: Ordered metFORMIN 500 mg oral tablet 1 tablet = 500 mg, By Mouth, 2 times a day, # 60 tablet, 5 Refills, Maintenance, 02/19/21 8:58:00 EST, [facility]/pharmacy #[id number], 163, cm, 02/18/21 14:32:00 EST, Height, [...] 1 Refills, Maintenance, 08/25/19 15:03:00 EDT, [facility]/pharmacy#4471, 2 sprays Nares, Both Daily, 163, cm, 08/25/19 12:40:00 EDT, Height, 98.9, kg, 08/25/19 12:42:00 EDT, Dry Weight Start Date: 08/25/19 Status: Ordered Nasonex 50 mcg/inh nasal spray 2 sprays, Nares, Both, 2 times a day, # 17 Gm, 0 Refills, Maintenance, 08/25/19 13:03:00 EDT, [place], [facility]/pharmacy #4471, 2 sprays Nares, Both 2 times [...] 07/31/20 9:07:00 EDT, Route to Pharmacy Electronically, [facility] #[id number], Partial fill upon patient request if the prescription is for a sched... Start Date: 07/31/20 Status: Ordered PriLOSEC OTC 20 mg oral delayed release tablet 1 tablet = 20 mg, By Mouth, Daily, # 30 tablet, 2 Refills, Maintenance, 03/13/20 11:45:00 EST, [facility]/pharmacy #4471, 163, cm, 03/08/20 11:24:00 EST, Height, 98.9, kg, 08/25/19 12:42:00 EDT, Dry Weight Start Date: 03/13/20 Status: Ordered semaglutide 0.25 mg/0.5 mL (0.25 mg dose) subcutaneous solution = 0.25 mg, Subcutaneous Injection, Every 72 hours, # 3 each, 0 Refills, Maintenance, 09/13/21 9:26:00 EDT, [facility]/pharmacy #[id number], Partial fill upon patient request if the prescription is for a schedule II opioid drug., 163, cm, 09/13/21 9:15:00 EDT, Height Start Date: 09/13/21 Status: Ordered Systane Complete Optimal Dry Eye Relief ophthalmic solution 2 drops, Eyes, Both, 3 times a day, # 30 mL, 3 Refills, Maintenance, 11/28/19 8:55:00 EDT, [facility]/pharmacy #[id number], 2 drops Eyes, Both 3 times [...] 12:13:00 EST, Route to Pharmacy Electronically, [facility]/pharmacy #[id number], 163, cm, 03/07/21 11:34:00 EST,... Start Date: 04/12/21 Status: Ordered tiZANidine 4 mg oral tablet See Instructions, TAKE 1/2 TO 1 TABLET BY MOUTH EVERY 8 HOURS NEEDED FOR MILD AND MUSCLE SPASM, # 45 tablet, Refills 2, Maintenance, Instructions Replace Required Details, Route to Pharmacy Electronically, [facility], 163, cm, 07/27/20 13:59:0... Start Date: 07/27/20 Status: Ordered traMADol 50 mg oral tablet 1 tablet = 50 mg, By Mouth, Every 6 hours, PRN for pain, TAKE ONLY NEEDED Dx: M79.7, S92.91 Masspat checked, # 112 tablet, 0 Refills, Maintenance, 10/04/21 16:06:00 EDT, Tablet, [facility]/pharmacy #[id number], Please reinforce instructions with patient, she... [...] # 12 capsule, 0 Refills, [id number], 163, cm, 09/13/21 9:15:00 EDT, Height Start Date: 09/18/21 Status: Ordered Voltaren 1% topical gel 1 application, Topically, 4 times a day, PRN for pain, # 100 Gm, 0 Refills, Maintenance, 05/27/21 18:00:00 EDT, Gel, [facility]/pharmacy #[id number], Partial fill upon patient request if [...] [place] Back Pain Scale:88 on 01/13/17; initial Voss: 7 on 01/13/17 Social History Social History Type Response Smoking Status Former smoker, quit more than 30 days ago entered on: 04/06/20 Sex Care Team Personnel Name: Ernesto King MD Address: [address] [place] [address]
--- OUTSIDE RECORDS SUMMARY | 2022-06-03 10:51 | XMS_ITS | Continuity of Care Document ---
Author Name Unknown Organization [facility] Address [address] [place] [address]- Care Team Providers Care Book Packer Name Role Phone Ernesto King MD Primary Care Physician [place] [facility] [place] [facility] 02[place]27/22 [facility] [address] [place] [address]- Attending Physician: Nancie Messer DO Referring Physician: [...] Given 1Result Comment: [facility]:[id number] 2Result Comment: [facility] [id number] 3Result Comment: [11/30/2017] [facility] [id number] 4Result Comment: [12/31/2016] [facility] [id number] 5Admin Note: vis given 09/10/12 6Admin Note: VIS given 08/18/2011 7Result Comment: [12/31/2016] [facility] [id number] Medications albuterol 90 mcg/inh inhalation powder 2 puffs, Inhalation, Every 6 hours, PRN Wheezing/Shortness of Breath, # 1 each, 3 Refills, Maintenance, 11/22/21 17:17:00 EDT, Powder, [facility]/pharmacy #[id number], dispense pro-air, 2 puffs Inhalation Every 6hours,PRN:Wheezing/Shortness of Breath, 163, cm, 10... Start Date: 11/22/21 Status: Ordered albuterol-ipratropium 3 mg-0.5 mg/3 ml inhalation solution 3 mL, Neb, 4 times a day, J45.40, # 180 mL, 3 Refills, Maintenance, 11/22/21 17:17:00 EDT, Solution, [facility]/pharmacy #[id number], 3 mL Neb 4 times a day,Instr:J45.40, 163, cm, 11/22/21 15:30:00 EDT, Height Start Date: 11/22/21 Status: Ordered celecoxib 100 mg oral capsule 1 capsule, By Mouth, 2 times a day with meals, # 60 capsule, 1 Refills, Maintenance, 08/14/20 12:53:00 EDT, [id number], 163, cm, 07/31/20 9:10:00 EDT, Height, 98.9, [...] 3 Refills, Maintenance, 02/29/20 14:04:00 EST, Aerosol, [id number], 163, cm, 02/29/20 13:19:00 EST, Height, 98.9, [...] 11/22/21 17:17:00 EDT, Route to Pharmacy Electronically, [facility]/pharmacy #[id number], 163, cm, 11/22/21 15:30:00 EDT, Height Start Date: 11/22/21 Stop Date: 01/21/22 Status: Ordered levothyroxine 175 mcg (0.175 mg) oral tablet 1 tablet = 175 mcg, By Mouth, Daily, # 90 tablet, 1 Refills, Maintenance, 06/27/21 11:36:00 EDT, Tablet, [facility]/pharmacy #[id number], Partial fill upon patient request if the prescription is for a schedule IIopioid drug., 163, cm, 06/27/21 11:27:00 EDT, [place] Start Date: 06/27/21 Status: Ordered loratadine 10 mg oral tablet 10 mg, 1, tablet, By Mouth, Daily, # 30 tablet, Refills 6, Tot. Refills 6, Maintenance, 11/28/19 8:53:00 EDT, Route to Pharmacy Electronically, [facility]/pharmacy #[id number], 163, cm, 11/25/19 14:43:00 EDT, Height, 98.9, kg, 08/25/19 12:42:00 EDT, Dry Weight Start Date: 11/28/19 Status: Ordered metFORMIN 500 mg oral tablet 1 tablet = 500 mg, By Mouth, 2 times a day, # 60 tablet, 5 Refills, Maintenance, 02/19/21 8:58:00 EST, [facility]/pharmacy #[id number], 163, cm, 02/18/21 14:32:00 [...] 1 Refills, Maintenance, 08/25/19 15:03:00 EDT, [facility]/pharmacy#[id number], 2 sprays Nares, Both Daily, 163, cm, 08/25/19 12:40:00 EDT, Height, 98.9, kg, 08/25/19 12:42:00 EDT, Dry Weight Start Date: 08/25/19 Status: Ordered Nasonex 50 mcg/inh nasal spray 2 sprays, Nares, Both, 2 times a day, # 17 Gm, 0 Refills, Maintenance, 12/04/21 11:58:00 EDT, [place], [facility]/pharmacy #[id number], 2 sprays Nares, Both [...] 07/31/20 9:07:00 EDT, [id number], Partial fill upon patient request if the prescription is for a sched... Start Date: 07/31/20 Status: Ordered PriLOSEC OTC 20 mg oral delayed release tablet 1 tablet = 20 mg, By Mouth, Daily, # 30 tablet, 2 Refills, Maintenance, 12/04/21 11:57:00 EDT, [facility]/pharmacy #[id number], 163, cm, 12/04/21 11:37:00 EDT, Height Start Date: 12/04/21 Status: Ordered semaglutide 0.25 mg/0.5 mL (0.25 mg dose) subcutaneous solution = 0.25 mg, Subcutaneous Injection, Every week, # 3 each, 1 Refills, Maintenance, 11/25/21 8:34:00 EDT, [facility]/pharmacy #[id number], Partial fill upon patient request if the prescription is for a schedule II opioid drug., 163, cm, 11/22/21 15:30:00 EDT, Height Start Date: 11/25/21 Status: Ordered Systane Complete Optimal Dry Eye Relief ophthalmic solution 2 drops, Eyes, Both, 3 times a day, # 30 mL, 3 Refills, Maintenance, 12/04/21 11:56:00 EDT, [facility]/pharmacy #[id number], 2 drops Eyes, Both 3 times a day, 163, cm, 12/04/21 11:37:00 EDT, Height Start Date: 12/04/21 Status: Ordered tiZANidine 4 mg oral tablet 0.5-1 tablet, By Mouth, Every 8 hours, PRN, TAKE ONLY NEEDED FOR MUSCLE SPASM, # 45 tablet, Refills 2, Tot. Refills 2, Maintenance, Spasm, 04/12/21 12:13:00 EST, Route to Pharmacy Electronically, [facility]/pharmacy #[id number], 163, cm, 03/07/21 11:34:00 EST,... Start Date: 04/12/21 Status: Ordered tiZANidine 4 mg oral tablet See Instructions, TAKE 1/2 TO 1 TABLET BY MOUTH EVERY 8 HOURS NEEDED FOR MILD AND MUSCLE SPASM, # 45 tablet, Refills 2, Maintenance, Instructions Replace Required Details, Route to Pharmacy Electronically, [id number], 163, cm, 07/27/20 13:59:0... Start Date: 07/27/20 Status: Ordered traMADol 50 mg oral tablet 1 tablet = 50 mg, By Mouth, Every 6 hours, PRN for pain, TAKE ONLY NEEDED Dx: M79.7, S92.91 Masspat checked, # 112 tablet, 0 Refills, Maintenance, 02/05/22 11:35:00 EST, Tablet, [facility]/pharmacy #[id number], Please reinforce instructions with patient, she... Start Date: 02/05/22 Stop Date: 03/05/22 Status: Ordered Victoza 18 mg/3 mL subcutaneous solution = 0.6 mg, Subcutaneous Injection, Daily, # 6 mL, 3 Refills, Maintenance, 10/16/21 15:56:00 EDT, Injection, [facility]/pharmacy #[id number], dispense as pen, 163, cm, 10/16/21 14:49:00 EDT, Height Start Date: 10/16/21 Status: Ordered Vitamin D3 50,000 intl units oral capsule 1 capsule, By Mouth, Every week, # 12 capsule, 0 Refills, [facility], 163, cm, 09/13/21 9:15:00 EDT, Height Start Date: 09/18/21 Status: Ordered Voltaren 1% topical gel 1 application, Topically, 4 times a day, PRN for pain, # 100 Gm, 0 Refills, Maintenance, 05/27/21 18:00:00 EDT, Gel, [facility]/pharmacy #[id number], Partial fill upon patient [...] [place] Back Pain Scale:88 on 01/13/17; initial [place]: 7 on 01/13/17 Vital Signs Most recent to oldest [Reference Range]: 1 Height 163 cm (02/20/22 2:20 PM) Oxygen Saturation [94-100 %] 94 % (02/20/22 2:20 PM) Pulse Rate [55-90 bpm] 88 bpm (02/20/22 2:20 PM) Blood Pressure [90-138/55-84 mm Hg] 149/ 90mm Hg *H* (02/20/22 2:20 PM) Respiratory Rate [16-30 br/min] 16 br/mi n (02/20/22 2:20 PM) Temperature [96.8-100.4 DegF] 96.9 DegF (02/20/22 2:20 PM) Mode of Delivery (Oxygen) Room air (02/20/22 2:20 PM) Blood pressure sites Arm, right (02/20/22 2:20 PM) Temperature Route Temporal (02/20/22 2:20 PM) Social History Social History Type Response Smoking Status Former smoker, quit more than 30 days ago entered on: 04/06/20 Sex Patient Care team information Care Team Personnel Name: Ernesto King MD Position: [facility] Primary Care Physician Member Role: PCP Address: Address: [address] [place] [address] Name: Kathrine Luna MD Position: [facility] ELEVATOR CONSTRUCTOR MD Member Role: Lifetime ELEVATOR CONSTRUCTOR Physician Address: Address: [address] [place] [address] Women's Health Painter [employer] - [address] Name: Kathya Grullon RN Position: [facility] RN Member Role: Primary Care Nurse Care Team Related Persons Name: LYN LEIGH Address: [place] [address] Name: MADDIE LEIGH
--- OUTSIDE RECORDS SUMMARY | 2022-06-03 10:51 | XMS_ITS | Continuity of Care Document ---
Author Name Unknown Organization [facility] Address [address] [place] [id number]- Care Team Providers Care Supervisor Research Shop Name Role Phone Ernesto King MD Primary Care Physician [place] [facility] Date(s): 12/24/21 - 02/13/[address] [id number] Attending Physician: Ernesto King MD Admitting [...] Given tetanus/diphtheria/pertussis, acel(Tdap) 01/30/16 Given 1Result Comment: [facility]:[id number] 2Result Comment: [facility] [id number] 3Result Comment: [11/30/2017] [facility] [id number] 4Result Comment: [12/31/2016] [facility] [id number] 5Admin Note: vis given 09/10/12 6Admin Note: VIS given 08/18/2011 7Result Comment: [12/31/2016] [facility] [id number] Medications albuterol 90 mcg/inh inhalation powder 2 puffs, Inhalation, Every 6 hours, PRN Wheezing/Shortness of Breath, # 1 each, 3 Refills, Maintenance, 11/22/21 17:17:00 EDT, Powder, [facility]/pharmacy #[id number], dispense pro-air, 2 puffs Inhalation Every 6hours,PRN:Wheezing/Shortness of Breath, 163, cm, 10... Start Date: 11/22/21 Status: Ordered albuterol-ipratropium 3 mg-0.5 mg/3 ml inhalation solution 3 mL, Neb, 4 times a day, J45.40, # 180 mL, 3 Refills, Maintenance, 11/22/21 17:17:00 EDT, Solution, [facility]/pharmacy #[id number], 3 mL Neb 4 times a day,Instr:J45.40, 163, cm, 11/22/21 15:30:00 EDT, Height Start Date: 11/22/21 Status: Ordered celecoxib 100 mg oral capsule 1 capsule, By Mouth, 2 times a day with meals, # 60 capsule, 1 Refills, Maintenance, 08/14/20 12:53:00 EDT, [facility], 163, cm, 07/31/20 9:10:00 EDT, Height, 98.9, [...] 3 Refills, Maintenance, 02/29/20 14:04:00 EST, Aerosol, [facility] #[id number], 163, cm, 02/29/20 13:19:00 EST, Height, 98.9, [...] 11/22/21 17:17:00 EDT, Route to Pharmacy Electronically, [facility]/pharmacy #[id number], 163, cm, 11/22/21 15:30:00 EDT, Height Start Date: 11/22/21 Stop Date: 01/21/22 Status: Ordered levothyroxine 175 mcg (0.175 mg) oral tablet 1 tablet = 175 mcg, By Mouth, Daily, # 90 tablet, 1 Refills, Maintenance, 06/27/21 11:36:00 EDT, Tablet, [facility]/pharmacy #[id number], Partial fill upon patient request if the prescription is for a schedule IIopioid drug., 163, cm, 06/27/21 11:27:00 EDT, [place]... Start Date: 06/27/21 Status: Ordered loratadine 10 mg oral tablet 10 mg, 1, tablet, By Mouth, Daily, # 30 tablet, Refills 6, Tot. Refills 6, Maintenance, 11/28/19 8:53:00 EDT, Route to Pharmacy Electronically, [facility]/pharmacy #[id number], 163, cm, 11/25/19 14:43:00 EDT, Height, 98.9, kg, 08/25/19 12:42:00 EDT, Dry Weight Start Date: 11/28/19 Status: Ordered metFORMIN 500 mg oral tablet 1 tablet = 500 mg, By Mouth, 2 times a day, # 60 tablet, 5 Refills, Maintenance, 02/19/21 8:58:00 EST, [facility]/pharmacy #[id number], 163, cm, 02/18/21 14:32:00 EST, Height, [...] each, 1 Refills, Maintenance, 08/25/19 15:03:00 EDT, [facility]/pharmacy#4471, 2 sprays Nares, Both Daily, 163, cm, 08/25/19 12:40:00 EDT, Height, 98.9, kg, 08/25/19 12:42:00 EDT, Dry Weight Start Date: 08/25/19 Status: Ordered Nasonex 50 mcg/inh nasal spray 2 sprays, Nares, Both, 2 times a day, # 17 Gm, 0 Refills, Maintenance, 12/04/21 11:58:00 EDT, [place], [facility]/pharmacy #[id number], 2 sprays Nares, Both 2 times [...] 07/31/20 9:07:00 EDT, Route to Pharmacy Electronically, [facility] #[id number], Partial fill upon patient request if the [...] each, 1 Refills, Maintenance, 11/25/21 8:34:00 EDT, [facility]/pharmacy #[id number], Partial fill upon patient request if the prescription is for a schedule II opioid drug., 163, cm, 11/22/21 15:30:00 EDT, Height Start Date: 11/25/21 Status: Ordered Systane Complete Optimal Dry Eye Relief ophthalmic solution 2 drops, Eyes, Both, 3 times a day, # 30 mL, 3 Refills, Maintenance, 12/04/21 11:56:00 EDT, [facility]/pharmacy #[id number], 2 drops Eyes, Both 3 times a day, 163, cm, 12/04/21 11:37:00 EDT, Height Start Date: 12/04/21 Status: Ordered tiZANidine 4 mg oral tablet 0.5-1 tablet, By Mouth, Every 8 hours, PRN, TAKE ONLY NEEDED FOR MUSCLE SPASM, # 45 tablet, Refills 2, Tot. Refills 2, Maintenance, Spasm, 04/12/21 12:13:00 EST, Route to Pharmacy Electronically, [facility]/pharmacy #[id number], 163, cm, 03/07/21 11:34:00 EST,... Start Date: 04/12/21 Status: Ordered tiZANidine 4 mg oral tablet See Instructions, TAKE 1/2 TO 1 TABLET BY MOUTH EVERY 8 HOURS NEEDED FOR MILD AND MUSCLE SPASM, # 45 tablet, Refills 2, Maintenance, Instructions Replace Required Details, Route to Pharmacy Electronically, [facility], 163, cm, 07/27/20 13:59:0... Start Date: 07/27/20 Status: Ordered traMADol 50 mg oral tablet 1 tablet = 50 mg, By Mouth, Every 6 hours, PRN for pain, TAKE ONLY NEEDED Dx: M79.7, S92.91 Masspat checked, # 112 tablet, 0 Refills, Maintenance, 02/05/22 11:35:00 EST, [facility], [id number], Please reinforce instructions with patient, she... Start Date: 02/05/22 Stop Date: 03/05/22 Status: Ordered Victoza 18 mg/3 mL subcutaneous solution = 0.6 mg, Subcutaneous Injection, Daily, # 6 mL, 3 Refills, Maintenance, 10/16/21 15:56:00 EDT, Injection, [facility]/pharmacy #[id number], dispense as pen, 163, cm, 10/16/21 14:49:00 EDT, Height Start Date: 10/16/21 Status: Ordered Vitamin D3 50,000 intl units oral capsule 1 capsule, By Mouth, Every week, # 12 capsule, 0 Refills, [facility], 163, cm, 09/13/21 9:15:00 EDT, Height Start Date: 09/18/21 Status: Ordered Voltaren 1% topical gel 1 application, Topically, 4 times a day, PRN for pain, # 100 Gm, 0 Refills, Maintenance, 05/27/21 18:00:00 EDT, Gel, [facility]/pharmacy #[id number], Partial fill upon patient request if [...] [place] Back Pain Scale:88 on 01/13/17; initial [place]: 7 on 01/13/17 Social History Social History Type Response Smoking Status Former smoker, quit more than 30 days ago entered on: 04/06/20 Sex Patient Care team information Care Team Personnel Name: Ernesto King MD Position: [facility] Primary Care Physician Member Role: PCP Address: Address: [address] [place] [address]- Name: Kathrine Luna MD Position: [facility] PEANUT SORTER MD Member Role: Lifetime PEANUT SORTER Physician Address: Address: [address] [facility] [place] [address]- Name: Kathya Grullon RN Position: [facility] RN Member Role: Primary Care Nurse Care Team Related Persons Name: LYN LEIGH Address: [place] [address] Name: MADDIE LEIGH
--- OUTSIDE RECORDS SUMMARY | 2022-06-03 10:51 | XMS_ITS | Continuity of Care Document ---
Author Name Unknown Organization [facility] Address [address] [place] [address]- Care Team Providers Care Car Framer Name Role Phone Fernando CARTY, Ernesto Zapata Primary Care Physician Encounter [facility] Date(s): 10/01/21 - 10/31/21 [facility] [address] [place] [address]- Allergies, Adverse Reactions, Alerts No Known Allergies [...] 01/30/16 Given 1Result Comment: [facility]:[id number] 2Result Comment: [facility] [id number] 3Result Comment: [11/30/2017] [facility] [id number] 4Result Comment: [12/31/2016] [facility] [id number] 5Admin Note: vis given 09/10/12 6Admin Note: VIS given 08/18/2011 7Result Comment: [12/31/2016] [facility] [id number] Medications albuterol 90 mcg/inh inhalation powder 2 puffs, Inhalation, Every 6 hours, PRN Wheezing/Shortness of Breath, # 1 each, 3 Refills, Maintenance, 02/27/21 16:30:00 EST, Powder, [facility]/pharmacy #[id number], dispense pro-air, 2 puffs Inhalation Every 6hours,PRN:Wheezing/Shortness of Breath, 163, cm, 01... Start Date: 02/27/21 Status: Ordered albuterol-ipratropium 3 mg-0.5 mg/3 ml inhalation solution 3 mL, Neb, 4 times a day, J45.40, # 180 mL, 3 Refills, Maintenance, 07/02/20 14:11:00 EDT, Solution, [facility]/pharmacy #[id number], 3 mL Neb 4 times a day,Instr:J45.40, 163, cm, 06/18/20 13:31:00 EDT, Height, 98.9, kg, 08/25/19 12:42:00 EDT, Dry Weight Start Date: 07/02/20 Status: Ordered celecoxib 100 mg oral capsule 1 capsule, By Mouth, 2 times a day with meals, # 60 capsule, 1 Refills, Maintenance, 08/14/20 12:53:00 EDT, [facility], 163, cm, 07/31/20 9:10:00 EDT, Height, 98.9, [...] 3 Refills, Maintenance, 02/29/20 14:04:00 EST, Aerosol, [facility][id number], 163, cm, 02/29/20 13:19:00 EST, Height, 98.9, [...] 08/29/21 14:22:00 EDT, Route to Pharmacy Electronically, [facility]/pharmacy #[id number], 163, cm, 08/29/21 13:43:00 EDT, Height Start Date: 08/29/21 Stop Date: 10/28/21 Status: Ordered levothyroxine 175 mcg (0.175 mg) oral tablet 1 tablet = 175 mcg, By Mouth, Daily, # 90 tablet, 1 Refills, Maintenance, 06/27/21 11:36:00 EDT, Tablet, [facility]/pharmacy #[id number], Partial fill upon patient request if the prescription is for a schedule IIopioid drug., 163, cm, 06/27/21 11:27:00 EDT, [place]... Start Date: 06/27/21 Status: Ordered loratadine 10 mg oral tablet 10 mg, 1, tablet, By Mouth, Daily, # 30 tablet, Refills 6, Tot. Refills 6, Maintenance, 11/28/19 8:53:00 EDT, Route to Pharmacy Electronically, [facility]/pharmacy #[id number], 163, cm, 11/25/19 14:43:00 EDT, Height, 98.9, kg, 08/25/19 12:42:00 EDT, Dry Weight Start Date: 11/28/19 Status: Ordered metFORMIN 500 mg oral tablet 1 tablet = 500 mg, By Mouth, 2 times a day, # 60 tablet, 5 Refills, Maintenance, 02/19/21 8:58:00 EST, [facility]/pharmacy #[id number], 163, cm, 02/18/21 14:32:00 EST, [...] 1 Refills, Maintenance, 08/25/19 15:03:00 EDT, [facility]/pharmacy#4471, 2 sprays Nares, Both Daily, 163, cm, 08/25/19 12:40:00 EDT, Height, 98.9, kg, 08/25/19 12:42:00 EDT, Dry Weight Start Date: 08/25/19 Status: Ordered Nasonex 50 mcg/inh nasal spray 2 sprays, Nares, Both, 2 times a day, # 17 Gm, 0 Refills, Maintenance, 08/25/19 13:03:00 EDT, [place], [facility]/pharmacy #[id number], 2 sprays Nares, Both 2 [...] 07/31/20 9:07:00 EDT, Route to Pharmacy Electronically, [id number], Partial fill upon patient request if the prescription is for a sched... Start Date: 07/31/20 Status: Ordered PriLOSEC OTC 20 mg oral delayed release tablet 1 tablet = 20 mg, By Mouth, Daily, # 30 tablet, 2 Refills, Maintenance, 03/13/20 11:45:00 EST, [facility]/pharmacy #[id number], 163, cm, 03/08/20 11:24:00 EST, Height, 98.9, kg, 08/25/19 12:42:00 EDT, Dry Weight Start Date: 03/13/20 Status: Ordered semaglutide 0.25 mg/0.5 mL (0.25 mg dose) subcutaneous solution = 0.25 mg, Subcutaneous Injection, Every 72 hours, # 3 each, 0 Refills, Maintenance, 09/13/21 9:26:00 EDT, [facility]/pharmacy #[id number], Partial fill upon patient request if the prescription is for a schedule II opioid drug., 163, cm, 09/13/21 9:15:00 EDT, Height Start Date: 09/13/21 Status: Ordered Systane Complete Optimal Dry Eye Relief ophthalmic solution 2 drops, Eyes, Both, 3 times a day, # 30 mL, 3 Refills, Maintenance, 11/28/19 8:55:00 EDT, [facility]/pharmacy #[id number], 2 drops Eyes, Both 3 [...] 12:13:00 EST, Route to Pharmacy Electronically, [facility]/pharmacy #[id number], 163, cm, 03/07/21 11:34:00 EST,... Start Date: 04/12/21 Status: Ordered tiZANidine 4 mg oral tablet See Instructions, TAKE 1/2 TO 1 TABLET BY MOUTH EVERY 8 HOURS NEEDED FOR MILD AND MUSCLE SPASM, # 45 tablet, Refills 2, Maintenance, Instructions Replace Required Details, Route to Pharmacy Electronically, [facility], 163, cm, 07/27/20 13:59:0... Start Date: 07/27/20 Status: Ordered traMADol 50 mg oral tablet 1 tablet = 50 mg, By Mouth, Every 6 hours, PRN for pain, TAKE ONLY NEEDED Dx: M79.7, S92.91 Masspat checked, # 112 tablet, 0 Refills, Maintenance, 10/04/21 16:06:00 EDT, Tablet, [facility]/pharmacy #[id number], Please reinforce instructions with patient, [...] # 12 capsule, 0 Refills, [facility], 163, cm, 09/13/21 9:15:00 EDT, Height Start Date: 09/18/21 Status: Ordered Voltaren 1% topical gel 1 application, Topically, 4 times a day, PRN for pain, # 100 Gm, 0 Refills, Maintenance, 05/27/21 18:00:00 EDT, Gel, [facility]/pharmacy #[id number], Partial fill upon patient request [...] [place] Back Pain Scale:88 on 01/13/17; initial [place]: 7 on 01/13/17 Social History Social History Type Response Smoking Status Former smoker, quit more than 30 days ago entered on: 04/06/20 Sex Care Team Personnel Name: Ernesto King MD Address: [address] [place] [address]
--- OUTSIDE RECORDS SUMMARY | 2022-06-03 10:51 | XMS_ITS | Continuity of Care Document ---
Author Name Unknown Organization [facility] Address [address] [place] [address]- Care Team Providers Care Assorter Laundry Name Role Phone Ernesto King MD Primary Care Physician [facility] Date(s): 03/04[facility]22 - 04/03/22 [facility] [address], [place] [address] Allergies, Adverse Reactions, Alerts No Known Allergies [...] acel(Tdap) 01/30/16 Given 1Result Comment: [facility]:[id number] 2Result Comment: [facility] [id number] 3Result Comment: [11/30/2017] [facility] 40479-465-12 4Result Comment: [12/31/2016] [facility] [id number] 5Admin Note: vis given 09/10/12 6Admin Note: VIS given 08/18/2011 7Result Comment: [12/31/2016] [facility] [id number] Medications albuterol 90 mcg/inh inhalation powder 2 puffs, Inhalation, Every 6 hours, PRN Wheezing/Shortness of Breath, # 1 each, 3 Refills, Maintenance, 11/22/21 17:17:00 EDT, Powder, [facility]/pharmacy #[id number], dispense pro-air, 2 puffs Inhalation Every 6hours,PRN:Wheezing/Shortness of Breath, 163, cm, 10... Start Date: 11/22/21 Status: Ordered albuterol-ipratropium 3 mg-0.5 mg/3 ml inhalation solution 3 mL, Neb, 4 times a day, J45.40, # 180 mL, 3 Refills, Maintenance, 11/22/21 17:17:00 EDT, Solution, [facility]/pharmacy #[id number], 3 mL Neb 4 times a day,Instr:J45.40, 163, cm, 11/22/21 15:30:00 EDT, Height Start Date: 11/22/21 Status: Ordered Augmentin 875 mg-125 mg oral tablet 1 tablet, By Mouth, Every 12 hours, for 10 days, # 20 tablet, 0 Refills, Acute 04/10/22 12:00:00 EST, 03/31/22 12:00:00 EST, Tablet, [facility]/pharmacy #[id number], Partial fill upon patient request if the prescription is for a schedule II opioid drug., 163, cm,... Start Date: 03/31/22 Stop Date: 04/10/22 Status: Ordered celecoxib 100 mg oral capsule 1 capsule, By Mouth, 2 times a day with meals, # 60 capsule, 1 Refills, Maintenance, 08/14/20 12:53:00 EDT, [id number], 163, cm, 07/31/20 9:10:00 EDT, Height, 98.9, [...] 3 Refills, Maintenance, 02/29/20 14:04:00 EST, Aerosol, [facility] #[id number], 163, cm, 02/29/20 13:19:00 EST, Height, 98.9, [...] 11/22/21 17:17:00 EDT, Route to Pharmacy Electronically, [facility]/pharmacy #[id number], 163, cm, 11/22/21 15:30:00 EDT, Height Start Date: 11/22/21 Stop Date: 01/21/22 Status: Ordered levothyroxine 175 mcg (0.175 mg) oral tablet 1 tablet = 175 mcg, By Mouth, Daily, # 90 tablet, 0 Refills, Maintenance, 03/31/22 12:00:00 EST, Tablet, [facility]/pharmacy #[id number], Partial fill upon patient request if the prescription is for a schedule IIopioid drug., 163, cm, 03/31/22 11:41:00 EST, Height Start Date: 03/31/22 Status: Ordered loratadine 10 mg oral tablet 10 mg, 1, tablet, By Mouth, Daily, # 30 tablet, Refills 6, Tot. Refills 6, Maintenance, 11/28/19 8:53:00 EDT, [id number] 163, cm, 11/25/19 14:43:00 EDT, Height, 98.9, kg, 08/25/19 12:42:00 EDT, Dry Weight Start Date: 11/28/19 Status: Ordered metFORMIN 500 mg oral tablet 1 tablet = 500 mg, By Mouth, 2 times a day, # 60 tablet, 5 Refills, Maintenance, 02/19/21 8:58:00 EST, [facility]/pharmacy #[id number], 163, cm, 02/18/21 14:32:00 [...] each, 1 Refills, Maintenance, 08/25/19 15:03:00 EDT, [facility]/pharmacy#[id number], 2 sprays Nares, Both Daily, 163, cm, 08/25/19 12:40:00 EDT, Height, 98.9, kg, 08/25/19 12:42:00 EDT, Dry Weight Start Date: 08/25/19 Status: Ordered Nasonex 50 mcg/inh nasal spray 2 sprays, Nares, Both, 2 times a day, # 17 Gm, 0 Refills, Maintenance, 12/04/21 11:58:00 EDT, [place], [facility]/pharmacy #[id number], 2 sprays Nares, Both [...] 07/31/20 9:07:00 EDT, Route to Pharmacy Electronically, [facility] #[id number], Partial fill upon patient request if the prescription is for a sched... Start Date: 07/31/20 Status: Ordered PriLOSEC OTC 20 mg oral delayed release tablet 1 tablet = 20 mg, By Mouth, Daily, # 30 tablet, 2 Refills, Maintenance, 12/04/21 11:57:00 EDT, [facility]/pharmacy #[id number], 163, cm, 12/04/21 11:37:00 EDT, Height Start Date: 12/04/21 Status: Ordered semaglutide 0.25 mg/0.5 mL (0.25 mg dose) subcutaneous solution = 0.25 mg, Subcutaneous Injection, Every week, # 3 each, 1 Refills, Maintenance, 11/25/21 8:34:00 EDT, [facility]/pharmacy #[id number], Partial fill upon patient request if the prescription is for a schedule II opioid drug., 163, cm, 11/22/21 15:30:00 EDT, Height Start Date: 11/25/21 Status: Ordered Systane Complete Optimal Dry Eye Relief ophthalmic solution 2 drops, Eyes, Both, 3 times a day, # 30 mL, 3 Refills, Maintenance, 12/04/21 11:56:00 EDT, [facility]/pharmacy #[id number], 2 drops Eyes, Both 3 times a day, 163, cm, 12/04/21 11:37:00 EDT, Height Start Date: 12/04/21 Status: Ordered tiZANidine 4 mg oral tablet 0.5-1 tablet, By Mouth, Every 8 hours, PRN, TAKE ONLY NEEDED FOR MUSCLE SPASM, # 45 tablet, Refills 2, Tot. Refills 2, Maintenance, Spasm, 04/12/21 12:13:00 EST, Route to Pharmacy Electronically, [facility]/pharmacy #[id number], 163, cm, 03/07/21 11:34:00 EST,... Start Date: 04/12/21 Status: Ordered tiZANidine 4 mg oral tablet See Instructions, TAKE 1/2 TO 1 TABLET BY MOUTH EVERY 8 HOURS NEEDED FOR MILD AND MUSCLE SPASM, # 45 tablet, Refills 2, Maintenance, Instructions Replace Required Details, Route to Pharmacy Electronically, [id number], 163, cm, 07/27/20 13:59:0... Start Date: 07/27/20 Status: Ordered traMADol 50 mg oral tablet 1 tablet = 50 mg, By Mouth, Every 6 hours, PRN for pain, TAKE ONLY NEEDED Dx: M79.7, S92.91 [place] checked, # 112 tablet, 0 Refills, Maintenance, 04/01/22 15:55:00 EST, Tablet, [facility]/pharmacy #[id number], Please reinforce instructions with [...] # 12 capsule, 0 Refills, [facility], 163, cm, 09/13/21 9:15:00 EDT, Height Start Date: 09/18/21 Status: Ordered Voltaren 1% topical gel 1 application, Topically, 4 times a day, PRN for pain, # 100 Gm, 0 Refills, Maintenance, 05/27/21 18:00:00 EDT, Gel, [facility]/pharmacy #[id number], Partial fill upon patient [...] [place] Back Pain Scale:88 on 01/13/17; initial [place]: 7 on 01/13/17 Social History Social History Type Response Smoking Status Former smoker, quit more than 30 days ago entered on: 04/06/20 Sex Patient Care team information Care Team Personnel Name: Ernesto King MD Position: [facility] Primary Care Physician Member Role: PCP Address: Address: [address] [place] [address] Name: Kathrine Luna MD Position: [facility] BRANCH SERVICE SPECIALIST MD Member Role: Lifetime BRANCH SERVICE SPECIALIST Physician Address: Address: [address] [facility] [place] [address]- Name: Kathya Grullon RN Position: [facility] RN Member Role: Primary Care Nurse Care Team Related Persons Name: LYN LEIGH Address: home [address] [place] [id number] Name: MADDIE LEIGH
--- OUTSIDE RECORDS SUMMARY | 2022-06-03 10:51 | XMS_ITS | Continuity of Care Document ---
Author Name Unknown Organization [facility] Address [address] [place] [address]- Care Team Providers Care Truck Technician Name Role Phone Ernesto King MD Primary Care Physician [facility]counter [facility] Date(s): 08/29/21 - 09/05/21 [facility] [address] [place] [address]- Encounter Diagnosis Bilateral knee pain(Discharge Diagnosis) - 08/29/21 Chronic pain syndrome(Discharge Diagnosis) - 08/29/21 Hypothyroidism(Discharge Diagnosis) - 08/29/21 Diabetes mellitus with hyperglycemia(Discharge Diagnosis) - 08/29/21 Diabetes mellitus with microalbuminuria(Discharge Diagnosis) - 08/29/21 Asthma, moderate persistent(Discharge Diagnosis) - 08/29/21 Attending Physician: Ernesto King MD Allergies, Adverse [...] tetanus/diphtheria/pertussis, acel(Tdap) 01/30/16 Given 1Result Comment: [facility]:[id number] 2Result Comment: [facility] 39218-963-81 3Result Comment: [11/30/2017] [facility] 88354-647-80 4Result Comment: [12/31/2016] [facility] [id number] 5Admin Note: vis given 09/10/12 6Admin Note: VIS given 08/18/2011 7Result Comment: [12/31/2016] [facility] [id number] Medications albuterol 90 mcg/inh inhalation powder 2 puffs, Inhalation, Every 6 hours, PRN Wheezing/Shortness of Breath, # 1 each, 3 Refills, Maintenance, 02/27/21 16:30:00 EST, Powder, [facility]/pharmacy #[id number], dispense pro-air, 2 puffs Inhalation Every 6hours,PRN:Wheezing/Shortness of Breath, 163, cm, 01... Start Date: 02/27/21 Status: Ordered albuterol-ipratropium 3 mg-0.5 mg/3 ml inhalation solution 3 mL, Neb, 4 times a day, J45.40, # 180 mL, 3 Refills, Maintenance, 07/02/20 14:11:00 EDT, Solution, [facility]/pharmacy #[id number], 3 mL Neb 4 times a day,Instr:J45.40, 163, cm, 06/18/20 13:31:00 EDT, Height, 98.9, kg, 08/25/19 12:42:00 EDT, Dry Weight Start Date: 07/02/20 Status: Ordered celecoxib 100 mg oral capsule 1 capsule, By Mouth, 2 times a day with meals, # 60 capsule, 1 Refills, Maintenance, 08/14/20 12:53:00 EDT, [id number], 163, cm, 07/31/20 9:10:00 EDT, Height, 98.9, [...] 3 Refills, Maintenance, 02/29/20 14:04:00 EST, Aerosol, [facility] #[id number], 163, cm, 02/29/20 13:19:00 EST, Height, 98.9, [...] EDT, [id number] 163, cm, 08/29/21 13:43:00 EDT, Height Start Date: 08/29/21 Stop Date: 10/28/21 Status: Ordered levothyroxine 175 mcg (0.175 mg) oral tablet 1 tablet = 175 mcg, By Mouth, Daily, # 90 tablet, 1 Refills, Maintenance, 06/27/21 11:36:00 EDT, Tablet, [facility]/pharmacy #[id number], Partial fill upon patient request if the prescription is for a schedule IIopioid drug., 163, cm, 06/27/21 11:27:00 EDT, [place]... Start Date: 06/27/21 Status: Ordered loratadine 10 mg oral tablet 10 mg, 1, tablet, By Mouth, Daily, # 30 tablet, Refills 6, Tot. Refills 6, Maintenance, 11/28/19 8:53:00 EDT, [id number], 163, cm, 11/25/19 14:43:00 EDT, Height, 98.9, kg, 08/25/19 12:42:00 EDT, Dry Weight Start Date: 11/28/19 Status: Ordered metFORMIN 500 mg oral tablet 1 tablet = 500 mg, By Mouth, 2 times a day, # 60 tablet, 5 Refills, Maintenance, 02/19/21 8:58:00 EST, [facility]/pharmacy #[id number], 163, cm, 02/18/21 14:32:00 [...] each, 1 Refills, Maintenance, 08/25/19 15:03:00 EDT, [facility]/pharmacy#[id number], 2 sprays Nares, Both Daily, 163, cm, 08/25/19 12:40:00 EDT, Height, 98.9, kg, 08/25/19 12:42:00 EDT, Dry Weight Start Date: 08/25/19 Status: Ordered Nasonex 50 mcg/inh nasal spray 2 sprays, Nares, Both, 2 times a day, # 17 Gm, 0 Refills, Maintenance, 08/25/19 13:03:00 EDT, [place], [facility]/pharmacy #[id number], 2 sprays Nares, Both [...] 07/31/20 9:07:00 EDT, Route to Pharmacy Electronically, [facility] #[id number], Partial fill upon patient request if the prescription is for a sched... Start Date: 07/31/20 Status: Ordered PriLOSEC OTC 20 mg oral delayed release tablet 1 tablet = 20 mg, By Mouth, Daily, # 30 tablet, 2 Refills, Maintenance, 03/13/20 11:45:00 EST, [facility]/pharmacy #[id number], 163, cm, 03/08/20 11:24:00 EST, Height, 98.9, kg, 08/25/19 12:42:00 EDT, Dry Weight Start Date: 03/13/20 Status: Ordered semaglutide 0.25 mg/0.5 mL (0.25 mg dose) subcutaneous solution = 0.25 mg, Subcutaneous Injection, Every 72 hours, # 3 each, 0 Refills, Maintenance, 10/04/20 16:20:00 EDT, [facility] #[id number], Partial fill upon patient request if the prescription is for aschedule II opioid drug., 163, cm, 10/04/20 16:08:0... Start Date: 10/04/20 Status: Ordered Systane Complete Optimal Dry Eye Relief ophthalmic solution 2 drops, Eyes, Both, 3 times a day, # 30 mL, 3 Refills, Maintenance, 11/28/19 8:55:00 EDT, [facility]/pharmacy #[id number], 2 drops Eyes, Both [...] EST, [id number] 163, cm, 03/07/21 11:34:00 EST,... Start Date: 04/12/21 Status: Ordered tiZANidine 4 mg oral tablet See Instructions, TAKE 1/2 TO 1 TABLET BY MOUTH EVERY 8 HOURS NEEDED FOR MILD AND MUSCLE SPASM, # 45 tablet, Refills 2, Maintenance, Instructions Replace Required Details, Route to Pharmacy Electronically, [id number], 163, cm, 07/27/20 13:59:0... Start Date: 07/27/20 [...] [place] Back Pain Scale:88 on 01/13/17; initial [place]: 7 on 01/13/17 Diagnosis Diagnosis Type Effective Dates Health Status Clinical Service Informant Bilateral knee pain Discharge Diagnosis 08/29/21 Chronic pain syndrome Discharge Diagnosis 08/29/21 Hypothyroidism Discharge Diagnosis 08/29/21 Diabetes mellitus with hyperglycemia Discharge Diagnosis 08/29/21 Diabetes mellitus with microalbuminuria Discharge Diagnosis 08/29/21 Asthma, moderate persistent Discharge Diagnosis 08/29/21 Vital Signs Most recent to oldest [Reference Range]: 1 Height 163 cm (08/29/21 1:43 PM) Pulse Rate [55-90 bpm] 88 bpm (08/29/21 1:43 PM) Blood Pressure [90-138/55-84 mm Hg] 100/ 60mm Hg (08/29/21 1:43 PM) Mode of Delivery (Oxygen) Room air (08/29/21 1:43 PM) Blood pressure sites Arm, right (08/29/21 1:43 PM) Social History Social History Type Response Smoking Status Former smoker, quit more than 30 days ago entered on: 04/06/20 Sex
--- OUTSIDE RECORDS SUMMARY | 2022-06-03 10:51 | XMS_ITS | Continuity of Care Document ---
Author Name Unknown Organization [facility] Address [address] [place] [address]- Care Team Providers Care Blister Packing Machine Tender Name Role Phone Ernesto King MD Primary Care Physician Encounter 04/21/22 - 05/01/22 [facility] [address], [address] [place] [address]- Attending Physician: Ernesto King MD Admitting Physician: [...] Given tetanus/diphtheria/pertussis, acel(Tdap) 01/30/16 Given 1Result Comment: [facility]:[id number] 2Result Comment: [facility] [id number] 3Result Comment: [11/30/2017] [facility] [id number] 4Result Comment: [12/31/2016] [facility] [id number] 5Admin Note: vis given 09/10/12 6Admin Note: VIS given 08/18/2011 7Result Comment: [12/31/2016] [facility] [id number] Medications albuterol 90 mcg/inh inhalation powder 2 puffs, Inhalation, Every 6 hours, PRN Wheezing/Shortness of Breath, # 1 each, 3 Refills, Maintenance, 11/22/21 17:17:00 EDT, Powder, [facility]/pharmacy #[id number], dispense pro-air, 2 puffs Inhalation Every 6hours,PRN:Wheezing/Shortness of Breath, 163, cm, 10... Start Date: 11/22/21 Status: Ordered albuterol-ipratropium 3 mg-0.5 mg/3 ml inhalation solution 3 mL, Neb, 4 times a day, J45.40, # 180 mL, 3 Refills, Maintenance, 11/22/21 17:17:00 EDT, Solution, [facility]/pharmacy #[id number], 3 mL Neb 4 times a day,Instr:J45.40, 163, cm, 11/22/21 15:30:00 EDT, Height Start Date: 11/22/21 Status: Ordered celecoxib 100 mg oral capsule 1 capsule, By Mouth, 2 times a day with meals, # 60 capsule, 1 Refills, Maintenance, 08/14/20 12:53:00 EDT, [facility], 163, cm, 07/31/20 9:10:00 EDT, Height, 98.9, [...] 3 Refills, Maintenance, 02/29/20 14:04:00 EST, [id number], 163, cm, 02/29/20 13:19:00 EST, Height, 98.9, [...] 11/22/21 17:17:00 EDT, Route to Pharmacy Electronically, [facility]/pharmacy #[id number], 163, cm, 11/22/21 15:30:00 EDT, Height Start Date: 11/22/21 Stop Date: 01/21/22 Status: Ordered levothyroxine 175 mcg (0.175 mg) oral tablet 1 tablet = 175 mcg, By Mouth, Daily, # 90 tablet, 0 Refills, Maintenance, 03/31/22 12:00:00 EST, Tablet, [facility]/pharmacy #[id number], Partial fill upon patient request if the prescription is for a schedule IIopioid drug., 163, cm, 03/31/22 11:41:00 EST, Height Start Date: 03/31/22 Status: Ordered loratadine 10 mg oral tablet 10 mg, 1, tablet, By Mouth, Daily, # 30 tablet, Refills 6, Tot. Refills 6, Maintenance, 11/28/19 8:53:00 EDT, Route to Pharmacy Electronically, [facility]/pharmacy #[id number], 163, cm, 11/25/19 14:43:00 EDT, Height, 98.9, kg, 08/25/19 12:42:00 EDT, Dry Weight Start Date: 11/28/19 Status: Ordered metFORMIN 500 mg oral tablet 1 tablet = 500 mg, By Mouth, 2 times a day, # 60 tablet, 5 Refills, Maintenance, 02/19/21 8:58:00 EST, [facility]/pharmacy #[id number], 163, cm, 02/18/21 14:32:00 [...] each, 1 Refills, Maintenance, 08/25/19 15:03:00 EDT, [facility]/pharmacy#4471, 2 sprays Nares, Both Daily, 163, cm, 08/25/19 12:40:00 EDT, Height, 98.9, kg, 08/25/19 12:42:00 EDT, Dry Weight Start Date: 08/25/19 Status: Ordered Nasonex 50 mcg/inh nasal spray 2 sprays, Nares, Both, 2 times a day, # 17 Gm, 0 Refills, Maintenance, 12/04/21 11:58:00 EDT, [place], [facility]/pharmacy #[id number], 2 sprays Nares, Both [...] 07/31/20 9:07:00 EDT, [id number], Partial fill upon patient request if the prescription is for a sched... Start Date: 07/31/20 Status: Ordered PriLOSEC OTC 20 mg oral delayed release tablet 1 tablet = 20 mg, By Mouth, Daily, # 30 tablet, 2 Refills, Maintenance, 12/04/21 11:57:00 EDT, [facility]/pharmacy #[id number], 163, cm, 12/04/21 11:37:00 [...] mL, 3 Refills, Maintenance, 12/04/21 11:56:00 EDT, [facility]/pharmacy #[id number], 2 drops Eyes, Both 3 times a day, 163, cm, 12/04/21 11:37:00 EDT, Height Start Date: 12/04/21 Status: Ordered tiZANidine 4 mg oral tablet 0.5-1 tablet, By Mouth, Every 8 hours, PRN, TAKE ONLY NEEDED FOR MUSCLE SPASM, # 45 tablet, Refills 2, Tot. Refills 2, Maintenance, Spasm, 04/12/21 12:13:00 EST, Route to Pharmacy Electronically, [facility]/pharmacy #[id number], 163, cm, 03/07/21 11:34:00 EST,... Start Date: 04/12/21 Status: Ordered tiZANidine 4 mg oral tablet See Instructions, TAKE 1/2 TO 1 TABLET BY MOUTH EVERY 8 HOURS NEEDED FOR MILD AND MUSCLE SPASM, # 45 tablet, Refills 2, Maintenance, Instructions Replace Required Details, Route to Pharmacy Electronically, [facility], 163, cm, 07/27/20 13:59:0... Start Date: 07/27/20 Status: Ordered traMADol 50 mg oral tablet 1 tablet = 50 mg, By Mouth, Every 6 hours, PRN for pain, TAKE ONLY NEEDED Dx: M79.7, S92.91 [place] checked, # 112 tablet, 0 Refills, Maintenance, 04/01/22 15:55:00 EST, Tablet, [facility]/pharmacy #[id number], Please reinforce instructions with patient, she... Start Date: 04/01/22 Stop Date: 04/29/22 Status: Ordered Victoza 18 mg/3 mL subcutaneous solution = 0.6 mg, Subcutaneous Injection, Daily, # 6 mL, 3 Refills, Maintenance, 10/16/21 15:56:00 EDT, Injection, [facility]/pharmacy #[id number], dispense as pen, 163, cm, 10/16/21 14:49:00 EDT, Height Start Date: 10/16/21 Status: Ordered Vitamin D3 50,000 intl units oral capsule 1 capsule, By Mouth, Every week, # 12 capsule, 0 Refills, [id number], 163, cm, 09/13/21 9:15:00 EDT, Height Start Date: 09/18/21 Status: Ordered Voltaren 1% topical gel 1 application, Topically, 4 times a day, PRN for pain, # 100 Gm, 0 Refills, Maintenance, 05/27/21 18:00:00 EDT, Gel, [facility]/pharmacy #[id number], Partial fill upon patient [...] [place] Back Pain Scale:88 on 01/13/17; initial [place]: 7 on 01/13/17 Results Radiology Reports * Exam Date Time Procedure Performing Provider Status 04/24/22 1:50 PM US Abdomen Comp Linda Marques; Auth (V erified) Notes: (US Abdomen Comp) Reason For Exam: pain, elevated LFTs, elevated bilirubin level;Other: RESULT: US Abdomen Comp US Abdomen Comp Reason: Pain, elevated LFTs, elevated bilirubin level COMPARISON: CT abdomen and pelvis 04/06/2019. Abdominal ultrasound 09/14/2017. FINDINGS: Liver: Heterogeneously echogenic parenchyma. No focal lesion is seen. Main portal vein patent with normal hepatopetal direction of flow. Gallbladder: Status post cholecystectomy. Biliary Tree: No intrahepatic or extrahepatic bile duct dilation is identified. Common duct: 0.5 cm. Pancreas: Partially obscured by overlying bowel gas. No abnormality in the visualized portions of the pancreas. Spleen: Normal in size and echotexture. Right kidney: 12.8 cm in length. Normal parenchymal echotexture and thickness. No hydronephrosis, stone or mass. Left kidney: 13.3 cm in length. Normal parenchymal echotexture and thickness. No hydronephrosis, stone or mass. Aorta: Normal caliber and contour. Inferior vena cava: Normal. Other: No free fluid. IMPRESSION: Heterogeneously echogenic liver likely representing hepatic steatosis. Status post cholecystectomy with no biliary ductal dilatation. I have personally reviewed the images and I agree with this report. WSN: [id number] Ordering Physician: Ernesto King Dictated By: Damien Ocampo DO Dictated Date/Time: 04/24/22 3:21 pm Reviewed By: David Shaw MD Signed By: David Shaw MD Signed Date/Time: 04/24/22 3:26 pm Transcribed By: TEZ Transcribed Date/Time: 04/24/22 2:27 pm * Exam Date Time Procedure Performing Provider Status 04/24/22 1:50 PM US Pelvic Transvaginal Linda Marques; Penelope (Verified) Notes: (US Pelvic Transvaginal) Reason For Exam: not sure if having vaginal bleeding, assess endometrial lining;Other: RESULT: US Pelvic Transvaginal US Pelvic Transvaginal Reason: Vaginal bleeding; Clinical Question(s): Endometrial lining COMPARISON: CT abdomen and pelvis 04/06/2019. TECHNIQUE: Transvaginal pelvic ultrasound with grayscale and color Doppler analysis. FINDINGS: UTERUS: Size: 6.6 x 3.7 x 4.9 cm, volume 62.4 cc. Endometrial thickness: 0.4 cm. Trace fluid in the endometrial cavity. Morphology: Normal configuration and echotexture. 0.6 cm nearly anechoic rounded lesion in the posterior uterine fundal myometrium. OVARIES: Not visualized. ADNEXA: Normal. No adnexal masses or fluid collections. IMPRESSION: Small intramural uterine fibroid or myometrial cyst as above. Trace fluid in the endometrial cavitywith normal stripe thickness. Otherwise normal sonographic appearance of the uterus. Nonvisualized ovaries bilaterally. I have personally reviewed the images and I agree with this report. WSN: [id number] Ordering Physician: Ernesto King Dictated By: Damien Ocampo DO Dictated Date/Time: 04/24/22 3:35 pm Reviewed By: David Shaw MD Signed By: David Shaw MD Signed Date/Time: 04/24/22 3:40 pm Transcribed By: TEZ Transcribed Date/Time: 04/24/22 2:49 pm Social History Social History Type Response Smoking Status Former smoker, quit more than 30 days ago entered on: 04/06/20 Sex US Abdomen * [facility] , CIS S: TRANSCRIBE David Shaw MD: VERIFY Damien Ocampo DO: SIGN Event Display: Result: Authored Date: [id number] US Abdomen Comp Reason: Pain, elevated LFTs, elevated bilirubin level COMPARISON: CT abdomen and pelvis 04/06/2019. Abdominal ultrasound 09/14/2017. FINDINGS: Liver: Heterogeneously echogenic parenchyma. No focal lesion is seen. Main portal vein patent with normal hepatopetal direction of flow. Gallbladder: Status post cholecystectomy. Biliary Tree: No intrahepatic or extrahepatic bile duct dilation is identified. Common duct: 0.5 cm. Pancreas: Partially obscured by overlying bowel gas. No abnormality in the visualized portions of the pancreas. Spleen: Normal in size and echotexture. Right kidney: 12.8 cm in length. Normal parenchymal echotexture and thickness. No hydronephrosis, stone or mass. Left kidney: 13.3 cm in length. Normal parenchymal echotexture and thickness. No hydronephrosis, stone or mass. Aorta: Normal caliber and contour. Inferior vena cava: Normal. Other: No free fluid. IMPRESSION: Heterogeneously echogenic liver likely representing hepatic steatosis. Status post cholecystectomy with no biliary ductal dilatation. I have personally reviewed the images and I agree with this report. WSN: [id number] Ordering Physician: Ernesto King Dictated By: Damien Ocampo DO Dictated Date/Time: 04/24/22 3:21 pm Reviewed By: David Shaw MD Signed By: David Shaw MD Signed Date/Time: 04/24/22 3:26 pm Transcribed By: TEZ Transcribed Date/Time: 04/24/22 2:27 pm US Pelvis transvaginal * [facility] , CIS S: TRANSCRIBE David Shaw MD: VERIFY Damien Ocampo DO: SIGN Event Display: Result: Authored Date: [id number] US Pelvic Transvaginal Reason: Vaginal bleeding; Clinical Question(s): Endometrial lining COMPARISON: CT abdomen and pelvis 04/06/2019. TECHNIQUE: Transvaginal pelvic ultrasound with grayscale and color Doppler analysis. FINDINGS: UTERUS: Size: 6.6 x 3.7 x 4.9 cm, volume 62.4 cc. Endometrial thickness: 0.4 cm. Trace fluid in the endometrial cavity. Morphology: Normal configuration and echotexture. 0.6 cm nearly anechoic rounded lesion in the posterior uterine fundal myometrium. OVARIES: Not visualized. ADNEXA: Normal. No adnexal masses or fluid collections. IMPRESSION: Small intramural uterine fibroid or myometrial cyst as above. Trace fluid in the endometrial cavitywith normal stripe thickness. Otherwise normal sonographic appearance of the uterus. Nonvisualized ovaries bilaterally. I have personally reviewed the images and I agree with this report. WSN: [id number] Ordering Physician: Ernesto King Dictated By: Damien Ocampo DO Dictated Date/Time: 04/24/22 3:35 pm Reviewed By: David Shaw MD Signed By: David Shaw MD Signed Date/Time: 04/24/22 3:40 pm Transcribed By: TEZ Transcribed Date/Time: 04/24/22 2:49 pm Patient Care team information Care Team Personnel Name: Ernesto King MD Position: [facility] Primary Care Physician Member Role: PCP Address: Address: [address] [place] [address] [place] [address]- Name: Kathrine Luna MD Position: [facility] COMPOSITE BOAT BUILDER Member Role: [employer] COMPOSITE BOAT BUILDER Physician Address: Address: [address] [place] [address] [place] [address]- Name: Kathya Grullon RN Position: [facility] RN Member Role: Primary Care Nurse Care Team Related Persons Name: LYN LEIGH Address: [place] [address] Name: MADDIE LEIGH
--- OUTSIDE RECORDS SUMMARY | 2022-06-03 10:52 | XMS_ITS | Continuity of Care Document ---
Author Name Unknown Organization [facility] Address [address] [place] [address]- Care Team Providers Care Director Of Media Name Role Phone Ernesto King MD Primary Care Physician Encounter [facility] Date(s): 02/25/21 - 03/27/21 [facility] [address] [place], [place] [address] Allergies, Adverse Reactions, Alerts No Known [...] Given tetanus/diphtheria/pertussis, acel(Tdap) 01/30/16 Given 1Result Comment: [facility]:[id number] 2Result Comment: [facility] 67108-327-90 3Result Comment: [11/30/2017] [facility] 28107-511-07 4Result Comment: [12/31/2016] [facility] [id number] 5Admin Note: vis given 09/10/12 6Admin Note: VIS given 08/18/2011 7Result Comment: [12/31/2016] [facility] 9067-3307-76 Medications albuterol 90 mcg/inh inhalation powder 2 puffs, Inhalation, Every 6 hours, PRN Wheezing/Shortness of Breath, # 1 each, 3 Refills, Maintenance, 02/27/21 16:30:00 EST, Powder, [facility]/pharmacy #[id number], dispense pro-air, 2 puffs Inhalation Every 6hours,PRN:Wheezing/Shortness of Breath, 163, cm, 01... Start Date: 02/27/21 Status: Ordered albuterol-ipratropium 3 mg-0.5 mg/3 ml inhalation solution 3 mL, Neb, 4 times a day, J45.40, # 180 mL, 3 Refills, Maintenance, 07/02/20 14:11:00 EDT, Solution, [facility]/pharmacy #[id number], 3 mL Neb 4 times a day,Instr:J45.40, 163, cm, 06/18/20 13:31:00 EDT, Height, 98.9, kg, 08/25/19 12:42:00 EDT, Dry Weight Start Date: 07/02/20 Status: Ordered celecoxib 100 mg oral capsule 1 capsule, By Mouth, 2 times a day with meals, # 60 capsule, 1 Refills, Maintenance, 08/14/20 12:53:00 EDT, [facility], 163, cm, 07/31/20 9:10:00 EDT, Height, 98.9, [...] 3 Refills, Maintenance, 02/29/20 14:04:00 EST, Aerosol, [facility] #[id number], 163, cm, 02/29/20 13:19:00 EST, Height, 98.9, [...] EST, Route to Pharmacy Electronically, [facility]/pharmacy #[id number], 163, cm, 02/18/21 14:32:00 EST,Height, 98.9, kg, 08/25/19 12:42:00 EDT, Dry Weight Start Date: 02/19/21 Status: Ordered levothyroxine 150 mcg (0.15 mg) oral tablet See Instructions, TAKE 1 TABLET BY MOUTH EVERY DAY, # 30 tablet, 2 Refills, [facility], 163, cm, 02/18/21 14:32:00 EST, Height, 98.9, kg, 08/25/19 12:42:00 EDT, Dry Weight Start Date: 02/19/21 Status: Ordered loratadine 10 mg oral tablet 10 mg, 1, tablet, By Mouth, Daily, # 30 tablet, Refills 6, Tot. Refills 6, Maintenance, 11/28/19 8:53:00 EDT, Route to Pharmacy Electronically, [facility]/pharmacy #[id number], 163, cm, 11/25/19 14:43:00 EDT, Height, 98.9, kg, 08/25/19 12:42:00 EDT, Dry Weight Start Date: 11/28/19 Status: Ordered metFORMIN 500 mg oral tablet 1 tablet = 500 mg, By Mouth, 2 times a day, # 60 tablet, 5 Refills, Maintenance, 02/19/21 8:58:00 EST, [facility]/pharmacy #[id number], 163, cm, 02/18/21 14:32:00 [...] Refills, Maintenance, 08/25/19 15:03:00 EDT, [facility]/pharmacy#4471, 2 sprays Nares, Both Daily, 163, cm, 08/25/19 12:40:00 EDT, Height, 98.9, kg, 08/25/19 12:42:00 EDT, Dry Weight Start Date: 08/25/19 Status: Ordered Nasonex 50 mcg/inh nasal spray 2 sprays, Nares, Both, 2 times a day, # 17 Gm, 0 Refills, Maintenance, 08/25/19 13:03:00 EDT, [place], [facility]/pharmacy #[id number], 2 sprays Nares, Both [...] 07/31/20 9:07:00 EDT, Route to Pharmacy Electronically, [facility] #[id number], Partial fill upon patient request if the prescription is for a sched... Start Date: 07/31/20 Status: Ordered PriLOSEC OTC 20 mg oral delayed release tablet 1 tablet = 20 mg, By Mouth, Daily, # 30 tablet, 2 Refills, Maintenance, 03/13/20 11:45:00 EST, [facility]/pharmacy #[id number], 163, cm, 03/08/20 11:24:00 EST, Height, 98.9, kg, 08/25/19 12:42:00 EDT, Dry Weight Start Date: 03/13/20 Status: Ordered semaglutide 0.25 mg/0.5 mL (0.25 mg dose) subcutaneous solution = 0.25 mg, Subcutaneous Injection, Every 72 hours, # 3 each, 0 Refills, Maintenance, 10/04/20 16:20:00 EDT, [facility] #45073, Partial fill upon patient request if the [...] Details, Route to Pharmacy Electronically, [facility], 163, cm, 07/27/20 13:59:0... Start Date: 07/27/20 [...] [place] Back Pain Scale:88 on 01/13/17; initial [place]: 7 on 01/13/17 Social History Social History Type Response Smoking Status Former smoker, quit more than 30 days ago entered on: 04/06/20 Sex
--- OUTSIDE RECORDS SUMMARY | 2022-06-03 10:52 | XMS_ITS | Continuity of Care Document ---
Author Name Unknown Organization [facility] Address [address] [place] [address]- Care Team Providers Care Director Business Management Name Role Phone Fernando CARTY, Ernesto Zapata Primary Care Physician [facility] Date[facility] - 11/14/21 [facility] [address] [place] [address]- Allergies, Adverse Reactions, Alerts No Known Allergies [...] 1Result Comment: [facility]:[id number] 2Result Comment: [facility] 16791-802-00 3Result Comment: [11/30/2017] [facility] [id number] 4Result Comment: [12/31/2016] [facility] [id number] 5Admin Note: vis given 09/10/12 6Admin Note: VIS given 08/18/2011 7Result Comment: [12/31/2016] [facility] [id number] Medications albuterol 90 mcg/inh inhalation powder 2 puffs, Inhalation, Every 6 hours, PRN Wheezing/Shortness of Breath, # 1 each, 3 Refills, Maintenance, 02/27/21 16:30:00 EST, Powder, [facility]/pharmacy #[id number], dispense pro-air, 2 puffs Inhalation Every 6hours,PRN:Wheezing/Shortness of Breath, 163, cm, 01... Start Date: 02/27/21 Status: Ordered albuterol-ipratropium 3 mg-0.5 mg/3 ml inhalation solution 3 mL, Neb, 4 times a day, J45.40, # 180 mL, 3 Refills, Maintenance, 07/02/20 14:11:00 EDT, Solution, [facility]/pharmacy #[id number], 3 mL Neb 4 times a day,Instr:J45.40, 163, cm, 06/18/20 13:31:00 EDT, Height, 98.9, kg, 08/25/19 12:42:00 EDT, Dry Weight Start Date: 07/02/20 Status: Ordered celecoxib 100 mg oral capsule 1 capsule, By Mouth, 2 times a day with meals, # 60 capsule, 1 Refills, Maintenance, 08/14/20 12:53:00 EDT, [facility], 163, cm, 07/31/20 9:10:00 EDT, Height, 98.9, [...] 3 Refills, Maintenance, 02/29/20 14:04:00 EST, [id number], 163, cm, 02/29/20 13:19:00 EST, Height, 98.9, [...] 08/29/21 14:22:00 EDT, Route to Pharmacy Electronically, [facility]/pharmacy #[id number], 163, cm, 08/29/21 13:43:00 EDT, Height Start Date: 08/29/21 Stop Date: 10/28/21 Status: Ordered levothyroxine 175 mcg (0.175 mg) oral tablet 1 tablet = 175 mcg, By Mouth, Daily, # 90 tablet, 1 Refills, Maintenance, 06/27/21 11:36:00 EDT, Tablet, [facility]/pharmacy #[id number], Partial fill upon patient request if the prescription is for a schedule IIopioid drug., 163, cm, 06/27/21 11:27:00 EDT, [place] Start Date: 06/27/21 Status: Ordered loratadine 10 mg oral tablet 10 mg, 1, tablet, By Mouth, Daily, # 30 tablet, Refills 6, Tot. Refills 6, Maintenance, 11/28/19 8:53:00 EDT, Route to Pharmacy Electronically, [facility]/pharmacy #[id number], 163, cm, 11/25/19 14:43:00 EDT, Height, 98.9, kg, 08/25/19 12:42:00 EDT, Dry Weight Start Date: 11/28/19 Status: Ordered metFORMIN 500 mg oral tablet 1 tablet = 500 mg, By Mouth, 2 times a day, # 60 tablet, 5 Refills, Maintenance, 02/19/21 8:58:00 EST, [facility]/pharmacy #[id number], 163, cm, 02/18/21 14:32:00 EST, [...] Refills, Maintenance, 08/25/19 15:03:00 EDT, [facility]/pharmacy#4471, 2 sprays Nares, Both Daily, 163, cm, 08/25/19 12:40:00 EDT, Height, 98.9, kg, 08/25/19 12:42:00 EDT, Dry Weight Start Date: 08/25/19 Status: Ordered Nasonex 50 mcg/inh nasal spray 2 sprays, Nares, Both, 2 times a day, # 17 Gm, 0 Refills, Maintenance, 08/25/19 13:03:00 EDT, [place], [facility]/pharmacy #4471, 2 sprays Nares, Both 2 [...] 07/31/20 9:07:00 EDT, Route to Pharmacy Electronically, [facility] #[id number], Partial fill upon patient request if the prescription is for a sched... Start Date: 07/31/20 Status: Ordered PriLOSEC OTC 20 mg oral delayed release tablet 1 tablet = 20 mg, By Mouth, Daily, # 30 tablet, 2 Refills, Maintenance, 03/13/20 11:45:00 EST, [facility]/pharmacy #[id number], 163, cm, 03/08/20 11:24:00 EST, Height, 98.9, kg, 08/25/19 12:42:00 EDT, Dry Weight Start Date: 03/13/20 Status: Ordered semaglutide 0.25 mg/0.5 mL (0.25 mg dose) subcutaneous solution = 0.25 mg, Subcutaneous Injection, Every 72 hours, # 3 each, 0 Refills, Maintenance, 09/13/21 9:26:00 EDT, [facility]/pharmacy #[id number], Partial fill upon patient request if the prescription is for a schedule II opioid drug., 163, cm, 09/13/21 9:15:00 EDT, Height Start Date: 09/13/21 Status: Ordered Systane Complete Optimal Dry Eye Relief ophthalmic solution 2 drops, Eyes, Both, 3 times a day, # 30 mL, 3 Refills, Maintenance, 11/28/19 8:55:00 EDT, [facility]/pharmacy #[id number], 2 drops Eyes, Both 3 [...] 04/12/21 12:13:00 EST, Route to Pharmacy Electronically, [facility]/pharmacy #[id number], 163, cm, 03/07/21 11:34:00 EST,... Start Date: 04/12/21 Status: Ordered tiZANidine 4 mg oral tablet See Instructions, TAKE 1/2 TO 1 TABLET BY MOUTH EVERY 8 HOURS NEEDED FOR MILD AND MUSCLE SPASM, # 45 tablet, Refills 2, Maintenance, Instructions Replace Required Details, Route to Pharmacy Electronically, [facility], 163, cm, 07/27/20 13:59:0... Start Date: 07/27/20 Status: Ordered traMADol 50 mg oral tablet 1 tablet = 50 mg, By Mouth, Every 6 hours, PRN for pain, TAKE ONLY NEEDED Dx: M79.7, S92.91 Masspat checked, # 112 tablet, 0 Refills, Maintenance, 10/04/21 16:06:00 EDT, Tablet, [facility]/pharmacy #[id number], Please reinforce instructions with patient, she... Start Date: 10/04/21 Stop Date: 11/01/21 Status: Ordered Victoza 18 mg/3 mL subcutaneous solution = 0.6 mg, Subcutaneous Injection, Daily, # 6 mL, 3 Refills, Maintenance, 10/16/21 15:56:00 EDT, Injection, [facility]/pharmacy #[id number], dispense as pen, 163, cm, 10/16/21 14:49:00 EDT, Height Start Date: 10/16/21 Status: Ordered Vitamin D3 50,000 intl units oral capsule 1 capsule, By Mouth, Every week, # 12 capsule, 0 Refills, [facility], 163, cm, 09/13/21 9:15:00 EDT, Height Start Date: 09/18/21 Status: Ordered Voltaren 1% topical gel 1 application, Topically, 4 times a day, PRN for pain, # 100 Gm, 0 Refills, Maintenance, 05/27/21 18:00:00 EDT, Gel, [facility]/pharmacy #[id number], Partial fill upon patient request [...] [place] Back Pain Scale:88 on 01/13/17; initial [place]: 7 on 01/13/17 Social History Social History Type Response Smoking Status Former smoker, quit more than 30 days ago entered on: 04/06/20 Sex Patient Care team information Personnel Name: Fernando CARTY, Ernesto Zapata Address: Address: [address] [place], [place] [address]
--- OUTSIDE RECORDS SUMMARY | 2022-06-03 10:52 | XMS_ITS | Continuity of Care Document ---
Author Name Unknown Organization [facility] Address [address] [place] [address]- Care Team Providers Care Bus Mechanic Name Role Phone Ernesto King MD Primary Care Physician [facility] Date[facility]s): 04[facility]21 - 05/23/21 [facility] [address] [place], [place] [address] Allergies, Adverse Reactions, Alerts No Known Allergies [...] Given 1Result Comment: [facility]:[id number] 2Result Comment: [facility] [id number] 3Result Comment: [11/30/2017] [facility] [id number] 4Result Comment: [12/31/2016] [facility] [id number] 5Admin Note: vis given 09/10/12 6Admin Note: VIS given 08/18/2011 7Result Comment: [12/31/2016] [facility] [id number] Medications albuterol 90 mcg/inh inhalation powder 2 [...] Refills, Maintenance, 08/14/20 12:53:00 EDT, [facility], 163, cm, 07/31/20 9:10:00 EDT, Height, 98.9, [...] 3 Refills, Maintenance, 02/29/20 14:04:00 EST, Aerosol, [facility] #[id number], 163, cm, 02/29/20 13:19:00 EST, Height, 98.9, [...] 04/12/21 12:16:00 EST, Route to Pharmacy Electronically, [facility]/pharmacy #[id number], 163, cm, 03/07/21 11:34:00 EST, Height, 98.9, kg, 08/25/19 12:42:00 EDT, Dry Weight Start Date: 04/12/21 Stop Date: 06/11/21 Status: Ordered levothyroxine 150 mcg (0.15 mg) oral tablet See Instructions, TAKE 1 TABLET BY MOUTH EVERY DAY, # 30 tablet, 2 Refills, [facility], 163, cm, 02/18/21 14:32:00 EST, Height, 98.9, [...] Gm, 0 Refills, Maintenance, 08/25/19 13:03:00 EDT, [place], [facility]/pharmacy #4471, 2 sprays Nares, Both [...] 07/31/20 9:07:00 EDT, Route to Pharmacy Electronically, [facility] #[id number], Partial fill upon patient request if the [...] each, 0 Refills, Maintenance, 10/04/20 16:20:00 EDT, [facility] #[id number], Partial fill upon patient request if the [...] Route to Pharmacy Electronically, [facility], 163, cm, 07/27/20 13:59:0... Start Date: 07/27/20 Status: Ordered traMADol 50 mg oral tablet 1 tablet = 50 mg, By Mouth, Every 6 hours, PRN for pain, TAKE ONLY NEEDED Dx: M79.7, S92.91 Masspat checked, # 112 tablet, 0 Refills, Maintenance, 05/17/21 15:41:00 EDT, Tablet, [facility]/pharmacy #4471, Please reinforce instructions with patient, she... Start Date: 05/17/21 Stop Date: 06/14/21 Status: Ordered Problem List Condition Effective Dates [...] [place] Back Pain Scale:88 on 01/13/17; initial [place]: 7 on 01/13/17 Social History Social History Type Response Smoking Status Former smoker, quit more than 30 days ago entered on: 04/06/20 Sex
--- OUTSIDE RECORDS SUMMARY | 2022-06-03 10:52 | XMS_ITS | Continuity of Care Document ---
Author Name Unknown Organization [facility] Address [address] [place] [address]- Care Team Providers Care Lead Business Analyst Name Role Phone Ernesto King MD Primary Care Physician Encounter [facility] Date(s): 04/29/22 - 05/29/22 [facility] [address] [place], [place] [address] Allergies, Adverse Reactions, Alerts No Known [...] tetanus/diphtheria/pertussis, acel(Tdap) 01/30/16 Given 1Result Comment: [facility] [place][id number] 2Result Comment: [facility] 06881-026-36 3Result Comment: [11/30/2017] [facility] 41495-149-10 4Result Comment: [12/31/2016] [facility] [id number] 5Admin Note: vis given 09/10/12 6Admin Note: VIS given 08/18/2011 7Result Comment: [12/31/2016] [facility] [id number] Medications albuterol 90 mcg/inh inhalation powder 2 puffs, Inhalation, Every 6 hours, PRN Wheezing/Shortness of Breath, # 1 each, 3 Refills, Maintenance, 11/22/21 17:17:00 EDT, Powder, [facility]/pharmacy #[id number], dispense pro-air, 2 puffs Inhalation Every 6hours,PRN:Wheezing/Shortness of Breath, 163, cm, 10... Start Date: 11/22/21 Status: Ordered albuterol-ipratropium 3 mg-0.5 mg/3 ml inhalation solution 3 mL, Neb, 4 times a day, J45.40, # 180 mL, 3 Refills, Maintenance, 11/22/21 17:17:00 EDT, Solution, [facility]/pharmacy #4471, 3 mL Neb 4 times a day,Instr:J45.40, 163, cm, 11/22/21 15:30:00 EDT, Height Start Date: 11/22/21 Status: Ordered celecoxib 100 mg oral capsule 1 capsule, By Mouth, 2 times a day with meals, # 60 capsule, 1 Refills, Maintenance, 08/14/20 12:53:00 EDT, [facility], 163, cm, 07/31/20 9:10:00 EDT, Height, 98.9, [...] 3 Refills, Maintenance, 02/29/20 14:04:00 EST, Aerosol, [facility] #[id number], 163, cm, 02/29/20 13:19:00 EST, Height, 98.9, [...] 11/22/21 17:17:00 EDT, Route to Pharmacy Electronically, [facility]/pharmacy #4471, 163, cm, 11/22/21 15:30:00 EDT, Height Start Date: 11/22/21 Stop Date: 01/21/22 Status: Ordered levothyroxine 175 mcg (0.175 mg) oral tablet 1 tablet = 175 mcg, By Mouth, Daily, # 90 tablet, 0 Refills, Maintenance, 03/31/22 12:00:00 EST, Tablet, [facility]/pharmacy #[id number], Partial fill upon patient request if the prescription is for a schedule IIopioid drug., 163, cm, 03/31/22 11:41:00 EST, Height Start Date: 03/31/22 Status: Ordered loratadine 10 mg oral tablet 10 mg, 1, tablet, By Mouth, Daily, # 30 tablet, Refills 6, Tot. Refills 6, Maintenance, 11/28/19 8:53:00 EDT, Route to Pharmacy Electronically, [facility]/pharmacy #4471, 163, cm, 11/25/19 14:43:00 EDT, Height, 98.9, kg, 08/25/19 12:42:00 EDT, Dry Weight Start Date: 11/28/19 Status: Ordered metFORMIN 500 mg oral tablet 1 tablet = 500 mg, By Mouth, 2 times a day, # 60 tablet, 5 Refills, Maintenance, 02/19/21 8:58:00 EST, [facility]/pharmacy #4471, 163, cm, 02/18/21 14:32:00 EST, Height, [...] 1 Refills, Maintenance, 08/25/19 15:03:00 EDT, [facility]/pharmacy#4471, 2 sprays Nares, Both Daily, 163, cm, 08/25/19 12:40:00 EDT, Height, 98.9, kg, 08/25/19 12:42:00 EDT, Dry Weight Start Date: 08/25/19 Status: Ordered Nasonex 50 mcg/inh nasal spray 2 sprays, Nares, Both, 2 times a day, # 17 Gm, 0 Refills, Maintenance, 12/04/21 11:58:00 EDT, [place], [facility]/pharmacy #4471, 2 sprays Nares, Both 2 times [...] 07/31/20 9:07:00 EDT, Route to Pharmacy Electronically, [facility] #[id number], Partial fill upon patient request if the prescription is for a sched... Start Date: 07/31/20 Status: Ordered PriLOSEC OTC 20 mg oral delayed release tablet 1 tablet = 20 mg, By Mouth, Daily, # 30 tablet, 2 Refills, Maintenance, 12/04/21 11:57:00 EDT, [facility]/pharmacy #4471, 163, cm, 12/04/21 11:37:00 EDT, Height [...] mL, 3 Refills, Maintenance, 12/04/21 11:56:00 EDT, [facility]/pharmacy #4471, 2 drops Eyes, Both 3 times a day, 163, cm, 12/04/21 11:37:00 EDT, Height Start Date: 12/04/21 Status: Ordered tiZANidine 4 mg oral tablet 0.5-1 tablet, By Mouth, Every 8 hours, PRN, TAKE ONLY NEEDED FOR MUSCLE SPASM, # 45 tablet, Refills 2, Tot. Refills 2, Maintenance, Sp[place], 04/12/21 12:13:00 EST, Route to Pharmacy Electronically, [facility]/pharmacy #4471, 163, cm, 03/07/21 11:34:00 EST,... Start Date: 04/12/21 Status: Ordered traMADol 50 mg oral tablet 1 tablet = 50 mg, By Mouth, Every 6 hours, PRN for pain, TAKE ONLY NEEDED Dx: M79.7, S92.91 Masspat checked, # 112 tablet, 0 Refills, Maintenance, 05/28/22 7:34:00 EDT, Tablet, [facility]/pharmacy #4471,Please reinforce instructions with patient, she h... Start Date: 05/28/22 Stop Date: 06/25/22 Status: Ordered Victoza 18 mg/3 mL subcutaneous solution = 0.6 mg, Subcutaneous Injection, Daily, # 6 mL, 3 Refills, Maintenance, 10/16/21 15:56:00 EDT, Injection, [facility]/pharmacy #[id number], dispense as pen, 163, cm, 10/16/21 14:49:00 EDT, Height Start Date: 10/16/21 Status: Ordered Vitamin D3 50,000 intl units oral capsule 1 capsule, By Mouth, Every week, # 12 capsule, 0 Refills, [facility], 163, cm, 09/13/21 9:15:00 EDT, Height Start Date: 09/18/21 Status: Ordered Voltaren 1% topical gel 1 application, Topically, 4 times a day, PRN for pain, # 100 Gm, 0 Refills, Maintenance, 05/27/21 18:00:00 EDT, Gel, [facility]/pharmacy #4471, Partial fill upon patient request if [...] 70% ( crippled ) on 01/13/17; initial [place] Back Pain Scale:88 on 01/13/17; initial [place]: 7 on 01/13/17 Social History Social History Type Response Smoking Status Former smoker, quit more than 30 days ago; Other: quit 3 years, smoked for 10yrs, 1 ppd; entered on: 05/29/22 Sex Patient Care team information Care Team Personnel Name: Ernesto King MD Position: [facility] Primary Care Physician Member Role: PCP Address: Address: [address] [place] [address] [place] [address]- Name: Kathrine Luna MD Position: [facility] ENGINE EMISSION TECHNICIAN MD Member Role: Lifetime ENGINE EMISSION TECHNICIAN Physician Address: Address: [address] [place] [address] [employer] [address] Name: Kathya Grullon RN Position: [facility] RN Member Role: Primary Care Nurse Care Team Related Persons Name: LYN LEIGH Address: [place] [address] Name: MADDIE LEIGH
--- OUTSIDE RECORDS SUMMARY | 2022-06-03 10:52 | XMS_ITS | Continuity of Care Document ---
Author Name Unknown Organization [facility] Address [address] [place] [address]- Care Team Providers Care Fraud Analyst Name Role Phone Fernando CARTY, Ernesto Zapata Primary Care Physician [facility]): [facility]20 - [facility]20 [facility] [address] [place], [place] [address] Allergies, Adverse Reactions, Alerts Substance Reaction Severity [...] Given 1Result Comment: [facility] [id number] 2Result Comment: [11/30/2017] [facility] [id number] 3Result Comment: [12/31/2016] [facility] 49169-648-81 4Admin Note: vis given 09/10/12 5Admin Note: VIS given 08/18/2011 6Result Comment: [12/31/2016] [facility] [id number] Medications albuterol 90 mcg/inh inhalation powder 2 puffs, Inhalation, Every 6 hours, PRN Wheezing/Shortness of Breath, # 1 each, 3 Refills, Maintenance, 02/29/20 14:08:00 EST, Powder, [facility] #[id number], dispense pro-air, 2 puffs Inhalation Every 6 hours,PRN:Wheezing/Shortness of Breath, 16... Start Date: 02/29/20 Status: Ordered albuterol-ipratropium 3 mg-0.5 mg/3 ml inhalation solution 3 mL, Neb, 4 times a day, J45.40, # 180 mL, 3 Refills, Maintenance, 07/02/20 14:11:00 EDT, Solution, [facility]/pharmacy #4471, 3 mL Neb 4 times a day,Instr:J45.40, 163, cm, 06/18/20 13:31:00 EDT, Height, 98.9, kg, 08/25/19 12:42:00 EDT, Dry Weight Start Date: 07/02/20 Status: Ordered celecoxib 100 mg oral capsule 1 capsule, By Mouth, 2 times a day with meals, # 60 capsule, 1 Refills, Maintenance, 08/14/20 12:53:00 EDT, [facility], 163, cm, 07/31/20 9:10:00 EDT, Height, 98.9, [...] 3 Refills, Maintenance, 02/29/20 14:04:00 EST, Aerosol, [facility] #[id number], 163, cm, 02/29/20 13:19:00 EST, Height, 98.9, [...] capsule, Refills 1, Route to Pharmacy Electronically, [facility], 163, cm, 11/06/20 11:15:00 EDT, Height, 98.9, kg, 08/25/19 12:42:00 EDT, Dry Weight Start Date: 11/15/20 Status: Ordered levothyroxine 150 mcg (0.15 mg) oral tablet 1 tablet, By Mouth, Daily, # 30 tablet, 2 Refills, Maintenance, 11/15/20 13:54:00 EDT, [facility]/pharmacy#4471, 163, cm, 11/15/20 13:38:00 EDT, Height, 98.9, [...] DAY AT NIGHT, # 60 tablet, 5Refills, [facility], 163, cm, 11/06/20 11:15:00 EDT, Height, 98.9, kg, 08/25/19 12:42:00 EDT, Dry Weight Start Date: 11/07/20 Status: Ordered metFORMIN 500 mg oral tablet 1 tablet = 500 mg, By Mouth, 2 times a day, start with once a day at night, # 60 tablet, 5 Refills,Maintenance, 05/15/20 14:09:00 EDT, [facility]/pharmacy #4471, 163, cm, 04/06/20 13:19:00 EST, Height, [...] Gm, 0 Refills, Maintenance, 08/25/19 13:03:00 EDT, [place], [facility]/pharmacy #4471, 2 [...] 07/31/20 9:07:00 EDT, Route to Pharmacy Electronically, [facility] #[id number], Partial fill upon patient request if the prescription is for a sched... Start Date: 07/31/20 Status: Ordered PriLOSEC OTC 20 mg oral delayed release tablet 1 tablet = 20 mg, By Mouth, Daily, # 30 tablet, 2 Refills, Maintenance, 03/13/20 11:45:00 EST, [facility]/pharmacy #4471, 163, cm, 03/08/20 11:24:00 EST, Height, 98.9, kg, 08/25/19 12:42:00 EDT, Dry Weight Start Date: 03/13/20 Status: Ordered semaglutide 0.25 mg/0.5 mL (0.25 mg dose) subcutaneous solution = 0.25 mg, Subcutaneous Injection, Every 72 hours, # 3 each, 0 Refills, Maintenance, 10/04/20 16:20:00 EDT, [facility] #[id number], Partial fill upon patient request if the [...] Details, Route to Pharmacy Electronically, [facility], 163, cm, 07/27/20 13:59:0... Start Date: 07/27/20 [...] pT1c, pN0 stage I left breast cancer, ER/RI negative, HER-2/marylin 3+, 2010(Confirmed) 06/25/11 Active Mixed anxiety and depressive disorder(Confirmed) Active Asthma, moderate persistent(Confirmed) Active Morbid obesity(Confirmed) Active 1initial Oswestry Disability Index: 70% ( crippled ) on 01/13/17; initial [place] Back Pain Scale:88 on 01/13/17; initial [place]: 7 on 01/13/17 Social History Social History Type Response Smoking Status Former smoker, quit more than 30 days ago entered on: 04/06/20 Sex
--- OUTSIDE RECORDS SUMMARY | 2022-06-03 10:52 | XMS_ITS | Continuity of Care Document ---
Author Name Unknown Organization [facility] Address [address] [place] [address]- Care Team Providers Care Glass Fitter Name Role Phone Ernesto King MD Primary Care Physician Encounter [facility] [id number] Date(s): 02/19/22 - 02/26/22 [facility] [address] [place] [address]- Attending Physician: Not on Staff, Attending MD [...] 01/30/16 Given 1Result Comment: [facility]:[id number] 2Result Comment: [facility] [id number] 3Result Comment: [11/30/2017] NDC [id number] 4Result Comment: [12/31/2016] [facility] [id number] 5Admin Note: vis given 09/10/12 6Admin Note: VIS given 08/18/2011 7Result Comment: [12/31/2016] [facility] [id number] Medications albuterol 90 mcg/inh inhalation powder 2 puffs, Inhalation, Every 6 hours, PRN Wheezing/Shortness of Breath, # 1 each, 3 Refills, Maintenance, 11/22/21 17:17:00 EDT, Powder, [facility]/pharmacy #[id number], dispense pro-air, 2 puffs Inhalation Every 6hours,PRN:Wheezing/Shortness of Breath, 163, cm, 10... Start Date: 11/22/21 Status: Ordered albuterol-ipratropium 3 mg-0.5 mg/3 ml inhalation solution 3 mL, Neb, 4 times a day, J45.40, # 180 mL, 3 Refills, Maintenance, 11/22/21 17:17:00 EDT, Solution, [facility]/pharmacy #4471, 3 mL Neb 4 times a day,Instr:J45.40, 163, cm, 11/22/21 15:30:00 EDT, Height Start Date: 11/22/21 Status: Ordered celecoxib 100 mg oral capsule 1 capsule, By Mouth, 2 times a day with meals, # 60 capsule, 1 Refills, Maintenance, 08/14/20 12:53:00 EDT, [facility], 163, cm, 07/31/20 9:10:00 EDT, Height, 98.9, [...] 3 Refills, Maintenance, 02/29/20 14:04:00 EST, Aerosol, [facility] #[id number], 163, cm, 02/29/20 13:19:00 EST, Height, 98.9, [...] 11/22/21 17:17:00 EDT, Route to Pharmacy Electronically, [facility]/pharmacy #[id number], 163, cm, 11/22/21 15:30:00 EDT, Height Start Date: 11/22/21 Stop Date: 01/21/22 Status: Ordered levothyroxine 175 mcg (0.175 mg) oral tablet 1 tablet = 175 mcg, By Mouth, Daily, # 90 tablet, 1 Refills, Maintenance, 06/27/21 11:36:00 EDT, Tablet, [facility]/pharmacy #[id number], Partial fill upon patient request if the prescription is for a schedule IIopioid drug., 163, cm, 06/27/21 11:27:00 EDT, [place] Start Date: 06/27/21 Status: Ordered loratadine 10 mg oral tablet 10 mg, 1, tablet, By Mouth, Daily, # 30 tablet, Refills 6, Tot. Refills 6, Maintenance, 11/28/19 8:53:00 EDT, Route to Pharmacy Electronically, [facility]/pharmacy #[id number], 163, cm, 11/25/19 14:43:00 EDT, Height, 98.9, kg, 08/25/19 12:42:00 EDT, Dry Weight Start Date: 11/28/19 Status: Ordered metFORMIN 500 mg oral tablet 1 tablet = 500 mg, By Mouth, 2 times a day, # 60 tablet, 5 Refills, Maintenance, 02/19/21 8:58:00 EST, [facility]/pharmacy #[id number], 163, cm, 02/18/21 14:32:00 EST, Height, [...] each, 1 Refills, Maintenance, 08/25/19 15:03:00 EDT, [facility]/pharmacy#4471, 2 sprays Nares, Both Daily, 163, cm, 08/25/19 12:40:00 EDT, Height, 98.9, kg, 08/25/19 12:42:00 EDT, Dry Weight Start Date: 08/25/19 Status: Ordered Nasonex 50 mcg/inh nasal spray 2 sprays, Nares, Both, 2 times a day, # 17 Gm, 0 Refills, Maintenance, 12/04/21 11:58:00 EDT, [place], [facility]/pharmacy #4471, 2 sprays Nares, Both 2 times [...] 07/31/20 9:07:00 EDT, [facility], [id number], Partial fill upon patient request if the prescription is for a sched... Start Date: 07/31/20 Status: Ordered PriLOSEC OTC 20 mg oral delayed release tablet 1 tablet = 20 mg, By Mouth, Daily, # 30 tablet, 2 Refills, Maintenance, 12/04/21 11:57:00 EDT, [facility]/pharmacy #[id number], 163, cm, 12/04/21 11:37:00 EDT, Height Start Date: 12/04/21 Status: Ordered semaglutide 0.25 mg/0.5 mL (0.25 mg dose) subcutaneous solution = 0.25 mg, Subcutaneous Injection, Every week, # 3 each, 1 Refills, Maintenance, 11/25/21 8:34:00 EDT, [facility]/pharmacy #[id number], Partial fill upon patient request if the prescription is for a schedule II opioid drug., 163, cm, 11/22/21 15:30:00 EDT, Height Start Date: 11/25/21 Status: Ordered Systane Complete Optimal Dry Eye Relief ophthalmic solution 2 drops, Eyes, Both, 3 times a day, # 30 mL, 3 Refills, Maintenance, 12/04/21 11:56:00 EDT, [facility]/pharmacy #[id number], 2 drops Eyes, Both 3 times a day, 163, cm, 12/04/21 11:37:00 EDT, Height Start Date: 12/04/21 Status: Ordered tiZANidine 4 mg oral tablet 0.5-1 tablet, By Mouth, Every 8 hours, PRN, TAKE ONLY NEEDED FOR MUSCLE SPASM, # 45 tablet, Refills 2, Tot. Refills 2, Maintenance, Spasm, 04/12/21 12:13:00 EST, Route to Pharmacy Electronically, [facility]/pharmacy #4471, 163, cm, 03/07/21 11:34:00 EST,... Start Date: 04/12/21 Status: Ordered tiZANidine 4 mg oral tablet See Instructions, TAKE 1/2 TO 1 TABLET BY MOUTH EVERY 8 HOURS NEEDED FOR MILD AND MUSCLE SPASM, # 45 tablet, Refills 2, Maintenance, Instructions Replace Required Details, Route to Pharmacy Electronically, [facility], 163, cm, 07/27/20 13:59:0... Start Date: 07/27/20 Status: Ordered traMADol 50 mg oral tablet 1 tablet = 50 mg, By Mouth, Every 6 hours, PRN for pain, TAKE ONLY NEEDED Dx: M79.7, S92.91 Masspat checked, # 112 tablet, 0 Refills, Maintenance, 02/05/22 11:35:00 EST, Tablet, [facility]/pharmacy #4471, Please reinforce instructions with patient, she... Start Date: 02/05/22 Stop Date: 03/05/22 Status: Ordered Victoza 18 mg/3 mL subcutaneous solution = 0.6 mg, Subcutaneous Injection, Daily, # 6 mL, 3 Refills, Maintenance, 10/16/21 15:56:00 EDT, Injection, [facility]/pharmacy #[id number], dispense as pen, 163, cm, 10/16/21 14:49:00 EDT, Height Start Date: 10/16/21 Status: Ordered Vitamin D3 50,000 intl units oral capsule 1 capsule, By Mouth, Every week, # 12 capsule, 0 Refills, [facility], 163, cm, 09/13/21 9:15:00 EDT, Height Start Date: 09/18/21 Status: Ordered Voltaren 1% topical gel 1 application, Topically, 4 times a day, PRN for pain, # 100 Gm, 0 Refills, Maintenance, 05/27/21 18:00:00 EDT, Gel, [facility]/pharmacy #4471, Partial fill upon patient request if [...] [place] Back Pain Scale:88 on 01/13/17; initial [place]: 7 on 01/13/17 Social History Social History Type Response Smoking Status Former smoker, quit more than 30 days ago entered on: 04/06/20 Sex Patient Care team information Care Team Personnel Name: Ernesto King MD Position: [facility] Primary Care Physician Member Role: PCP Address: Address: [address] [place] [address] Name: Kathrine Luna MD Position: [facility] ENERGY PROJECT ENGINEER MD Member Role: Lifetime ENERGY PROJECT ENGINEER Physician Address: Address: [facility] [place] [address]- Name: Kathya Grullon RN Position: [facility] RN Member Role: Primary Care Nurse Care Team Related Persons Name: LYN LEIGH Address: [place] [address] Name: MADDIE LEIGH
--- OUTSIDE RECORDS SUMMARY | 2022-06-03 10:52 | XMS_ITS | Continuity of Care Document ---
Author Name Unknown Organization [facility] Address [address] [place] [address]- Care Team Providers Care Production Planning Manager Name Role Phone Ernesto King MD Primary Care Physician Encounter [facility] Date(s): 11/15/20 - 11/22/20 [facility] [address] [place] [address]- Encounter Diagnosis Diabetes mellitus with hyperglycemia(Discharge Diagnosis) - 11/15/20 Diabetes mellitus with microalbuminuria(Discharge Diagnosis) - 11/15/20 Diabetic neuropathy(Discharge Diagnosis) - 11/15/20 Hypothyroidism(Discharge Diagnosis) - 11/15/20 Morbid obesity(Discharge Diagnosis) - 11/15/20 Attending Physician: Ernesto King MD Allergies, Adverse [...] Given tetanus/diphtheria/pertussis, acel(Tdap) 01/30/16 Given 1Result Comment: [facility] [id number] 2Result Comment: [11/30/2017] [facility] [id number] 3Result Comment: [12/31/2016] [facility] [id number] 4Admin Note: vis given 09/10/12 5Admin Note: VIS given 08/18/2011 6Result Comment: [12/31/2016] [facility] [id number] Medications albuterol 90 mcg/inh inhalation powder 2 puffs, Inhalation, Every 6 hours, PRN Wheezing/Shortness of Breath, # 1 each, 3 Refills, Maintenance, 02/29/20 14:08:00 EST, Powder, [facility] #[id number], dispense pro-air, 2 puffs Inhalation Every 6 [...] Refills, Maintenance, 08/14/20 12:53:00 EDT, [facility], 163, cm, 07/31/20 9:10:00 EDT, Height, 98.9, [...] 3 Refills, Maintenance, 02/29/20 14:04:00 EST, Aerosol, [email or web address]230[facility], 163, cm, 02/29/20 13:19:00 EST, Height, 98.9, [...] capsule, Refills 1, Route to Pharmacy Electronically, [facility], 163, cm, 11/06/20 11:15:00 EDT, Height, 98.9, kg, 08/25/19 12:42:00 EDT, Dry Weight Start Date: 11/15/20 Status: Ordered levothyroxine 150 mcg (0.15 mg) oral tablet 1 tablet, By Mouth, Daily, # 30 tablet, 2 Refills, Maintenance, 11/15/20 13:54:00 EDT, [id number], 163, cm, 11/15/20 13:38:00 EDT, Height, 98.9, kg, 08/25/19 12:42:00 EDT, Dry Weight Start Date: 11/15/20 Status: Ordered loratadine 10 mg oral tablet 10 mg, 1, tablet, By Mouth, Daily, # 30 tablet, Refills 6, Tot. Refills 6, Maintenance, 11/28/19 8:53:00 EDT, Route to Pharmacy Electronically, [facility]/pharmacy #[id number], 163, cm, 11/25/19 14:43:00 EDT, Height, 98.9, kg, 08/25/19 12:42:00 EDT, Dry Weight Start Date: 11/28/19 Status: Ordered metFORMIN 500 mg oral tablet See Instructions, TAKE 1 TABLET BY MOUTH TWICE A DAY START WITH ONCE A DAY AT NIGHT, # 60 tablet, 5Refills, [facility], 163, cm, 11/06/20 11:15:00 EDT, Height, 98.9, kg, 08/25/19 12:42:00 EDT, Dry Weight Start Date: 11/07/20 Status: Ordered metFORMIN 500 mg oral tablet 1 tablet = 500 mg, By Mouth, 2 times a day, start with once a day at night, # 60 tablet, 5 Refills,Maintenance, 05/15/20 14:09:00 EDT, [facility]/pharmacy #4471, 163, cm, 04/06/20 13:19:00 EST, [...] 1 Refills, Maintenance, 08/25/19 15:03:00 EDT, [facility]#4471, 2 sprays Nares, Both Daily, 163, cm, 08/25/19 12:40:00 EDT, Height, 98.9, kg, 08/25/19 12:42:00 EDT, Dry Weight Start Date: 08/25/19 Status: Ordered Nasonex 50 mcg/inh nasal spray 2 sprays, Nares, Both, 2 times a day, # 17 Gm, 0 Refills, Maintenance, 08/25/19 13:03:00 EDT, [place], [facility]/pharmacy #4471, 2 sprays Nares, Both 2 [...] 07/31/20 9:07:00 EDT, Route to Pharmacy Electronically, [email or web address]43555, Partial fill upon patient request if the prescription is for a sched... Start Date: 07/31/20 Status: Ordered PriLOSEC OTC 20 mg oral delayed release tablet 1 tablet = 20 mg, By Mouth, Daily, # 30 tablet, 2 Refills, Maintenance, 03/13/20 11:45:00 EST, [facility] #4471, 163, cm, 03/08/20 11:24:00 EST, Height, 98.9, kg, 08/25/19 12:42:00 EDT, Dry Weight Start Date: 03/13/20 Status: Ordered semaglutide 0.25 mg/0.5 mL (0.25 mg dose) subcutaneous solution = 0.25 mg, Subcutaneous Injection, Every 72 hours, # 3 each, 0 Refills, Maintenance, 10/04/20 16:20:00 EDT, [email or web address] #[facility], Partial fill upon patient request if the [...] Details, Route to Pharmacy Electronically, [facility], 163, cm, 07/27/20 13:59:0... Start Date: 07/27/20 [...] pT1c, pN0 stage I left breast cancer, ER/SD negative, HER-2/marylin 3+, 2010(Confirmed) 06/25/11 Active Mixed anxiety and depressive disorder(Confirmed) Active Asthma, moderate persistent(Confirmed) Active Morbid obesity(Confirmed) Active 1initial Oswestry Disability Index: 70% ( crippled ) on 01/13/17; initial [place] Back Pain Scale:88 on 01/13/17; initial [place]: 7 on 01/13/17 Diagnosis Diagnosis Type Effective Dates Health Status Clinical Service Informant Diabetes mellitus with hyperglycemia Discharge Diagnosis 11/15/20 Diabetes mellitus with microalbuminuria Discharge Diagnosis 11/15/20 Diabetic neuropathy Discharge Diagnosis 11/15/20 Hypothyroidism Discharge Diagnosis 11/15/20 Morbid obesity Discharge Diagnosis 11/15/20 Vital Signs Most recent to oldest [Reference Range]: 1 2 Height 163 cm (11/15/20 1:55 PM) 163 cm (11/15/20 1:38 PM) Weight 104.2 kg (11/15/20 1:55 PM) Pulse Rate [55-90 bpm] 59 bpm (11/15/20 1:38 PM) Body Mass Index [18.5-24.99] 39.22 *>HHI* (11/15/20 1:55 PM) Blood Pressure [90-138/55-84 mm Hg] 115/ 80mm Hg (11/15/20 1:38 PM) Blood pressure sites Arm, right (11/15/20 1:38 PM) Social History Social History Type Response Smoking Status Former smoker, quit more than 30 days ago entered on: 04/06/20 Sex
--- OUTSIDE RECORDS SUMMARY | 2022-06-03 10:52 | XMS_ITS | Continuity of Care Document ---
Author Name Unknown Organization [facility] Address [address] [place] [address]- Care Team Providers Care Nurse Sexual Assault Name Role Phone Ernesto King MD Primary Care Physician Encounter [facility] Date(s): 04/29/22 - 05/29/22 [facility] [address] [place], [place] [address] Allergies, Adverse Reactions, Alerts No [...] 01/30/16 Given 1Result Comment: [facility]:[id number] 2Result Comment: [facility] [id number] 3Result Comment: [11/30/2017] [facility] [id number] 4Result Comment: [12/31/2016] [facility] [id number] 5Admin Note: vis given 09/10/12 6Admin Note: VIS given 08/18/2011 7Result Comment: [12/31/2016] [facility] [id number] Medications albuterol 90 mcg/inh inhalation powder 2 [...] Refills, Maintenance, 08/14/20 12:53:00 EDT, [facility], 163, cm, 07/31/20 9:10:00 EDT, Height, 98.9, [...] 3 Refills, Maintenance, 02/29/20 14:04:00 EST, Aerosol, [facility] #[facility]118, 163, cm, 02/29/20 13:19:00 EST, Height, 98.9, [...] Gm, 0 Refills, Maintenance, 12/04/21 11:58:00 EDT, [place], [facility]/pharmacy #4471, 2 sprays Nares, Both [...] 07/31/20 9:07:00 EDT, Route to Pharmacy Electronically, [facility] #06229, Partial fill upon patient request if the [...] 12 capsule, 0 Refills, [facility], 163, cm, 09/13/21 9:15:00 EDT, Height Start [...] [place] Back Pain Scale:88 on 01/13/17; initial [place]: 7 on 01/13/17 Social History Social History Type Response Smoking Status Former smoker, quit more than 30 days ago; Other: quit 3 years, smoked for 10yrs, 1 ppd; entered on: 05/29/22 Sex Patient Care team information Care Team Personnel Name: Ernesto King MD Position: [facility] Primary Care Physician Member Role: PCP Address: Address: [address] [place] [address] [place] [address]- Name: Kathrine Luna MD Position: [facility] ISSUER MD Member Role: Lifetime ISSUER Physician Address: Address: [address] [place] [address] Women's Health Plant Inspector [address] Name: Kathya Grullon RN Position: [facility] RN Member Role: Primary Care Nurse Care Team Related Persons Name: LYN LEIGH Address: [place] [address] Name: MADDIE LEIGH
--- OUTSIDE RECORDS SUMMARY | 2022-06-03 10:52 | XMS_ITS | Continuity of Care Document ---
Author Name Unknown Organization [facility] Address [address] [place] [address]- Care Team Providers Care Case Assistant Name Role Phone Ernesto King MD Primary Care Physician Encounter [facility] Date(s): 12/04/21 - 01/03/22 [facility] [address] [place] [address]- Encounter Diagnosis Diabetes(Discharge Diagnosis) - 09/21/19 Hypothyroidism(Discharge Diagnosis) - 09/21/19 Fibromyalgia(Discharge Diagnosis) - 09/21/19 Attending Physician: Ellis Bai Admitting Physician: Ellis Bai Referring Physician: Admtr, Ar8 Allergies, Adverse Reactions, [...] tetanus/diphtheria/pertussis, acel(Tdap) 01/30/16 Given 1Result Comment: [facility]:[id number] 2Result Comment: [facility] [id number] 3Result Comment: [11/30/2017] [facility] [id number] 4Result Comment: [12/31/2016] [facility] [id number] 5Admin Note: vis given 09/10/12 6Admin Note: VIS given 08/18/2011 7Result Comment: [12/31/2016] [facility] [id number] Medications albuterol 90 mcg/inh inhalation powder 2 puffs, Inhalation, Every 6 hours, PRN Wheezing/Shortness of Breath, # 1 each, 3 Refills, Maintenance, 11/22/21 17:17:00 EDT, Powder, [facility]/pharmacy #4471, dispense pro-air, 2 puffs Inhalation Every [...] Refills, Maintenance, 08/14/20 12:53:00 EDT, [facility], 163, cm, 07/31/20 9:10:00 EDT, Height, 98.9, [...] 3 Refills, Maintenance, 02/29/20 14:04:00 EST, Aerosol, [facility] #70961, 163, cm, 02/29/20 13:19:00 EST, Height, 98.9, [...] 11/22/21 17:17:00 EDT, Route to Pharmacy Electronically, [facility]/pharmacy #4471, 163, cm, 11/22/21 15:30:00 EDT, Height Start Date: 11/22/21 Stop Date: 01/21/22 Status: Ordered levothyroxine 175 mcg (0.175 mg) oral tablet 1 tablet = 175 mcg, By Mouth, Daily, # 90 tablet, 1 Refills, Maintenance, 06/27/21 11:36:00 EDT, Tablet, [facility]/pharmacy #4471, Partial fill upon patient request if [...] 5 Refills, Maintenance, 02/19/21 8:58:00 EST, [facility]/pharmacy #4471, 163, cm, 02/18/21 14:32:00 EST, Height, [...] Gm, 0 Refills, Maintenance, 12/04/21 11:58:00 EDT, [place], [facility]/pharmacy #4471, [...] 07/31/20 9:07:00 EDT, Route to Pharmacy Electronically, [facility] #10686, Partial fill upon patient request if the prescription is for a sched... Start Date: 07/31/20 Status: Ordered PriLOSEC OTC 20 mg oral delayed release tablet 1 tablet = 20 mg, By Mouth, Daily, # 30 tablet, 2 Refills, Maintenance, 12/04/21 11:57:00 EDT, [facility]/pharmacy #4471, 163, cm, 12/04/21 11:37:00 EDT, Height Start Date: 12/04/21 Status: Ordered semaglutide 0.25 mg/0.5 mL (0.25 mg dose) subcutaneous solution = 0.25 mg, Subcutaneous Injection, Every week, # 3 each, 1 Refills, Maintenance, 11/25/21 8:34:00 EDT, [facility]/pharmacy #[id number], Partial fill upon patient request if the prescription is for a schedule II opioid drug., 163, cm, 11/22/21 15:30:00 EDT, Height Start Date: 11/25/21 Status: Ordered Systane Complete Optimal Dry Eye Relief ophthalmic solution 2 drops, Eyes, Both, 3 times a day, # 30 mL, 3 Refills, Maintenance, 12/04/21 11:56:00 EDT, [facility]/pharmacy [...] 12:13:00 EST, Route to Pharmacy Electronically, [facility]/pharmacy #[id number], 163, cm, 03/07/21 11:34:00 EST,... Start Date: 04/12/21 Status: Ordered tiZANidine 4 mg oral tablet See Instructions, TAKE 1/2 TO 1 TABLET BY MOUTH EVERY 8 HOURS NEEDED FOR MILD AND MUSCLE SPASM, # 45 tablet, Refills 2, Maintenance, Instructions Replace Required Details, Route to Pharmacy Electronically, [facility], 163, cm, 07/27/20 13:59:0... Start Date: 07/27/20 Status: Ordered traMADol 50 mg oral tablet 1 tablet = 50 mg, By Mouth, Every 6 hours, PRN for pain, TAKE ONLY NEEDED Dx: M79.7, S92.91 Masspat checked, # 112 tablet, 0 Refills, Maintenance, 01/03/22 12:42:00 EST, Tablet, [facility]/pharmacy #4471, Please reinforce instructions with patient, she... [...] # 12 capsule, 0 Refills, [facility], 163, cm, 09/13/21 9:15:00 EDT, Height Start [...] [place] Back Pain Scale:88 on 01/13/17; initial [place]: 7 on 01/13/17 Diagnosis Diagnosis Type Effective [...] VERIFY Event Display: Patient Education/Instruction Authored Date: [facility] Family Clinical Summary Person [...] Refills: 4 Hydrocortisone/Neomycin/Polymyxin B Otic (Cortisporin Otic 1%-0.35%-63007 u/ml solution) , See Instructions, 4 drops [...] primary care provider, you may find a [facility] provider by calling [facility] at [phone]. Patient Education Information Follow-up Details: Patient Education [...] Team Personnel Name: Ernesto King MD Position: [facility] Primary Care Physician Member Role: PCP Address: Address: [address] [place] [address] Family Medicine [address] Name: Kathrine Luna MD Position: [facility] TELEPHONE DIRECTORY DELIVERER MD Member Role: Lifetime TELEPHONE DIRECTORY DELIVERER Physician Address: Address: [address] [place] [address] Women's Health Supercharge Repair Supervisor - [place], [place] [address] Name: Kathya Grullon RN Position: [facility] RN Member Role: Primary Care Nurse Care Team Related Persons Name: LYN LEIGH Address: [place] [address] Name: MADDIE LEIGH
--- OUTSIDE RECORDS SUMMARY | 2022-06-03 10:52 | XMS_ITS | Continuity of Care Document ---
Author Name Unknown Organization [facility] Address [address] [place] [address]- Care Team Providers Care Ergonomics Consultant Name Role Phone Fernando CARTY, Ernesto Zapata Primary Care Physician [facility]counter [facility] Date(s): 06/24/21 - 07/24/21 [facility] [address] [place] [address]- Allergies, Adverse Reactions, Alerts No Known Allergies [...] Given 1Result Comment: [facility]:[id number] 2Result Comment: [facility] 83187-729-36 3Result Comment: [11/30/2017] [facility] 15458-374-03 4Result Comment: [12/31/2016] [facility] [id number] 5Admin Note: vis given 09/10/12 6Admin Note: VIS given 08/18/2011 7Result Comment: [12/31/2016] [facility] [id number] Medications albuterol 90 mcg/inh inhalation powder 2 puffs, Inhalation, Every 6 hours, PRN Wheezing/Shortness of Breath, # 1 each, 3 Refills, Maintenance, 02/27/21 16:30:00 EST, Powder, [facility]/pharmacy #[id number], dispense pro-air, 2 puffs Inhalation Every 6hours,PRN:Wheezing/Shortness of Breath, 163, cm, 01... Start Date: 02/27/21 Status: Ordered albuterol-ipratropium 3 mg-0.5 mg/3 ml inhalation solution 3 mL, Neb, 4 times a day, J45.40, # 180 mL, 3 Refills, Maintenance, 07/02/20 14:11:00 EDT, Solution, [facility]/pharmacy #[id number], 3 mL Neb 4 times a day,Instr:J45.40, 163, cm, 06/18/20 13:31:00 EDT, Height, 98.9, kg, 08/25/19 12:42:00 EDT, Dry Weight Start Date: 07/02/20 Status: Ordered celecoxib 100 mg oral capsule 1 capsule, By Mouth, 2 times a day with meals, # 60 capsule, 1 Refills, Maintenance, 08/14/20 12:53:00 EDT, [id number], 163, cm, 07/31/20 9:10:00 EDT, Height, 98.9, [...] 3 Refills, Maintenance, 02/29/20 14:04:00 EST, [id number], 163, cm, 02/29/20 13:19:00 EST, Height, 98.9, [...] 06/24/21 10:53:00 EDT, Route to Pharmacy Electronically, [facility]/pharmacy #[id number], 163, cm, 06/21/21 15:02:00 EDT, Height, 98.9, kg, 08/25/19 12:42:00 EDT, Dry Weight Start Date: 06/24/21 Stop Date: 08/23/21 Status: Ordered levothyroxine 175 mcg (0.175 mg) oral tablet 1 tablet = 175 mcg, By Mouth, Daily, # 90 tablet, 1 Refills, Maintenance, 06/27/21 11:36:00 EDT, Tablet, [facility]/pharmacy #[id number], Partial fill upon patient request if the prescription is for a schedule IIopioid drug., 163, cm, 06/27/21 11:27:00 EDT, [place]... Start Date: 06/27/21 Status: Ordered loratadine 10 mg oral tablet 10 mg, 1, tablet, By Mouth, Daily, # 30 tablet, Refills 6, Tot. Refills 6, Maintenance, 11/28/19 8:53:00 EDT, Route to Pharmacy Electronically, [facility]/pharmacy #[id number], 163, cm, 11/25/19 14:43:00 EDT, Height, 98.9, kg, 08/25/19 12:42:00 EDT, Dry Weight Start Date: 11/28/19 Status: Ordered metFORMIN 500 mg oral tablet 1 tablet = 500 mg, By Mouth, 2 times a day, # 60 tablet, 5 Refills, Maintenance, 02/19/21 8:58:00 EST, [facility]/pharmacy #[id number], 163, cm, 02/18/21 14:32:00 [...] each, 1 Refills, Maintenance, 08/25/19 15:03:00 EDT, [facility]/pharmacy#[id number], 2 sprays Nares, Both Daily, 163, cm, 08/25/19 12:40:00 EDT, Height, 98.9, kg, 08/25/19 12:42:00 EDT, Dry Weight Start Date: 08/25/19 Status: Ordered Nasonex 50 mcg/inh nasal spray 2 sprays, Nares, Both, 2 times a day, # 17 Gm, 0 Refills, Maintenance, 08/25/19 13:03:00 EDT, [place], [facility]/pharmacy #[id number], 2 sprays Nares, Both [...] 07/31/20 9:07:00 EDT, Route to Pharmacy Electronically, [facility] #[id number], Partial fill upon patient request if the prescription is for a sched... Start Date: 07/31/20 Status: Ordered PriLOSEC OTC 20 mg oral delayed release tablet 1 tablet = 20 mg, By Mouth, Daily, # 30 tablet, 2 Refills, Maintenance, 03/13/20 11:45:00 EST, [facility]/pharmacy #[id number], 163, cm, 03/08/20 11:24:00 EST, Height, 98.9, kg, 08/25/19 12:42:00 EDT, Dry Weight Start Date: 03/13/20 Status: Ordered semaglutide 0.25 mg/0.5 mL (0.25 mg dose) subcutaneous solution = 0.25 mg, Subcutaneous Injection, Every 72 hours, # 3 each, 0 Refills, Maintenance, 10/04/20 16:20:00 EDT, [facility] #[id number], Partial fill upon patient request if the prescription is for aschedule II opioid drug., 163, cm, 10/04/20 16:08:0... Start Date: 10/04/20 Status: Ordered Systane Complete Optimal Dry Eye Relief ophthalmic solution 2 drops, Eyes, Both, 3 times a day, # 30 mL, 3 Refills, Maintenance, 11/28/19 8:55:00 EDT, [facility]/pharmacy #[id number], 2 drops Eyes, Both [...] 04/12/21 12:13:00 EST, Route to Pharmacy Electronically, [facility]/pharmacy #[id number], 163, cm, 03/07/21 11:34:00 EST,... Start Date: 04/12/21 Status: Ordered tiZANidine 4 mg oral tablet See Instructions, TAKE 1/2 TO 1 TABLET BY MOUTH EVERY 8 HOURS NEEDED FOR MILD AND MUSCLE SPASM, # 45 tablet, Refills 2, Maintenance, Instructions Replace Required Details, Route to Pharmacy Electronically, [id number], 163, cm, 07/27/20 13:59:0... Start Date: 07/27/20 Status: Ordered traMADol 50 mg oral tablet 1 tablet = 50 mg, By Mouth, Every 6 hours, PRN for pain, TAKE ONLY NEEDED Dx: M79.7, S92.91 [place] checked, # 112 tablet, 0 Refills, Maintenance, 06/21/21 16:39:00 EDT, Tablet, [facility]/pharmacy #[id number], Please reinforce instructions with [...] Isl Back Pain Scale:88 on 01/13/17; initial [place]: 7 on 01/13/17 Social History Social History Type Response Smoking Status Former smoker, quit more than 30 days ago entered on: 04/06/20 Sex
--- OUTSIDE RECORDS SUMMARY | 2022-06-03 10:52 | XMS_ITS | Continuity of Care Document ---
Author Name Unknown Organization [facility] Address [address] [place] [address]- Care Team Providers Care Practice Coordinator Name Role Phone Fernando CARTY, Ernesto Zapata Primary Care Physician [facility] Date[facility]s): 04/30/22 - 05/30/22 [facility] [address] [place] [address]- Allergies, Adverse Reactions, Alerts No Known Allergies [...] tetanus/diphtheria/pertussis, acel(Tdap) 01/30/16 Given 1Result Comment: [facility]:[id number] 2Result Comment: [facility] [id number] 3Result Comment: [11/30/2017] [facility] [id number] 4Result Comment: [12/31/2016] [facility] 16684-532-20 5Admin Note: vis given 09/10/12 6Admin Note: VIS given 08/18/2011 7Result Comment: [12/31/2016] [facility] [id number] Medications albuterol 90 mcg/inh inhalation powder 2 puffs, Inhalation, Every 6 hours, PRN Wheezing/Shortness of Breath, # 1 each, 3 Refills, Maintenance, 11/22/21 17:17:00 EDT, Powder, [facility]/pharmacy #[id number], dispense pro-air, 2 puffs Inhalation Every 6hours,PRN:Wheezing/Shortness of Breath, 163, cm, 10... Start Date: 11/22/21 Status: Ordered albuterol-ipratropium 3 mg-0.5 mg/3 ml inhalation solution 3 mL, Neb, 4 times a day, J45.40, # 180 mL, 3 Refills, Maintenance, 11/22/21 17:17:00 EDT, Solution, [facility]/pharmacy #[id number], 3 mL Neb 4 times a day,Instr:J45.40, 163, cm, 11/22/21 15:30:00 EDT, Height Start Date: 11/22/21 Status: Ordered celecoxib 100 mg oral capsule 1 capsule, By Mouth, 2 times a day with meals, # 60 capsule, 1 Refills, Maintenance, 08/14/20 12:53:00 EDT, [id number], 163, cm, 07/31/20 9:10:00 EDT, Height, 98.9, [...] 3 Refills, Maintenance, 02/29/20 14:04:00 EST, [facility]erosol, [id number], 163, cm, 02/29/20 13:19:00 EST, Height, 98.9, [...] 11/22/21 17:17:00 EDT, Route to Pharmacy Electronically, [facility]/pharmacy #[id number], 163, cm, 11/22/21 15:30:00 EDT, Height Start Date: 11/22/21 Stop Date: 01/21/22 Status: Ordered levothyroxine 175 mcg (0.175 mg) oral tablet 1 tablet = 175 mcg, By Mouth, Daily, # 90 tablet, 0 Refills, Maintenance, 02/13/23 12:00:00 EST, [facility], [id number] Partial fill upon patient request if the prescription is for a schedule IIopioid drug., 163, cm, 03/31/22 11:41:00 EST, Height Start Date: 03/31/22 Status: Ordered loratadine 10 mg oral tablet 10 mg, 1, tablet, By Mouth, Daily, # 30 tablet, Refills 6, Tot. Refills 6, Maintenance, 11/28/19 8:53:00 EDT, [id number], 163, cm, 11/25/19 14:43:00 EDT, Height, [...] Gm, 0 Refills, Maintenance, 12/04/21 11:58:00 EDT, [id number], 2 sprays Nares, Both 2 times [...] 07/31/20 9:07:00 EDT, Route to Pharmacy Electronically, [id number], Partial fill upon patient request if the prescription is for a sched... Start Date: 07/31/20 Status: Ordered PriLOSEC OTC 20 mg oral delayed release tablet 1 tablet = 20 mg, By Mouth, Daily, # 30 tablet, 2 Refills, Maintenance, 12/04/21 11:57:00 EDT, [facility]/pharmacy #[id number], 163, cm, 12/04/21 11:37:00 EDT, [...] mL, 3 Refills, Maintenance, 12/04/21 11:56:00 EDT, [facility]/pharmacy #[id number], [...] 0 Refills, Maintenance, 05/28/22 7:34:00 EDT, Tablet, [facility]/pharmacy #[id number],Please reinforce instructions with patient, she h... [...] Every week, # 12 capsule, 0 Refills, [id number], 163, cm, 09/13/21 9:15:00 EDT, Height Start Date: 09/18/21 Status: Ordered Voltaren 1% topical gel 1 application, Topically, 4 times a day, PRN for pain, # 100 Gm, 0 Refills, Maintenance, 05/27/21 18:00:00 EDT, [place], [facility]acy #[id number], Partial fill upon patient request if [...] Isl Back Pain Scale:88 on 01/13/17; initial [place]: 7 on 01/13/17 Social History Social History Type Response Smoking Status Former smoker, quit more than 30 days ago; Other: quit 3 years, smoked for 10yrs, 1 ppd; entered on: 05/29/22 Sex Patient Care team information Care Team Personnel Name: Fernando CARTY, Ernesto Zapata Position: [facility] Primary Care Physician Member Role: PCP Address: Address: [address] [place] [address] [place] [address]- Name: Kathrine Luna MD Position: [facility] LUSTER REPAIRER MD Member Role: Lifetime LUSTER REPAIRER Physician Address: Address: [address] [place] [address] [facility] [employer] - [address] Name: Kathya Grullon RN Position: [facility] RN Member Role: Primary Care Nurse Care Team Related Persons Name: LYN LEIGH Address: [place] [address] Name: MADDIE LEIGH
--- OUTSIDE RECORDS SUMMARY | 2022-06-03 10:52 | XMS_ITS | Continuity of Care Document ---
Author Name Unknown Organization [facility] Address [address] [place] [address]- Care Team Providers Care Sales Performance Analyst Name Role Phone Ernesto King MD Primary Care Physician Encounter [facility] [place] Date(s): 03/31/22 - 04/07/[address] [facility] [address] [place] [address]- Encounter Diagnosis Abdominal pain(Discharge Diagnosis) - 03/31/22 Elevated LFTs(Discharge Diagnosis) - 03/31/22 Vaginal bleeding(Discharge Diagnosis) - 03/31/22 Hypothyroidism(Discharge Diagnosis) - 03/31/22 Diabetes mellitus with hyperglycemia(Discharge Diagnosis) - 03/31/22 Attending Physician: Ernesto King MD Allergies, Adverse [...] Given tetanus/diphtheria/pertussis, acel(Tdap) 01/30/16 Given 1Result Comment: [facility]:[id number] 2Result Comment: [facility] [id number] 3Result Comment: [11/30/2017] [facility] [id number] 4Result Comment: [12/31/2016] [facility] [id number] 5Admin Note: vis given 09/10/12 6Admin Note: VIS given 08/18/2011 7Result Comment: [12/31/2016] [facility] [id number] Medications albuterol 90 mcg/inh inhalation powder 2 puffs, Inhalation, Every 6 hours, PRN Wheezing/Shortness of Breath, # 1 each, 3 Refills, Maintenance, 11/22/21 17:17:00 EDT, Powder, [facility]/pharmacy #[id number], dispense pro-air, 2 puffs Inhalation Every 6hours,PRN:Wheezing/Shortness of Breath, 163, cm, 10... Start Date: 11/22/21 Status: Ordered albuterol-ipratropium 3 mg-0.5 mg/3 ml inhalation solution 3 mL, Neb, 4 times a day, J45.40, # 180 mL, 3 Refills, Maintenance, 11/22/21 17:17:00 EDT, Solution, [facility]/pharmacy #[id number], 3 mL Neb 4 times a day,Instr:J45.40, 163, cm, 11/22/21 15:30:00 EDT, Height Start Date: 11/22/21 Status: Ordered Augmentin 875 mg-125 mg oral tablet 1 tablet, By Mouth, Every 12 hours, for 10 days, # 20 tablet, 0 Refills, Acute 04/10/22 12:00:00 EST, 03/31/22 12:00:00 EST, Tablet, [facility]/pharmacy #[id number], Partial fill upon patient request if the prescription is for a schedule II opioid drug., 163, cm,... Start Date: 03/31/22 Stop Date: 04/10/22 Status: Ordered celecoxib 100 mg oral capsule 1 capsule, By Mouth, 2 times a day with meals, # 60 capsule, 1 Refills, Maintenance, 08/14/20 12:53:00 EDT, [id number], 163, cm, 07/31/20 9:10:00 EDT, Height, 98.9, [...] 3 Refills, Maintenance, 02/29/20 14:04:00 EST, Aerosol, [id number], 163, cm, 02/29/20 13:19:00 EST, Height, 98.9, [...] 11/22/21 17:17:00 EDT, [id number] 163, cm, 11/22/21 15:30:00 EDT, Height Start Date: 11/22/21 Stop Date: 01/21/22 Status: Ordered levothyroxine 175 mcg (0.175 mg) oral tablet 1 tablet = 175 mcg, By Mouth, Daily, # 90 tablet, 0 Refills, Maintenance, 03/31/22 12:00:00 EST, Tablet, [id number] Partial fill upon patient request if the prescription is for a schedule IIopioid drug., 163, cm, 03/31/22 11:41:00 EST, Height Start Date: 03/31/22 Status: Ordered loratadine 10 mg oral tablet 10 mg, 1, tablet, By Mouth, Daily, # 30 tablet, Refills 6, Tot. Refills 6, Maintenance, 11/28/19 8:53:00 EDT, [facility] Pharm[facility]ically[id number], 163, cm, 11/25/19 14:43:00 EDT, Height, 98.9, kg, 08/25/19 12:42:00 EDT, Dry Weight Start Date: 11/28/19 Status: Ordered metFORMIN 500 mg oral tablet 1 tablet = 500 mg, By Mouth, 2 times a day, # 60 tablet, 5 Refills, Maintenance, 02/19/21 8:58:00 EST, [facility]/pharmacy #[id number], 163, cm, 02/18/21 14:32:00 EST, [...] each, 1 Refills, Maintenance, 08/25/19 15:03:00 EDT, [facility]/pharmacy#[id number], 2 sprays Nares, Both Daily, 163, cm, 08/25/19 12:40:00 EDT, Height, 98.9, kg, 08/25/19 12:42:00 EDT, Dry Weight Start Date: 08/25/19 Status: Ordered Nasonex 50 mcg/inh nasal spray 2 sprays, Nares, Both, 2 times a day, # 17 Gm, 0 Refills, Maintenance, 12/04/21 11:58:00 EDT, [place], [facility]/pharmacy #[id number], 2 sprays Nares, Both 2 [...] 07/31/20 9:07:00 EDT, Route to Pharmacy Electronically, [facility][id number], Partial fill upon patient request if the prescription is for a sched... Start Date: 07/31/20 Status: Ordered PriLOSEC OTC 20 mg oral delayed release tablet 1 tablet = 20 mg, By Mouth, Daily, # 30 tablet, 2 Refills, Maintenance, 12/04/21 11:57:00 EDT, [facility]/pharmacy #[id number], 163, cm, 12/04/21 11:37:00 EDT, Height Start Date: 12/04/21 Status: Ordered semaglutide 0.25 mg/0.5 mL (0.25 mg dose) subcutaneous solution = 0.25 mg, Subcutaneous Injection, Every week, # 3 each, 1 Refills, Maintenance, 11/25/21 8:34:00 EDT, [facility]/pharmacy #[id number], Partial fill upon patient request if the prescription is for a schedule II opioid drug., 163, cm, 11/22/21 15:30:00 EDT, Height Start Date: 11/25/21 Status: Ordered Systane Complete Optimal Dry Eye Relief ophthalmic solution 2 drops, Eyes, Both, 3 times a day, # 30 mL, 3 Refills, Maintenance, 12/04/21 11:56:00 EDT, [facility]/pharmacy #[id number], 2 drops Eyes, Both 3 times a day, 163, cm, 12/04/21 11:37:00 EDT, Height Start Date: 12/04/21 Status: Ordered tiZANidine 4 mg oral tablet 0.5-1 tablet, By Mouth, Every 8 hours, PRN, TAKE ONLY NEEDED FOR MUSCLE SPASM, # 45 tablet, Refills 2, Tot. Refills 2, Maintenance, Spasm, 04/12/21 12:13:00 EST, Route to Pharmacy Electronically, [facility]/pharmacy #[id number], 163, cm, 03/07/21 11:34:00 EST,... Start Date: 04/12/21 Status: Ordered tiZANidine 4 mg oral tablet See Instructions, TAKE 1/2 TO 1 TABLET BY MOUTH EVERY 8 HOURS NEEDED FOR MILD AND MUSCLE SPASM, # 45 tablet, Refills 2, Maintenance, Instructions Replace Required Details, Route to Pharmacy Electronically, [id number], 163, cm, 07/27/20 13:59:0... Start Date: 07/27/20 [...] # 12 capsule, 0 Refills, [id number], 163, cm, 09/13/21 9:15:00 EDT, Height Start [...] [place] Back Pain Scale:88 on 01/13/17; initial [place]: 7 on 01/13/17 Diagnosis Diagnosis Type Effective Dates Health Status Clinical Service Informant Abdominal pain Discharge Diagnosis 03/31/22 Elevated LFTs Discharge Diagnosis 03/31/22 Vaginal bleeding Discharge Diagnosis 03/31/22 Hypothyroidism Discharge Diagnosis 03/31/22 Diabetes mellitus with hyperglycemia Discharge Diagnosis 03/31/22 Vital Signs Most recent to oldest [Reference Range]: 1 Height 163 cm (03/31/22 11:41 AM) Weight 102.4 kg (03/31/22 11:41 AM) Pulse Rate [55-90 bpm] 81 bpm (03/31/22 11:41 AM) Body Mass Index [18.5-24.99 kg/m2] 38.54 kg/m2 *>HHI* (03/31/22 11:41 AM) Blood Pressure [90-138/55-84 mm Hg] 113/ 77mm Hg (03/31/22 11:41 AM) Respiratory Rate [16-30 br/min] 16 br/mi n (03/31/22 11:41 AM) Temperature [96.8-100.4 DegF] 98.5 DegF (03/31/22 11:41 AM) Blood pressure sites Arm, right (03/31/22 11:41 AM) Weight Obtained Via Standing scale (03/31/22 11:41 AM) Social History Social History Type Response Smoking Status Former smoker, quit more than 30 days ago entered on: 04/06/20 Sex Note * Inez Loza: PERFORM, SIGN, VERIFY Event Display: Patient Education/Instruction Authored Date: [id number] [facility] Clinical Summary Name ODILON LEIGH Age 61 Years 1960 PCP Fernando CARTY, Ernesto Zapata PCP Visit Date 03/31/2022 10:41:00 Patient Instructions labs ordered today start antibiotics Additional Instructions: Scheduled Appointments?? Future Appointments ?[facility] [address]??[place],??[place],??[address] ?Phone:??[phone]?Fax:??-- ?Appt. Date:??04/21/2022?11:00 AM ?Scheduled Provider:??JOSÉ LOVE Rm 1 ?[facility] ?[address]??[place],??[place],??[address] ?Phone:??[phone]?Fax:??-- ?Appt. Date:??04/21/2022?12:45 PM ?Scheduled Provider:??JOSÉ Hyman Rm 1 Follow-Up Instructions ?? Diagnosis Unspecified abdominal pain; Abnormal uterine and vaginal bleeding, unspecified; Other specified abnormal findings of blood chemistry; Type 2 diabetes mellitus with hyperglycemia; Hypothyroidism, unspecified Medications: Please continue your medications until treatment is completed or stopped by your provider. Discuss any questions related to medications with your provider. New Medications [id number] [address], [place] [id number], [phone] Amoxicillin-Clavulanate (Augmentin 875 mg-125 mg oral tablet) 1 tab(s) Oral every 12 hours for 10 Days. Refills: 0. Next Dose: Levothyroxine (levothyroxine 175 mcg (0.175 mg) oral tablet) 1 tab(s) Oral Daily. Refills: 0. Next Dose: Medications to Continue with No Changes These medications were not printed or sent to your pharmacy Albuterol (albuterol 90 mcg/inh inhalation powder) 2 puff(s) Inhalation every 6 hours as needed Wheezing/Shortness of Breath. Refills: 3. Next Dose: Albuterol/Ipratropium (albuterol-ipratropium 3 mg-0.5 mg/3 ml inhalation solution) 3 Milliliter Nebulized inhalation 4 times a day. J45.40. Refills: 3. Next Dose: Celecoxib (celecoxib 100 mg oral capsule) 1 capsule Oral two times a day with meals. Refills: 1. Next Dose: Cholecalciferol (Vitamin D3 50,000 intl units oral capsule) 1 capsule Oral every week. Refills: 0. Next Dose: Diclofenac Topical (Voltaren 1% topical gel) 1 lo Topically 4 times a day as needed for pain. Refills: 0. Next Dose: Durable Medical Equipment (change as needed) Adult pull ups change as needed for urinary incontinence.. Refills: 6. Next Dose: Durable Medical Equipment (Freestyle Lite Lancets) E11.9 Test blood glucose twice a day. Refills: 5. Next Dose: Durable Medical Equipment (Freestyle Lite Monitor) E11.9 Test blood glucose twice a day. Refills: 0. Next Dose: Durable Medical Equipment (Freestyle Lite Test Strips) ICD10: E11.9 Test blood glucose 2 times a day. Refills: 5. Next Dose: Durable Medical Equipment (Nebulizer tubing and Adult mask) For use with Nebulizer, Use daily inhalation as needed, Dx: J45.40 Size to fit -Adult; as needed Wheezing/Shortness of Breath. Refills: 0. Next Dose: Durable Medical Equipment (Nebulizer/Compressor) mini nebulizer, Use: Daily inhalation,, as needed,Dx: J45.40 For use as a travel nebulizer; as needed Wheezing/Shortness of Breath. Refills: 0. Next Dose: Fluticasone (Flovent HFA 220 mcg/inh inhalation aerosol) 2 puff(s) Inhalation twice a day. rinse mouth and throat after use. Refills: 3. Next Dose: Gabapentin (gabapentin 300 mg oral capsule) 2 capsule Oral 3 times a day for 30 Days. Refills: 1. Next Dose: liraglutide (Victoza 18 mg/3 mL subcutaneous solution) 0.6 Milligram Subcutaneous Injection Daily. Refills: 3. Next Dose: Loratadine (loratadine 10 mg oral tablet) 1 tab(s) Oral Daily. Refills: 6. Next Dose: Metformin (metFORMIN 500 mg oral tablet) 1 tab(s) Oral twice a day for 30 Days. Refills: 5. Next Dose: Mometasone Nasal (Nasonex 50 mcg/inh nasal spray) 2 spray(s) Nares, Both twice a day. Refills: 0. Next Dose: Nortriptyline (nortriptyline 50 mg oral capsule) 1 capsule Oral 3 times a day. Refills: 1. Next Dose: Ocular Lubricant (Systane Complete Optimal Dry Eye Relief ophthalmic solution) 2 Drops Both eyes 3 times a day. Refills: 3. Next Dose: Omeprazole (PriLOSEC OTC 20 mg oral delayed release tablet) 1 tab(s) Oral Daily. Refills: 2. Next Dose: Polyethylene Glycol 3350 (MiraLax oral powder for reconstitution) 17 gram Oral Daily. mix with liquid. Refills: 0. Next Dose: semaglutide (semaglutide 0.25 mg/0.5 mL (0.25 mg dose) subcutaneous solution) 0.25 Milligram Subcutaneous Injection every week. Refills: 1. Next Dose: Tizanidine (tiZANidine 4 mg oral tablet) TAKE 1/2 TO 1 TABLET BY MOUTH EVERY 8 HOURS NEEDED FOR MILD AND MUSCLE SPASM. Refills: 2. Next Dose: Tizanidine (tiZANidine 4 mg oral tablet) 0.5-1 tablet Oral every 8 hours as needed Spasm. TAKE ONLYAS NEEDED FOR MUSCLE SPASM. Refills: 2. Next Dose: Tramadol (traMADol 50 mg oral tablet) 1 tab(s) Oral every 6 hours as needed for pain for 28 Days. TAKE ONLY NEEDED Dx: M79.7, S92.91 Masspat checked. Refills: 0. Next Dose: Triamcinolone Nasal (Nasacort Allergy 24HR 55 mcg/inh nasal spray) 2 spray(s) Nares, Both Daily. Refills: 1. Next Dose: Allergy Info:?? NKA Medications Given This Visit Future Orders ?No future orders Vital Signs Height 163 cm Weight 102.4 kg BMI 38.54 kg/m2 Blood Pressure 113 mm Hg/77 mm Hg Temperature 98.5 DegF Pulse Rate 81 bpm Respiratory Rate 16 br/min 02 Sat Mode of Delivery / You can now view a summary of your hospital visit from the comfort of your home through a free online portal called [employer]. [employer] is a website that allows you to securely view your medical information including discharge summary, medications and follow-up visits. ??You can alsosend a secure electronic message to your doctor???s office to request appointments, renew medications or just ask a question. You can enroll at [email or web address] or register during your next office visit. Disclaimer:?? The information provided is of a general nature and is intended to be used in conjunction with the recommendations and advice of your health care practitioner. ??Every effort has been made to ensure that the information provided is accurate and complete at the time it is provided to you however, as your needs change, or, as new ??information becomes available, different or additional instructions may be required. If you have questions, please consult with your primary care provider or pharmacist, as appropriate. ??This information is not intended to serve as substitution for assessment and evaluation by a qualified health care provider. If you do not have a primary care provider, you may find a [facility] provider by calling [facility] [employer] Link at [phone]. For information about the plan of care including goals and instructions for your diagnosis, please see the patient education orders section of this document. Patient Education Materials?? The content of this educational material or handout may have been modified, supplemented, or adapted from its original content and format to support your individualized medical care. Patient Care team information Care Team Personnel Name: Ernesto King MD Position: [facility] Primary Care Physician Member Role: PCP Address: Address: [address] [place] [address] Family Medicine [address] Name: Kathrine Luna MD Position: [facility] PHARMACY CLINICAL COORDINATOR MD Member Role: [facility] PH[facility] CLINICAL COORDINATOR Physician Address: Address: [address] [place] [address] Women's [place] [address]- [place] Name: Kathya Grullon RN Position: [facility] RN Member Role: Primary Care Nurse Care Team Related Persons Name: LYN LEIGH Address: [address] [address] Name: MADDIE LEIGH
--- OUTSIDE RECORDS SUMMARY | 2022-06-03 10:52 | XMS_ITS | Continuity of Care Document ---
Author Name Unknown Organization [facility] Address [address] [place] [address]- Care Team Providers Care Metal Extrusion Supervisor Name Role Phone Fernando CARTY, Ernesto Zapata Primary Care Physician [place] [facility] [place]23[place] - 09/22/21 [facility] [address] [place] [address]- Attending Physician: Ellis Bai Admitting Physician: AdmEllis [...] 01/30/16 Given 1Result Comment: [facility]:[id number] 2Result Comment: [facility] [id number] 3Result Comment: [11/30/2017] [facility] [id number] 4Result Comment: [12/31/2016] [facility] [id number] 5Admin Note: vis given 09/10/12 6Admin Note: VIS given 08/18/2011 7Result Comment: [12/31/2016] [facility] [id number] Medications albuterol 90 mcg/inh inhalation powder 2 puffs, Inhalation, Every 6 hours, PRN Wheezing/Shortness of Breath, # 1 each, 3 Refills, Maintenance, 02/27/21 16:30:00 EST, Powder, [facility]/pharmacy #[id number], dispense pro-air, 2 puffs Inhalation Every 6hours,PRN:Wheezing/Shortness of Breath, 163, cm, 01... Start Date: 02/27/21 Status: Ordered albuterol-ipratropium 3 mg-0.5 mg/3 ml inhalation solution 3 mL, Neb, 4 times a day, J45.40, # 180 mL, 3 Refills, Maintenance, 07/02/20 14:11:00 EDT, Solution, [facility]/pharmacy #[id number], 3 mL Neb 4 times a day,Instr:J45.40, 163, cm, 06/18/20 13:31:00 EDT, Height, 98.9, kg, 08/25/19 12:42:00 EDT, Dry Weight Start Date: 07/02/20 Status: Ordered celecoxib 100 mg oral capsule 1 capsule, By Mouth, 2 times a day with meals, # 60 capsule, 1 Refills, Maintenance, 08/14/20 12:53:00 EDT, [facility], 163, cm, 07/31/20 9:10:00 EDT, Height, 98.9, [...] 3 Refills, Maintenance, 02/29/20 14:04:00 EST, Aerosol, [id number], 163, cm, 02/29/20 13:19:00 EST, Height, 98.9, [...] EDT, Route to Pharmacy Electronically, [facility]/pharmacy #[id number], 163, cm, 08/29/21 13:43:00 EDT, Height Start Date: 08/29/21 Stop Date: 10/28/21 Status: Ordered levothyroxine 175 mcg (0.175 mg) oral tablet 1 tablet = 175 mcg, By Mouth, Daily, # 90 tablet, 1 Refills, Maintenance, 06/27/21 11:36:00 EDT, Tablet, [facility]/pharmacy #[id number], Partial fill upon patient request if the prescription is for a schedule IIopioid drug., 163, cm, 06/27/21 11:27:00 EDT, [place]án... Start Date: 06/27/21 Status: Ordered loratadine 10 mg oral tablet 10 mg, 1, tablet, By Mouth, Daily, # 30 tablet, Refills 6, Tot. Refills 6, Maintenance, 11/28/19 8:53:00 EDT, Route to Pharmacy Electronically, [facility]/pharmacy #[id number], 163, cm, 11/25/19 14:43:00 EDT, Height, 98.9, kg, 08/25/19 12:42:00 EDT, Dry Weight Start Date: 11/28/19 Status: Ordered metFORMIN 500 mg oral tablet 1 tablet = 500 mg, By Mouth, 2 times a day, # 60 tablet, 5 Refills, Maintenance, 02/19/21 8:58:00 EST, [facility]/pharmacy #[id number], 163, cm, 02/18/21 14:32:00 [...] Refills, Maintenance, 08/25/19 15:03:00 EDT, [facility]/pharmacy#[id number], 2 sprays Nares, Both Daily, 163, cm, 08/25/19 12:40:00 EDT, Height, 98.9, kg, 08/25/19 12:42:00 EDT, Dry Weight Start Date: 08/25/19 Status: Ordered Nasonex 50 mcg/inh nasal spray 2 sprays, Nares, Both, 2 times a day, # 17 Gm, 0 Refills, Maintenance, 08/25/19 13:03:00 EDT, [place], [facility]/pharmacy #[id number], 2 sprays Nares, Both [...] 07/31/20 9:07:00 EDT, Route to Pharmacy Electronically, [id number], Partial fill upon patient request if the prescription is for a sched... Start Date: 07/31/20 Status: Ordered PriLOSEC OTC 20 mg oral delayed release tablet 1 tablet = 20 mg, By Mouth, Daily, # 30 tablet, 2 Refills, Maintenance, 03/13/20 11:45:00 EST, [facility]/pharmacy #[id number], 163, cm, 03/08/20 11:24:00 EST, Height, 98.9, kg, 08/25/19 12:42:00 EDT, Dry Weight Start Date: 03/13/20 Status: Ordered semaglutide 0.25 mg/0.5 mL (0.25 mg dose) subcutaneous solution = 0.25 mg, Subcutaneous Injection, Every 72 hours, # 3 each, 0 Refills, Maintenance, 09/13/21 9:26:00 EDT, [facility]/pharmacy #[id number], Partial fill upon patient request if the prescription is for a schedule II opioid drug., 163, cm, 09/13/21 9:15:00 EDT, Height Start Date: 09/13/21 Status: Ordered Systane Complete Optimal Dry Eye Relief ophthalmic solution 2 drops, Eyes, Both, 3 times a day, # 30 mL, 3 Refills, Maintenance, 11/28/19 8:55:00 EDT, [facility]/pharmacy #[id number], 2 drops Eyes, Both [...] 04/12/21 12:13:00 EST, [id number] 163, cm, 03/07/21 11:34:00 EST,... Start Date: 04/12/21 Status: Ordered tiZANidine 4 mg oral tablet See Instructions, TAKE 1/2 TO 1 TABLET BY MOUTH EVERY 8 HOURS NEEDED FOR MILD AND MUSCLE SPASM, # 45 tablet, Refills 2, Maintenance, Instructions Replace Required Details, Route to Pharmacy Electronically, [id number], 163, cm, 07/27/20 13:59:0... Start Date: 07/27/20 Status: Ordered traMADol 50 mg oral tablet 1 tablet = 50 mg, By Mouth, Every 6 hours, PRN for pain, TAKE ONLY NEEDED Dx: M79.7, S92.91 Masspat checked, # 112 tablet, 0 Refills, Maintenance, 08/29/21 17:12:00 EDT, Tablet, [facility]/pharmacy #[id number], Please reinforce instructions with patient, she... Start Date: 08/29/21 Stop Date: 09/26/21 Status: Ordered Vitamin D3 50,000 intl units oral capsule 1 capsule, By Mouth, Every week, # 12 capsule, 0 Refills, [facility], 163, cm, 09/13/21 9:15:00 EDT, Height Start Date: 09/18/21 Status: Ordered Voltaren 1% topical gel 1 application, Topically, 4 times a day, PRN for pain, # 100 Gm, 0 Refills, Maintenance, 05/27/21 18:00:00 EDT, Gel, [facility]/pharmacy #[id number], Partial fill upon patient [...] [place] Back Pain Scale:88 on 01/13/17; initial [place]: 7 on 01/13/17 Social History Social History Type Response Smoking Status Former smoker, quit more than 30 days ago entered on: 04/06/20 Sex
--- OUTSIDE RECORDS SUMMARY | 2022-06-03 10:52 | XMS_ITS | Continuity of Care Document ---
Author Name Unknown Organization [facility] Address [address] [place] [address]- Care Team Providers Care Computer Builder Name Role Phone Ernesto King MD Primary Care Physician Encounter [facility] Date(s): 02/18/22 - 04/26/22 [facility] [address] [place], [place] [address] Attending Physician: Ernesto King MD Allergies, Adverse [...] acel(Tdap) 01/30/16 Given 1Result Comment: [facility]:[id number] 2Result Comment: [facility] [id number] 3Result Comment: [11/30/2017] [facility] [id number] 4Result Comment: [12/31/2016] [facility] [id number] 5Admin Note: vis given 09/10/12 6Admin Note: VIS given 08/18/2011 7Result Comment: [12/31/2016] [facility] [id number] Medications albuterol 90 mcg/inh inhalation powder 2 [...] Refills, Maintenance, 08/14/20 12:53:00 EDT, [id number], 163, cm, 07/31/20 9:10:00 EDT, Height, 98.9, [...] 3 Refills, Maintenance, 02/29/20 14:04:00 EST, [facility]erosol, [id number], 163, cm, 02/29/20 13:19:00 EST, Height, 98.9, [...] 0 Refills, Maintenance, 03/31/22 12:00:00 EST, Tablet, [facility]/pharmacy #[id number], [...] Gm, 0 Refills, Maintenance, 12/04/21 11:58:00 EDT, [place], [facility]/pharmacy #[id number], 2 [...] 07/31/20 9:07:00 EDT, Route to Pharmacy Electronically, [id number], Partial fill upon patient request if the [...] Electronically, [id number], 163, cm, 07/27/20 13:59:0... Start Date: 07/27/20 Status: Ordered traMADol 50 mg oral tablet 1 tablet = 50 mg, By Mouth, Every 6 hours, PRN for pain, TAKE ONLY NEEDED Dx: M79.7, S92.91 Masspat checked, # 112 tablet, 0 Refills, Maintenance, 04/01/22 15:55:00 EST, Tablet, [facility]/pharmacy #[id number], [...] # 12 capsule, 0 Refills, [id number], 163, cm, 09/13/21 9:15:00 EDT, Height Start Date: 09/18/21 Status: Ordered Voltaren 1% topical gel 1 application, Topically, 4 times a day, PRN for pain, # 100 Gm, 0 Refills, Maintenance, 05/27/21 18:00:00 EDT, Gel, [id number], Partial fill upon patient request if the [...] [place] Back Pain Scale:88 on 01/13/17; initial [place]: 7 on 01/13/17 Social History Social History Type Response Smoking Status Former smoker, quit more than 30 days ago entered on: 04/06/20 Sex Patient Care team information Care Team Personnel Name: Ernesto King MD Position: [facility] Primary Care Physician Member Role: PCP Address: Address: [address] [place] [address] Family [place], [place] [address] Name: Kathrine Luna MD Position: [facility] TOBACCO SPRAYER MD Member Role: Lifetime TOBACCO SPRAYER Physician Address: Address: [address] [facility] [place] [address]- Name: Kathya Grullon RN Position: [facility] RN Member Role: Primary Care Nurse Care Team Related Persons Name: LYN LEIGH Address: [place] [address] Name: MADDIE LEIGH
--- OUTSIDE RECORDS SUMMARY | 2022-06-03 10:53 | XMS_ITS | Continuity of Care Document ---
Author Name Unknown Organization [facility] Address [address] [place] [address]- Care Team Providers Care Blockman Name Role Phone Fernando CARTY, Ernesto Zapata Primary Care Physician Encounter [facility] Date(s): 09/18/21 - 10/18/21 [facility] [address] [place] [address]- Allergies, Adverse Reactions, Alerts No Known Allergies [...] tetanus/diphtheria/pertussis, acel(Tdap) 01/30/16 Given 1Result Comment: [facility]:[id number] 2Result Comment: [facility] [id number] 3Result Comment: [11/30/2017] [facility] [id number] 4Result Comment: [12/31/2016] [facility] [id number] 5Admin Note: vis given 09/10/12 6Admin Note: VIS given 08/18/2011 7Result Comment: [12/31/2016] [facility] [id number] Medications albuterol 90 mcg/inh inhalation powder 2 puffs, Inhalation, Every 6 hours, PRN Wheezing/Shortness of Breath, # 1 each, 3 Refills, Maintenance, 02/27/21 16:30:00 EST, Powder, [facility]/pharmacy #[id number], dispense pro-air, 2 puffs Inhalation Every 6hours,PRN:Wheezing/Shortness of Breath, 163, cm, 01... Start Date: 02/27/21 Status: Ordered albuterol-ipratropium 3 mg-0.5 mg/3 ml inhalation solution 3 mL, Neb, 4 times a day, J45.40, # 180 mL, 3 Refills, Maintenance, 07/02/20 14:11:00 EDT, Solution, [facility]/pharmacy #[id number], 3 mL Neb 4 times a day,Instr:J45.40, 163, cm, 06/18/20 13:31:00 EDT, Height, 98.9, kg, 08/25/19 12:42:00 EDT, Dry Weight Start Date: 07/02/20 Status: Ordered celecoxib 100 mg oral capsule 1 capsule, By Mouth, 2 times a day with meals, # 60 capsule, 1 Refills, Maintenance, 08/14/20 12:53:00 EDT, [facility], 163, cm, 07/31/20 9:10:00 EDT, Height, 98.9, [...] 02/29/20 14:04:00 EST, [facility]erosol, [id number], 163, cm, 02/29/20 13:19:00 EST, Height, 98.9, [...] 08/29/21 14:22:00 EDT, Route to Pharmacy Electronically, [facility]/pharmacy #[id number], 163, cm, 08/29/21 13:43:00 EDT, Height Start Date: 08/29/21 Stop Date: 10/28/21 Status: Ordered levothyroxine 175 mcg (0.175 mg) oral tablet 1 tablet = 175 mcg, By Mouth, Daily, # 90 tablet, 1 Refills, Maintenance, 06/27/21 11:36:00 EDT, Tablet, [facility]/pharmacy #[id number], Partial fill upon patient request if the prescription is for a schedule IIopioid drug., 163, cm, 06/27/21 11:27:00 EDT, [place] Start Date: 06/27/21 Status: Ordered loratadine 10 mg oral tablet 10 mg, 1, tablet, By Mouth, Daily, # 30 tablet, Refills 6, Tot. Refills 6, Maintenance, 11/28/19 8:53:00 EDT, Route to Pharmacy Electronically, [facility]/pharmacy #[id number], 163, cm, 11/25/19 14:43:00 EDT, Height, 98.9, kg, 08/25/19 12:42:00 EDT, Dry Weight Start Date: 11/28/19 Status: Ordered metFORMIN 500 mg oral tablet 1 tablet = 500 mg, By Mouth, 2 times a day, # 60 tablet, 5 Refills, Maintenance, 02/19/21 8:58:00 EST, [facility]/pharmacy #[id number], 163, cm, 02/18/21 14:32:00 [...] each, 1 Refills, Maintenance, 08/25/19 15:03:00 EDT, [facility]/pharmacy#[id number], 2 sprays Nares, Both Daily, 163, cm, 08/25/19 12:40:00 EDT, Height, 98.9, kg, 08/25/19 12:42:00 EDT, Dry Weight Start Date: 08/25/19 Status: Ordered Nasonex 50 mcg/inh nasal spray 2 sprays, Nares, Both, 2 times a day, # 17 Gm, 0 Refills, Maintenance, 08/25/19 13:03:00 EDT, [place], [facility]/pharmacy #[id number], 2 sprays Nares, Both [...] 07/31/20 9:07:00 EDT, Route to Pharmacy Electronically, [facility] #[id number], Partial fill upon patient request if the prescription is for a sched... Start Date: 07/31/20 Status: Ordered PriLOSEC OTC 20 mg oral delayed release tablet 1 tablet = 20 mg, By Mouth, Daily, # 30 tablet, 2 Refills, Maintenance, 03/13/20 11:45:00 EST, [facility]/pharmacy #[id number], 163, cm, 03/08/20 11:24:00 EST, Height, 98.9, kg, 08/25/19 12:42:00 EDT, Dry Weight Start Date: 03/13/20 Status: Ordered semaglutide 0.25 mg/0.5 mL (0.25 mg dose) subcutaneous solution = 0.25 mg, Subcutaneous Injection, Every 72 hours, # 3 each, 0 Refills, Maintenance, 09/13/21 9:26:00 EDT, [facility]/pharmacy #[id number], Partial fill upon patient request if the prescription is for a schedule II opioid drug., 163, cm, 09/13/21 9:15:00 EDT, Height Start Date: 09/13/21 Status: Ordered Systane Complete Optimal Dry Eye Relief ophthalmic solution 2 drops, Eyes, Both, 3 times a day, # 30 mL, 3 Refills, Maintenance, 11/28/19 8:55:00 EDT, [facility]/pharmacy #[id number], 2 drops Eyes, Both [...] 04/12/21 12:13:00 EST, Route to Pharmacy Electronically, [facility]/pharmacy #[id number], 163, cm, 03/07/21 11:34:00 EST,... Start Date: 04/12/21 Status: Ordered tiZANidine 4 mg oral tablet See Instructions, TAKE 1/2 TO 1 TABLET BY MOUTH EVERY 8 HOURS NEEDED FOR MILD AND MUSCLE SPASM, # 45 tablet, Refills 2, Maintenance, Instructions Replace Required Details, Route to Pharmacy Electronically, [facility], 163, cm, 07/27/20 13:59:0... Start Date: 07/27/20 Status: Ordered traMADol 50 mg oral tablet 1 tablet = 50 mg, By Mouth, Every 6 hours, PRN for pain, TAKE ONLY NEEDED Dx: M79.7, S92.91 Masspat checked, # 112 tablet, 0 Refills, Maintenance, 10/04/21 16:06:00 EDT, Tablet, [facility]/pharmacy #[id number], Please reinforce instructions with patient, [...] # 12 capsule, 0 Refills, [facility], 163, cm, 09/13/21 9:15:00 EDT, Height Start Date: 09/18/21 Status: Ordered Voltaren 1% topical gel 1 application, Topically, 4 times a day, PRN for pain, # 100 Gm, 0 Refills, Maintenance, 05/27/21 18:00:00 EDT, Gel, [facility]/pharmacy #[id number], Partial fill upon patient [...] [place] Back Pain Scale:88 on 01/13/17; initial [place]: 7 on 01/13/17 Social History Social History Type Response Smoking Status Former smoker, quit more than 30 days ago entered on: 04/06/20 Sex Care Team Personnel Name: Ernesto King MD Address: [address] [place] [address]
--- NOTE | 2022-06-03 10:58 | PC.NURSE ---
Pt arrived ambulatory, complaints of yellow sputum x3 days, coughing pain noted at bilat lower lung pain. Pt reports feeling tired. Rectal temp obtained, 104.8f rectal.. Labs collected, IV placed.
[2022-06-03 11:01] LABS: MANUAL DIFF FLAG NO
[2022-06-03 11:03] LABS: Basophils Percent Auto 0.2 % (0-2); Eosinophils Percent Auto 0.1 % (0-4); Hematocrit 39.8 % (37.0-47.0); Hemoglobin 12.7 g/dl (12.0-16.0); Imm Gran Abs Auto 0.16 X10*3/uL (0.00-0.03); Imm Gran Pct Auto 0.8 % (0.0-0.4); Lymphocytes Absolute Auto 1.6 X10*3/uL (1.2-4.9); Lymphocytes Percent Auto 7.4 % (20-40); Mean Corpuscular HGB Conc 31.9 g/dl (31.0-35.0); Mean Corpuscular Hemoglobin 26.1 pg (27.0-33.0); Mean Corpuscular Volume 81.7 fL (80.0-98.0); Mean Platelet Volume 10.9 fL (9.4-12.3); Monocytes Absolute Auto 1.2 X10*3/uL (0.1-1.2); Monocytes Percent Auto 5.5 % (2-11); Neutrophils Absolute Auto 18.1 x10*3/uL (2.0-8.3); Platelet Count 302 X10*3/uL (160-400); Red Blood Count 4.87 X10*6/uL (4.20-5.50); Red Cell Distribution Width 12.8 % (11.0-16.0); White Blood Count 21.1 X10*3/uL (4.8-10.8)
--- NOTE | 2022-06-03 11:14 | ED.GENADULT ---
HPI - General Adult General Chief complaint: General Medical Stated complaint: RIB PAIN COUGH Time Seen by Provider: 06/03/22 10:38 Source: patient Mode of arrival: EMS Limitations: no limitations History of Present Illness HPI narrative: This is a 61 years old female presented to emergency department complaining of fever and cough for for to 3 days. Denies any vomiting any diarrhea. The patient has eyes history of diabetes, history of thyroid disease, history of fibromyalgia, history of breast cancer. Onset (ago): day(s) (3) Location: chest Radiation: non-radiation Severity: moderate Pain Consistency: constant Relieving factors: none Exacerbating factors: none Related Data Previous Rx's Medication Instructions Recorded albuterol sulfate 0.63 mg/3 mL 0.63 mg (3 mL) inhalation QID PRN 11/05/20 solution for nebulization shortness of breath or wheezing #75 mL albuterol sulfate 90 mcg/actuation 1 inh inhalation QID PRN shortness 11/05/20 aerosol inhaler of breath or wheezing #8.5 grams azithromycin 250 mg tablet See Rx Instructions PO .COMPLEX #6 11/05/20 tabs lorazepam 1 mg tablet (Ativan) 1 mg PO Q8H PRN anxiety #10 tabs 11/05/20 nebulizers (AeroEclipse II #1 ea 11/05/20 Nebulizer) nystatin 100,000 unit/mL oral 1 ml buccal DAILY Thrush #480 mL 11/05/20 suspension prednisone 20 mg tablet 40 mg PO DAILY rash 5 days #10 tabs 11/05/20 Allergies Allergy/AdvReac Type Severity Reaction Status Date / Time No Known Allergies Allergy Unverified 11/03/19 16:21 Review of Systems ENT: Reports system reviewed and no additional complaints, except as documented Cardiovascular: Cardiovascular: Reports no additional cardiovascular complaints Respiratory: Respiratory: Reports cough PMFSH Past Medical History Medical History Arthritis Asthma Breast CA Cholecystectomy planned Diabetes Fibromyalgia Thyroid disease Surgical History History of surgery on arm Social History Social History Alcohol intake: never Smoked in Last 30 Days: No Use of substances other than those prescribed or required for medical reasons: No Advance Directives: No Advance Directives Information Provided: Yes Physical Exam ED Vital Signs: Vital Signs - 24 hr 06/03/22 10:40 06/03/22 10:47 06/03/22 11:47 Temperature 104.8 F H Pulse Rate 114 H 119 H Respiratory Rate 15 26 H Blood Pressure 130/76 123/63 Pulse Oximetry 93 94 Oxygen Delivery Method Room Air Room Air 06/03/22 11:56 06/03/22 12:30 06/03/22 13:17 Temperature 103.2 F H 103.2 F H 99.8 F Pulse Rate 117 H Respiratory Rate 23 H Blood Pressure 113/63 Pulse Oximetry 92 Oxygen Delivery Method Room Air BMI result Body Mass Index 22.3 Const General: cooperative Nutritional Appearance: well nourished Orientation/consciousness: oriented to person and patient oriented x3 Limitations: no limitations HENMT Head: Yes normal to inspection Ears: hearing grossly normal bilaterally General nose exam: Normal external nose present Face and sinus: Yes normal facial exam Mouth: Normal oral and palatal mucosa present Neck Neck: Yes normal visual inspection, Yes full ROM and Yes no lymphadenopathy Thyroid: Thyroid normal Chest Chest palpation & inspection: normal inspection of the chest Resp Effort & Inspection: Actively coughing Auscultation: rhonchi Cardio Jugular venous distension: no JVD Rate: regular rate Rhythm: regular rhythm GI Inspection: Yes normal to inspection Palpation (GI): Soft to palpation, not firm and nontender Auscultation: normal bowel sounds Skin General skin exam: no rashes or lesions noted Lesions: no lesions Rashes: no rashes Neuro General: oriented to person and patient oriented x3 Medications Administered Generic Name Dose Route Start Last Admin Trade Name Freq PRN Reason Stop Dose Admin Vancomycin HCl 1,500 mg/ 500 mls @ 333.333 mls/hr 06/03/22 12:11 06/03/22 12:30 Sodium Chloride IV 06/03/22 13:40 333.33 mls/hr ONCE ONE Administration Discontinued Medications Generic Name Dose Route Start Last Admin Trade Name Freq PRN Reason Stop Dose Admin Acetaminophen 975 mg 06/03/22 11:12 06/03/22 11:20 Acetaminophen 325 Mg Tablet PO 06/03/22 11:13 975 mg ONCE ONE Administration Piperacillin Sod/Tazobactam 100 mls @ 200 mls/hr 06/03/22 11:08 06/03/22 11:30 Sod 4.5 gm/ Sodium Chloride IV 06/03/22 11:37 Infused ONCE ONE Infusion Sodium Chloride 1,769.01 mls @ 1,769.01 mls/hr 06/03/22 11:09 06/03/22 11:17 Ns 30 ml/kg infuse over 1 hr (1769.01 ml) 06/03/22 12:08 1,769.01 mls/hr IV Administration .Q1H STA Medical Decision Making Medical Decision Making MDM Narrative: Patient presented with a fever 104.8 and tachycardia we going to check blood culture lactic acid administer antibiotic and the fluid bolus and will be reassessed Differential Diagnosis Differential Diagnoses: The differential diagnosis associated with the presentation includes Pneumonia/influenza/sepsis Admission/Observation Consideration of admission/observation: Escalation of care including admission/observation considered Consult Healthcare Provider Management of the patient was discussed with: Hospitalist Lab Data MDM Lab Attestation statement: I reviewed the patient's lab results. 06/03/22 10:55 06/03/22 10:55 Labs: Lab Results 06/03/22 06/03/22 06/03/22 Range/Units 10:55 10:55 10:55 WBC 21.1 H (4.8-10.8) X10*3/uL RBC 4.87 (4.20-5.50) X10*6/uL Hgb 12.7 (12.0-16.0) g/dl Hct 39.8 (37.0-47.0) % MCV 81.7 (80.0-98.0) fL MCH 26.1 L (27.0-33.0) pg MCHC 31.9 (31.0-35.0) g/dl RDW 12.8 (11.0-16.0) % Plt Count 302 (160-400) X10*3/uL MPV 10.9 (9.4-12.3) fL Immature Gran % (Auto) 0.8 H (0.0-0.4) % Neut % (Auto) 86.0 H (45-73) % Lymph % (Auto) 7.4 L (20-40) % [place] % (Auto) 5.5 (2-11) % Eos % (Auto) 0.1 (0-4) % Baso % (Auto) 0.2 (0-2) % Lymph # (Auto) 1.6 (1.2-4.9) X10*3/uL [place] # (Auto) 1.2 (0.1-1.2) X10*3/uL Eos # (Auto) 0.0 (0.0-0.4) X10*3/uL Baso # (Auto) 0.0 (0.0-0.2) X10*3/uL Abs Immat Gran (auto) 0.16 H (0.00-0.03) X10*3/uL Absolute Neuts (auto) 18.1 H (2.0-8.3) x10*3/uL Absolute Nucleated RBC 0.000 (0.0-0.012) X10*3/uL Nucleated RBC % (auto) 0.0 (0.0-0.2) /100WBC Sodium 138 (135-145) mmol/L Potassium 3.5 (3.3-5.1) mmol/L Chloride 97 (96-108) mmol/L Carbon Dioxide 28 (22-29) mmol/L Anion Gap 17 (12-20) BUN 10 (9-16) mg/dL Creatinine 0.79 (0.5-1.4) mg/dL Estim Creat Clear Calc 62.9 Estimated GFR > 60 Random Glucose 184 H (60-115) mg/dL Lactic Acid 1.9 (0.5-2.0) mmol/L Calcium 9.5 (8.4-10.2) mg/dL Urine Color Urine Appearance Urine pH (5.0-9.0) Ur Specific [place] (1.005-1.025) Urine Protein (Neg-Trace) mg/dL Urine Glucose (UA) (Negative) mg/dL Urine Ketones (Negative) mg/dL Urine Blood (Negative) Urine Nitrite (Negative) Ur Leukocyte Esterase (Negative) Urine RBC (0-2) /HPF Urine WBC (0-5) /HPF Ur Squamous Epith Cells (0-2) /HPF Urine Bacteria (None Seen) Hyaline Casts (0-2) /LPF Influenza Type A (PCR) (Negative) Influenza Type B (PCR) (Negative) RSV RNA Qual (PCR) (Negative) SARS-CoV-2 RNA (RT-PCR) (Negative) 06/03/22 06/03/22 Range/Units 11:06 12:32 WBC (4.8-10.8) X10*3/uL RBC (4.20-5.50) X10*6/uL Hgb (12.0-16.0) g/dl Hct (37.0-47.0) % MCV (80.0-98.0) fL MCH (27.0-33.0) pg MCHC (31.0-35.0) g/dl RDW (11.0-16.0) % Plt Count (160-400) X10*3/uL MPV (9.4-12.3) fL Immature Gran % (Auto) (0.0-0.4) % Neut % (Auto) (45-73) % Lymph % (Auto) (20-40) % [place] % (Auto) (2-11) % Eos % (Auto) (0-4) % Baso % (Auto) (0-2) % Lymph # (Auto) (1.2-4.9) X10*3/uL [place] # (Auto) (0.1-1.2) X10*3/uL Eos # (Auto) (0.0-0.4) X10*3/uL Baso # (Auto) (0.0-0.2) X10*3/uL Abs Immat Gran (auto) (0.00-0.03) X10*3/uL Absolute Neuts (auto) (2.0-8.3) x10*3/uL Absolute Nucleated RBC (0.0-0.012) X10*3/uL Nucleated RBC % (auto) (0.0-0.2) /100WBC Sodium (135-145) mmol/L Potassium (3.3-5.1) mmol/L Chloride (96-108) mmol/L Carbon Dioxide (22-29) mmol/L Anion Gap (12-20) BUN (9-16) mg/dL Creatinine (0.5-1.4) mg/dL Estim Creat Clear Calc Estimated GFR Random Glucose (60-115) mg/dL Lactic Acid (0.5-2.0) mmol/L Calcium (8.4-10.2) mg/dL Urine Color Dark Yellow Urine Appearance Clear Urine pH 5.5 (5.0-9.0) Ur Specific [place] 1.020 (1.005-1.025) Urine Protein 100 (2+) H (Neg-Trace) mg/dL Urine Glucose (UA) Negative (Negative) mg/dL Urine Ketones Negative (Negative) mg/dL Urine Blood Negative (Negative) Urine Nitrite Negative (Negative) Ur Leukocyte Esterase Negative (Negative) Urine RBC 0-2 (0-2) /HPF Urine WBC 0-5 (0-5) /HPF Ur Squamous Epith Cells 0-2 (0-2) /HPF Urine Bacteria None Seen (None Seen) Hyaline Casts 0-2 (0-2) /LPF Influenza Type A (PCR) NEGATIVE (Negative) Influenza Type B (PCR) NEGATIVE (Negative) RSV RNA Qual (PCR) NEGATIVE (Negative) SARS-CoV-2 RNA (RT-PCR) NEGATIVE (Negative) Independent Interpretation I performed an independent interpretation of an: Plain X-Ray Interpretation: NEGATIVE Radiology Impression Discussion of test interpretation with radiology: I have reviewed the radiologist's reading. Radiologist Impression: XR CHEST CLINICAL INFORMATION: Cough. COMPARISON: CTA chest 05/03/[address] chest 04/27/2019.. TECHNIQUE: Frontal view of the chest was obtained. FINDINGS: The lungs are hypoexpanded but clear. The heart size and pulmonary vascularity is normal. No gross bony abnormality seen. XR/XR chest 1V IMPRESSION: No acute process seen. ? Dictated By: Trino Montoya MD Signed By: <Electronically signed by Trino Montoya MD in [place]> 06/03/22 1156 External Record Review External record reviewed: Inpatient record Discharge Plan Discharge Clinical Impression: Fever Patient Disposition: Admitted As Inpatient
[2022-06-03 11:15] LABS: Lactic Acid 1.9 mmol/L (0.5-2.0)
[2022-06-03] MEDS: Piperacillin Sodium/Tazobactam 4.5 GM in 0.9 % Sodium Chloride 100 ML IV (11:17)
[2022-06-03] MEDS: 0.9 % Sodium Chloride 1,769.01 ML 1769.01 ML IV (11:17)
[2022-06-03 11:18] LABS: Anion Gap 17 (12-20); Blood Urea Nitrogen 10 mg/dL (9-16); Calcium 9.5 mg/dL (8.4-10.2); Carbon Dioxide 28 mmol/L (22-29); Chloride 97 mmol/L (96-108); Creatinine Clr Calc Pharmacy 62.9; Estimated Glomerular Filt Rate > 60; Glucose Random 184 mg/dL (60-115); Potassium 3.5 mmol/L (3.3-5.1); Sodium 138 mmol/L (135-145)
[2022-06-03] MEDS: Acetaminophen 325 MG TABLET 975 MG PO (11:20)
[2022-06-03 11:57] LABS: Influenza A PCR NEGATIVE (Negative); Influenza B PCR NEGATIVE (Negative); Resp Syncy Virus RNA Qual PCR NEGATIVE (Negative); SARS COV2 PCR INHOUSE NEGATIVE (Negative)
[2022-06-03] MEDS: vancomycin HCL 1,500 MG in 0.9 % Sodium Chloride 500 ML 333.33 MG IV (12:30)
[2022-06-03 12:42] LABS: Appearance Urine Clear; Color Urine Dark Yellow; Glucose Urine UA Negative (Negative); Leukocyte Esterase Urine Negative (Negative); Nitrite Urine Negative (Negative); PH 5.5 (5.0-9.0); UMIC TRIGGER UACC YES; Urine Blood Negative (Negative); Urine Ketones Negative (Negative); Urine Protein 100 (2+) mg/dL (Neg-Trace)
[2022-06-03 12:45] LABS: Bacteria Urine None Seen (None Seen); Hyaline Casts Urine 0-2 /LPF (0-2); RBC Urine 0-2 /HPF (0-2); Squamous Epithelial Cell Urine 0-2 /HPF (0-2); WBC Urine 0-5 /HPF (0-5)
--- NOTE | 2022-06-03 13:56 | P.HPHOSP_ITS ---
History of Present Illness Date of Service: 06/03/22 Attending physician on admission: Jayme [facility] Chief Complaint: liver pain, rib pain 61-year-old female with history of moderate persistent asthma, chronic pain syndrome with fibromyalgia, tlo-jvrwnzs-wfjezfvlu type 2 diabetes, microa lbuminuria related to type 2 diabetes, diabetic polyneuropathy, hypercholesterolemia, hypothyroidism, anxiety and depression, history of crack cocaine abuse in remission, and history of breast cancer s/p lumpectomy in 2010 who is a former smoker with 10 pack-year history presented to the ED for eval uation of bilateral rib pain and ?liver pain and ?that has been going on for several days. She states that she has had subjective fevers with sweats/chills as well as cough that was initially productive but is now nonproductive. She has also been wheezing with mild shortness of breath but denies any increased use of her albuterol inhaler. She also endorses sore throat. Reports nausea that started yesterday without any vomiting as well as decreased appetite though she is tolerating oral intake. She lives alone and denies any sick contacts. She endorses bilateral pleuritic chest pain but denies any retrosternal chest pressure. On arrival, patient febrile to 104.8 and tachycardic to 119 with tachypnea to 26. Fever treated with Tylenol with improvement in temperature to 99.8. She has leukocytosis of 21.1. Renal function normal, electrolyte levels normal. LFTs pending. Lactic acid 1.9. Urinalysis unremarkable except for 2+ protein. Negative for influenza, RSV, and COVID-19. CXR without any acute cardiopulmonary abnormality. Review of Systems Review of Systems: General: No malaise, unintentional weight loss. +sunjective fevers, +chills/sweats HEENT: +sore throat. No nasal congestion, rhinorrhea, sinus pain, ear pain Cardiovascular: No chest pain, palpitations, or leg edema Respiratory: + shortness of breath, + wheezing, + cough GI: +RUQ pain, +nausea, +decreased appetite. No vomiting, diarrhea, constipation, melena, hematochezia : No dysuria, hematuria, increased urinary frequency, decreased urinary output MSK: No myalgia, back pain. +pleuritic chest pain Neuro: No headaches, weakness, paresthesias Skin: No rashes or lesions [facility] Medical History (Updated 06/03/22 @ 16:25 by FISH Ndiaye) Arthritis Asthma Breast CA Chronic pain syndrome Diabetes mellitus with microalbuminuria Diabetic polyneuropathy Fibromyalgia Former smoker History of crack cocaine use Hypothyroidism Mixed anxiety and depressive disorder Moderate persistent asthma Type 2 diabetes mellitus Vitamin D deficiency Surgical History History of surgery on arm S/P cholecystectomy Status post left breast lumpectomy Social History (Updated 06/03/22 @ 14:15 by FISH Ndiaye) Alcohol intake: never Patient Tobacco Use Status: Former Tobacco user Meds Allergies Allergy/AdvReac Type Severity Reaction Status Date / Time No Known Allergies Allergy Unverified 11/03/19 16:21 Home Medications Medication Instructions Recorded Confirmed Last Taken Type gabapentin 300 mg capsule 600 mg PO TID 06/03/22 Unknown History levothyroxine 175 mcg tablet 175 mcg PO DAILY@0600 06/03/22 06/03/22 06/03/22 History tramadol 50 mg tablet 50 mg PO Q6H PRN pain 06/03/22 06/03/22 Unknown History Physical Exam Vital Signs and Narrative: Vital Signs: Last Vital Signs Temp 99.8 F 06/03/22 13:17 Pulse 117 H 06/03/22 11:56 Resp 23 H 06/03/22 11:56 BP 113/63 06/03/22 11:56 Pulse Ox 92 06/03/22 11:56 O2 Del Method Room Air 06/03/22 11:56 BMI result Body Mass Index 22.3 Constitutional - Awake and Alert, No apparent distress Eyes - PERRLA, EOMI Cardiovascular - S1S2, RRR, No edema Respiratory - Normal lung expansion, Normal respiratory effort, No respiratory distress, diffuse expiratory wheezing and BLL rhonchi Gastrointestinal - Significant RUQ/epigastric pain with ?positive weems sign (guarding may be related to pleuritic CP from deep inspiration), moderate soft distension, +BS Extremities - no calf tenderness bilaterally, no swelling Skin - Warm/Dry Neurological - Alert & oriented x3, CN II-XII in tact, 5/5 strength BUE and BLE Psychological - Appropriate affect Results Labs 06/03/22 10:55 06/03/22 10:55 Labs: Laboratory Results - last 24 hr 04/18/23 04/18/23 04/18/23 10:55 10:55 10:55 MCV 81.7 MCH 26.1 L MCHC 31.9 RDW 12.8 Plt Count 302 MPV 10.9 Immature Gran % (Auto) 0.8 H Neut % (Auto) 86.0 H Lymph % (Auto) 7.4 L [place] % (Auto) 5.5 Eos % (Auto) 0.1 Baso % (Auto) 0.2 Lymph # (Auto) 1.6 [place] # (Auto) 1.2 Eos # (Auto) 0.0 Baso # (Auto) 0.0 Abs Immat Gran (auto) 0.16 H Absolute Neuts (auto) 18.1 H Absolute Nucleated RBC 0.000 Nucleated RBC % (auto) 0.0 Anion Gap 17 Estim Creat Clear Calc 62.9 Estimated GFR > 60 Random Glucose 184 H Lactic Acid 1.9 Calcium 9.5 Urine Color Urine Appearance Urine pH Ur Specific [place] Urine Protein Urine Glucose (UA) Urine Ketones Urine Blood Urine Nitrite Ur Leukocyte Esterase Urine RBC Urine WBC Ur Squamous Epith Cells Urine Bacteria Hyaline Casts Influenza Type A (PCR) Influenza Type B (PCR) RSV RNA Qual (PCR) SARS-CoV-2 RNA (RT-PCR) 06/03/22 06/03/22 11:06 12:32 MCV MCH MCHC RDW Plt Count MPV Immature Gran % (Auto) Neut % (Auto) Lymph % (Auto) [place] % (Auto) Eos % (Auto) Baso % (Auto) Lymph # (Auto) [place] # (Auto) Eos # (Auto) Baso # (Auto) Abs Immat Gran (auto) Absolute Neuts (auto) Absolute Nucleated RBC Nucleated RBC % (auto) Anion Gap Estim Creat Clear Calc Estimated GFR Random Glucose Lactic Acid Calcium Urine Color Dark Yellow Urine Appearance Clear Urine pH 5.5 Ur Specific [place] 1.020 Urine Protein 100 (2+) H Urine Glucose (UA) Negative Urine Ketones Negative Urine Blood Negative Urine Nitrite Negative Ur Leukocyte Esterase Negative Urine RBC 0-2 Urine WBC 0-5 Ur Squamous Epith Cells 0-2 Urine Bacteria None Seen Hyaline Casts 0-2 Influenza Type A (PCR) NEGATIVE Influenza Type B (PCR) NEGATIVE RSV RNA Qual (PCR) NEGATIVE SARS-CoV-2 RNA (RT-PCR) NEGATIVE Imaging Radiologist's Impressions: Impressions Chest X-Ray 06/03/22 11:40 IMPRESSION: No acute process seen. Assessment and Plan (1) Pneumonia: Status: Acute (2) Sepsis: Status: Acute (3) RUQ pain: Status: Acute (4) Hyperbilirubinemia: Status: Acute Plan 61-year-old female with history of moderate persistent asthma, chronic pain syndrome with fibromyalgia, wrv-ohqgool-vgzdxhsfp type 2 diabetes, microalbuminuria related to type 2 diabetes, diabetic polyneuropathy, hype rcholesterolemia, hypothyroidism, anxiety and depression, history of crack cocaine abuse in remission, and history of breast cancer s/p lumpectomy in 2010 who is a former smoker with 10 pack-year history admitted for #Sepsis related to RML pneumonia -Leukocytosis 21.1, tachypneic, tachycardic, febrile to 104.8. No end organ damage, lactic acid normal, no hypotension -IV ceftriaxone and doxycycline BID x 5 days (initiated 06/03) -symptomatic management -Negative for influenza, COVID-19, and RSV. Full viral respiratory panel pending -Legionella, strep pneumonia ag, and sputum cultures #RUQ pain -Per [facility] records, she is s/p cholecystectomy -AST/ALT normal, chornic hyperbilirubinemia -U/S RUQ ordered #Moderate persistent asthma with acute exacerbation -IV methylprednisone 40mg BID -Duonebs q4h while awake -Albuterol q2h prn -Continue maintenance inhalers #Chronic hyperbilirubinemia -Etiology unknown. Hx hepatitis as a child -RUQ u/s pending # controlled epp-slmpqlp-anbgvrtqg type 2 diabetes -last hemoglobin A1c 6.9 -hold p.o. meds. May bring Victoza from home -Humalog on sliding scale -diabetic diet -POC glucose # diabetic polyneuropathy -continue gabapentin # chronic pain syndrome/fibromyalgia -continue tramadol and gabapentin # hypothyroidism -continue levothyroxine # HLD -continue statin DVT prophylaxis- lovenox Full code Pt requires inpt stay at least 2 midnights for management for management of RML pneumonia with sepsis Time Spent With Patient Time: Total time managing care of this patient today ____ minutes. Quality Stroke Does the patient have a stroke diagnosis?: No VTE Prior VTE?: No VTE Risk Level:: Medical - moderate - high VTE Device Contraindication: Treatment Not Indicated VTE Drug Contraindication: N/A - Med Ordered
--- NOTE | 2022-06-03 14:35 | PHA.MEDREC ---
Pharmacy Consult ? Medication Reconciliation Pharmacy has completed the medication reconciliation. Spoke to patient, able to confirm some medications but not all. Left message for daughter Gail ([phone]) to verify gabapentin dosing
[2022-06-03 14:51] LABS: Alanine Aminotransferase 30 U/L (0-31); Albumin Level 4.4 g/dL (3.5-5.0); Alkaline Phosphatase 105 U/L (39-117); Aspartate Amino Transferase 29 U/L (5-31); Bilirubin Direct 2.3 mg/dL (0.0-0.5); Bilirubin Total 3.6 mg/dL (0.0-1.0); Total Protein 7.8 g/dL (6.5-8.0)
--- NOTE | 2022-06-03 15:03 | PC.NURSE ---
Sepsis protocol maintained, IV fluids given, IV piptaz/vanco given, vitals documented, pt able to ambulate to the BR w/ assistance. Fever has come down since APAP. Pt reporting abdominal pain, stating she has had it before d/t her liver. awaiting bed placement.
--- NOTE | 2022-06-03 16:24 | ED_ITS ---
HPI - General Adult General Chief complaint: General Medical Stated complaint: RIB PAIN COUGH Time Seen by Provider: 06/03/22 10:38 Source: patient Mode of arrival: EMS Limitations: no limitations History of Present Illness Location: chest Relieving factors: none Exacerbating factors: none Related Data Home Medications Medication Instructions Recorded Confirmed gabapentin 300 mg capsule 600 mg PO TID 06/03/22 levothyroxine 175 mcg tablet 175 mcg PO DAILY@0600 06/03/22 06/03/22 tramadol 50 mg tablet 50 mg PO Q6H PRN pain 06/03/22 06/03/22 Previous Rx's Medication Instructions Recorded albuterol sulfate 0.63 mg/3 mL 0.63 mg (3 mL) inhalation QID PRN 11/05/20 solution for nebulization shortness of breath or wheezing #75 mL albuterol sulfate 90 mcg/actuation 1 inh inhalation QID PRN shortness 11/05/20 aerosol inhaler of breath or wheezing #8.5 grams nebulizers (AeroEclipse II #1 ea 11/05/20 Nebulizer) cefuroxime axetil 500 mg tablet 500 mg PO BID 4 days #8 tabs 06/06/22 doxycycline hyclate 100 mg tablet 100 mg PO BID 4 days #8 tabs 06/06/22 prednisone 20 mg tablet 40 mg PO DAILY 5 days #10 tabs 06/06/22 Allergies Allergy/AdvReac Type Severity Reaction Status Date / Time No Known Allergies Allergy Unverified 11/03/19 16:21 [facility] Past Medical History Medical History (Updated 06/03/22 @ 16:25 by FISH Ndiaye) Arthritis Asthma Breast CA Chronic pain syndrome Diabetes mellitus with microalbuminuria Diabetic polyneuropathy Fibromyalgia Former smoker History of crack cocaine use Hypothyroidism Mixed anxiety and depressive disorder Moderate persistent asthma Type 2 diabetes mellitus Vitamin D deficiency Surgical History History of surgery on arm S/P cholecystectomy Status post left breast lumpectomy Social History Social History (Updated 06/03/22 @ 14:15 by FISH Ndiaye) Household Members: None Housing: Apartment Do you presently have visiting nurse or other home services: No Alcohol intake: never Patient Tobacco Use Status: Former Tobacco user Tobacco use type: Cigarette service: No Current occupational status: disabled Physical Exam ED Vital Signs: Vital Signs - 24 hr 06/03/22 10:40 06/03/22 10:47 06/03/22 11:47 Temperature 104.8 F H Pulse Rate 114 H 119 H Respiratory Rate 15 26 H Blood Pressure 130/76 123/63 Pulse Oximetry 93 94 Oxygen Delivery Method Room Air Room Air 06/03/22 11:56 06/03/22 12:30 06/03/22 13:17 Temperature 103.2 F H 103.2 F H 99.8 F Pulse Rate 117 H Respiratory Rate 23 H Blood Pressure 113/63 Pulse Oximetry 92 Oxygen Delivery Method Room Air 06/03/22 14:26 06/03/22 14:47 Temperature Pulse Rate 104 H 108 H Respiratory Rate 20 20 Blood Pressure 108/66 126/69 Pulse Oximetry Oxygen Delivery Method Room Air Room Air BMI result Body Mass Index 22.3 Medications Administered Discontinued Medications Generic Name Dose Route Start Last Admin Trade Name Freq PRN Reason Stop Dose Admin Acetaminophen 975 mg 06/03/22 11:12 06/03/22 11:20 Acetaminophen 325 Mg Tablet PO 06/03/22 11:13 975 mg ONCE ONE Administration Acetaminophen 650 mg 06/03/22 16:02 06/05/22 21:13 Acetaminophen 325 Mg Tablet PO 650 mg Q6H PRN Administration Pain, Mild (Pain Scale 1-3) Enoxaparin Sodium 40 mg 06/03/22 18:00 06/04/22 17:14 Enoxaparin Sodium 40 Mg/0.4 Ml Syringe SUBCUT 40 mg Q24H TRAVIS Administration Enoxaparin Sodium 40 mg 06/05/22 18:00 06/05/22 17:17 Enoxaparin Sodium 40 Mg/0.4 Ml Syringe SUBCUT 40 mg Q24H TRAVIS Administration Piperacillin Sod/Tazobactam 100 mls @ 200 mls/hr 06/03/22 11:08 06/03/22 11:30 Sod 4.5 gm/ Sodium Chloride IV 06/03/22 11:37 Infused ONCE ONE Infusion Sodium Chloride 1,769.01 mls @ 1,769.01 mls/hr 06/03/22 11:09 06/03/22 14:25 Ns 30 ml/kg infuse over 1 hr (1769.01 ml) 06/03/22 12:08 Infused IV Infusion .Q1H STA Vancomycin HCl 1,500 mg/ 500 mls @ 333.333 mls/hr 06/03/22 12:11 06/03/22 14:25 Sodium Chloride IV 06/03/22 13:40 Infused ONCE ONE Infusion Ceftriaxone Sodium 1 gm/ 50 mls @ 100 mls/hr 06/03/22 17:00 06/05/22 18:10 Sodium Chloride IV Infused Q24H TRAVIS Infusion Doxycycline Hyclate 100 mg/ 250 mls @ 166.67 mls/hr 06/03/22 18:00 06/06/22 08:21 Sodium Chloride IV Infused Q12H TRAVIS Infusion Magnesium Sulfate 2 gm in 50 mls @ 25 mls/hr 06/04/22 09:29 06/04/22 12:08 Magnesium Sulfate/H2o IV 06/04/22 11:28 Infused ONCE ONE Infusion Magnesium Sulfate 2 gm in 50 mls @ 25 mls/hr 06/04/22 13:09 06/04/22 16:36 Magnesium Sulfate/H2o IV 06/04/22 15:08 Infused ONCE ONE Infusion Insulin Human Lispro 0 unit 06/04/22 11:30 06/06/22 11:43 Insulin Lispro 100 Unit/Ml 3 Ml Vial SUBCUT 4 unit QIDACHS COUNTS INCLUDE 234 BEDS AT THE [facility] Administration Protocol Ketorolac Tromethamine 30 mg 06/03/22 16:11 06/03/22 16:53 Ketorolac Tromethamine 30 Mg/Ml Vial IVPUSH 06/03/22 16:12 30 mg ONCE ONE Administration Levothyroxine Sodium 175 mcg 06/04/22 06:00 06/06/22 05:43 Levothyroxine Sodium 175 Mcg Tablet PO 175 mcg DAILY@0600 COUNTS INCLUDE 234 BEDS AT THE [facility] Administration Magnesium Oxide 400 mg 06/05/22 09:00 06/06/22 08:18 Magnesium Oxide 400 Mg Tablet PO 400 mg DAILY COUNTS INCLUDE 234 BEDS AT THE [facility] Administration Methylprednisolone Sodium Succinate 40 mg 06/04/22 13:15 06/06/22 01:05 Methylprednisolone Sod Succ 40 Mg/Ml Vial IVPUSH 40 mg Q12H COUNTS INCLUDE 234 BEDS AT THE [facility] Administration Potassium Chloride 40 meq 06/04/22 08:54 06/04/22 09:25 Potassium Chloride Packet 20 Meq Packet PO 06/04/22 08:55 40 meq ONCE ONE Administration Tramadol HCl 50 mg 06/03/22 16:10 06/04/22 12:12 Tramadol Hcl 50 Mg Tablet PO 50 mg Q6H PRN Administration Pain, Moderate (Pain Scale 4-6 Medical Decision Making Lab Data 06/03/22 10:55 06/03/22 10:55 Labs: Lab Results 06/03/22 06/03/22 06/03/22 Range/Units 10:55 10:55 10:55 WBC 21.1 H (4.8-10.8) X10*3/uL RBC 4.87 (4.20-5.50) X10*6/uL Hgb 12.7 (12.0-16.0) g/dl Hct 39.8 (37.0-47.0) % MCV 81.7 (80.0-98.0) fL MCH 26.1 L (27.0-33.0) pg MCHC 31.9 (31.0-35.0) g/dl RDW 12.8 (11.0-16.0) % Plt Count 302 (160-400) X10*3/uL MPV 10.9 (9.4-12.3) fL Immature Gran % (Auto) 0.8 H (0.0-0.4) % Neut % (Auto) 86.0 H (45-73) % Lymph % (Auto) 7.4 L (20-40) % [place] % (Auto) 5.5 (2-11) % Eos % (Auto) 0.1 (0-4) % Baso % (Auto) 0.2 (0-2) % Lymph # (Auto) 1.6 (1.2-4.9) X10*3/uL [place] # (Auto) 1.2 (0.1-1.2) X10*3/uL Eos # (Auto) 0.0 (0.0-0.4) X10*3/uL Baso # (Auto) 0.0 (0.0-0.2) X10*3/uL Abs Immat Gran (auto) 0.16 H (0.00-0.03) X10*3/uL Absolute Neuts (auto) 18.1 H (2.0-8.3) x10*3/uL Absolute Nucleated RBC 0.000 (0.0-0.012) X10*3/uL Nucleated RBC % (auto) 0.0 (0.0-0.2) /100WBC Sodium 138 (135-145) mmol/L Potassium 3.5 (3.3-5.1) mmol/L Chloride 97 (96-108) mmol/L Carbon Dioxide 28 (22-29) mmol/L Anion Gap 17 (12-20) BUN 10 (9-16) mg/dL Creatinine 0.79 (0.5-1.4) mg/dL Estim Creat Clear Calc 62.9 Estimated GFR > 60 Random Glucose 184 H (60-115) mg/dL Lactic Acid 1.9 (0.5-2.0) mmol/L Calcium 9.5 (8.4-10.2) mg/dL Total Bilirubin 3.6 H (0.0-1.0) mg/dL Direct Bilirubin 2.3 H (0.0-0.5) mg/dL AST 29 (5-31) U/L ALT 30 (0-31) U/L Alkaline Phosphatase 105 (39-117) U/L Total Protein 7.8 (6.5-8.0) g/dL Albumin 4.4 (3.5-5.0) g/dL Urine Color Urine Appearance Urine pH (5.0-9.0) Ur Specific [place] (1.005-1.025) Urine Protein (Neg-Trace) mg/dL Urine Glucose (UA) (Negative) mg/dL Urine Ketones (Negative) mg/dL Urine Blood (Negative) Urine Nitrite (Negative) Ur Leukocyte Esterase (Negative) Urine RBC (0-2) /HPF Urine WBC (0-5) /HPF Ur Squamous Epith Cells (0-2) /HPF Urine Bacteria (None Seen) Hyaline Casts (0-2) /LPF Respiratory Panel Olivares Adenovirus (Rapid PCR) (Not Detect.) B.pert (TEM-PCR) (Not Detect.) B.parapertussis DNA PCR (Not Detect.) C. pneumoniae DNA (PCR) (Not Detect.) Coronavirus OC43 (PCR) (Not Detect.) Coronavirus HKU1 (PCR) (Not Detect.) Coronavirus 229E (PCR) (Not Detect.) Coronavirus NL63 (PCR) (Not Detect.) Human Metapneumovir PCR (Not Detect.) Influenza A (RT-PCR) (Not Detect.) Influenza Type A (PCR) (Negative) Influenza B (RT-PCR) (Not Detect.) Influenza Type B (PCR) (Negative) M. pneumoniae (PCR) (Not Detect.) Parainfluenza 1 (PCR) (Not Detect.) Parainfluenza 2 (PCR) (Not Detect.) Parainfluenza 3 (PCR) (Not Detect.) Parainfluenza 4 (PCR) (Not Detect.) RSV (PCR) (Not Detect.) RSV RNA Qual (PCR) (Negative) Entero/Rhino (PCR) (Not Detect.) SARS-CoV-2 RNA (RT-PCR) (Negative) 06/03/22 06/03/22 06/03/22 Range/Units 11:06 12:32 14:20 WBC (4.8-10.8) X10*3/uL RBC (4.20-5.50) X10*6/uL Hgb (12.0-16.0) g/dl Hct (37.0-47.0) % MCV (80.0-98.0) fL MCH (27.0-33.0) pg MCHC (31.0-35.0) g/dl RDW (11.0-16.0) % Plt Count (160-400) X10*3/uL MPV (9.4-12.3) fL Immature Gran % (Auto) (0.0-0.4) % Neut % (Auto) (45-73) % Lymph % (Auto) (20-40) % [place] % (Auto) (2-11) % Eos % (Auto) (0-4) % Baso % (Auto) (0-2) % Lymph # (Auto) (1.2-4.9) X10*3/uL [place] # (Auto) (0.1-1.2) X10*3/uL Eos # (Auto) (0.0-0.4) X10*3/uL Baso # (Auto) (0.0-0.2) X10*3/uL Abs Immat Gran (auto) (0.00-0.03) X10*3/uL Absolute Neuts (auto) (2.0-8.3) x10*3/uL Absolute Nucleated RBC (0.0-0.012) X10*3/uL Nucleated RBC % (auto) (0.0-0.2) /100WBC Sodium (135-145) mmol/L Potassium (3.3-5.1) mmol/L Chloride (96-108) mmol/L Carbon Dioxide (22-29) mmol/L Anion Gap (12-20) BUN (9-16) mg/dL Creatinine (0.5-1.4) mg/dL Estim Creat Clear Calc Estimated GFR Random Glucose (60-115) mg/dL Lactic Acid (0.5-2.0) mmol/L Calcium (8.4-10.2) mg/dL Total Bilirubin (0.0-1.0) mg/dL Direct Bilirubin (0.0-0.5) mg/dL AST (5-31) U/L ALT (0-31) U/L Alkaline Phosphatase (39-117) U/L Total Protein (6.5-8.0) g/dL Albumin (3.5-5.0) g/dL Urine Color Dark Yellow Urine Appearance Clear Urine pH 5.5 (5.0-9.0) Ur Specific [place] 1.020 (1.005-1.025) Urine Protein 100 (2+) H (Neg-Trace) mg/dL Urine Glucose (UA) Negative (Negative) mg/dL Urine Ketones Negative (Negative) mg/dL Urine Blood Negative (Negative) Urine Nitrite Negative (Negative) Ur Leukocyte Esterase Negative (Negative) Urine RBC 0-2 (0-2) /HPF Urine WBC 0-5 (0-5) /HPF Ur Squamous Epith Cells 0-2 (0-2) /HPF Urine Bacteria None Seen (None Seen) Hyaline Casts 0-2 (0-2) /LPF Respiratory Panel Olivares See Note Adenovirus (Rapid PCR) Not Detected (Not Detect.) B.pert (TEM-PCR) Not Detected (Not Detect.) B.parapertussis DNA PCR Not Detected (Not Detect.) C. pneumoniae DNA (PCR) Not Detected (Not Detect.) Coronavirus OC43 (PCR) Not Detected (Not Detect.) Coronavirus HKU1 (PCR) Not Detected (Not Detect.) Coronavirus 229E (PCR) Not Detected (Not Detect.) Coronavirus NL63 (PCR) Not Detected (Not Detect.) Human Metapneumovir PCR Not Detected (Not Detect.) Influenza A (RT-PCR) Not Detected (Not Detect.) Influenza Type A (PCR) NEGATIVE (Negative) Influenza B (RT-PCR) Not Detected (Not Detect.) Influenza Type B (PCR) NEGATIVE (Negative) M. pneumoniae (PCR) Not Detected (Not Detect.) Parainfluenza 1 (PCR) Not Detected (Not Detect.) Parainfluenza 2 (PCR) Not Detected (Not Detect.) Parainfluenza 3 (PCR) Not Detected (Not Detect.) Parainfluenza 4 (PCR) Not Detected (Not Detect.) RSV (PCR) Not Detected (Not Detect.) RSV RNA Qual (PCR) NEGATIVE (Negative) Entero/Rhino (PCR) Not Detected (Not Detect.) SARS-CoV-2 RNA (RT-PCR) NEGATIVE Not Detected (Negative) Discharge Plan Discharge Clinical Impression: Fever, Pneumonia Patient Disposition: Admitted As Inpatient Interventions: Admission Worksheet (ED) Last Done: 06/03/22 20:00 Discharge Date/Time: 06/03/22 20:00
[2022-06-03] MEDS: Ketorolac Tromethamine 30 MG/ML VIAL IVPUSH (16:53)
[2022-06-03] MEDS: cefTRIAXone sodium 1 GM in 0.9 % Sodium Chloride 50 ML IV (16:53)
[2022-06-03 17:27] LABS: Adenovirus PCR Not Detected (Not Detect.); Bordetella parapertussis PCR Not Detected (Not Detect.); Bordetella pertussis PCR Not Detected (Not Detect.); Chlamydia pneumoniae PCR Not Detected (Not Detect.); Coronavirus 229E PCR Not Detected (Not Detect.); Coronavirus HKU1 PCR Not Detected (Not Detect.); Coronavirus NL63 PCR Not Detected (Not Detect.); Coronavirus OC43 PCR Not Detected (Not Detect.); Human metapneumovirus PCR Not Detected (Not Detect.); Influenza A PCR Not Detected (Not Detect.); Influenza B PCR Not Detected (Not Detect.); Mycoplasma pneumoniae PCR Not Detected (Not Detect.); Parainfluenza 1 PCR Not Detected (Not Detect.); Parainfluenza 2 PCR Not Detected (Not Detect.); Parainfluenza 3 PCR Not Detected (Not Detect.); Parainfluenza 4 PCR Not Detected (Not Detect.); RSV PCR Not Detected (Not Detect.); Rhino/Enterovirus PCR Not Detected (Not Detect.); SARS-CoV-2 PCR Not Detected (Not Detect.)
[2022-06-03] MEDS: Enoxaparin Sodium 40 MG/0.4 ML SYRINGE SUBCUT (18:15)
[2022-06-03] MEDS: Doxycycline Hyclate 100 MG in 0.9 % Sodium Chloride 250 ML 166.67 MG IV (18:15)
--- NOTE | 2022-06-03 19:43 | PC.NURSE ---
report called to Tiffany FU. pt to go to bed [phone] IM. waiting for transport
[2022-06-03 20:46] LABS: Glucose, Whole Blood 150 mg/dL (60-115)
[2022-06-03] MEDS: traMADoL HCL 50 MG TABLET PO (23:37)
[2022-06-04] VITALS (7 sets, daily range): BP systolic 120–141; BP diastolic 58–71; PULSE 79–96; RESP 20; TEMP 35.9–37.4; O2SAT 92–98
[2022-06-04] MEDS: Acetaminophen 325 MG TABLET 650 MG PO (03:29)
[2022-06-04] MEDS: Levothyroxine Sodium 175 MCG TABLET PO (05:22)
[2022-06-04] MEDS: Doxycycline Hyclate 100 MG in 0.9 % Sodium Chloride 250 ML 166.67 MG IV ×2 (05:50→17:54)
[2022-06-04 07:16] LABS: MANUAL DIFF FLAG NO
[2022-06-04 07:24] LABS: Basophils Absolute Auto 0.1 X10*3/uL (0.0-0.2); Basophils Percent Auto 0.3 % (0-2); Eosinophils Percent Auto 0.1 % (0-4); Hematocrit 33.1 % (37.0-47.0); Hemoglobin 10.6 g/dl (12.0-16.0); Imm Gran Abs Auto 0.19 X10*3/uL (0.00-0.03); Imm Gran Pct Auto 0.9 % (0.0-0.4); Lymphocytes Percent Auto 13.9 % (20-40); Mean Corpuscular Hemoglobin 26.6 pg (27.0-33.0); Mean Corpuscular Volume 83.2 fL (80.0-98.0); Monocytes Percent Auto 4.7 % (2-11); Neutrophils Absolute Auto 17.4 x10*3/uL (2.0-8.3); Neutrophils Percent Auto 80.1 % (45-73); Platelet Count 249 X10*3/uL (160-400); Red Blood Count 3.98 X10*6/uL (4.20-5.50); Red Cell Distribution Width 13.1 % (11.0-16.0); White Blood Count 21.7 X10*3/uL (4.8-10.8)
[2022-06-04 07:47] LABS: Glucose, Whole Blood 154 mg/dL (60-115)
[2022-06-04 08:28] LABS: Alanine Aminotransferase 39 U/L (0-31); Albumin Level 3.5 g/dL (3.5-5.0); Alkaline Phosphatase 90 U/L (39-117); Anion Gap 13 (12-20); Aspartate Amino Transferase 28 U/L (5-31); Bilirubin Direct 3.3 mg/dL (0.0-0.5); Bilirubin Total 4.7 mg/dL (0.0-1.0); Blood Urea Nitrogen 7 mg/dL (9-16); Carbon Dioxide 26 mmol/L (22-29); Chloride 105 mmol/L (96-108); Creatinine Clr Calc Pharmacy 80.2; Estimated Glomerular Filt Rate > 60; Glucose Random 140 mg/dL (60-115); Potassium 2.9 mmol/L (3.3-5.1); Sodium 141 mmol/L (135-145); Total Protein 6.3 g/dL (6.5-8.0)
[2022-06-04 08:42] LABS: Calcium 8.2 mg/dL (8.4-10.2)
[2022-06-04] MEDS: Potassium Chloride Packet 20 MEQ PACKET 40 MEQ PO (09:25)
--- NOTE | 2022-06-04 09:30 | ECG_ITS ---
Test Reason : critical mag Blood Pressure : / mmHG Vent. Rate : 083 BPM Atrial Rate : 083 BPM P-R Int : 164 ms QRS Dur : 152 ms QT Int : 452 ms P-R-T Axes : 045 -61 085 degrees QTc Int : 531 ms Normal sinus rhythm Left axis deviation Left bundle branch block Abnormal ECG When compared with ECG of 03-MAY-2019 15:37, No significant change was found Referred By: Susan Armijo Electronically Signed By:CARMEN NEWTON
[2022-06-04] MEDS: Magnesium Sulfate/H2O 2 GM/50 ML PIGGYBACK IV ×2 (09:54→13:57)
[2022-06-04 11:39] LABS: Glucose, Whole Blood 163 mg/dL (60-115)
--- NOTE | 2022-06-04 12:06 | MHC.CM.PN ---
EMR REVIEWED, PT ADMITTED W/SEPSIS/PNA, CM MET W/PT WHO IS A&OX4, DRIVES AND TAKES CLASSES THROUGH [employer], PT REQUESTING RETURN TO CLASS/SCHOOL NOTE ON D/C. PT REPORTS SHE LIVES ALONE, USES A ROLLATER WALKER, SHOWER CHAIR AND GRAB BARS IN [place], PT HAS DAILY [employer] HRS AND REPORTS [employer] IS A FAMILY BUT DIDN'T ELABORATE. NO SERVICES ANTIC ON D/C. PT VERIFIES PCP IS YENI BARAKAT X3 AND REPORTS HER DTR LYN IS HER HCA AND SHE HAS NO ALTERNATE, COPY REQUESTED.
[2022-06-04] MEDS: Insulin Lispro 100 UNIT/ML 3 ML VIAL SUBCUT ×3 (12:07→20:19)
[2022-06-04] MEDS: traMADoL HCL 50 MG TABLET PO (12:12)
[2022-06-04] MEDS: methylPREDNISolone Sod Succ 40 MG/ML VIAL IVPUSH (13:57)
--- NOTE | 2022-06-04 15:07 | HO.PM.IMPN ---
Subjective Subjective Date of Service: 06/04/22 Interval History: Seen in follow up for RLL pneumonia, sepsis Interval history: Feels a little better. Fever, tachycardia, tachypnea resolved. Leukocytosis persists. No sob, cp. Critical mag 1.0, K 2.9. Review of Systems Review of Systems: Yes all other systems are reviewed and are negative Physical Exam Vital Signs: Vital Signs: Last Vital Signs Temp 98.7 F 06/04/22 11:27 Pulse 87 06/04/22 11:27 Resp 20 06/04/22 11:27 BP 137/69 06/04/22 11:27 Pulse Ox 93 06/04/22 11:27 O2 Del Method Room Air 06/04/22 11:27 BMI result Body Mass Index 22.3 Constitutional - Awake and Alert, No apparent distress Eyes - PERRLA, EOMI Cardiovascular - S1S2, RRR, No edema Respiratory - Normal lung expansion, Normal respiratory effort, No respiratory distress, wheezing bilaterally, rhonchi rll Gastrointestinal - pain RUQ, ND; +BS; No rebound or guarding Extremities - no calf tenderness bilaterally, no swelling Skin - Warm/Dry Neurological - Alert & oriented x3 Psychological - Appropriate affect Objective Data Active Medications Acetaminophen (Acetaminophen 325 Mg Tablet) 650 mg PO Q6H PRN PRN Reason: Pain, Mild (Pain Scale 1-3) Last Admin: 06/04/22 03:29 Dose: 650 mg Documented By: GERALD Docusate Sodium (Docusate Sodium 100 Mg Capsule) 100 mg PO DAILY PRN PRN Reason: Constipation Enoxaparin Sodium (Enoxaparin Sodium 40 Mg/0.4 Ml Syringe) 40 mg SUBCUT Q24H [facility] Last Admin: 06/03/22 18:15 Dose: 40 mg Documented By: LYNETTE Glucose (Glucose Gel 15 Gm Gel..Gram.) 15 gm PO Q15M PRN; Protocol PRN Reason: per Hypoglycemia Standing Ord. Guaifenesin (Guaifenesin 200 Mg/10 Ml 10 Ml Liquid) 10 ml PO Q4H PRN PRN Reason: Cough Ceftriaxone Sodium 1 gm/ (Sodium Chloride) 50 mls @ 100 mls/hr IV Q24H [facility] Last Infusion: 06/03/22 17:45 Dose: 0 mls/hr Documented By: LYNETTE Doxycycline Hyclate 100 mg/ (Sodium Chloride) 250 mls @ 166.67 mls/hr IV Q12H [facility] Last Infusion: 06/04/22 07:34 Dose: 0 mls/hr Documented By: DOROTHEA Dextrose (D10) 250 mls @ 750 mls/hr IV Q15M PRN; Protocol PRN Reason: per Hypoglycemia Standing Ord. Magnesium Sulfate (Magnesium Sulfate/H2o) 2 gm in 50 mls @ 25 mls/hr IV ONCE ONE Stop: 06/04/22 15:08 Last Admin: 06/04/22 13:57 Dose: 25 mls/hr Documented By: DOROTHEA Insulin Human Lispro (Insulin Lispro 100 Unit/Ml 3 Ml Vial) 0 unit SUBCUT QIDACHS [facility]; Protocol Last Admin: 06/04/22 12:07 Dose: 2 unit Documented By: DOROTHEA Levothyroxine Sodium (Levothyroxine Sodium 175 Mcg Tablet) 175 mcg PO DAILY@0600 [facility] Last Admin: 06/04/22 05:22 Dose: 175 mcg Documented By: GERALD Methylprednisolone Sodium Succinate (Methylprednisolone Sod Succ 40 Mg/Ml Vial) 40 mg IVPUSH Q12H [facility] Last Admin: 06/04/22 13:57 Dose: 40 mg Documented By: DOROTHEA Ondansetron HCl (Ondansetron Hcl 4 Mg/2 Ml Vial) 4 mg IVPUSH Q8H PRN PRN Reason: Nausea and Vomiting Tramadol HCl (Tramadol Hcl 50 Mg Tablet) 50 mg PO Q6H PRN PRN Reason: Pain, Moderate (Pain Scale 4-6 Last Admin: 06/04/22 12:12 Dose: 50 mg Documented By: DOROTHEA Labs 06/04/22 06:31 06/04/22 06:31 Labs: Laboratory Results - last 24 hr 06/03/22 06/03/22 06/04/22 14:20 20:41 06:31 MCV 83.2 MCH 26.6 L MCHC 32.0 RDW 13.1 Plt Count 249 MPV 12.0 Immature Gran % (Auto) 0.9 H Neut % (Auto) 80.1 H Lymph % (Auto) 13.9 L [place] % (Auto) 4.7 Eos % (Auto) 0.1 Baso % (Auto) 0.3 Lymph # (Auto) 3.0 [place] # (Auto) 1.0 Eos # (Auto) 0.0 Baso # (Auto) 0.1 Abs Immat Gran (auto) 0.19 H Absolute Neuts (auto) 17.4 H Absolute Nucleated RBC 0.000 Nucleated RBC % (auto) 0.0 Anion Gap Estim Creat Clear Calc Estimated GFR POC Glucose 150 H Random Glucose Calcium Magnesium Total Bilirubin Direct Bilirubin AST ALT Alkaline Phosphatase Total Protein Albumin Respiratory Panel [place] See Note Adenovirus (Rapid PCR) Not Detected B.pert (TEM-PCR) Not Detected B.parapertussis DNA PCR Not Detected C. pneumoniae DNA (PCR) Not Detected Coronavirus OC43 (PCR) Not Detected Coronavirus HKU1 (PCR) Not Detected Coronavirus 229E (PCR) Not Detected Coronavirus NL63 (PCR) Not Detected Human Metapneumovir PCR Not Detected Influenza A (RT-PCR) Not Detected Influenza B (RT-PCR) Not Detected M. pneumoniae (PCR) Not Detected Parainfluenza 1 (PCR) Not Detected Parainfluenza 2 (PCR) Not Detected Parainfluenza 3 (PCR) Not Detected Parainfluenza 4 (PCR) Not Detected RSV (PCR) Not Detected Entero/Rhino (PCR) Not Detected SARS-CoV-2 RNA (RT-PCR) Not Detected 06/04/22 06/04/22 06/04/22 06:31 07:33 11:31 MCV MCH MCHC RDW Plt Count MPV Immature Gran % (Auto) Neut % (Auto) Lymph % (Auto) [place] % (Auto) Eos % (Auto) Baso % (Auto) Lymph # (Auto) [place] # (Auto) Eos # (Auto) Baso # (Auto) Abs Immat Gran (auto) Absolute Neuts (auto) Absolute Nucleated RBC Nucleated RBC % (auto) Anion Gap 13 Estim Creat Clear Calc 80.2 Estimated GFR > 60 POC Glucose 154 H 163 H Random Glucose 140 H Calcium 8.2 L D Magnesium 1.0 L* Total Bilirubin 4.7 H Direct Bilirubin 3.3 H AST 28 ALT 39 H Alkaline Phosphatase 90 Total Protein 6.3 L Albumin 3.5 Respiratory Panel [place] Adenovirus (Rapid PCR) B.pert (TEM-PCR) B.parapertussis DNA PCR C. pneumoniae DNA (PCR) Coronavirus OC43 (PCR) Coronavirus HKU1 (PCR) Coronavirus 229E (PCR) Coronavirus NL63 (PCR) Human Metapneumovir PCR Influenza A (RT-PCR) Influenza B (RT-PCR) M. pneumoniae (PCR) Parainfluenza 1 (PCR) Parainfluenza 2 (PCR) Parainfluenza 3 (PCR) Parainfluenza 4 (PCR) RSV (PCR) Entero/Rhino (PCR) SARS-CoV-2 RNA (RT-PCR) Microbiology Microbiology Results: Microbiology 06/03/22 11:06 Blood Culture - Preliminary Blood - Venous No growth after 24 hours. 06/03/22 10:55 Blood Culture - Preliminary Blood - Venous No growth after 24 hours. Assessment and Plan (1) Sepsis: Status: Acute (2) Pneumonia: Status: Acute (3) Hyperbilirubinemia: Status: Acute Plan 61-year-old female with history of moderate persistent asthma, chronic pain syndrome with fibromyalgia, cux-uwayvth-axfbuqvhy type 2 diabetes, microalbuminuria related to type 2 diabetes, diabetic polyneuropathy, hypercholesterolemia, hypothyroidism, anxiety and depression, history of crack cocaine abuse in remission, and history of breast cancer s/p lumpectomy in 2010 who is a former smoker with 10 pack-year history admitted for #Sepsis related to RML pneumonia- clinically improving -Afebrile, tachycardia resolved, tachypnea resolved. Still with significant leukocytosis 21.1 -IV ceftriaxone and doxycycline BID x 5 days (initiated 06/03) -symptomatic management -Negative for influenza, COVID-19, and RSV.? Full viral respiratory panel pending -Legionella, strep pneumonia ag, and sputum cultures #RUQ pain -Per [facility] records this is chronic, she is s/p cholecystectomy -AST/ALT normal, chornic hyperbilirubinemia -U/S RUQ showing mild hepatomegaly with increased hepatic echogenicity but no focal lesion. CBD is unremarkable. #Acute diarrhea/loose stools- ongoing 3 days -denied on admission, but readdressed given critical hypomag 1.0, and has been having multiple episodes diarrhea and loose stool daily -C.Diff and GI Panels ordered given significant leukocytosis -Avoid Antidiarrheals until infectious etiology ruled out #Acute hypomagnesemia- related to GI losses and IVF -Critical at 1.0 -Given 4g IV mag -EKG without Arrhythmia, placed on telemetry for monitoring -Repeat mag @3, follow #Acute hypomagnesemia- related to GI losses and hypokalemia -Critical at 2.9 -repleted with 40 mEq KCL - no EKG changes -Repeat mag @3, follow #Moderate persistent asthma with acute exacerbation -IV methylprednisone 40mg BID -Duonebs q4h while awake -Albuterol q2h prn -Continue maintenance inhalers #Chronic normocytic anemia - H/ H baseline, above transfusion threshold #Chronic hyperbilirubinemia -Etiology unknown, but is chronic noted on. Hx hepatitis as a child -RUQ u/s pending # controlled vgd-zflfcmj-jiqwyxzas type 2 diabetes -last hemoglobin A1c 6.9 -hold p.o. meds. May bring Victoza from home -Humalog on sliding scale -diabetic diet -POC glucose # diabetic polyneuropathy -continue gabapentin # chronic pain syndrome/fibromyalgia -continue tramadol and gabapentin # hypothyroidism -continue levothyroxine # HLD -continue statin DVT prophylaxis- lovenox Full code Pt requires ongoing inpatient stay for management of acute right lower lobe pneumonia with sepsis requiring IV antibiotics and close monitoring for decompensation as well as management of critical hypo magnesiumemia and hypokalemia related to GI losses. Time Spent With Patient Time: Total time managing care of this patient today ____ minutes. Quality Stroke Does the patient have a stroke diagnosis?: No VTE Prior VTE?: No VTE Risk Level:: Medical - moderate - high VTE Device Contraindication: Treatment Not Indicated VTE Drug Contraindication: N/A - Med Ordered
[2022-06-04 16:26] LABS: Glucose, Whole Blood 186 mg/dL (60-115)
[2022-06-04 16:32] LABS: Anion Gap 13 (12-20); Blood Urea Nitrogen 6 mg/dL (9-16); Calcium 8.6 mg/dL (8.4-10.2); Carbon Dioxide 26 mmol/L (22-29); Chloride 103 mmol/L (96-108); Creatinine Clr Calc Pharmacy 76.4; Estimated Glomerular Filt Rate > 60; Glucose Random 153 mg/dL (60-115); Magnesium 2.2 mg/dL (1.6-2.6); Potassium 3.4 mmol/L (3.3-5.1); Sodium 139 mmol/L (135-145)
[2022-06-04 16:56] LABS: Procalcitonin 2.89 ng/mL
[2022-06-04] MEDS: cefTRIAXone sodium 1 GM in 0.9 % Sodium Chloride 50 ML IV (17:14)
[2022-06-04] MEDS: Enoxaparin Sodium 40 MG/0.4 ML SYRINGE SUBCUT (17:14)
[2022-06-04 19:41] LABS: Glucose, Whole Blood 236 mg/dL (60-115)
[2022-06-05] MEDS: methylPREDNISolone Sod Succ 40 MG/ML VIAL IVPUSH ×2 (00:39→12:11)
[2022-06-05] MEDS: Acetaminophen 325 MG TABLET 650 MG PO ×2 (01:44→21:13)
[2022-06-05 03:11] VITALS: BP 151/79; PULSE 80; RESP 20; TEMP 36.3; O2SAT 94
[2022-06-05] MEDS: Levothyroxine Sodium 175 MCG TABLET PO (05:48)
[2022-06-05] MEDS: Doxycycline Hyclate 100 MG in 0.9 % Sodium Chloride 250 ML 166.67 MG IV ×2 (05:48→18:14)
[2022-06-05 07:25] VITALS: BP 144/81; PULSE 76; RESP 16; TEMP 36.3; O2SAT 90
[2022-06-05 07:32] LABS: Glucose, Whole Blood 242 mg/dL (60-115)
[2022-06-05] MEDS: Insulin Lispro 100 UNIT/ML 3 ML VIAL SUBCUT ×4 (07:50→20:12)
[2022-06-05] MEDS: Magnesium Oxide 400 MG TABLET PO (08:31)
[2022-06-05 09:09] LABS: MANUAL DIFF FLAG NO
[2022-06-05 09:10] LABS: Basophils Percent Auto 0.2 % (0-2); Hematocrit 39.3 % (37.0-47.0); Hemoglobin 12.4 g/dl (12.0-16.0); Imm Gran Abs Auto 0.21 X10*3/uL (0.00-0.03); Imm Gran Pct Auto 1.2 % (0.0-0.4); Lymphocytes Absolute Auto 1.6 X10*3/uL (1.2-4.9); Lymphocytes Percent Auto 8.8 % (20-40); Mean Corpuscular HGB Conc 31.6 g/dl (31.0-35.0); Mean Corpuscular Hemoglobin 25.9 pg (27.0-33.0); Mean Platelet Volume 11.7 fL (9.4-12.3); Monocytes Absolute Auto 0.2 X10*3/uL (0.1-1.2); Monocytes Percent Auto 1.1 % (2-11); Neutrophils Absolute Auto 15.7 x10*3/uL (2.0-8.3); Neutrophils Percent Auto 88.7 % (45-73); Platelet Count 331 X10*3/uL (160-400); Red Blood Count 4.79 X10*6/uL (4.20-5.50); Red Cell Distribution Width 12.7 % (11.0-16.0); White Blood Count 17.6 X10*3/uL (4.8-10.8)
[2022-06-05 11:04] LABS: Glucose, Whole Blood 259 mg/dL (60-115)
[2022-06-05 11:31] VITALS: BP 147/79; PULSE 83; RESP 16; TEMP 36.6; O2SAT 91
--- NOTE | 2022-06-05 11:40 | P.PNIM_ITS ---
Subjective Subjective Date of Service: 06/05/22 Interval History: seen and examined this morning Follow-up for pneumonia Breathing improving, still feeling weak, chills overnight. Still with some dry cough Review of Systems Review of Systems: Yes all other systems are reviewed and are negative Constitutional Constitutional: Reports chills and Denies fever(s) Cardiovascular Cardiovascular: Denies chest pain and Denies palpitations Respiratory Respiratory: Reports cough Gastrointestinal Gastrointestinal: Denies abdominal pain Endocrine Endocrine: Denies palpitations Physical Exam Vital Signs: Vital Signs: Last Vital Signs Temp 97.8 F 06/05/22 11:31 Pulse 83 06/05/22 11:31 Resp 16 06/05/22 11:31 BP 144/81 H 06/05/22 07:25 Pulse Ox 91 L 06/05/22 11:31 O2 Del Method Room Air 06/05/22 11:31 BMI result Body Mass Index 22.3 Const: General: cooperative, comfortable, no acute distress, alert and awake Nutritional Appearance: overweight Orientation/consciousness: patient oriented x3 Resp: Effort & Inspection: normal respiratory effort, no respiratory distress and no use of accessory muscles Auscultation: clear to auscultation bilaterally Cardio: Rate: regular rate Heart sounds: S1 normal heart sound present and S2 normal heart sound present GI: Inspection: No distended Palpation (GI): Soft to palpation and nontender Neuro: General: patient oriented x3 and CN's II-XI intact bilaterally Extrem: General: Yes no pedal edema Objective Data Active Medications Acetaminophen (Acetaminophen 325 Mg Tablet) 650 mg PO Q6H PRN PRN Reason: Pain, Mild (Pain Scale 1-3) Last Admin: 06/05/22 01:44 Dose: 650 mg Documented By: GERALD Docusate Sodium (Docusate Sodium 100 Mg Capsule) 100 mg PO DAILY PRN PRN Reason: Constipation Enoxaparin Sodium (Enoxaparin Sodium 30 Mg/0.3 Ml Syringe) 30 mg SUBCUT Q24H [facility] Glucose (Glucose Gel 15 Gm Gel..Gram.) 15 gm PO Q15M PRN; Protocol PRN Reason: per Hypoglycemia Standing Ord. Guaifenesin (Guaifenesin 200 Mg/10 Ml 10 Ml Liquid) 10 ml PO Q4H PRN PRN Reason: Cough Ceftriaxone Sodium 1 gm/ (Sodium Chloride) 50 mls @ 100 mls/hr IV Q24H [facility] Last Infusion: 06/04/22 17:54 Dose: 0 mls/hr Documented By: DOORTHEA Doxycycline Hyclate 100 mg/ (Sodium Chloride) 250 mls @ 166.67 mls/hr IV Q12H [facility] Last Infusion: 06/05/22 07:55 Dose: 0 mls/hr Documented By: DOROTHEA Dextrose (D10) 250 mls @ 750 mls/hr IV Q15M PRN; Protocol PRN Reason: per Hypoglycemia Standing Ord. Insulin Human Lispro (Insulin Lispro 100 Unit/Ml 3 Ml Vial) 0 unit SUBCUT QIDACHS [facility]; Protocol Last Admin: 06/05/22 07:50 Dose: 4 unit Documented By: DOROTHEA Levothyroxine Sodium (Levothyroxine Sodium 175 Mcg Tablet) 175 mcg PO DAILY@060 0 [facility] Last Admin: 06/05/22 05:48 Dose: 175 mcg Documented By: GERALD Magnesium Oxide (Magnesium Oxide 400 Mg Tablet) 400 mg PO DAILY [facility] Last Admin: 06/05/22 08:31 Dose: 400 mg Documented By: DOROTHEA Methylprednisolone Sodium Succinate (Methylprednisolone Sod Succ 40 Mg/Ml Vial) 40 mg IVPUSH Q12H [facility] Last Admin: 06/05/22 00:39 Dose: 40 mg Documented By: GERALD Ondansetron HCl (Ondansetron Hcl 4 Mg/2 Ml Vial) 4 mg IVPUSH Q8H PRN PRN Reason: Nausea and Vomiting Tramadol HCl (Tramadol Hcl 50 Mg Tablet) 50 mg PO Q6H PRN PRN Reason: Pain, Moderate (Pain Scale 4-6 Last Admin: 06/04/22 12:12 Dose: 50 mg Documented By: DOROTHEA Labs 06/05/22 08:50 06/04/22 15:41 Labs: Laboratory Results - last 24 hr 06/04/22 06/04/22 06/04/22 15:41 15:41 16:09 MCV MCH MCHC RDW Plt Count MPV Immature Gran % (Auto) Neut % (Auto) Lymph % (Auto) [place] % (Auto) Eos % (Auto) Baso % (Auto) Lymph # (Auto) [place] # (Auto) Eos # (Auto) Baso # (Auto) Abs Immat Gran (auto) Absolute Neuts (auto) Absolute Nucleated RBC Nucleated RBC % (auto) Anion Gap 13 Estim Creat Clear Calc 76.4 Estimated GFR > 60 POC Glucose 186 H Random Glucose 153 H Calcium 8.6 Magnesium 2.2 Procalcitonin 2.89 06/04/22 06/05/22 06/05/22 19:37 07:24 08:50 MCV 82.0 MCH 25.9 L MCHC 31.6 RDW 12.7 Plt Count 331 D MPV 11.7 Immature Gran % (Auto) 1.2 H Neut % (Auto) 88.7 H Lymph % (Auto) 8.8 L [place] % (Auto) 1.1 L Eos % (Auto) 0.0 Baso % (Auto) 0.2 Lymph # (Auto) 1.6 [place] # (Auto) 0.2 Eos # (Auto) 0.0 Baso # (Auto) 0.0 Abs Immat Gran (auto) 0.21 H Absolute Neuts (auto) 15.7 H Absolute Nucleated RBC 0.000 Nucleated RBC % (auto) 0.0 Anion Gap Estim Creat Clear Calc Estimated GFR POC Glucose 236 H 242 H Random Glucose Calcium Magnesium Procalcitonin 06/05/22 10:55 MCV MCH MCHC RDW Plt Count MPV Immature Gran % (Auto) Neut % (Auto) Lymph % (Auto) [place] % (Auto) Eos % (Auto) Baso % (Auto) Lymph # (Auto) [place] # (Auto) Eos # (Auto) Baso # (Auto) Abs Immat Gran (auto) Absolute Neuts (auto) Absolute Nucleated RBC Nucleated RBC % (auto) Anion Gap Estim Creat Clear Calc Estimated GFR POC Glucose 259 H Random Glucose Calcium Magnesium Procalcitonin Microbiology Microbiology Results: Microbiology 06/03/22 11:06 Blood Culture - Preliminary Blood - Venous No growth after 24 hours. 06/03/22 10:55 Blood Culture - Preliminary Blood - Venous No growth after 24 hours. Assessment and Plan (1) Pneumonia: Status: Acute (2) Sepsis: Status: Acute Plan 61-year-old female with history of moderate persistent asthma, chronic pain syndrome with fibromyalgia, fqg-dibeiam-ljxmzqpeq type 2 diabetes, microalbuminuria related to type 2 diabetes, diabetic polyneuropathy, hypercholesterolemia, hypothyroidism, anxiety and depression, history of crack cocaine abuse in remission, and history of breast cancer s/p lumpectomy in 2010 who is a former smoker with 10 pack-year history admitted for #Sepsis related to RLL pneumonia- clinically improving -Afebrile, tachycardia, tachypnea resolved. leukocytosis improving -IV ceftriaxone and doxycycline BID x 5 days (initiated 06/03) -symptomatic management -Negative for influenza, COVID-19, and RSV.? Full viral respiratory panel negative -Legionella, strep pneumonia ag, and sputum cultures pending #RUQ pain -Per [facility] records this is chronic, she is s/p cholecystectomy -AST/ALT normal, chronic hyperbilirubinemia -U/S RUQ showing mild hepatomegaly with increased hepatic echogenicity but no focal lesion. CBD is unremarkable. #Acute diarrhea/loose stools- seems to be improved. -denied on admission, but readdressed given critical hypomag 1.0, and has been having multiple episodes diarrhea and loose stool daily -C.Diff and GI Panels ordered given significant leukocytosis but still pending at this time -Avoid Antidiarrheals until infectious etiology ruled out #Acute hypomagnesemia- related to GI losses and hypokalemia improved with IV replacement #Acute hypokalemia- related to GI losses improved with free placement #Moderate persistent asthma with acute exacerbation -IV methylprednisone 40mg BID -Duonebs q4h while awake -Albuterol q2h prn -Continue maintenance inhalers #Chronic normocytic anemia H/H normal # controlled mbe-cqgwwxv-thdtslbvl type 2 diabetes -last hemoglobin A1c 6.9 -hold p.o. meds. May bring Victoza from home -Humalog on sliding scale -diabetic diet -POC glucose # diabetic polyneuropathy -continue gabapentin # chronic pain syndrome/fibromyalgia -continue tramadol and gabapentin # hypothyroidism -continue levothyroxine # HLD -continue statin DVT prophylaxis- lovenox Full code attending - dr. barcenas Pt requires ongoing inpatient stay for management of acute right lower lobe pneumonia with sepsis requiring IV antibiotics and close monitoring for decompensation Time Spent With Patient Time: Total time managing care of this patient today ____ minutes. Quality Stroke Does the patient have a stroke diagnosis?: No VTE Prior VTE?: No VTE Risk Level:: Medical - moderate - high VTE Device Contraindication: Treatment Not Indicated VTE Drug Contraindication: N/A - Med Ordered
[2022-06-05 15:25] VITALS: BP 135/71; PULSE 65; RESP 14; TEMP 36.2; O2SAT 96
[2022-06-05 15:57] LABS: Glucose, Whole Blood 288 mg/dL (60-115)
[2022-06-05] MEDS: Enoxaparin Sodium 40 MG/0.4 ML SYRINGE SUBCUT (17:17)
[2022-06-05] MEDS: cefTRIAXone sodium 1 GM in 0.9 % Sodium Chloride 50 ML IV (17:17)
[2022-06-05 19:02] VITALS: BP 163/80; PULSE 88; RESP 15; TEMP 36.9; O2SAT 98
[2022-06-05 20:10] LABS: Glucose, Whole Blood 289 mg/dL (60-115)
[2022-06-06] VITALS: BP 145/81; PULSE 71; RESP 20; TEMP 36.3; O2SAT 90
[2022-06-06] MEDS: methylPREDNISolone Sod Succ 40 MG/ML VIAL IVPUSH (01:05)
[2022-06-06 03:27] VITALS: BP 165/90; PULSE 75; RESP 20; TEMP 36.1; O2SAT 92
[2022-06-06] MEDS: Doxycycline Hyclate 100 MG in 0.9 % Sodium Chloride 250 ML 166.67 MG IV (05:38)
[2022-06-06] MEDS: Levothyroxine Sodium 175 MCG TABLET PO (05:43)
[2022-06-06 07:08] LABS: Glucose, Whole Blood 247 mg/dL (60-115)
[2022-06-06 07:46] VITALS: BP 174/81; PULSE 69; RESP 20; TEMP 37.1; O2SAT 97
[2022-06-06] MEDS: Insulin Lispro 100 UNIT/ML 3 ML VIAL SUBCUT ×2 (08:17→11:43)
[2022-06-06] MEDS: Magnesium Oxide 400 MG TABLET PO (08:18)
--- NOTE | 2022-06-06 09:36 | PM.DS ---
DS: Providers Provider Date of Service: 06/06/22 Date of admission: 06/03/22 16:02 Date of discharge: 06/06/22 Primary care physician: Unknown Physician Attending physician on discharge: Fede Haas Discharging clinician: Krysta Murrieta DS: Diagnosis Discharge Diagnosis (1) Pneumonia: Status: Acute (2) Sepsis: Status: Acute DS: Summary Hospital Course Hospital Course: From H&P on day of admission 61-year-old female with history of moderate persistent asthma, chronic pain syndrome with fibromyalgia, [id number] type 2 diabetes, microalbuminuria related to type 2 diabetes, diabetic polyneuropathy, hypercholesterolemia, hypothyroidism, anxiety and depression, history of crack cocaine abuse in remission, and history of breast cancer s/p lumpectomy in 2010 who is a former smoker with 10 pack-year history presented to the ED for evaluation of bilateral rib pain and ?liver pain and ?that has been going on for several days.? She states that she has had subjective fevers with sweats/chills as well as cough that was initially productive but is now nonproductive.? She has also been wheezing with mild shortness of breath but denies any increased use of her albuterol inhaler.? She also endorses sore throat.? Reports nausea that started yesterday without any vomiting as well as decreased appetite though she is tolerating oral intake.? She lives alone and denies any sick contacts.? She endorses bilateral pleuritic chest pain but denies any retrosternal chest pressure. On arrival, patient febrile to 104.8 and tachycardic to 119 with tachypnea to 26.? Fever treated with Tylenol with improvement in temperature to 99.8.? She has leukocytosis of 21.1.? Renal function normal, electrolyte levels normal.? LFTs pending.? Lactic acid 1.9.? Urinalysis unremarkable except for 2+ protein.? Negative for influenza, RSV, and COVID-19.? CXR without any acute cardiopulmonary abnormality. Sepsis related to RLL pneumonia- clinically improving. She has remained afebrile since admission; tachycardia, tachypnea resolved.? leukocytosis beginning to trend down. she was treated with IV ceftriaxone and doxycycline and will be transitioned to complete course of oral steroids upon discharge. Negative for influenza, COVID-19, and RSV.? Full viral respiratory panel also negative. Legionella, strep pneumonia ag pending at the time of discharge. Blood cultures have remained negative to date. RUQ pain. Per [facility] records this is chronic, she is s/p cholecystectomy. AST/ALT normal, chronic hyperbilirubinemia. U/S RUQ? showing mild hepatomegaly with increased hepatic echogenicity but no focal lesion.? CBD is unremarkable. Currently tolerating diet without abdominal pain. Acute diarrhea. Resolved without intervention. no stool studies collected. Acute hypomagnesemia- related to GI losses. improved with replacement Acute hypokalemia- related to GI losses. ?improved with replacement Moderate persistent asthma with acute exacerbation. treated with systemic steroids and breathing treatments. She will be discharged with oral prednisone. noted to have a few high blood pressure readings, recommend follow up with PCP, may benefit from antihypertensive Time Spent with Patient Time attestation: Total time managing care of this patient today ____ minutes. Discharge coordination time: Greater than 30 minutes Quality: Safe Use of Opioids Does Pt have an Active Cancer Diagnosis on the Problem List?: No Quality: Stroke Does the patient have a stroke diagnosis?: No Physical Exam Vital Signs: Vital Signs: Last Vital Signs Temp 98.7 F 06/06/22 07:46 Pulse 69 06/06/22 07:46 Resp 20 06/06/22 07:46 BP 174/81 H 06/06/22 07:46 Pulse Ox 97 06/06/22 07:46 O2 Del Method Room Air 06/06/22 07:46 BMI result Body Mass Index 22.3 Const: General: cooperative, comfortable, alert and awake Nutritional Appearance: average body habitus Orientation/consciousness: patient oriented x3 Resp: Effort & Inspection: normal respiratory effort and able to speak in complete sentences Auscultation: clear to auscultation bilaterally Cardio: Rate: regular rate Heart sounds: S1 normal heart sound present and S2 normal heart sound present GI: Inspection: No distended Palpation (GI): Soft to palpation and nontender Neuro: General: patient oriented x3 and CN's II-XI intact bilaterally Extrem: General: Yes no pedal edema DS: Data Data Completed and Pending Labs on day of discharge: Laboratory Results - last 24 hr 06/05/22 06/05/22 06/05/22 10:55 15:52 20:03 POC Glucose 259 H 288 H 289 H 06/06/22 07:02 POC Glucose 247 H Preliminary micro results at discharge 06/03/22 11:06 Blood Culture - Preliminary Blood - Venous No growth after 48 hours. 06/03/22 10:55 Blood Culture - Preliminary Blood - Venous No growth after [address] scan - chest: Radiologist's impression: ITS Impressions Chest X-Ray 06/03/22 11:40 IMPRESSION: No acute process seen. Chest CT 06/03/22 14:19 IMPRESSION: 1. Respiratory motion artifact limits evaluation. 2. Consolidative focus with air bronchograms in the right middle lobe suggesting pneumonia. 3. Main pulmonary artery is borderline enlarged suggesting an element of pulmonary arterial hypertension. 4. Status post cholecystectomy. 5. Small hiatal hernia. Abdomen Ultrasound 06/03/22 15:36 IMPRESSION: 1. Mild hepatomegaly with increased hepatic echogenicity. No focal lesion seen. 2. The gallbladder has been surgically removed. 3. Visualized pancreas, CBD and right kidney is unremarkable. Abdomen/Pelvis CT 06/03/22 16:51 IMPRESSION: 1. Masslike consolidation of the right lower lobe with air bronchograms. This could represent pneumonia. This correlates with the appearance on recent chest CT. Follow-up to resolution is recommended. 2. No acute finding in the abdomen or pelvis. Colonic diverticulosis without diverticulitis. Fleischner guidelines were followed. Discharge Plan Discharge Anticipated Discharge Date/Time: 06/06/22 09:44 Patient Disposition: Home, Self-Care Discharge Diagnosis: sepsis secondary to pneumonia acute asthma exacerbation low magnesium Referrals: Ernesto King MD [Physician] - 1 Week Discharge Medications: New cefuroxime axetil 500 mg tablet 500 mg PO BID 4 Days Qty: 8 0RF prednisone 20 mg tablet 40 mg PO DAILY 5 Days Qty: 10 0RF doxycycline hyclate 100 mg tablet 100 mg PO BID 4 Days Qty: 8 0RF Continued albuterol sulfate 0.63 mg/3 mL solution for nebulization 0.63 mg inhalation QID PRN (Reason: shortness of breath or wheezing) Qty: 75 0RF albuterol sulfate 90 mcg/actuation HFA aerosol inhaler 1 inh inhalation QID PRN (Reason: shortness of breath or wheezing) Qty: 8.5 0RF levothyroxine 175 mcg tablet 175 mcg PO DAILY@0600 tramadol 50 mg tablet 50 mg PO Q6H PRN (Reason: pain) gabapentin 300 mg capsule 600 mg PO TID No Action (DME) AeroEclipse II Nebulizer Misc See Rx Instructions .ROUTE .MEDSUPPLY Qty: 1 0RF Rx Instructions: As directed Activity on Discharge: As tolerated Stand Alone Forms: Patient Portal Discharge page Care Plan Goals: complete resolution of symptoms Health Concerns: pneumonia asthma exacerbation low magnesium/potassium levels Plan of Treatment: you will be discharged home with oral antibiotics for pneumonia and oral prednisone for asthma exacerbation, please take as prescribed magnesium and potassium levels improved to normal range after replacement you had a few high blood pressure readings, recommend follow-up with PCP for close monitoring recommend repeat chest imaging in the next few weeks to ensure resolution of infection Assessment: see discharge summary
--- NOTE | 2022-06-06 10:39 | MHC.CM.PN ---
DP: PT HAS BEEN MEDICALLY CLEARED FOR DC HOME, NO SERVICES. WILL RESUME [employer]. DAUGHTER/[employer] WILL TRANSPORT HOME. PT IS REQUESTING A NEW PCP AND BROCHURE GIVEN FOR [facility] PROVIDERS.
[2022-06-06 11:38] LABS: Glucose, Whole Blood 233 mg/dL (60-115)
[2022-06-06 12:00] VITALS: BP 170/59; PULSE 82; RESP 20; TEMP 36.1; O2SAT 98
[2022-06-11 04:48] LABS: Legionella Ag Urine Not Detected (Not Detected)
[2022-06-12 01:28] LABS: Strep Pneumo Ag urine Not Detected (Not Detected)
== END 2022-06-06 13:16 | disposition home or self-care (01) | DRG 139 ==
LOC: HO.ED 13:23 → HO.EDOVER 16:20 → HO.IMC 18:53
PROVIDERS: Admitting Provider Physician Assistant; Emergency Provider Emergency Medicine; PCP Family Medicine; Visit Provider Physician Assistant Medical
DX: J18.9 Pneumonia, unspecified organism (principal); E11.42 Type 2 diabetes mellitus with diabetic polyneuropathy; J45.41 Moderate persistent asthma with (acute) exacerbation; G89.4 Chronic pain syndrome; E83.42 Hypomagnesemia; M79.7 Fibromyalgia; E03.9 Hypothyroidism, unspecified; E78.5 Hyperlipidemia, unspecified; F41.8 Other specified anxiety disorders; Z87.891 Personal history of nicotine dependence; Z79.890 Hormone replacement therapy; Z79.899 Other long term (current) drug therapy
CPT/HCPCS: 0241U; 36415; 71045; 71250; 74176; 76705; 80048; 80076; 81001; 82947; 83605; 83735; 84145; 85025; 87040; 87449; 87633; 87899; 93005; 99285; J0696; J1650; J1885; J2543; J2920; J3371; J3475

== ENCOUNTER 2022-06-12 12:38 | Emergency (ER) | payer OTHER, SELFPAY ==
--- NOTE | ~2022-06-12 | XR_ITS ---
EXAMINATION: XR CHEST CLINICAL INFORMATION: Shortness of breath COMPARISON: 06/03/2022 TECHNIQUE: Frontal view of the chest was obtained. FINDINGS: Lungs are well expanded. Linear opacity of minimal scar or atelectasis in the superior lingula. Interval improvement/resolution of previously observed airspace disease of the right middle lobe. Cardiac silhouette has normal size and contour. Pulmonary vascular pattern is normal. The visualized bones are intact. Left humeral fixation hardware is partially included in the [id number]. XR/XR chest 1V IMPRESSION: No acute pulmonary disease. Interval improvement/resolution of previously observed airspace disease of the right middle lobe.
[2022-06-12 12:45] VITALS: BP 132/80; PULSE 88; O2SAT 100
[2022-06-12 12:50] VITALS: BP 125/77; PULSE 79; RESP 18; TEMP 36.7; O2SAT 99; BMI 37.8
--- NOTE | 2022-06-12 12:52 | ECG_ITS ---
Test Reason : sob Blood Pressure : / mmHG Vent. Rate : 078 BPM Atrial Rate : 078 BPM P-R Int : 152 ms QRS Dur : 152 ms QT Int : 442 ms P-R-T Axes : 035 -63 091 degrees QTc Int : 503 ms Normal sinus rhythm Left axis deviation Left bundle branch block Abnormal ECG When compared with ECG of 04-JUN-2022 09:37, No significant change was found Referred By: Rene Seo Electronically Signed By:Silvino Snow
--- NOTE | 2022-06-12 12:58 | ED.SOB ---
HPI - SOB/Dyspnea General Chief Complaint: Dyspnea <FISH Parry - Last Filed: 06/12/22 12:59> Stated Complaint: LUNG PAIN,RECENT PNA PER EMS <FISH Parry - Last Filed: 06/12/22 12:59> Time Seen by Provider: 06/12/22 17:07 <FISH Parry - Last Filed: 06/12/22 12:59> Source: patient <FISH Palmer - Last Filed: 06/12/22 18:09> Mode of arrival: ambulatory <FISH Palmer - Last Filed: 06/12/22 18:09> History of Present Illness HPI Narrative: 62-year-old female with a past medical history of arthritis, asthma, breast CA s/p lumpectomy, diabetes, fibromyalgia, hypothyroid, anxiety, depression, recently discharged from our facility on 06/06 for sepsis secondary to pneumonia, presenting to the ED complaining of continued right-sided lung pain since discharge. Reports pain was present upon admission and is persistent, not worsening, just not resolving. Reports chills last night. Denies fever, cough, SOB, abdominal pain, nausea/vomiting, pedal edema. Denies taking anticoagulation <FISH Palmer - Last Filed: 06/12/22 18:09> Related Data Home Medications: Home Medications Medication Instructions Recorded Confirmed gabapentin 300 mg capsule 600 mg PO TID 06/03/22 levothyroxine 175 mcg tablet 175 mcg PO DAILY@0600 06/03/22 06/03/22 tramadol 50 mg tablet 50 mg PO Q6H PRN pain 06/03/22 06/03/22 Previous Rx's Medication Instructions Recorded albuterol sulfate 0.63 mg/3 mL 0.63 mg (3 mL) inhalation QID PRN 11/05/20 solution for nebulization shortness of breath or wheezing #75 mL albuterol sulfate 90 mcg/actuation 1 inh inhalation QID PRN shortness 11/05/20 aerosol inhaler of breath or wheezing #8.5 grams nebulizers (AeroEclipse II #1 ea 11/05/20 Nebulizer) cefuroxime axetil 500 mg tablet 500 mg PO BID 4 days #8 tabs 06/06/22 doxycycline hyclate 100 mg tablet 100 mg PO BID 4 days #8 tabs 06/06/22 prednisone 20 mg tablet 40 mg PO DAILY 5 days #10 tabs 06/06/22 lidocaine 5 % topical patch 1 patch topical DAILY PRN pain #30 06/12/22 (Lidoderm) ea naproxen 500 mg tablet 500 mg PO BID PRN pain 10 days #20 06/12/22 tabs <FISH Parry Last Filed: 06/12/22 12:59> Allergies/Adverse Reactions: Allergies Allergy/AdvReac Type Severity Reaction Status Date / Time No Known Allergies Allergy Unverified 11/03/19 16:21 <FISH Parry Last Filed: 06/12/22 12:59> Review of Systems Review of Systems: Constitutional: No Fever, + Chills, No Fatigue, No Malaise ENT/Mouth: No Ear Pain, No Nasal Congestion, No Sinus Pain, No Hoarseness, No sore throat, No Rhinorrhea, No Swallowing Difficulty Eyes: No Eye Pain, No Swelling, No Redness, No Vision Changes Cardiovascular: + Chest Pain, No SOB, No Edema, No Palpitations Respiratory: No Cough, No Sputum, No Wheezing, No Dyspnea Gastrointestinal: No Nausea, No Vomiting, No Diarrhea, No Constipation, No Abdominal pain Genitourinary: No Dysuria, No Urinary Frequency, No Hematuria, No Flank Pain, No Urinary Flow Changes, No Hesitancy Musculoskeletal: No joint pain, No Myalgias, No Joint Swelling Skin: No Skin Lesions, No rash Neuro: No Weakness, No Dizziness, No Headache <FISH Palmer Last Filed: 06/12/22 18:09> Yes all other systems are reviewed and are negative <FISH Palmer Last Filed: 06/12/22 18:09> Constitutional: Constitutional: Reports as per HPI <FISH Palmer Last Filed: 06/12/22 18:09> PMF Past Medical History Attestation statement: The following information was validated with the patient. <FISH Palmer Last Filed: 06/12/22 18:09> Medical History: Medical History Arthritis Asthma Breast CA Chronic pain syndrome Diabetes mellitus with microalbuminuria Diabetic polyneuropathy Fibromyalgia Former smoker History of crack cocaine use Hypothyroidism Mixed anxiety and depressive disorder Moderate persistent asthma Type 2 diabetes mellitus Vitamin D deficiency <FISH Parry - Last Filed: 06/12/22 12:59> Surgical History: Surgical History History of surgery on arm S/P cholecystectomy Status post left breast lumpectomy <FISH Parry - Last Filed: 06/12/22 12:59> Social History Social History: Social History Household Members: None Housing: Apartment Do you presently have visiting nurse or other home services: No Alcohol intake: never Patient Tobacco Use Status: Former Tobacco user Tobacco use type: Cigarette Advance Directives: No Advance Directives Information Provided: No service: No Current occupational status: disabled <FISH Parry - Last Filed: 06/12/22 12:59> Physical Exam Vital Signs: Vital Signs: Last Vital Signs Temp 98.0 F 06/12/22 12:50 Pulse 77 06/12/22 17:12 Resp 18 06/12/22 17:12 BP 125/67 06/12/22 17:12 Pulse Ox 96 06/12/22 17:12 O2 Del Method Room Air 06/12/22 17:12 BMI result Body Mass Index 37.8 <FISH Parry - Last Filed: 06/12/22 12:59> Vital Signs: Last Vital Signs Temp 98.0 F 06/12/22 12:50 Pulse 77 06/12/22 17:12 Resp 18 06/12/22 17:12 BP 125/67 06/12/22 17:12 Pulse Ox 96 06/12/22 17:12 O2 Del Method Room Air 06/12/22 17:12 BMI result Body Mass Index 37.8 <FISH Palmer - Last Filed: 06/12/22 18:09> Const: General: cooperative, healthy appearing and no acute distress <FISH Palmer - Last Filed: 06/12/22 18:09> Orientation/consciousness: patient oriented x3 <Jael Bolton [place] - Last Filed: 06/12/22 18:09> Limitations: no limitations <Jael Brendaalena [place] - Last Filed: 06/12/22 18:09> HEENT: Head: Yes normal to inspection and Yes atraumatic <Jael Brendaalena [facility] Last Filed: 06/12/22 18:09> Ears: hearing grossly normal bilaterally <Jael Bolton [place] - Last Filed: 06/12/22 18:09> General nose exam: Normal external nose present <Jael Bolton [facility] Last Filed: 06/12/22 18:09> Face and sinus: Yes normal facial exam <Jael Bolton [place] - Last Filed: 06/12/22 18:09> Eyes: General: appearance normal, both eyes and all related structures <Jael Bolton [facility] Last Filed: 06/12/22 18:09> EOM: EOMs intact bilaterally <Jael Bolton [place] - Last Filed: 06/12/22 18:09> Neck: Neck: Yes normal visual inspection and Yes no meningeal signs <Jael Bolton [facility] Last Filed: 06/12/22 18:09> Chest: Chest palpation & inspection: normal inspection of the chest, no crepitus and no tenderness <Jael Bolton [place] - Last Filed: 06/12/22 18:09> Resp: Effort & Inspection: normal respiratory effort and no respiratory distress <Jael Bolton [facility] Last Filed: 06/12/22 18:09> Auscultation: clear to auscultation bilaterally, no crackles, no rales, no rhonchi and no wheezes <Jael Bolton [place] - Last Filed: 06/12/22 18:09> Cardio: Rate: regular rate <Jael Bolton [place] - Last Filed: 06/12/22 18:09> Heart sounds: S1 normal heart sound present and S2 normal heart sound present <FISH Palmer Last Filed: 06/12/22 18:09> GI: Inspection: Yes normal to inspection <Jael Bolton [place] - Last Filed: 06/12/22 18:09> Palpation (GI): Soft to palpation, nontender, no guarding and not rigid <Jael Bolton [place] - Last Filed: 06/12/22 18:09> : General: Yes no CVA tenderness <Jael Bolton [place] - Last Filed: 06/12/22 18:09> Back/Spine/Pelvis: Back: no CVA tenderness <Jael Bolton [place] - Last Filed: 06/12/22 18:09> Skin: Rashes: no rashes <Jael Bolton [place] - Last Filed: 06/12/22 18:09> Wounds: no wounds <Jael Bolton [place] - Last Filed: 06/12/22 18:09> Neuro: General: patient oriented x3, tone normal and no meningeal signs <Jael Bolton [place] - Last Filed: 06/12/22 18:09> Gait exam (Neuro): Normal gait present <Jael Bolton [place] - Last Filed: 06/12/22 18:09> Extrem: General: Yes normal to inspection, Yes no pedal edema and Yes no calf tenderness <Jael Bolton [place] - Last Filed: 06/12/22 18:09> Course Course Course Narrative: This is an RME: Additional HPI, ROS, PE not included below will be deferred to primary provider. 62-year-old female presents with shortness of breath that is worsening recently diagnosed with pneumonia and completed a course of antibiotics. At rest also feels short of breath. But worse with exertion. No associated chest pain Physical exam benign 100% on room air appears comfortable Plan labs, imaging <FISH Parry - Last Filed: 06/12/22 12:59> This is an RME: Additional HPI, ROS, PE not included below will be deferred to primary provider. 62-year-old female presents with shortness of breath that is worsening recently diagnosed with pneumonia and completed a course of antibiotics. At rest also feels short of breath. But worse with exertion. No associated chest pain Physical exam benign 100% on room air appears comfortable Plan labs, imaging -improving leukocytosis. D-dimer WNL. Magnesium slightly low 1.5 >>p.o. repletion ordered. Troponin negative. Chronically elevated bilirubin/ALT Labs otherwise reassuring XR chest 1V IMPRESSION: No acute pulmonary disease. ? Interval improvement/resolution of previously observed airspace disease of the right middle lobe. Results discussed with patient including worrisome signs and symptoms and strict return precautions, and when to return to the emergency department. They verbalized understanding and feel safe for discharge at this time. <FISH Palmer - Last Filed: 06/12/22 18:09> Medications Administered Discontinued Medications Generic Name Dose Route Start Last Admin Trade Name Freq PRN Reason Stop Dose Admin Magnesium Oxide 800 mg 06/12/22 17:12 06/12/22 17:18 Magnesium Oxide 400 Mg Tablet PO 06/12/22 17:13 800 mg ONCE ONE Administration Naproxen 500 mg 06/12/22 17:17 06/12/22 17:19 Naproxen 500 Mg Tablet PO 06/12/22 17:18 500 mg ONCE ONE Administration <FISH Parry - Last Filed: 06/12/22 12:59> Medications Administered Discontinued Medications Generic Name Dose Route Start Last Admin Trade Name Freq PRN Reason Stop Dose Admin Magnesium Oxide 800 mg 06/12/22 17:12 06/12/22 17:18 Magnesium Oxide 400 Mg Tablet PO 06/12/22 17:13 800 mg ONCE ONE Administration Naproxen 500 mg 06/12/22 17:17 06/12/22 17:19 Naproxen 500 Mg Tablet PO 06/12/22 17:18 500 mg ONCE ONE Administration <FISH Palmer - Last Filed: 06/12/22 18:09> Medical Decision Making Medical Decision Making MDM Narrative: 62-year-old female with a past medical history of arthritis, asthma, breast CA s/p lumpectomy, diabetes, fibromyalgia, hypothyroid, anxiety, depression, recently discharged from our facility on 06/06 for sepsis secondary to pneumonia, presenting to the ED complaining of continued right-sided lung pain since discharge. On exam vital signs stable, NAD, nontoxic appearing, CP not reproducible, lungs CTA, no pedal edema/calf tenderness. Concern for continued pain secondary to pneumonia vs PE vs new or worsening pneumonia vs costochondritis. Lower suspicion for ACS, CHF or intra-abdominal pathology Plan: EKG, labs, CXR, reassess Please refer to course for remaining clinical decision making, interpretation of labs/imaging results, and discussions with consultants and/or family members. <FISH Palmer - Last Filed: 06/12/22 18:09> Differential Diagnosis Differential Diagnoses: The differential diagnosis associated with the presentation includes <FISH Palmer - Last Filed: 06/12/22 18:09> As above <FISH Palmer - Last Filed: 06/12/22 18:09> Admission/Observation Consideration of admission/observation: Escalation of care including admission/observation considered <FISH Pamler - Last Filed: 06/12/22 18:09> Lab Data MDM Lab Attestation statement: I reviewed the patient's lab results. <FISH Palmer - Last Filed: 06/12/22 18:09> Result Diagrams: 06/12/22 13:16 06/12/22 13:16 <FISH Parry - Last Filed: 06/12/22 12:59> Labs: Lab Results 06/12/22 06/12/22 06/12/22 Range/Units 13:16 13:16 13:16 WBC 13.9 H (4.8-10.8) X10*3/uL RBC 4.76 (4.20-5.50) X10*6/uL Hgb 12.3 (12.0-16.0) g/dl Hct 39.4 (37.0-47.0) % MCV 82.8 (80.0-98.0) fL MCH 25.8 L (27.0-33.0) pg MCHC 31.2 (31.0-35.0) g/dl RDW 13.5 (11.0-16.0) % Plt Count 450 H D (160-400) X10*3/uL MPV 10.7 (9.4-12.3) fL Immature Gran % (Auto) 1.3 H (0.0-0.4) % Neut % (Auto) 59.7 (45-73) % Lymph % (Auto) 33.6 (20-40) % [place] % (Auto) 4.2 (2-11) % Eos % (Auto) 0.9 (0-4) % Baso % (Auto) 0.3 (0-2) % Lymph # (Auto) 4.7 (1.2-4.9) X10*3/uL [place] # (Auto) 0.6 (0.1-1.2) X10*3/uL Eos # (Auto) 0.1 (0.0-0.4) X10*3/uL Baso # (Auto) 0.0 (0.0-0.2) X10*3/uL Abs Immat Gran (auto) 0.18 H (0.00-0.03) X10*3/uL Absolute Neuts (auto) 8.3 (2.0-8.3) x10*3/uL Absolute Nucleated RBC 0.000 (0.0-0.012) X10*3/uL Nucleated RBC % (auto) 0.0 (0.0-0.2) /100WBC D-Dimer High Sensitivty < 150 NG/ML Sodium 142 (135-145) mmol/L Potassium 3.7 (3.3-5.1) mmol/L Chloride 99 (96-108) mmol/L Carbon Dioxide 32 H (22-29) mmol/L Anion Gap 15 (12-20) BUN 11 (9-16) mg/dL Creatinine 0.60 (0.5-1.4) mg/dL Estim Creat Clear Calc 108.7 Estimated GFR > 60 Random Glucose 158 H (60-115) mg/dL Calcium 9.7 D (8.4-10.2) mg/dL Magnesium 1.5 L (1.6-2.6) mg/dL Total Bilirubin 3.7 H (0.0-1.0) mg/dL AST 16 (5-31) U/L ALT 40 H (0-31) U/L Alkaline Phosphatase 91 (39-117) U/L Troponin I High Sens (<3.5-17.0) ng/L B-Natriuretic Peptide (<100) pg/mL Total Protein 7.0 (6.5-8.0) g/dL Albumin 4.0 (3.5-5.0) g/dL Urine Color Urine Appearance Urine pH (5.0-9.0) Ur Specific [place] (1.005-1.025) Urine Protein (Neg-Trace) mg/dL Urine Glucose (UA) (Negative) mg/dL Urine Ketones (Negative) mg/dL Urine Blood (Negative) Urine Nitrite (Negative) Ur Leukocyte Esterase (Negative) 06/12/22 06/12/22 06/12/22 Range/Units 13:16 13:16 13:16 WBC (4.8-10.8) X10*3/uL RBC (4.20-5.50) X10*6/uL Hgb (12.0-16.0) g/dl Hct (37.0-47.0) % MCV (80.0-98.0) fL MCH (27.0-33.0) pg MCHC (31.0-35.0) g/dl RDW (11.0-16.0) % Plt Count (160-400) X10*3/uL MPV (9.4-12.3) fL Immature Gran % (Auto) (0.0-0.4) % Neut % (Auto) (45-73) % Lymph % (Auto) (20-40) % [place] % (Auto) (2-11) % Eos % (Auto) (0-4) % Baso % (Auto) (0-2) % Lymph # (Auto) (1.2-4.9) X10*3/uL [place] # (Auto) (0.1-1.2) X10*3/uL Eos # (Auto) (0.0-0.4) X10*3/uL Baso # (Auto) (0.0-0.2) X10*3/uL Abs Immat Gran (auto) (0.00-0.03) X10*3/uL Absolute Neuts (auto) (2.0-8.3) x10*3/uL Absolute Nucleated RBC (0.0-0.012) X10*3/uL Nucleated RBC % (auto) (0.0-0.2) /100WBC D-Dimer High Sensitivty NG/ML Sodium (135-145) mmol/L Potassium (3.3-5.1) mmol/L Chloride (96-108) mmol/L Carbon Dioxide (22-29) mmol/L Anion Gap (12-20) BUN (9-16) mg/dL Creatinine (0.5-1.4) mg/dL Estim Creat Clear Calc Estimated GFR Random Glucose (60-115) mg/dL Calcium (8.4-10.2) mg/dL Magnesium (1.6-2.6) mg/dL Total Bilirubin (0.0-1.0) mg/dL AST (5-31) U/L ALT (0-31) U/L Alkaline Phosphatase (39-117) U/L Troponin I High Sens 3.2 (<3.5-17.0) ng/L B-Natriuretic Peptide < 10 (<100) pg/mL Total Protein (6.5-8.0) g/dL Albumin (3.5-5.0) g/dL Urine Color [place] Urine Appearance Clear Urine pH 6.0 (5.0-9.0) Ur Specific [place] 1.025 (1.005-1.025) Urine Protein Trace (Neg-Trace) mg/dL Urine Glucose (UA) Negative (Negative) mg/dL Urine Ketones Negative (Negative) mg/dL Urine Blood Negative (Negative) Urine Nitrite Negative (Negative) Ur Leukocyte Esterase Negative (Negative) <FISH Parry - Last Filed: 06/12/22 12:59> Lab Results 06/12/22 06/12/22 06/12/22 Range/Units 13:16 13:16 13:16 WBC 13.9 H (4.8-10.8) X10*3/uL RBC 4.76 (4.20-5.50) X10*6/uL Hgb 12.3 (12.0-16.0) g/dl Hct 39.4 (37.0-47.0) % MCV 82.8 (80.0-98.0) fL MCH 25.8 L (27.0-33.0) pg MCHC 31.2 (31.0-35.0) g/dl RDW 13.5 (11.0-16.0) % Plt Count 450 H D (160-400) X10*3/uL MPV 10.7 (9.4-12.3) fL Immature Gran % (Auto) 1.3 H (0.0-0.4) % Neut % (Auto) 59.7 (45-73) % Lymph % (Auto) 33.6 (20-40) % [place] % (Auto) 4.2 (2-11) % Eos % (Auto) 0.9 (0-4) % Baso % (Auto) 0.3 (0-2) % Lymph # (Auto) 4.7 (1.2-4.9) X10*3/uL [place] # (Auto) 0.6 (0.1-1.2) X10*3/uL Eos # (Auto) 0.1 (0.0-0.4) X10*3/uL Baso # (Auto) 0.0 (0.0-0.2) X10*3/uL Abs Immat Gran (auto) 0.18 H (0.00-0.03) X10*3/uL Absolute Neuts (auto) 8.3 (2.0-8.3) x10*3/uL Absolute Nucleated RBC 0.000 (0.0-0.012) X10*3/uL Nucleated RBC % (auto) 0.0 (0.0-0.2) /100WBC D-Dimer High Sensitivty < 150 NG/ML Sodium 142 (135-145) mmol/L Potassium 3.7 (3.3-5.1) mmol/L Chloride 99 (96-108) mmol/L Carbon Dioxide 32 H (22-29) mmol/L Anion Gap 15 (12-20) BUN 11 (9-16) mg/dL Creatinine 0.60 (0.5-1.4) mg/dL Estim Creat Clear Calc 108.7 Estimated GFR > 60 Random Glucose 158 H (60-115) mg/dL Calcium 9.7 D (8.4-10.2) mg/dL Magnesium 1.5 L (1.6-2.6) mg/dL Total Bilirubin 3.7 H (0.0-1.0) mg/dL AST 16 (5-31) U/L ALT 40 H (0-31) U/L Alkaline Phosphatase 91 (39-117) U/L Troponin I High Sens (<3.5-17.0) ng/L B-Natriuretic Peptide (<100) pg/mL Total Protein 7.0 (6.5-8.0) g/dL Albumin 4.0 (3.5-5.0) g/dL Urine Color Urine Appearance Urine pH (5.0-9.0) Ur Specific [place] (1.005-1.025) Urine Protein (Neg-Trace) mg/dL Urine Glucose (UA) (Negative) mg/dL Urine Ketones (Negative) mg/dL Urine Blood (Negative) Urine Nitrite (Negative) Ur Leukocyte Esterase (Negative) 06/12/22 06/12/22 06/12/22 Range/Units 13:16 13:16 13:16 WBC (4.8-10.8) X10*3/uL RBC (4.20-5.50) X10*6/uL Hgb (12.0-16.0) g/dl Hct (37.0-47.0) % MCV (80.0-98.0) fL MCH (27.0-33.0) pg MCHC (31.0-35.0) g/dl RDW (11.0-16.0) % Plt Count (160-400) X10*3/uL MPV (9.4-12.3) fL Immature Gran % (Auto) (0.0-0.4) % Neut % (Auto) (45-73) % Lymph % (Auto) (20-40) % [place] % (Auto) (2-11) % Eos % (Auto) (0-4) % Baso % (Auto) (0-2) % Lymph # (Auto) (1.2-4.9) X10*3/uL [place] # (Auto) (0.1-1.2) X10*3/uL Eos # (Auto) (0.0-0.4) X10*3/uL Baso # (Auto) (0.0-0.2) X10*3/uL Abs Immat Gran (auto) (0.00-0.03) X10*3/uL Absolute Neuts (auto) (2.0-8.3) x10*3/uL Absolute Nucleated RBC (0.0-0.012) X10*3/uL Nucleated RBC % (auto) (0.0-0.2) /100WBC D-Dimer High Sensitivty NG/ML Sodium (135-145) mmol/L Potassium (3.3-5.1) mmol/L Chloride (96-108) mmol/L Carbon Dioxide (22-29) mmol/L Anion Gap (12-20) BUN (9-16) mg/dL Creatinine (0.5-1.4) mg/dL Estim Creat Clear Calc Estimated GFR Random Glucose (60-115) mg/dL Calcium (8.4-10.2) mg/dL Magnesium (1.6-2.6) mg/dL Total Bilirubin (0.0-1.0) mg/dL AST (5-31) U/L ALT (0-31) U/L Alkaline Phosphatase (39-117) U/L Troponin I High Sens 3.2 (<3.5-17.0) ng/L B-Natriuretic Peptide < 10 (<100) pg/mL Total Protein (6.5-8.0) g/dL Albumin (3.5-5.0) g/dL Urine Color [place] Urine Appearance Clear Urine pH 6.0 (5.0-9.0) Ur Specific [place] 1.025 (1.005-1.025) Urine Protein Trace (Neg-Trace) mg/dL Urine Glucose (UA) Negative (Negative) mg/dL Urine Ketones Negative (Negative) mg/dL Urine Blood Negative (Negative) Urine Nitrite Negative (Negative) Ur Leukocyte Esterase Negative (Negative) <FISH Palmer - Last Filed: 06/12/22 18:09> Independent Interpretation I performed an independent interpretation of an: EKG (EKGs normal sinus rhythm at a rate of 78. OK interval 152. Left bundle-branch block. No significant change when compared to prior. No STEMI) <FISH Palmer - Last Filed: 06/12/22 18:09> Radiology Impression Discussion of test interpretation with radiology: I have reviewed the radiologist's reading. <FISH Palmer - Last Filed: 06/12/22 18:09> External Record Review External record reviewed: Inpatient record, Office record, Outpatient record, Prior outpatient labs, Prior outpatient radiology, Primary care record and Outside ED record <FISH Palmer Last Filed: 06/12/22 18:09> Discharge Plan Discharge Clinical Impression: Chest wall pain <FISH Parry Last Filed: 06/12/22 12:59> Patient Disposition: Home, Self-Care <FISH Parry Last Filed: 06/12/22 12:59> Instructions: Chest Wall Pain (ED) <FISH Parry - Last Filed: 06/12/22 12:59> Additional Instructions: Your blood work is reassuring. Your magnesium was slightly low, consider taking a magnesium supplement daily Her x-ray shows improving/resolving pneumonia. Your pneumonia likely the cause of her symptoms. Please fluids follow up with her doctor Does persist or worsen, pain becomes unbearable, shortness of breath or chest pain return to the ED Naproxen will help with pain. In addition use Lidoderm patches <FISH Parry - Last Filed: 06/12/22 12:59> Prescriptions: New lidocaine [Lidoderm] 5 % adhesive patch,medicated 1 patch topical DAILY MDD remove after 12 hours PRN (Reason: pain) Qty: 30 0RF Rx Instructions: leave on most painful area for up to 12 hrs naproxen 500 mg tablet 500 mg PO BID PRN (Reason: pain) 10 Days Qty: 20 0RF No Action albuterol sulfate 0.63 mg/3 mL solution for nebulization 0.63 mg inhalation QID PRN (Reason: shortness of breath or wheezing) Qty: 75 0RF (DME) AeroEclipse II Nebulizer Misc See Rx Instructions .ROUTE .MEDSUPPLY Qty: 1 0RF Rx Instructions: As directed albuterol sulfate 90 mcg/actuation HFA aerosol inhaler 1 inh inhalation QID PRN (Reason: shortness of breath or wheezing) Qty: 8.5 0RF levothyroxine 175 mcg tablet 175 mcg PO DAILY@0600 tramadol 50 mg tablet 50 mg PO Q6H PRN (Reason: pain) gabapentin 300 mg capsule 600 mg PO TID prednisone 20 mg tablet 40 mg PO DAILY 5 Days Qty: 10 0RF cefuroxime axetil 500 mg tablet 500 mg PO BID 4 Days Qty: 8 0RF doxycycline hyclate 100 mg tablet 100 mg PO BID 4 Days Qty: 8 0RF <FISH Parry - Last Filed: 06/12/22 12:59> Referrals: Ernesto King MD [Primary Care Provider] - 3 days <FISH Parry - Last Filed: 06/12/22 12:59> Interventions: ED Discharge Assessment Last Done: 06/12/22 17:45 <FISH Parry - Last Filed: 06/12/22 12:59> Discharge Date/Time: 06/12/22 17:46 <FISH Parry - Last Filed: 06/12/22 12:59>
[2022-06-12 13:23] LABS: MANUAL DIFF FLAG NO
[2022-06-12 13:26] LABS: Appearance Urine Clear; Color Urine Orange; Glucose Urine UA Negative (Negative); Leukocyte Esterase Urine Negative (Negative); Nitrite Urine Negative (Negative); Specific Gravity - Urine 1.025 (1.005-1.025); Urine Blood Negative (Negative); Urine Ketones Negative (Negative); Urine Protein Trace mg/dL (Neg-Trace)
[2022-06-12 13:28] LABS: Basophils Percent Auto 0.3 % (0-2); Eosinophils Absolute Auto 0.1 X10*3/uL (0.0-0.4); Eosinophils Percent Auto 0.9 % (0-4); Hematocrit 39.4 % (37.0-47.0); Hemoglobin 12.3 g/dl (12.0-16.0); Imm Gran Abs Auto 0.18 X10*3/uL (0.00-0.03); Imm Gran Pct Auto 1.3 % (0.0-0.4); Lymphocytes Absolute Auto 4.7 X10*3/uL (1.2-4.9); Lymphocytes Percent Auto 33.6 % (20-40); Mean Corpuscular HGB Conc 31.2 g/dl (31.0-35.0); Mean Corpuscular Hemoglobin 25.8 pg (27.0-33.0); Mean Corpuscular Volume 82.8 fL (80.0-98.0); Mean Platelet Volume 10.7 fL (9.4-12.3); Monocytes Absolute Auto 0.6 X10*3/uL (0.1-1.2); Monocytes Percent Auto 4.2 % (2-11); Neutrophils Absolute Auto 8.3 x10*3/uL (2.0-8.3); Neutrophils Percent Auto 59.7 % (45-73); Platelet Count 450 X10*3/uL (160-400); Red Blood Count 4.76 X10*6/uL (4.20-5.50); Red Cell Distribution Width 13.5 % (11.0-16.0); White Blood Count 13.9 X10*3/uL (4.8-10.8)
[2022-06-12 13:34] LABS: D Dimer High Sensitivity < 150 NG/ML
[2022-06-12 13:44] LABS: Alanine Aminotransferase 40 U/L (0-31); Alkaline Phosphatase 91 U/L (39-117); Anion Gap 15 (12-20); Aspartate Amino Transferase 16 U/L (5-31); Bilirubin Total 3.7 mg/dL (0.0-1.0); Blood Urea Nitrogen 11 mg/dL (9-16); Calcium 9.7 mg/dL (8.4-10.2); Carbon Dioxide 32 mmol/L (22-29); Chloride 99 mmol/L (96-108); Creatinine Clr Calc Pharmacy 108.7; Estimated Glomerular Filt Rate > 60; Glucose Random 158 mg/dL (60-115); Magnesium 1.5 mg/dL (1.6-2.6); Potassium 3.7 mmol/L (3.3-5.1); Sodium 142 mmol/L (135-145)
[2022-06-12 13:50] LABS: B Type Natriuretic Peptide < 10 pg/mL (<100)
[2022-06-12 13:51] LABS: Troponin-I High Sensitivity 3.2 ng/L (<3.5-17.0)
[2022-06-12 17:12] VITALS: BP 125/67; PULSE 77; RESP 18; O2SAT 96
--- OUTSIDE RECORDS SUMMARY | 2022-06-12 17:15 | XMS_ITS | Continuity of Care Document ---
Author Name Unknown Organization [facility] Address [address] [place] [address]- Care Team Providers Care Fermentation Scientist Name Role Phone Ernesto King MD Primary Care Physician Encounter [facility] Date(s): 05/06/22 - 06/05/22 [facility] [address] [place] [address]- Allergies, Adverse Reactions, Alerts No Known Allergies [...] 01/30/16 Given 1Result Comment: [facility]:18788-791-93 2Result Comment: [facility] [id number] 3Result Comment: [11/30/2017] [facility] 17975-952-00 4Result Comment: [12/31/2016] [facility] [id number] 5Admin Note: vis given 09/10/12 6Admin Note: VIS given 08/18/2011 7Result Comment: [12/31/2016] [facility] [id number] Medications albuterol 90 mcg/inh inhalation powder 2 puffs, Inhalation, Every 6 hours, PRN Wheezing/Shortness of Breath, # 1 each, 3 Refills, Maintenance, 11/22/21 17:17:00 EDT, Powder, [facility]/pharmacy #[id number], dispense pro-air, 2 puffs Inhalation Every 6hours,PRN:Wheezing/Shortness of Breath, 163, cm, 10... Start Date: 11/22/21 Status: Ordered albuterol-ipratropium 3 mg-0.5 mg/3 ml inhalation solution 3 mL, Neb, 4 times a day, J45.40, # 180 mL, 3 Refills, Maintenance, 11/22/21 17:17:00 EDT, Solution, [facility]/pharmacy #[id number], 3 mL Neb 4 times a day,Instr:J45.40, 163, cm, 11/22/21 15:30:00 EDT, Height Start Date: 11/22/21 Status: Ordered celecoxib 100 mg oral capsule 1 capsule, By Mouth, 2 times a day with meals, # 60 capsule, 1 Refills, Maintenance, 08/14/20 12:53:00 EDT, [id number], 163, cm, 07/31/20 9:10:00 EDT, Height, 98.9, [...] EST, Aerosol, [facility] #[id number], 163, cm, 02/29/20 13:19:00 EST, Height, 98.9, [...] capsule, Refills 1, Tot. Refills 1, Maintenance, 06/03/22 22:45:00 EDT, Route to Pharmacy Electronically, [facility]/pharmacy #[id number], 163, cm, 05/29/22 8:57:00 EDT,Height Start Date: 06/03/22 Stop Date: 08/02/22 Status: Ordered levothyroxine 175 mcg (0.175 mg) oral tablet 1 tablet, By Mouth, Daily, # 90 tablet, 0 Refills, Maintenance, 06/05/22 16:54:00 EDT, [id number], 163, cm, 05/29/22 8:57:00 EDT, Height Start Date: 06/05/22 Status: Ordered loratadine 10 mg oral tablet 10 mg, 1, tablet, By Mouth, Daily, # 30 tablet, Refills 6, Tot. Refills 6, Maintenance, 11/28/19 8:53:00 EDT, Route to Pharmacy Electronically, [facility]/pharmacy #[id number], 163, cm, 11/25/19 14:43:00 EDT, Height, 98.9, kg, 08/25/19 12:42:00 EDT, Dry Weight Start Date: 11/28/19 Status: Ordered metFORMIN 500 mg oral tablet 1 tablet = 500 mg, By Mouth, 2 times a day, # 60 tablet, 5 Refills, Maintenance, 02/19/21 8:58:00 EST, [facility]/pharmacy #[id number], 163, cm, 02/18/21 14:32:00 EST, [...] each, 1 Refills, Maintenance, 08/25/19 15:03:00 EDT, [facility]/pharmacy#[id number], 2 sprays Nares, Both Daily, 163, cm, 08/25/19 12:40:00 EDT, Height, 98.9, kg, 08/25/19 12:42:00 EDT, Dry Weight Start Date: 08/25/19 Status: Ordered Nasonex 50 mcg/inh nasal spray 2 sprays, Nares, Both, 2 times a day, # 17 Gm, 0 Refills, Maintenance, 12/04/21 11:58:00 EDT, [place], [facility]/pharmacy #[id number], 2 sprays Nares, Both 2 [...] 07/31/20 9:07:00 EDT, Route to Pharmacy Electronically, [facility] #[id number], Partial fill upon patient request if the prescription is for a sched... Start Date: 07/31/20 Status: Ordered PriLOSEC OTC 20 mg oral delayed release tablet 1 tablet = 20 mg, By Mouth, Daily, # 30 tablet, 2 Refills, Maintenance, 12/04/21 11:57:00 EDT, [facility]/pharmacy #[id number], 163, cm, 12/04/21 11:37:00 EDT, [...] mL, 3 Refills, Maintenance, 12/04/21 11:56:00 EDT, [facility]/pharmacy #[id number], 2 drops Eyes, Both 3 times a day, 163, cm, 12/04/21 11:37:00 EDT, Height Start Date: 12/04/21 Status: Ordered tiZANidine 4 mg oral tablet 0.5-1 tablet, By Mouth, Every 8 hours, PRN, TAKE ONLY NEEDED FOR MUSCLE SPASM, # 45 tablet, Refills 2, Tot. Refills 2, Maintenance, Spasm, 04/12/21 12:13:00 EST, Route to Pharmacy Electronically, [facility]/pharmacy #[id number], 163, cm, 03/07/21 11:34:00 EST,... Start Date: 04/12/21 Status: Ordered traMADol 50 mg oral tablet 1 tablet = 50 mg, By Mouth, Every 6 hours, PRN for pain, TAKE ONLY NEEDED Dx: M79.7, S92.91 Masspat checked, # 112 tablet, 0 Refills, Maintenance, 05/28/22 7:34:00 EDT, Tablet, [facility]/pharmacy #[id number],Please reinforce instructions with patient, she h... Start Date: 05/28/22 Stop Date: 06/25/22 Status: Ordered Victoza 18 mg/3 mL subcutaneous solution = 0.6 mg, Subcutaneous Injection, Daily, # 6 mL, 3 Refills, Maintenance, 10/16/21 15:56:00 EDT, Injection, [facility]/pharmacy #[id number], dispense as pen, 163, cm, 10/16/21 14:49:00 EDT, Height Start Date: 10/16/21 Status: Ordered Vitamin D3 50,000 intl units oral capsule 1 capsule, By Mouth, Every week, # 12 capsule, 0 Refills, [facility], 163, cm, 09/13/21 9:15:00 EDT, Height Start Date: 09/18/21 Status: Ordered Voltaren 1% topical gel 1 application, Topically, 4 times a day, PRN for pain, # 100 Gm, 0 Refills, Maintenance, 05/27/21 18:00:00 EDT, Gel, [facility]/pharmacy #[id number], Partial fill upon patient request [...] [place] Back Pain Scale:88 on 01/13/17; initial [place]: 7 on 01/13/17 Social History Social History Type Response Smoking Status Former smoker, quit more than 30 days ago; Other: quit 3 years, smoked for 10yrs, 1 ppd; entered on: 05/29/22 Sex Patient Care team information Care Team Personnel Name: Ernesto King MD Position: [facility] Primary Care Physician Member Role: PCP Address: Address: [address] [place] [address] Name: Kathrine Luna MD Position: [facility] TRAFFIC SIGNAL TECHNICIAN MD Member Role: Lifetime TRAFFIC SIGNAL TECHNICIAN Physician Address: Address: [address] [place] [address] Women's Health Aircraft Maintenance Supervisor [address] Name: Kathya Grullon RN Position: [facility] RN Member Role: Primary Care Nurse Care Team Related Persons Name: LYN LEIGH Address: [place] [address] Name: MADDIE LEIGH
[2022-06-12] MEDS: Magnesium Oxide 400 MG TABLET 800 MG PO (17:18)
--- OUTSIDE RECORDS SUMMARY | 2022-06-12 17:18 | XMS_ITS | Continuity of Care Document ---
Author Name Unknown Organization [facility] Address [address] [place] [address]- Care Team Providers Care Pin Drafter Name Role Phone Ernesto King MD Primary Care Physician [place] [facility] [place] - 06/05/22 [facility] [address] [place] [address]- Encounter Diagnosis Diabetes mellitus with microalbuminuria(Discharge Diagnosis) - 05/29/22 Diabetic neuropathy(Discharge Diagnosis) - 05/29/22 Severe obesity (BMI 35.0-39.9) with comorbidity(Discharge Diagnosis) - 05/29/22 Hypothyroidism(Discharge Diagnosis) - 05/29/22 Wheezing(Discharge Diagnosis) - 05/29/22 Chronic pain syndrome(Discharge Diagnosis) - 05/29/22 Attending Physician: Ernesto King MD Allergies, Adverse [...] tetanus/diphtheria/pertussis, acel(Tdap) 01/30/16 Given 1Result Comment: [facility]:[id number] 2Result Comment: [facility] 25202-232-99 3Result Comment: [11/30/2017] [facility] 81039-969-86 4Result Comment: [12/31/2016] [facility] 93446-155-10 5Admin Note: vis given 09/10/12 6Admin Note: VIS given 08/18/2011 7Result Comment: [12/31/2016] [facility] [id number] Medications albuterol 90 mcg/inh inhalation powder 2 puffs, Inhalation, Every 6 hours, PRN Wheezing/Shortness of Breath, # 1 each, 3 Refills, Maintenance, 11/22/21 17:17:00 EDT, Powder, [facility]/pharmacy #[id number], dispense pro-air, 2 puffs Inhalation Every 6hours,PRN:Wheezing/Shortness of Breath, 163, cm, 10... Start Date: 11/22/21 Status: Ordered albuterol-ipratropium 3 mg-0.5 mg/3 ml inhalation solution 3 mL, Neb, 4 times a day, J45.40, # 180 mL, 3 Refills, Maintenance, 11/22/21 17:17:00 EDT, Solution, [facility]/pharmacy #[id number], 3 mL Neb 4 times a day,Instr:J45.40, 163, cm, 11/22/21 15:30:00 EDT, Height Start Date: 11/22/21 Status: Ordered celecoxib 100 mg oral capsule 1 capsule, By Mouth, 2 times a day with meals, # 60 capsule, 1 Refills, Maintenance, 08/14/20 12:53:00 EDT, [id number], 163, cm, 07/31/20 9:10:00 EDT, Height, 98.9, [...] 3 Refills, Maintenance, 02/29/20 14:04:00 EST, Aerosol, [facility] #[id number], 163, cm, 02/29/20 13:19:00 EST, Height, 98.9, [...] 06/03/22 22:45:00 EDT, Route to Pharmacy Electronically, [facility]/pharmacy #[id number], 163, cm, 05/29/22 8:57:00 EDT,Height Start Date: 06/03/22 Stop Date: 08/02/22 Status: Ordered levothyroxine 175 mcg (0.175 mg) oral tablet 1 tablet, By Mouth, Daily, # 90 tablet, 0 Refills, Maintenance, 06/05/22 16:54:00 EDT, [facility], 163, cm, 05/29/22 8:57:00 EDT, Height Start Date: 06/05/22 Status: Ordered loratadine 10 mg oral tablet 10 mg, 1, tablet, By Mouth, Daily, # 30 tablet, Refills 6, Tot. Refills 6, Maintenance, 11/28/19 8:53:00 EDT, Route to Pharmacy Electronically, [facility]/pharmacy #[id number], 163, cm, 11/25/19 14:43:00 EDT, Height, 98.9, kg, 08/25/19 12:42:00 EDT, Dry Weight Start Date: 11/28/19 Status: Ordered metFORMIN 500 mg oral tablet 1 tablet = 500 mg, By Mouth, 2 times a day, # 60 tablet, 5 Refills, Maintenance, 02/19/21 8:58:00 EST, [facility]/pharmacy #[id number], 163, cm, 02/18/21 [...] each, 1 Refills, Maintenance, 08/25/19 15:03:00 EDT, [facility]/pharmacy#[id number], 2 sprays Nares, Both Daily, 163, cm, 08/25/19 12:40:00 EDT, Height, 98.9, kg, 08/25/19 12:42:00 EDT, Dry Weight Start Date: 08/25/19 Status: Ordered Nasonex 50 mcg/inh nasal spray 2 sprays, Nares, Both, 2 times a day, # 17 Gm, 0 Refills, Maintenance, 12/04/21 11:58:00 EDT, [place], [facility]/pharmacy #[id number], 2 sprays Nares, [...] 07/31/20 9:07:00 EDT, Route to Pharmacy Electronically, [facility] #[id number], Partial fill upon patient request if the prescription is for a sched... Start Date: 07/31/20 Status: Ordered PriLOSEC OTC 20 mg oral delayed release tablet 1 tablet = 20 mg, By Mouth, Daily, # 30 tablet, 2 Refills, Maintenance, 12/04/21 11:57:00 EDT, [facility]/pharmacy #[id number], 163, cm, 12/04/21 11:37:00 [...] 04/12/21 12:13:00 EST, Route to Pharmacy Electronically, [facility]/pharmacy #[id number], 163, cm, 03/07/21 11:34:00 EST,... Start Date: 04/12/21 Status: Ordered traMADol 50 mg oral tablet 1 tablet = 50 mg, By Mouth, Every 6 hours, PRN for pain, TAKE ONLY NEEDED Dx: M79.7, S92.91 Masspat checked, # 112 tablet, 0 Refills, Maintenance, 05/28/22 7:34:00 EDT, Tablet, [facility]/pharmacy #[id number],Please reinforce instructions with patient, she [...] Every week, # 12 capsule, 0 Refills, [id number], 163, cm, 09/13/21 9:15:00 EDT, Height Start Date: 09/18/21 Status: Ordered Voltaren 1% topical gel 1 application, Topically, 4 times a day, PRN for pain, # 100 Gm, 0 Refills, Maintenance, 05/27/21 18:00:00 EDT, [facility], [id number], Partial fill upon patient request if the [...] [place] Back Pain Scale:88 on 01/13/17; initial [place]: 7 on 01/13/17 Diagnosis Diagnosis Type Effective Dates Health Status Clinical Service Informant Diabetes mellitus with microalbuminuria Discharge Diagnosis 05/29/22 Diabetic neuropathy Discharge Diagnosis 05/29/22 Severe obesity (BMI 35.0-39.9) with comorbidity Discharge Diagnosis 05/29/22 Hypothyroidism Discharge Diagnosis 05/29/22 Wheezing Discharge Diagnosis 05/29/22 Chronic pain syndrome Discharge Diagnosis 05/29/22 Vital Signs Most recent to oldest [Reference Range]: 1 Height 163 cm (05/29/22 8:57 AM) Weight 99.9 kg (05/29/22 8:57 AM) Oxygen Saturation [94-100 %] 98 % (05/29/22 8:57 AM) Pulse Rate [55-90 bpm] 71 bpm (05/29/22 8:57 AM) Body Mass Index [18.5-24.99 kg/m2] 37.6 kg/m2 *>HHI* (05/29/22 8:57 AM) Blood Pressure [90-138/55-84 mm Hg] 118/ 82mm Hg (05/29/22 8:57 AM) Respiratory Rate [16-30 br/min] 16 br/mi n (05/29/22 8:57 AM) Blood pressure sites Arm, left (05/29/22 8:57 AM) Weight Obtained Via Standing scale (05/29/22 8:57 AM) Social History Social History Type Response Smoking Status Former smoker, quit more than 30 days ago; Other: quit 3 years, smoked for 10yrs, 1 ppd; entered on: 05/29/22 Sex Patient Care team information Care Team Personnel Name: Ernesto King MD Position: [facility] Primary Care Physician Member Role: PCP Address: Address: [address] [place] [address] Name: Jeremy CARTY, Kathrine Victoria Position: [facility] BLOOD SPLATTER ANALYST MD Member Role: Lifetime BLOOD SPLATTER ANALYST Physician Address: Address: [address] [place] [address] Women's Health Industrial Relations Counselor - [address] Name: Kathya Grullon RN Position: [facility] RN Member Role: Primary Care Nurse Care Team Related Persons Name: LYN LEIGH Address: [place] [address] Name: MADDIE LEIGH
[2022-06-12] MEDS: NaPROXEN 500 MG TABLET PO (17:19)
== END 2022-06-12 17:46 | disposition home or self-care (01) ==
PROVIDERS: Physician Assistant; Emergency Provider Student in an Organized Health Care Education/Training Program; PCP Family Medicine
DX: R07.89 Other chest pain (principal); R06.02 Shortness of breath; Z79.899 Other long term (current) drug therapy
CPT/HCPCS: 36415; 71045; 80053; 81003; 83735; 83880; 84484; 85025; 85379; 93005; 99284

== ENCOUNTER 2023-04-29 19:20 | Emergency (ER) | payer OTHER, SELFPAY ==
[2023-04-29 20:00] VITALS: BP 133/76; PULSE 84; RESP 17; TEMP 36.7; O2SAT 98; BMI 32.6
--- NOTE | 2023-04-29 20:03 | ED.GENADULT ---
HPI - General Adult General Chief complaint: Neck Pain/Injury Stated complaint: headache x1 month Time Seen by Provider: 04/29/23 20:04 Source: patient Mode of arrival: ambulatory Limitations: no limitations History of Present Illness HPI narrative: Patient is a 62 year old assigned female at with a history of DM presenting to the emergency department today with right sided neck, shoulder, and head pain. Patient states that over the last month she has had pain that radiates from her neck up into her head and into her right shoulder. Patient denies any dizziness, lightheadedness, abdominal pain, nausea, vomiting, fever, chills, blurry vision, double vision, loss of vision, chest pain, difficulty breathing, shortness of breath, back pain, night sweats, pain with urination, increased urinary frequency, increased urinary urgency, blood in her urine or stool, syncope or a near syncopal episode, recent trauma or falls, bowel incontinence, bladder incontinence, bowel retention, bladder retention, or any other complaints at this time. Onset (ago): month(s) (1) Location: head, neck, right and upper extremity (shoulder) Severity: mild Severity scale (1-10): 3 Quality: aching Pain Consistency: constant Relieving factors: none Exacerbating factors: none Associated symptoms: denies other symptoms Treatments prior to arrival: none Related Data Home Medications Medication Instructions Recorded Confirmed gabapentin 300 mg capsule 600 mg PO TID 06/03/22 levothyroxine 175 mcg tablet 175 mcg PO DAILY@0600 06/03/22 06/03/22 tramadol 50 mg tablet 50 mg PO Q6H PRN pain 06/03/22 06/03/22 Previous Rx's Medication Instructions Recorded albuterol sulfate 0.63 mg/3 mL 0.63 mg (3 mL) inhalation QID PRN 11/05/20 solution for nebulization shortness of breath or wheezing #75 mL albuterol sulfate 90 mcg/actuation 1 inh inhalation QID PRN shortness 11/05/20 aerosol inhaler of breath or wheezing #8.5 grams nebulizers (AeroEclipse II #1 ea 11/05/20 Nebulizer) cefuroxime axetil 500 mg tablet 500 mg PO BID 4 days #8 tabs 06/06/22 doxycycline hyclate 100 mg tablet 100 mg PO BID 4 days #8 tabs 06/06/22 prednisone 20 mg tablet 40 mg (2 x 20 mg) PO DAILY 5 days 06/06/22 #10 tabs lidocaine 5 % topical patch 1 patch topical DAILY PRN pain #30 06/12/22 (Lidoderm) ea naproxen 500 mg tablet 500 mg PO BID PRN pain 10 days #20 06/12/22 tabs cyclobenzaprine 5 mg tablet 5 mg PO TID PRN muscle spasm 7 04/29/23 days #21 tabs Allergies Allergy/AdvReac Type Severity Reaction Status Date / Time No Known Allergies Allergy Verified 04/29/23 19:59 Review of Systems Constitutional: Constitutional: Reports no additional constitutional complaints, Denies chills, Denies fever(s) and Denies night sweats Eyes: Eyes: Reports no additional eye complaints, Denies blurry vision, Denies change in vision, Denies diplopia, Denies eye discharge, Denies loss of vision and Denies eye pain ENT: Denies dizziness Comments: right sided neck pain Cardiovascular: Cardiovascular: Reports no additional cardiovascular complaints, Denies chest pain, Denies lightheadedness, Denies Loss of Consciousness and Denies dyspnea Respiratory: Respiratory: Reports no additional respiratory complaints and Denies dyspnea Gastrointestinal: Gastrointestinal: Reports no additional gastrointestinal complaints, Denies abdominal pain, Denies melena, Denies hematochezia, Denies change in bowel habits and Denies change in stool character Genitourinary: Genitourinary: Denies hematuria, Denies urinary frequency, Denies dysuria, Denies urinary incontinence, Denies urinary hesitancy and Denies urinary urgency Musculoskeletal: Musculoskeletal: Reports no additional musculoskeletal complaints, Denies numbness and Denies tingling Comments: right sided shoulder and head pain Neurologic: Denies dizziness, Denies loss of vision, Denies numbness and Denies tingling Psychiatric: Psychiatric: Reports no additional psychiatric complaints Endocrine: Endocrine: Reports no additional endocrine complaints Hematologic/Lymphatic: Hematologic/Lymphatic: Reports no additional hematologic/lymphatic complaints Allergic/Immunologic: Allergic/Immunologic: Reports no additional allergic/immunologic complaints PMFSH Past Medical History Attestation statement: The following information was validated with the patient. Source: old records reviewed and nursing notes reviewed Medical History Hyperbilirubinemia Mixed anxiety and depressive disorder Former smoker History of crack cocaine use Chronic pain syndrome Hypothyroidism Moderate persistent asthma Type 2 diabetes mellitus Diabetes mellitus with microalbuminuria Diabetic polyneuropathy Vitamin D deficiency Breast CA Arthritis Fibromyalgia Asthma Surgical History Status post left breast lumpectomy S/P cholecystectomy History of surgery on arm Social History Social History Household Members: None Housing: Apartment Do you presently have visiting nurse or other home services: No Alcohol intake: never Patient Tobacco Use Status: Former Tobacco user Tobacco use type: Cigarette Advance Directives: No Advance Directives Information Provided: No service: No Current occupational status: disabled Physical Exam ED Vital Signs: Vital Signs - 24 hr 04/29/23 20:00 Temperature 98.0 F Pulse Rate 84 Respiratory Rate 17 Blood Pressure 133/76 Pulse Oximetry 98 Oxygen Delivery Method Room Air BMI result Body Mass Index 32.6 Const General: cooperative, no acute distress, alert and awake Nutritional Appearance: well nourished Orientation/consciousness: patient oriented x3 Limitations: no limitations HENMT Head: Yes normal to inspection and Yes atraumatic Ears: hearing grossly normal bilaterally and external ears normal General nose exam: Normal external nose present, no nasal discharge noted and no epistaxis Face and sinus: Yes normal facial exam, No abrasion and No laceration Mouth: Normal oral and palatal mucosa present, no drooling and no muffled voice Eyes General: appearance normal, both eyes and all related structures Periorbital: periorbital findings normal Eyelids: Yes eyelids normal Conjunctivae: conjunctivae normal Pupils: Equal, round and reactive pupils present EOM: EOMs intact bilaterally Neck Neck: Yes normal visual inspection, Yes full ROM and Yes no lymphadenopathy Chest Chest palpation & inspection: normal inspection of the chest Resp Effort & Inspection: normal respiratory effort and able to speak in complete sentences GI Inspection: Yes normal to inspection Neuro General: patient oriented x3 and moves all extremities Cranial nerves: Yes Equal, round and reactive pupils present Cognition (Neuro): normal cognition Motor exam (neuro): 5/5 motor strength present throughout Sensory Exam: Normal double simultaneous stimulation for sensation Coordination: [id number] test normal Extrem General: Yes normal to inspection, Yes full ROM and Yes capillary refill normal Psych Appearance: grossly normal Mental Status: mental status grossly normal Affect: normal affect Attitude: cooperative Thought process: Normal thought process present Thought content: Normal thought content present Insight: Good insight present (Psych) Medical Decision Making Medical Decision Making MDM Narrative: Patient is a 62 year old assigned female at with a history of DM presenting to the emergency department today with right sided shoulder, neck, and head pain. Patient's physical exam was unremarkable. I explained my physical exam findings to the patient. I answered all questions asked by the patient. I stressed the importance of the patient taking her medication as prescribed. I stressed the importance of the patient following up with her primary care provider. I stressed the importance of the patient returning to the emergency department immediately if her symptoms were to worsen or if she were to develop any dizziness, shortness of breath, difficulty breathing, chest pain, blurry vision, loss of vision, nausea, vomiting, abdominal pain, fever, chills, back pain, or any other complaints. Patient verbalized agreement and understanding with this treatment plan and discharge. Differential Diagnosis Differential Diagnoses: The differential diagnosis associated with the presentation includes Cervical radiculopathy Muscle spasm Cervical strain Admission/Observation Consideration of admission/observation: Escalation of care including admission/observation considered Patient would have been admitted to the hospital had her clinical presentation warranted hospital admission. Tests considered The following testing was considered but not selected: CBC, CMP, EKG, troponin, chest x-ray, CT head, and CT c-spine were all considered however, given the patient's current clinical presentation, these tests were not warranted. I discussed this with the patient who verbalized agreement and understanding. Prescription Management I considered prescription management with: Pain Medication (patient prescribed pain medication) Chronic Conditions Patient?s care impacted by: Diabetes Discharge Plan Discharge Clinical Impression: Cervical radiculopathy Patient Disposition: Home, Self-Care Instructions: Cervical Radiculopathy (ED) Additional Instructions: Follow up with your primary care provider. Return to the emergency department immediately if your symptoms worsen or if you develop any dizziness, shortness of breath, difficulty breathing, chest pain, blurry vision, loss of vision, nausea, vomiting, abdominal pain, fever, chills, back pain, or any other complaints. Prescriptions: New cyclobenzaprine 5 mg tablet 5 mg PO TID PRN (Reason: muscle spasm) 7 Days Qty: 21 0RF No Action albuterol sulfate 0.63 mg/3 mL solution for nebulization 0.63 mg inhalation QID PRN (Reason: shortness of breath or wheezing) Qty: 75 0RF (DME) AeroEclipse II Nebulizer Misc See Rx Instructions .ROUTE .MEDSUPPLY Qty: 1 0RF Rx Instructions: As directed albuterol sulfate 90 mcg/actuation HFA aerosol inhaler 1 inh inhalation QID PRN (Reason: shortness of breath or wheezing) Qty: 8.5 0RF lidocaine [Lidoderm] 5 % adhesive patch,medicated 1 patch topical DAILY MDD remove after 12 hours PRN (Reason: pain) Qty: 30 0RF Rx Instructions: leave on most painful area for up to 12 hrs naproxen 500 mg tablet 500 mg PO BID PRN (Reason: pain) 10 Days Qty: 20 0RF levothyroxine 175 mcg tablet 175 mcg PO DAILY@0600 tramadol 50 mg tablet 50 mg PO Q6H PRN (Reason: pain) gabapentin 300 mg capsule 600 mg PO TID prednisone 20 mg tablet 40 mg PO DAILY 5 Days Qty: 10 0RF cefuroxime axetil 500 mg tablet 500 mg PO BID 4 Days Qty: 8 0RF doxycycline hyclate 100 mg tablet 100 mg PO BID 4 Days Qty: 8 0RF Referrals: Ernesto King MD [Primary Care Provider] - Interventions: ED Discharge Assessment Last Done: 04/29/23 20:16 Discharge Date/Time: 04/29/23 20:17 Print Language: Maldivian
== END 2023-04-29 20:17 | disposition home or self-care (01) ==
PROVIDERS: Emergency Provider Emergency Medicine; PCP Family Medicine
DX: M54.12 Radiculopathy, cervical region (principal); Z87.891 Personal history of nicotine dependence
CPT/HCPCS: 99282; 99283

== ENCOUNTER 2024-12-16 08:46 | Emergency (ER) | payer OTHER, SELFPAY ==
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
[2024-12-16 08:59] VITALS: BP 118/60; BP 149/90; PULSE 100; PULSE 77; RESP 18; TEMP 36.7; O2SAT 98; BMI 33.7
[2024-12-16] MEDS: Lidocaine 4 % Patch ADH..PATCH 1 PATCH TRANSDERMA (09:27)
[2024-12-16 09:36] VITALS: BP 149/90; PULSE 77; RESP 18; TEMP 36.7; O2SAT 98
--- OUTSIDE RECORDS SUMMARY | 2024-12-16 10:05 | XMS_ITS | Clinical Summary ---
Author Organization [facility] Address [address] [place] [id number] Phone Care Team Providers Care Data Entry Technician Name Role Phone Ernesto King MD Primary Care Provide r Allergies No known active allergies Medications traMADol (ULTRAM) 50 mg tablet Orally as needed Active ALBUTEROL INHL Activ e FLUTICASONE PROPIONATE (FLOVENT HFA INHL) Active gabapentin (NEURONTIN) 300 MG capsule Take 2 capsules by mouth 3 (three) times a day. Active Social History Tobacco Use Types Packs/Day Years Used Date Smoking Tobacco: Never Assessed Education Answer Date Recorded Are you interested in more education? Not on joseline e 06/12/2022 Are you concerned about learning? Not on file 06/12/2022 No 06/12/2022 No 06/12/2022 Digital Access Answer Date Recorded No 07/12/2022 No 07/12/2022 Reliable internet access at home? Not on file 07/12/2022 Device with a working camera? Not on file Comments Unknown Sex and Gender Information Value Date Recorded Sex Assigned at Female 04/30/2020 12:28 PM EDT Legal Sex Female 9:50 PM EDT Gender Identity Not on file Sexual Orientation Not on file Last Filed Vital Signs Vital Sign Reading Time Taken Comments Blood Pressure 124/87 04/30/2020 12:31 PM EDT Pulse 79 04/30/2020 12:31 PM EDT Temperature 36.6 C (97.9 F) 04/30/2020 12:23 PM EDT Respiratory Rate 18 04/30/2020 12:31 PM EDT Oxygen Saturation 98% 04/30/2020 12:23 PM EDT Inhaled Oxygen Concentration - - Weight 79.4 kg (175 lb) 04/30/2020 12:30 PM EDT Height 160 cm (5' 3 ) 04/30/2020 12:30 PM EDT Body Mass Index 31 04/30/2020 12:30 PM EDT Plan of Treatment Health Maintenance Due Date Last Done Comments Adult Td,Tdap Booster 1958 LIPID PANEL 1958 DEPRESSION SCREENING 1970 SMOKING Hx and SMOKELESS TOBACCO SCREENING 06/12/1971 HEPATITIS C SCREENING 1976 MAMMOGRAM 1998 COLOGUARD 06/12/2003 COLONOSCOPY 06/12/2003 COLORECTAL CANCER SCREENING 06/12/2003 FIT TEST 06/12/2003 FOBT 06/12/2003 SIGMOIDOSCOPY 06/12/2003 VIRTUAL COLONOSCOPY 06/12/2003 PNEUMOCOCCAL VACCINES (50+ years) (1 of 1 - PCV) 2008 ZOSTER VACCINES (1 of 2) 2008 OSTEOPOROSIS SCREENING INITI AL (ONE-TIME) 06/12/2023 INFLUENZA VACCINE (#1) 2024 12/14/2020 COVID-19 VACCINE (3 - 2024-2 6 season) 2024 07/11/2020, 06/06/2020 RSV VACCINE (1 - 1-dose 75+ series) 2033 HEPATITIS A VACCINES Aged Out No long er eligible based on patient's age to complete this topic HIB VACCINES Aged Out No longer eligi ble based on patient's age to complete this topic MENINGOCOCCAL VACCINES (ACWY) Aged Out No longer eligible based on patient's age to complete this topic MENINGOCOCCAL VACCINES (B) Aged Out N o longer eligible based on patient's age to complete this topic Medical Devices Not on file Insurance [employer] MEDICARE PART A & B [facility] REPLAC[facility] MEDICARE PART A & B [employer] PPO MEDICARE RE[facility]AC[facility] PART A & [facility] PART [facility] & [facility] & [facility] RE[facility] MEDICARE PART A & B [employer] PPO MEDICARE REPLACEMENT Care Teams Data Entry Technician Relationship Specialty Start Date End Date Ernesto King MD [id number] [id number] PCP - General Family Medicine 04/30/20 Additional Source Comments The information contained in this document represents components of the legal health record. It is not the complete legal health record.[facility]
--- OUTSIDE RECORDS SUMMARY | 2024-12-16 10:05 | XMS_ITS | Clinical Summary ---
Author Organization [employer] Address [address] [address] [place] [address] Care Team Providers Care Prepress Manager Name Role Phone Unavailable Primary Care Provider Unavailabl e Immunizations Immunization Administration Dates Next Due Influenza, IIV3, injectable 11/22/2021,1 ,11/25/2019,2018,11/30/2017,12/31/2016,11/30/2015,0 11/11/2013,11/01/2012,12/30/2011 Moderna Covid-19 Vaccine 12+ 07/11/2020,06/07/19 21 Moderna Covid-19 Vaccine 6+ Bivalent 04/03/2022 Pneumococcal Polysaccharide PPSV23 12/31/2016 Tdap 01/30/2016 Social History Tobacco Use Types Packs/Day Years Used Date Smoking Tobacco: Never Assessed Comments Unknown Sex and Gender Information Value Date Recorded Sex Assigned at Female 12/16/2021 10:14 AM EDT Legal Sex Female 10:14 AM EDT Gender Identity Female 12/16/2021 10:14 AM EDT Sexual Orientation Straight 12/16/2021 10 :14 AM EDT Plan of Treatment Health Maintenance Due Date Last Done Comments CT Colonography 1958 Colonoscopy 1958 Colorectal Cancer Screening 1958 Depression Screening 1958 FIT DNA/Cologuard 1958 FIT 1958 FOBT 1958 Lipid Panel 1958 SDOH Screening 1958 Sigmoidoscopy 1958 Alcohol/Substance Use Screening 1970 Tobacco Screening 1970 Hepatitis C Screening 1976 Mammogram 1998 Zoster Vaccines (1 of 2) 2008 Pneumococcal Vaccine: 50+ Years (2 of 2 - PCV) 12/31/2017 12/31/2016 RSV Patients and Patients Aged 60 years or older (1 - Risk 60-74 years 1-dose series) 2018 COVID-19 Vaccine ( season) 2024 11/25/2023, 04/03/2022, 03/27/2021, Additional history exists Influenza Vaccine (#1) 2024 , 11/25/2023, 11/12/2022, Additional history exists DTaP/Tdap/Td Vaccines (2 - Td or Tdap) 01/29/2026 01/30/2016 HIB Vaccines Aged Out No longer eligi ble based on patient's age to complete this topic HPV Vaccines Aged Out No longer eligi ble based on patient's age to complete this topic Hepatitis A Vaccines Aged Out No long er eligible based on patient's age to complete this topic Hepatitis B Vaccines Aged Out No long er eligible based on patient's age to complete this topic IPV Vaccines Aged Out No longer eligi ble based on patient's age to complete this topic Meningococcal B Vaccine Aged Out No l onger eligible based on patient's age to complete this topic Meningococcal Vaccine Aged Out No marilyn randall eligible based on patient's age to complete this topic RSV under 20 months Aged Out No longe r eligible based on patient's age to complete this topic Rotavirus Vaccines Aged Out No longer eligible based on patient's age to complete this topic Insurance [email or web address] STANDARD
== END 2024-12-16 09:36 | disposition home or self-care (01) ==
PROVIDERS: Emergency Provider Emergency Medicine; PCP Family Medicine
DX: S13.4XXA Sprain of ligaments of cervical spine, initial encounter (principal); V43.52XA Car driver injured in collision with other type car in traffic accident, initial encounter; Y93.9 Activity, unspecified; Y92.9 Unspecified place or not applicable; Y99.9 Unspecified external cause status
CPT/HCPCS: 96372; 99284; J1885